=== PATIENT | male | born 1940 | race Caucasian/White ===

== ENCOUNTER 2020-05-27 07:31 | Inpatient (IN) ==
--- NOTE | 2020-05-27 08:01 | Emergency Department Note ---
History of Present Illness General Chief complaint: Abdominal Pain Stated complaint: STOMACH ACHE STARTED A 1AM - VOMITING AT 5AM Time Seen by Provider: 05/27/20 07:44 Source: patient and family (Spouse who is at the bedside) Mode of arrival: ambulatory Limitations: no limitations History of Present Illness Maximum Pain Intensity: 0 This patient comes in after having epigastric abdominal pain since around 3:00 in the morning. At present he says he is just hungry and minimizes symptoms. He tells me his bowels have been moving as normal he did have some mild nausea but no vomiting. No blood or melena in his stool. Denies chest pain or shortness of breath. He denies any fall or trauma. He said no headache or change in mental status. No dysuria or hematuria. He points to the epigastric area where he was hurting and says his abdomen is normally distended but may be slightly more. He is on Eliquis. They recently stopped his amiodarone as his thyroid function and kidney function were elevated according to his . He is a diabetic. Home Medications Home Medications Medication Instructions Recorded Confirmed Type folic acid 1 mg PO QAM 09/06/19 05/27/20 History glipizide 10 mg PO BIDM 09/06/19 05/27/20 History latanoprost [Xalatan] 1 drp OPL HS 09/06/19 05/27/20 History metformin [Glucophage] 1,000 mg PO BIDM 09/06/19 05/27/20 History metoprolol tartrate 25 mg PO Q12 09/06/19 05/27/20 History multivitamin 1 tab PO QAM 09/06/19 05/27/20 History timolol maleate [Timoptic] 1 drp OPL BID 09/06/19 05/27/20 History apixaban [Eliquis] 5 mg PO BID 10/04/19 05/27/20 History finasteride 5 mg PO QAM 10/04/19 05/27/20 History hydrochlorothiazide 12.5 mg PO MOWEFR@0800 05/27/20 05/27/20 History levothyroxine 75 mcg PO DAILY 05/27/20 05/27/20 History omeprazole 40 mg PO DAILY 05/27/20 05/27/20 History prednisone 20 mg PO .TAPER 05/27/20 05/27/20 History wheat dextrin [Benefiber Clear SF 1 packet PO QAM 05/27/20 05/27/20 History (dextrin)] Allergies Allergy/AdvReac Type Severity Reaction Status Date / Time amoxicillin Allergy Unknown hives Verified 05/27/20 08:41 cephalexin Allergy Unknown rash Verified 05/27/20 08:41 Sulfa (Sulfonamide Allergy Unknown hives Verified 05/27/20 08:41 Antibiotics) verapamil Allergy Unknown hives Verified 05/27/20 08:41 Past Med/Surg History Medical History (Updated 05/27/20 @ 10:21 by Selin Wyman PA-C) BPH (benign prostatic hyperplasia) CAD (coronary artery disease) CKD (chronic kidney disease), stage III Diabetes mellitus, type II GERD (gastroesophageal reflux disease) History of pulmonary embolism HTN (hypertension) Hypothyroidism PAF (paroxysmal atrial fibrillation) Pulmonary embolism Skull fracture Surgical History (Updated 05/27/20 @ 09:48 by Jake Bradley DO, FACS) History of partial surgical removal of colon Hx of cervical spine surgery Family History (Updated 05/27/20 @ 10:14 by Selin Wyman PA-C) Other Cancer Social History (Updated 05/27/20 @ 10:14 by Selin Wyman PA-C) Preferred Language: Kenyan Communication Ability: Effective Procurement Manager Required: No Beliefs That Will Affect Care: None marital status: Current Living Situation: Spouse current occupational status: retired Feels Safe at Home: Yes Smoking Status: Never smoker Hx Alcohol Use: No Hx Substance Use: No Immunizations: Additional past medical history: His tells me at the end of last year he suffered a fall and had a brain hemorrhage and cervical spine fracture. He has had no recent issues with either 1 of these and actually saw his neurologist on Thursday as he has had some chronic memory issues since the fall but nothing acute Review of Systems A total of 10 systems reviewed and were otherwise negative Physical Exam Vital Signs Vital Signs - 24 hr 05/27/20 07:37 05/27/20 08:08 05/27/20 09:00 Temperature 36.6 C Temperature Source Oral Pulse Rate 58 L Pulse Rate [Apical] 52 L Respiratory Rate 18 16 Respiratory Effort / Characteristics Non-Labored Respiratory Depth Normal Blood Pressure 180/88 H Blood Pressure [Left Arm] 173/89 H Blood Pressure Mean 118 Blood Pressure Mean [Left Arm] 117 Pulse Oximetry 95 Oxygen Delivery Method Room Air Room Air Sepsis Recent Fever Within 48 Hours No Sepsis New/Unexplained Change in Mental Status No Sepsis Action Taken by Nursing No Action Required General: Well developed well nourished older male who in no acute distress, breathing comfortably on room air. Normal speech HEENT: Normal cephalic atraumatic. Pupils are equal round and reactive to lig ht. Extraocular movements are intact. Oropharynx is pink with moist mucous membranes. No swelling of the mouth lips or tongue. Neck: Supple with a midline trachea. No meningeal signs or stiffness, no JVD or bruits. No Stridor. Chest: Clear to auscultation bilaterally. No wheezes or rhonchi. No increased work of breathing. Heart: Regular rate and rhythm without murmurs or gallops. Abdomen: Soft nontender. He does appear to be distended but says that similar to baseline. No rebound guarding or rigidity. Extremities: No cyanosis clubbing or edema. No calf tenderness or assymetry Spine/Back. Non tender to palpation. No CVA tenderness Skin: Good turgor without rashes. Neurologic exam: Cranial nerves two through 12 are intact. Motor and sensation are intact and symmetrical throughout. Course Administered Medications Discontinued Medications Sodium Chloride (Nss 1000ml) 500 mls @ 999 mls/hr IV .Q31M ONE Stop: 05/27/20 09:00 Last Infusion: 05/27/20 09:20 Dose: 0 mls/hr Documented by: [id number] Admin: 05/27/20 08:43 Dose: 999 mls/hr Documented by: [id number] Medical Decision Making Differential Diagnosis Includes but is not limited to: Bowel obstruction, constipation, pancreatitis, gallbladder disease, cardiac disease, infection, electrolyte or metabolic abnormalities Medical Records Attestation: I reviewed the patient's medical records. Home Medications Current Medication List: was personally reviewed by me Laboratory Data Attestation: I reviewed the patient's lab results. Result diagrams: 05/27/20 08:00 05/27/20 08:00 Lab Results 05/27/20 05/27/20 05/27/20 Range/Units 08:00 08:00 08:00 WBC 10.82 H (4.8-10.8) K/uL RBC 4.97 (4.7-6.1) M/uL Hgb 15.7 (14.0-18.0) g/dL Hct 44.8 (42-52) % MCV 90.1 (80-100) fL MCH 31.6 (25-34) pg MCHC 35.0 (32-36) g/dL RDW Std Deviation 43.4 (36.4-46.3) fL RDW Coeff of Janny 13.3 (11.5-14.5) % Plt Count 216 (130-400) K/uL MPV 9.8 (7.4-10.4) fL Immature Gran % (Auto) 0.3 % Neut % (Auto) 76.0 % Lymph % (Auto) 12.4 % [place] % (Auto) 11.2 % Eos % (Auto) 0.1 % Baso % (Auto) 0.0 % Neut # (Auto) 8.23 H (1.4-6.5) K/uL Lymph # (Auto) 1.34 (1.2-3.4) K/uL [place] # (Auto) 1.21 H (0.11-0.59) K/uL Eos # (Auto) 0.01 (0-0.5) K/uL Baso # (Auto) 0.00 (0-0.2) K/uL Immature Gran # (Auto) 0.03 H (0.00-0.02) K/uL PT 11.8 (9.0-12.0) Seconds INR 1.1 (0.9-1.1) APTT 26.5 (21.0-31.0) Seconds PTT Ratio 0.9 Sodium 130 L (136-145) mmol/L Potassium 4.3 (3.5-5.1) mmol/L Chloride 93 L (98-107) mmol/L Carbon Dioxide 30 (21-32) mmol/L Anion Gap 7.0 (3-11) BUN 29 H (7-18) mg/dl Creatinine 1.51 H (0.6-1.4) mg/dl Est Cr Clr Drug Dosing 42.4 ml/min Est GFR ( Amer) 49.8 Est GFR (Non-Af Amer) 43.0 BUN/Creatinine Ratio 19.3 (10-20) Glucose 244 H (70-99) mg/dl Calcium 10.3 H (8.5-10.1) mg/dl Total Bilirubin 1.1 H (0.2-1) mg/dl AST 10 L (15-37) U/L ALT 30 (12-78) U/L Alkaline Phosphatase 73 (45-117) U/L Troponin I < 0.015 (0-0.045) ng/ml Total Protein 7.7 (6.4-8.2) gm/dl Albumin 4.2 (3.4-5.0) gm/dl Globulin 3.5 (2.5-4.0) gm/dl Albumin/Globulin Ratio 1.2 (0.9-2) Lipase 57 L (73-393) U/L Procalcitonin (0-0.5) ng/ml 05/27/20 Range/Units 08:00 WBC (4.8-10.8) K/uL RBC (4.7-6.1) M/uL Hgb (14.0-18.0) g/dL Hct (42-52) % MCV (80-100) fL MCH (25-34) pg MCHC (32-36) g/dL RDW Std Deviation (36.4-46.3) fL RDW Coeff of Janny (11.5-14.5) % Plt Count (130-400) K/uL MPV (7.4-10.4) fL Immature Gran % (Auto) % Neut % (Auto) % Lymph % (Auto) % [place] % (Auto) % Eos % (Auto) % Baso % (Auto) % Neut # (Auto) (1.4-6.5) K/uL Lymph # (Auto) (1.2-3.4) K/uL [place] # (Auto) (0.11-0.59) K/uL Eos # (Auto) (0-0.5) K/uL Baso # (Auto) (0-0.2) K/uL Immature Gran # (Auto) (0.00-0.02) K/uL PT (9.0-12.0) Seconds INR (0.9-1.1) APTT (21.0-31.0) Seconds PTT Ratio Sodium (136-145) mmol/L Potassium (3.5-5.1) mmol/L Chloride (98-107) mmol/L Carbon Dioxide (21-32) mmol/L Anion Gap (3-11) BUN (7-18) mg/dl Creatinine (0.6-1.4) mg/dl Est Cr Clr Drug Dosing ml/min Est GFR ( Amer) Est GFR (Non-Af Amer) BUN/Creatinine Ratio (10-20) Glucose (70-99) mg/dl Calcium (8.5-10.1) mg/dl Total Bilirubin (0.2-1) mg/dl AST (15-37) U/L ALT (12-78) U/L Alkaline Phosphatase (45-117) U/L Troponin I (0-0.045) ng/ml Total Protein (6.4-8.2) gm/dl Albumin (3.4-5.0) gm/dl Globulin (2.5-4.0) gm/dl Albumin/Globulin Ratio (0.9-2) Lipase (73-393) U/L Procalcitonin < 0.05 (0-0.5) ng/ml Imaging Data Attestation: I personally reviewed and interpreted this imaging study as fo llows: My Impression: Chest x-ray: Cardiomegaly but no acute infiltrate, failure, pneumothorax seen Radiologist's Impression: XR chest 1V portable CLINICAL HISTORY: epigastric pain COMPARISON STUDY: 09/06/2019 FINDINGS: The heart is borderline enlarged. There is no failure. There is no focal pulmonary consolidation. There are no pleural effusions. Linear opacities at the left base are felt to be atelectatic. Postsurgical changes are present within the cervical spine.[ IMPRESSION: No active disease in the chest. CT SCAN OF THE ABDOMEN AND PELVIS WITHOUT CONTRAST CLINICAL HISTORY: epigastric abd pain, eval for obstruction COMPARISON STUDY: No previous studies for comparison. TECHNIQUE: CT scan of the abdomen and pelvis was performed from the lung bases to the proximal femurs. Images are reviewed in the axial, sagittal, and coronal planes. IV contrast was not administered for this examination. A dose lowering technique was utilized adhering to the principles of ALARA. CT DOSE: 475.29 mGy.cm FINDINGS: Lower chest: There are mild basilar atelectatic changes. The heart is enlarged. Liver: The unenhanced liver is normal in size, contour, and attenuation. There is no intrahepatic biliary ductal dilatation. Gallbladder: There is increased density of the gallbladder possibly representing sludge or milk of calcium. Spleen: Normal in size and attenuation. Pancreas: Unremarkable. Adrenal glands: Unremarkable. Kidneys: There are multiple large bilateral renal cysts. Cyst wall calc ifications are visualized in the left. The largest left renal cyst measures 8 cm. The largest right renal cyst measures 6 cm. There is a punctate upper pole right renal calculus. There are a few tiny cysts which exceed 1 attenuation and 1 nonspecific likely represent hyperdense cysts. Bowel: There are dilated fluid-filled small bowel loops with air-fluid levels. The distal small bowel is of normal caliber. The findings are indicative of a small bowel obstruction. There is no pneumatosis. There is no portal venous gas. There is minimal mesenteric edema. Peritoneum: There is trace free pelvic fluid. There is no free intraperitoneal air. There is a fat-containing umbilical hernia. Vasculature: The abdominal aorta is normal in course and caliber. Adenopathy: None. Pelvic viscera: The prostate is enlarged. Skeletal structures: There is L5 spondylolysis. There is a grade 1 spondylolisthesis of L5 and S1. There are multilevel degenerative changes within the cervical spine IMPRESSION: 1. Mid small bowel obstruction. No evidence of pneumatosis. No evidence of portal venous gas. ECG Data Attestation: I personally reviewed and interpreted this ECG as follows: Indication: + abdominal pain Rate (beats per minute): 53 Rhythm: + sinus bradycardia ECG Intervals/blocks: + Normal QRS, + Normal QT and + Normal NV ECG [place]: + Normal ECG ST segments: + Normal ST segments ECG Findings: + PVCs and + LVH Comparison ECG Date: from (09/06/2020-) Change: the following changes noted (normal sinus rhythm has now replaced A. fib) Blood Pressure Blood Pressure Findings: Elevated blood pressure Blood Pressure Disposition: elevated BP felt to be situational MDM Narrative This patient comes in as described above. He was having abdominal pain although at present really minimizes his symptoms and says he is just hungry. He does have very complex medical history and in light of this I did extensive work-up. His abdomen is not tender it does appear to be distended however he tells me t hat his baseline and may be just slightly increased. He has had no chest pain or shortness of breath. He said no recent illness or anything to suggest COVID peers had no exposure to COVID fever cough or flulike symptoms. IV access was established and he was placed on a snailer. EKG, chest x-ray, and multiple blood testing was obtained as well as urinalysis and culture. I also obtained a CAT scan of the abdomen and pelvis. He was reassessed frequently. EKG does not suggest acute coronary syndrome nor do his symptoms of troponin is also negative. Chest x-ray was clear and does not show congestive heart failure, pneumonia, or pneumothorax. He does have a mildly elevated white count but does not have a fever. He is not anemic. He does have some baseline renal insufficiency which is in the same range. His sodium is mildly low at 130 however last time it was 128 so that seems to be chronic as well. He has no evidence suggest pancreatitis or hepatitis or gallbladder disease either by labs or CAT scan. He was given IV normal saline bolus 500 [address]. CAT scan does show mild small bowel obstruction. He was reassessed. I do think he needs to be admitted for bowel rest and hydration. Dr Jensen is his primary doctor and I have consulted the [facility] to see him for these measures. I did talk to Dr. Rm and she requested that I talked with surgery as well I talked to Harpal Marte Continuous cardiac monitoring: An order was placed for continuous cardiac monitoring. The patient was noted to be in sinus bradycardia with a rate of 58. 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
[2020-05-27 08:13] LABS: Eosinophils # (auto) 0.01 K/uL (0-0.5); Eosinophils % (auto) 0.1 %; Hematocrit (blood only) 44.8 % (42-52); Hemoglobin 15.7 g/dL (14.0-18.0); Immature Granulocytes # (auto) 0.03 K/uL (0.00-0.02); Immature Granulocytes % (auto) 0.3 %; Lymphocytes # (auto) 1.34 K/uL (1.2-3.4); Lymphocytes % (auto) 12.4 %; Mean Corpuscular Hemoglobin 31.6 pg (25-34); Mean Corpuscular Volume 90.1 fL (80-100); Mean Platelet Volume 9.8 fL (7.4-10.4); Monocytes # (auto) 1.21 K/uL (0.11-0.59); Monocytes % (auto) 11.2 %; Neutrophils # (auto) 8.23 K/uL (1.4-6.5); Platelet Count 216 K/uL (130-400); RDW Coefficient of Variation 13.3 % (11.5-14.5); RDW Standard Deviation 43.4 fL (36.4-46.3); Red Blood Count 4.97 M/uL (4.7-6.1); White Blood Count 10.82 K/uL (4.8-10.8)
[2020-05-27 08:23] LABS: INR 1.1 (0.9-1.1); Partial Thromboplastin Ratio 0.9; Partial Thromboplastin Time 26.5 Seconds (21.0-31.0); Prothrombin Time 11.8 Seconds (9.0-12.0)
--- NOTE | 2020-05-27 08:28 | CT Scan Report ---
CT SCAN OF THE ABDOMEN AND PELVIS WITHOUT CONTRAST CLINICAL HISTORY: epigastric abd pain, eval for obstruction COMPARISON STUDY: No previous studies for comparison. TECHNIQUE: CT scan of the abdomen and pelvis was performed from the lung bases to the proximal femurs . Images are reviewed in the axial, sagittal, and coronal planes. IV contrast was not administered fo r this examination. A dose lowering technique was utilized adhering to the principles of ALARA. CT DOSE: 475.29 mGy.cm FINDINGS: Lower chest: There are mild basilar atelectatic changes. The heart is enlarged. Liver: The unenhanced liver is normal in size, contour, and attenuation. There is no intrahepatic odessa iary ductal dilatation. Gallbladder: There is increased density of the gallbladder possibly representing sludge or milk of ca lcium. Spleen: Normal in size and attenuation. Pancreas: Unremarkable. Adrenal glands: Unremarkable. Kidneys: There are multiple large bilateral renal cysts. Cyst wall calcifications are visualized in t he left. The largest left renal cyst measures 8 cm. The largest right renal cyst measures 6 cm. There is a punctate upper pole right renal calculus. There are a few tiny cysts which exceed 1 attenuation and 1 nonspecific likely represent hyperdense cysts. Bowel: There are dilated fluid-filled small bowel loops with air-fluid levels. The distal small bowel is of normal caliber. The findings are indicative of a small bowel obstruction. There is no pneumato sis. There is no portal venous gas. There is minimal mesenteric edema. Peritoneum: There is trace free pelvic fluid. There is no free intraperitoneal air. There is a fat-co ntaining umbilical hernia. Vasculature: The abdominal aorta is normal in course and caliber. Adenopathy: None. Pelvic viscera: The prostate is enlarged. Skeletal structures: There is L5 spondylolysis. There is a grade 1 spondylolisthesis of L5 and S1. Th ere are multilevel degenerative changes within the cervical spine IMPRESSION: 1. Mid small bowel obstruction. No evidence of pneumatosis. No evidence of portal venous gas. ACT 112: Negative or not required by law. Electronically signed by: Rudy Daniels M.D. 05/27/2020 8:27 AM
[2020-05-27] MEDS ORDERED: SODIUM CHLORIDE 0.9% 1000ML 500 ML IV ONE (08:30)
[2020-05-27 08:31] LABS: Alanine Aminotransferase 30 U/L (12-78); Albumin Level 4.2 gm/dl (3.4-5.0); Aspartate Aminotransferase 10 U/L (15-37); BUN Creatinine Ratio 19.3 (10-20); Blood Urea Nitrogen 29 mg/dl (7-18); Calcium 10.3 mg/dl (8.5-10.1); Carbon Dioxide 30 mmol/L (21-32); Chloride 93 mmol/L (98-107); Creatinine Clr Calc Pharmacy 42.4 ml/min; Est GFR (African American) 49.8; Glucose 244 mg/dl (70-99); Lipase 57 U/L (73-393); Potassium 4.3 mmol/L (3.5-5.1); Sodium 130 mmol/L (136-145)
[2020-05-27 08:36] LABS: Albumin Globulin Ratio 1.2 (0.9-2); Alkaline Phosphatase 73 U/L (45-117); Bilirubin,Total 1.1 mg/dl (0.2-1); Globulin 3.5 gm/dl (2.5-4.0); Total Protein 7.7 gm/dl (6.4-8.2); Troponin I < 0.015 ng/ml (0-0.045)
--- NOTE | 2020-05-27 08:42 | XRay Report ---
XR chest 1V portable CLINICAL HISTORY: epigastric pain COMPARISON STUDY: 09/06/2019 FINDINGS: The heart is borderline enlarged. There is no failure. There is no focal pulmonary consolid ation. There are no pleural effusions. Linear opacities at the left base are felt to be atelectatic. Postsurgical changes are present within the cervical spine.[ IMPRESSION: No active disease in the chest. ACT 112: Negative or not required by law. Electronically signed by: Rudy Daniels M.D. 05/27/2020 8:41 AM
--- NOTE | 2020-05-27 09:49 | Surgery Consultation ---
Date of Consultation May 27, 2020 Assessment & Plan (1) SBO (small bowel obstruction): 79-year-old male with CT findings of small bowel obstruction. 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 He already states that he feels hungry. 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 He felt like it was a stomachache and had some nausea with a small amount of emesis. He did have small loose bowel movements this morning and last night. His reports that he had a similar episode back in November but it was constipation. Patient has had what appears to be a low anterior resection for rectal tumor but did not require chemotherapy. This was performed by Dr. Amin around 1999. He now states that he is having no pain, and just feels very hungry. His states he is belching a lot. He is on Eliquis for history of PEs. Patient states he is on steroids for pruritus. Allergies Allergy/AdvReac Type Severity Reaction Status Date / Time amoxicillin Allergy Unknown hives Verified 05/27/20 08:41 cephalexin Allergy Unknown rash Verified 05/27/20 08:41 Sulfa (Sulfonamide Allergy Unknown hives Verified 05/27/20 08:41 Antibiotics) verapamil Allergy Unknown hives Verified 05/27/20 08:41 Home Medications Home Medications Medication Instructions Recorded Confirmed Type folic acid 1 mg PO QAM 09/06/19 05/27/20 History glipizide 10 mg PO BIDM 09/06/19 05/27/20 History latanoprost [Xalatan] 1 drp OPL HS 09/06/19 05/27/20 History metformin [Glucophage] 1,000 mg PO BIDM 09/06/19 05/27/20 History metoprolol tartrate 25 mg PO Q12 09/06/19 05/27/20 History multivitamin 1 tab PO QAM 09/06/19 05/27/20 History pantoprazole 40 mg PO DAILYBB 09/06/19 05/27/20 History timolol maleate [Timoptic] 1 drp OPL BID 09/06/19 05/27/20 History apixaban [Eliquis] 5 mg PO BID 10/04/19 05/27/20 History finasteride 5 mg PO QAM 10/04/19 05/27/20 History hydrochlorothiazide 12.5 mg PO MOWEFR@0800 05/27/20 05/27/20 History levothyroxine 25 mcg PO QAM 05/27/20 05/27/20 History prednisone 20 mg PO .TAPER 05/27/20 05/27/20 History wheat dextrin [Benefiber Clear SF 1 packet PO QAM 05/27/20 05/27/20 History (dextrin)] Patient History Medical History CAD (coronary artery disease) Diabetes No significant past medical history Pulmonary embolism Skull fracture Surgical History Hx of cervical spine surgery Family History Other Family history non-contributory Social History Preferred Language: Danish marital status: Current Living Situation: Spouse current occupational status: retired Feels Safe at Home: Yes Smoking Status: Former smoker Review of Systems Review of Systems: All systems reviewed & are unremarkable except as noted in HPI & below Physical Exam Constitutional: WD/WN, vitals as above + overweight Eyes: PERRL, conjunctivae normal, anicteric sclerae ENMT: external ear and nose normal, oropharynx normal Neck: trachea midline, no thyromegaly Respiratory: normal respiratory effort, lungs clear to auscultation Cardiovascular: RRR, no murmur, no edema Gastrointestinal (Abdomen): normal bowel sounds, soft, nontender, no hepatosplenomegaly Inspection/Auscultation: + abdomen distended (Moderate distention) and + abdominal surgical scar (Left lower abdominal paramedian incision well-healed.) Percussion/Palpation: + hernia (Small reducible umbilical hernia) Musculoskeletal: no cyanosis or clubbing, extremities motor strength 5/5 Skin: no rashes, warm and dry Neurologic: PERRL, EOMI, accommodation nl, no face palsy, no dysarthria Psychiatric: A+Ox3, euthymic affect Lymphatic: no cervical or axillary lymphadenopathy Results & Data Vital Signs (Past 12 Hours) Vital Signs Temp Pulse Pulse Resp BP BP Pulse Ox 05/27/20 09:00 52 L 16 173/89 H 05/27/20 07:37 36.6 C 58 L 18 180/88 H 95 Laboratory Results Laboratory Results - last 24 hr 05/27/20 05/27/20 05/27/20 08:00 08:00 08:00 WBC 10.82 H RBC 4.97 Hgb 15.7 Hct 44.8 MCV 90.1 MCH 31.6 MCHC 35.0 RDW Std Deviation 43.4 RDW Coeff of Janny 13.3 Plt Count 216 MPV 9.8 Immature Gran % (Auto) 0.3 Neut % (Auto) 76.0 Lymph % (Auto) 12.4 [place] % (Auto) 11.2 Eos % (Auto) 0.1 Baso % (Auto) 0.0 Neut # (Auto) 8.23 H Lymph # (Auto) 1.34 [place] # (Auto) 1.21 H Eos # (Auto) 0.01 Baso # (Auto) 0.00 Immature Gran # (Auto) 0.03 H PT 11.8 INR 1.1 APTT 26.5 PTT Ratio 0.9 Sodium 130 L Potassium 4.3 Chloride 93 L Carbon Dioxide 30 Anion Gap 7.0 BUN 29 H Creatinine 1.51 H Est Cr Clr Drug Dosing 42.4 Est GFR ( Amer) 49.8 Est GFR (Non-Af Amer) 43.0 BUN/Creatinine Ratio 19.3 Glucose 244 H Calcium 10.3 H Total Bilirubin 1.1 H AST 10 L ALT 30 Alkaline Phosphatase 73 Troponin I < 0.015 Total Protein 7.7 Albumin 4.2 Globulin 3.5 Albumin/Globulin Ratio 1.2 Lipase [address] SCAN OF THE ABDOMEN AND PELVIS WITHOUT CONTRAST CLINICAL HISTORY: epigastric abd pain, eval for obstruction COMPARISON STUDY: No previous studies for comparison. TECHNIQUE: CT scan of the abdomen and pelvis was performed from the lung bases to the proximal femurs. Images are reviewed in the axial, sagittal, and coronal planes. IV contrast was not administered for this examination. A dose lowering technique was utilized adhering to the principles of ALARA. CT DOSE: 475.29 mGy.cm FINDINGS: Lower chest: There are mild basilar atelectatic changes. The heart is enlarged. Liver: The unenhanced liver is normal in size, contour, and attenuation. There is no intrahepatic biliary ductal dilatation. Gallbladder: There is increased density of the gallbladder possibly representing sludge or milk of calcium. Spleen: Normal in size and attenuation. Pancreas: Unremarkable. Adrenal glands: Unremarkable. Kidneys: There are multiple large bilateral renal cysts. Cyst wall calcific ations are visualized in the left. The largest left renal cyst measures 8 cm. The largest right renal cyst measures 6 cm. There is a punctate upper pole right renal calculus. There are a few tiny cysts which exceed 1 attenuation and 1 nonspecific likely represent hyperdense cysts. Bowel: There are dilated fluid-filled small bowel loops with air-fluid levels. The distal small bowel is of normal caliber. The findings are indicative of a small bowel obstruction. There is no pneumatosis. There is no portal venous gas. There is minimal mesenteric edema. Peritoneum: There is trace free pelvic fluid. There is no free intraperitoneal air. There is a fat-containing umbilical hernia. Vasculature: The abdominal aorta is normal in course and caliber. Adenopathy: None. Pelvic viscera: The prostate is enlarged. Skeletal structures: There is L5 spondylolysis. There is a grade 1 spondylolisthesis of L5 and S1. There are multilevel degenerative changes within the cervical spine IMPRESSION: 1. Mid small bowel obstruction. No evidence of pneumatosis. No evidence of portal venous gas. PG Care Time/CCT Total # of Minutes Spent Total Time Spent with Patient: Total time spent is greater than 50% in coordination of care (as documented) at patient's floor/unit and/or counseling patient: Coding Level of Care Code 35578 Office/Outpt Visit, New Diagnoses SBO (small bowel obstruction) K56.609 History of partial surgical removal of colon Z90.49 jail (current) use of anticoagulants Z79.01 Pulmonary embolism I26.99 CAD (coronary artery disease) I25.10 Diabetes E11.9
--- NOTE | 2020-05-27 10:14 | History & Physical Report ---
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 Denies fever/chills, h/o SBO. In ER pt afebrile, BP: 180/88, R: 18, P: 52, 95% on RA. WBC: 10.8, Corrected sodium 132 for glucose of 244, BUN: 29, Cr: 1.5 CT ABD/PELVIS: Mid small bowel obstruction. No evidence of pneumatosis. No evidence of portal venous gas. -In ER given 500ml NSS bolus, Zofran -Currently pt reporting no abdominal pain and reports feels hungry -NPO -IVF -KUB in am -General surgery consult, Dr Bradley evaluated pt and no surgical intervention indicated at this time. recommended holding in case surgical intervention, rec ommends placing NG tube if would develop vomiting -CBC, BMP in AM (3) Diabetes mellitus, type II: A1c: 7.1 on 04/23/2020 -Hold metformin and glipizide -Novolog sliding scale per protocol (4) History of pulmonary embolism: 08/2019. On Eliquis -Hold Eliquis now in case of surgical procedure (5) PAF (paroxysmal atrial fibrillation): 08/2019. On Eliquis Amiodarone recently discontinued secondary to worsening renal function, thyroid function and rash -Continue metoprolol -Hold Eliquis currently (6) HTN (hypertension): -Hold HCTZ and monitor (7) CKD (chronic kidney disease), stage III: Cr: 1.5. Creatine over past several months 1.4 -Monitor renal functions -Avoid nephrotoxic agents when possible (8) Hypothyroidism: -Continue levothyroxine DVT Prophylaxis -SCDs Full Code as per discussion with pt and pt's , however reports if poor prognosis would not want on prolonged life support Follows with Dr Rodriges for routine care Pt was seen and care coordinated with Dr Rm. 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 History obtained from pt with help of pt's secondary to chronic cognitive impairment. Reports pain was to mid abdomen. Reports very small emesis this am around 5AM. No prior treatment. Reports had small loose BM last night and this morning. Denies h/o SBO. H/O rectal surgery. Since being in ER pt denies any current abdominal pain or nausea. He reports he feels hungry. Has chronic RLE edema, no worsening. Seen recently by dermatology for rash thought to be dermatitis vs drug reaction. Is currently on prednisone for pruritus. Pt was recently taken off amiodarone secondary to elevated renal functions, elevated TSH and rash. Denies fever/chills, diaphoresis, hematemesis, melena, hematochezia, [place], dizziness, syncope, vision changes, neck pain, CP, SOB, orthopnea, palpitations, cough, sore throat, choking, otalgia, rhinorrhea, abdominal pain, paresthesias, weakness, extremity weakness, urinary symptoms. Allergies Allergy/AdvReac Type Severity Reaction Status Date / Time amoxicillin Allergy Unknown hives Verified 05/27/20 08:41 cephalexin Allergy Unknown rash Verified 05/27/20 08:41 Sulfa (Sulfonamide Allergy Unknown hives Verified 05/27/20 08:41 Antibiotics) verapamil Allergy Unknown hives Verified 05/27/20 08:41 Home Medications Home Medications Medication Instructions Recorded Confirmed Type folic acid 1 mg PO QAM 09/06/19 05/27/20 History glipizide 10 mg PO BIDM 09/06/19 05/27/20 History latanoprost [Xalatan] 1 drp OPL HS 09/06/19 05/27/20 History metformin [Glucophage] 1,000 mg PO BIDM 09/06/19 05/27/20 History metoprolol tartrate 25 mg PO Q12 09/06/19 05/27/20 History multivitamin 1 tab PO QAM 09/06/19 05/27/20 History timolol maleate [Timoptic] 1 drp OPL BID 09/06/19 05/27/20 History apixaban [Eliquis] 5 mg PO BID 10/04/19 05/27/20 History finasteride 5 mg PO QAM 10/04/19 05/27/20 History hydrochlorothiazide 12.5 mg PO MOWEFR@0800 05/27/20 05/27/20 History levothyroxine 75 mcg PO DAILY 05/27/20 05/27/20 History omeprazole 40 mg PO DAILY 05/27/20 05/27/20 History prednisone 20 mg PO .TAPER 05/27/20 05/27/20 History wheat dextrin [Benefiber Clear SF 1 packet PO QAM 05/27/20 05/27/20 History (dextrin)] Past Med/Surg History Medical History (Updated 05/27/20 @ 10:21 by Selin Wyman PA-C) BPH (benign prostatic hyperplasia) CAD (coronary artery disease) CKD (chronic kidney disease), stage III Diabetes mellitus, type II GERD (gastroesophageal reflux disease) History of pulmonary embolism HTN (hypertension) Hypothyroidism PAF (paroxysmal atrial fibrillation) Pulmonary embolism Skull fracture Surgical History (Updated 05/27/20 @ 09:48 by Jake Bradley DO, FACS) History of partial surgical removal of colon Hx of cervical spine surgery Family History (Updated 05/27/20 @ 10:14 by Selin Wyman PA-C) Other Cancer Social History (Updated 05/27/20 @ 10:14 by Selin Wyman PA-C) Preferred Language: Faroese Communication Ability: Effective Onshore Diver Required: No Beliefs That Will Affect Care: None marital status: Current Living Situation: Spouse current occupational status: retired Feels Safe at Home: Yes Smoking Status: Never smoker Hx Alcohol Use: No Hx Substance Use: No Review of Systems Review of Systems: All systems reviewed & are unremarkable except as noted in HPI & below Physical Exam Physical Exam: General: no distress, overweight Head: normocephalic, atraumatic Eyes: PERRL, EOM's intact, conjunctiva non-injected, anicteric ENT: normal inspection external ears, nose, mucous membranes moist Neck: supple, trachea midline Lungs: clear, no respiratory distress, no wheezing/rhonchi/rales CV: RRR, no murmur, RLE with 1+ pretibial edema Abd: normal BS, distended/protuberant ( reports this is baseline), soft, non-tender Ext: no cyanosis, no calf tenderness Neuro: Alert, oriented to person and place, cooperative at this time, irritated that he can't eat, no focal deficits noted Skin: warm, dry, several erythematous patches to abdomen noted Results & Data Results & Data ([facility]) Vital Signs (Past 12 Hours) Vital Signs Temp Pulse Pulse Resp BP BP Pulse Ox 05/27/20 09:00 52 L 16 173/89 H 05/27/20 07:37 36.6 C 58 L 18 180/88 H 95 Laboratory Results Short CBC 05/27/20 Range/Units 08:00 WBC 10.82 H (4.8-10.8) K/uL Hgb 15.7 (14.0-18.0) g/dL Hct 44.8 (42-52) % Plt Count 216 (130-400) K/uL BMP 05/27/20 08:00 Sodium 130 L Potassium 4.3 Chloride 93 L Carbon Dioxide 30 BUN 29 H Creatinine 1.51 H Glucose 244 H Calcium 10.3 H Cardiac Enzymes 05/27/20 Range/Units 08:00 Troponin I < 0.015 (0-0.045) ng/ml Liver Function 05/27/20 Range/Units 08:00 Total Bilirubin 1.1 H (0.2-1) mg/dl AST 10 L (15-37) U/L ALT 30 (12-78) U/L Alkaline Phosphatase 73 (45-117) U/L Albumin 4.2 (3.4-5.0) gm/dl Diagnostic Findings CT ABD/PELVIS: IMPRESSION: 1. Mid small bowel obstruction. No evidence of pneumatosis. No evidence of portal venous gas. US GALLBLADDER: IMPRESSION: 1. Minimal gallbladder sludge. No shadowing calculi identified. 2. No ductal dilatation. The common bile duct measured 6 mm. 3. Trace ascites CXR: IMPRESSION: No active disease in the chest. Supervising Physician Co-Signing Physician Notes Attending note: 79-year-old male admitted with abdominal pain, CT abdomen pelvis shows small bowel obstruction Patient is not actively vomiting no nausea, NG tube was not inserted Keep n.p.o., IV fluids Surgery eval appreciated, recommends conservative management now, Repeat KUB in a.m. Please refer to further documentation by Deirdre Wyman PA-C for discussion of other chronic issue Elina Rm MD (1) Abdominal pain Abdominal location: epigastric Qualified Code(s): R10.13 - Epigastric pain
--- NOTE | 2020-05-27 10:25 | Ultrasound Report ---
US gallbladder CLINICAL HISTORY: gall bladder sludge COMPARISON STUDY: CT scan dated 05/27/2020 FINDINGS: The head and proximal body the pancreas appear normal. The distal body and tail were secure d by overlying bowel gas. No focal hepatic masses are visualized. There is no ductal dilatation. The common bile duct measured 6 mm. There is trace ascites. There are multiple right renal cysts. There is no right-sided hydronephrosis. Minimal sludge is visualized within the gallbladder. No shadowing calculi were delineated. IMPRESSION: 1. Minimal gallbladder sludge. No shadowing calculi identified. 2. No ductal dilatation. The common bile duct measured 6 mm. 3. Trace ascites ACT 112: Negative or not required by law. Electronically signed by: Rudy Daniels M.D. 05/27/2020 10:24 AM
[2020-05-27] MEDS ORDERED: GLUCOSE 10 TABS/TUBE PO PRN (12:03)
[2020-05-27] MEDS ORDERED: CARBOHYDRATES FOR HYPOGLYCEMIA PO PRN (12:03)
[2020-05-27] MEDS ORDERED: GLUCAGON FOR INJ 1 MG VIAL SQ PRN (12:03)
[2020-05-27] MEDS ORDERED: DEXTROSE 50% 50 ML SYRINGE IV PRN (12:03)
[2020-05-27] MEDS ORDERED: GLUCOSE 40% GEL 15 GM TUBE PO PRN (12:03)
[2020-05-27] MEDS ORDERED: HydrALAZINE HCL 20 MG/ML VIAL IV PRN (12:09)
[2020-05-27] MEDS ORDERED: INSULIN ASPART 100 UNITS/ML 3 ML PEN SC SCH (12:30)
[2020-05-27] MEDS: SODIUM CHLORIDE 0.9% 1000ML 1,000 ML IV SCH ×2 (12:50→20:41)
--- NOTE | 2020-05-27 13:08 | Electrocardiogram Report ---
Test Reason : Blood Pressure : / mmHG Vent. Rate : 053 BPM Atrial Rate : 053 BPM P-R Int : 204 ms QRS Dur : 078 ms QT Int : 464 ms P-R-T Axes : 040 -11 015 degrees QTc Int : 435 ms Poor data quality, interpretation may be adversely affected Sinus bradycardia with occasional Premature ventricular complexes Minimal voltage criteria for LVH, may be normal variant Borderline ECG When compared with ECG of 06-SEP-2019 15:38, Sinus rhythm has replaced Atrial fibrillation Vent. rate has decreased BY 58 BPM T wave inversion no longer evident in Anterior leads Confirmed by Neil Ramirez ([id number]) on 05/27/2020 1:08:22 PM Referred By: REFERRED SELF Confirmed By:Neil Ramirez
[2020-05-27] MEDS ORDERED: Nursing to Pharmacy Communication SCH (15:30)
[2020-05-27] MEDS: ONDANSETRON INJ 2 MG/ML 2 ML VIAL IV PRN ×2 (15:37→21:38)
[2020-05-27] MEDS: INSULIN ASPART 100 UNITS/ML 3 ML PEN SC SCH (18:21)
[2020-05-27] MEDS: METOPROLOL TARTRATE 25 MG TAB PO SCH (21:00)
[2020-05-27] MEDS ORDERED: ONDANSETRON INJ 2 MG/ML 2 ML VIAL IV PRN (21:02)
[2020-05-27] MEDS: LATANOPROST 0.005% OP SOLN 2.5 ML BTL OPL SCH (21:46)
[2020-05-27] MEDS: TIMOLOL MALEATE 0.25% OP SOLN 5 ML BTL OPL SCH (21:47)
[2020-05-27] MEDS ORDERED: PROMETHAZINE HCL 12.5 MG in SODIUM CHLORIDE 0.9% 50 ML IV ONE (23:30)
[2020-05-28] MEDS: INSULIN ASPART 100 UNITS/ML 3 ML PEN SC SCH ×4 (00:29→18:10)
[2020-05-28] MEDS: ONDANSETRON INJ 2 MG/ML 2 ML VIAL IV PRN (05:18)
[2020-05-28] MEDS: LEVOTHYROXINE SODIUM 75 MCG TABLET PO SCH (05:28)
[2020-05-28 06:07] LABS: Hematocrit (blood only) 45.3 % (42-52); Hemoglobin 16.1 g/dL (14.0-18.0); Mean Corpuscular Hgb Conc 35.5 g/dL (32-36); Mean Corpuscular Volume 87.3 fL (80-100); Mean Platelet Volume 10.2 fL (7.4-10.4); Platelet Count 202 K/uL (130-400); RDW Coefficient of Variation 13.1 % (11.5-14.5); RDW Standard Deviation 41.7 fL (36.4-46.3); Red Blood Count 5.19 M/uL (4.7-6.1); White Blood Count 11.32 K/uL (4.8-10.8)
[2020-05-28] MEDS: SODIUM CHLORIDE 0.9% 1000ML 1,000 ML IV SCH ×3 (06:32→20:15)
[2020-05-28 06:41] LABS: Calcium 9.2 mg/dl (8.5-10.1); Creatinine Clr Calc Pharmacy 52.6 ml/min; Est GFR (African American) 71.5; Est GFR (Non-African American) 61.7; Potassium 3.9 mmol/L (3.5-5.1)
[2020-05-28] MEDS: METOPROLOL TARTRATE 25 MG TAB PO SCH ×2 (09:00→20:26)
[2020-05-28] MEDS: FINASTERIDE 5 MG TAB PO SCH (09:01)
[2020-05-28] MEDS: LEVOTHYROXINE SODIUM 37.5 MCG in SYRINGE 0 ML IV SCH (09:06)
--- NOTE | 2020-05-28 09:35 | XRay Report ---
XR KUB/Abdomen 1 view CLINICAL HISTORY: SBO COMPARISON STUDY: CT scan dated 05/27/2020 FINDINGS: There is a nasogastric tube with its tip projected over the gastric cardia. There are dilat ed left mid abdominal small bowel loops consistent with the patient's previously reported small bowel obstruction. Small bowel loops measure up to 52 mm in diameter. There is stool present within nondil ated colon. IMPRESSION: Dilated left mid abdominal small bowel loops consistent with a small bowel obstruction. ACT 112: Negative or not required by law. Electronically signed by: Rudy Daniels M.D. 05/28/2020 9:33 AM
[2020-05-28] MEDS: TIMOLOL MALEATE 0.25% OP SOLN 5 ML BTL OPL SCH ×2 (09:46→20:26)
--- NOTE | 2020-05-28 11:27 | Surgery Progress Note ---
Date of Service May 28, 2020 Assessment & Plan (1) SBO (small bowel obstruction): continue NG today will continue to follow (2) History of partial surgical removal of colon: (3) group home (current) use of anticoagulants: (4) Pulmonary embolism: (5) CAD (coronary artery disease): (6) Diabetes: Supervising Physician Co-Signing Physician Notes Patient seen and examined, agree with above. Admitted yesterday with small bowel obstruction secondary to adhesions, NG tube placed overnight due to vomiting. No abdominal pain, abdomen mildly distended but soft and non-tender. Continue nonoperative management for now, possible contrast study if he does not open up. Subjective NG placed last night, scant flatus, no abd pain Physical Exam Gastrointestinal (Abdomen): Inspection/Auscultation: + abdomen distended (slightly) Percussion/Palpation: abdomen soft; abdomen nontender NG 700 cc Results & Data Vital Signs (Past 12 Hours) Vital Signs Temp Pulse Resp BP Pulse Ox 05/28/20 08:59 77 119/60 92 05/28/20 08:07 36.8 C 68 16 123/74 93 05/28/20 02:40 94 05/27/20 23:36 36.8 C 62 18 149/78 H 93 PG Care Time/CCT Total # of Minutes Spent Total Time Spent with Patient: Total time spent is greater than 50% in coordination of care (as documented) at patient's floor/unit and/or counseling patient: Coding Level of Care Code 88978 Inpt Consult Level 1 Diagnoses SBO (small bowel obstruction) K56.609 History of partial surgical removal of colon Z90.49 technician automatic (current) use of anticoagulants Z79.01 Pulmonary embolism I26.99 CAD (coronary artery disease) I25.10 Diabetes E11.9
[2020-05-28] MEDS ORDERED: SODIUM CHLORIDE 0.9% 1000ML 250 ML IV ONE (15:25)
--- NOTE | 2020-05-28 15:39 | Hospitalist Progress Note ---
Date of Service May 28, 2020 Assessment & Plan (1) SBO (small bowel obstruction): Patient presents with abdominal pain, CT abdomen pelvis shows CT ABD/PELVIS: Mid small bowel obstruction. No evidence of pneumatosis. No evidence of portal venous gas. -NG tube inserted last night for nausea vomiting Almost 800 cc of gastric fluid drained, X-ray of KUB shows persistent dilated small bowel -General surgery consult, Appreciate input, recommends continue NG suction bowel rest, IV fluids (2) Abdominal pain: Due to above No abdominal pain or tenderness right now, no nausea vomiting, unable to pass any gas Hyponatremia: Due to dehydration, small bowel obstruction Continue IV fluids with normal saline Hold HCTZ low urine output: Due to dehydration, small bowel obstruction, ongoing NG suction Bladder scan shows minimal residual urine Continue IV fluids with normal saline, given normal saline bolus Ordered for Bautista catheter to assess accurate input and output Monitor renal function with daily BMP (3) Diabetes mellitus, type II: A1c: 7.1 on 04/23/2020 -Hold metformin and glipizide-N.p.o./small bowel obstruction -Novolog sliding scale per protocol (4) History of pulmonary embolism: Diagnosed on08/2019. Eliquis on hold, for small bowel obstruction (5) PAF (paroxysmal atrial fibrillation): Amiodarone recently discontinued secondary to worsening renal function, thyroid function and rash - metoprolol On hold secondary to n.p.o. status NG suction -Hold Eliquis currently (6) HTN (hypertension): -Hold HCTZ And [id number] bowel obstruction/n.p.o. (7) CKD (chronic kidney disease), stage III: Cr: 1.5. Creatine over past several months 1.4 -Monitor renal functions -Avoid nephrotoxic agents when possible (8) Hypothyroidism: - levothyroxine-on hold DVT Prophylaxis -SCDs Full Code Follows with Dr Rodriges for routine care Admission and Anticipated Discharge Date Admission Date: May 27, 2020 Subjective Patient developed nausea/vomiting last night, NG tube was inserted With slow intermittent suction Seen at bedside, series he feels better, abdominal pain has improved, not able to pass any gas Urine output noted to be low, ordered for IV fluid bolus Continue IV fluids X-ray of KUB shows persistent small bowel obstruction No fever or chills, no cough or shortness of breath Review of Systems Review of Systems: All systems reviewed & are unremarkable except as noted in HPI & below Gastrointestinal: no abdominal pain, no nausea and no vomiting Physical Exam Constitutional: WD/WN, vitals as above + ill appearing; no acute distress Eyes: PERRL, conjunctivae normal, anicteric sclerae ENMT: Dry oral mucosa Respiratory: normal respiratory effort, lungs clear to auscultation Cardiovascular: RRR, no murmur, no edema Gastrointestinal (Abdomen): Percussion/Palpation: abdomen soft; abdomen nontender Bowel sounds diminished Skin: no rashes, warm and dry Neurologic: PERRL, EOMI, accommodation nl, no face palsy, no dysarthria Psychiatric: A+Ox3, euthymic affect Results & Data Results & Data ([facility]) Vital Signs (Past 12 Hours) Vital Signs Temp Pulse Resp BP Pulse Ox 05/28/20 08:59 77 119/60 92 05/28/20 08:07 36.8 C 68 16 123/[address] ABD/PELVIS: IMPRESSION: 1. Mid small bowel obstruction. No evidence of pneumatosis. No evidence of portal venous gas. US GALLBLADDER: IMPRESSION: 1. Minimal gallbladder sludge. No shadowing calculi identified. 2. No ductal dilatation. The common bile duct measured 6 mm. 3. Trace ascites CXR: IMPRESSION: No active disease in the chest. (1) Abdominal pain Abdominal location: epigastric Qualified Code(s): R10.13 - Epigastric pain
[2020-05-28] MEDS: LATANOPROST 0.005% OP SOLN 2.5 ML BTL OPL SCH (20:26)
[2020-05-29] MEDS: INSULIN ASPART 100 UNITS/ML 3 ML PEN SC SCH ×5 (00:31→21:21)
[2020-05-29] MEDS: SODIUM CHLORIDE 0.9% 1000ML 1,000 ML IV SCH ×2 (04:24→12:40)
[2020-05-29 07:46] LABS: Hematocrit (blood only) 41.3 % (42-52); Mean Corpuscular Hemoglobin 30.2 pg (25-34); Mean Corpuscular Hgb Conc 33.9 g/dL (32-36); Mean Corpuscular Volume 89.2 fL (80-100); Mean Platelet Volume 9.8 fL (7.4-10.4); Platelet Count 160 K/uL (130-400); RDW Coefficient of Variation 13.4 % (11.5-14.5); RDW Standard Deviation 43.4 fL (36.4-46.3); Red Blood Count 4.63 M/uL (4.7-6.1); White Blood Count 5.64 K/uL (4.8-10.8)
[2020-05-29 08:13] LABS: BUN Creatinine Ratio 21.7 (10-20); Calcium 8.3 mg/dl (8.5-10.1); Creatinine Clr Calc Pharmacy 46.8 ml/min; Est GFR (Non-African American) 53.5; Potassium 3.6 mmol/L (3.5-5.1)
[2020-05-29] MEDS: METOPROLOL TARTRATE 25 MG TAB PO SCH ×2 (08:51→21:15)
[2020-05-29] MEDS: FINASTERIDE 5 MG TAB PO SCH (08:52)
[2020-05-29] MEDS: TIMOLOL MALEATE 0.25% OP SOLN 5 ML BTL OPL SCH ×2 (08:52→21:18)
[2020-05-29] MEDS: LEVOTHYROXINE SODIUM 37.5 MCG in SYRINGE 0 ML IV SCH (08:54)
--- NOTE | 2020-05-29 10:54 | Surgery Progress Note ---
Date of Service May 29, 2020 Assessment & Plan (1) SBO (small bowel obstruction): some improvement NG output still 400 per shift with ice, will try clamping Supervising Physician Co-Signing Physician Notes Patient seen and examined, agree with above. 79-year-old male admitted with possible small bowel obstruction. He had 2 bowel movements and is passing flatus. NG tube output is decreased. On exam he is less distended and nontender. We will clamp his NG tube with possible removal today versus tomorrow. Surgery will follow. Subjective BM x 2, some flatus, no pain Physical Exam Gastrointestinal (Abdomen): Inspection/Auscultation: abdomen not distended Percussion/Palpation: abdomen soft; abdomen nontender Results & Data Vital Signs (Past 12 Hours) Vital Signs Temp Pulse Resp BP Pulse Ox 05/29/20 08:49 58 L 115/70 93 05/29/20 07:22 36.4 C L 65 16 117/73 90 PG Care Time/CCT Total # of Minutes Spent Total Time Spent with Patient: Total time spent is greater than 50% in coordination of care (as documented) at patient's floor/unit and/or counseling patient: Coding Level of Care Code 90710 Inpt Consult Level 1 Diagnoses SBO (small bowel obstruction) K56.609
[2020-05-29] MEDS ORDERED: Nursing to Pharmacy Communication SCH (16:45)
--- NOTE | 2020-05-29 18:31 | Hospitalist Progress Note ---
Date of Service May 29, 2020 Assessment & Plan (1) SBO (small bowel obstruction): Patient presents with abdominal pain, CT abdomen pelvis shows CT ABD/PELVIS: Mid small bowel obstruction. No evidence of pneumatosis. No evidence of portal venous gas. -NG tube was inserted for nausea vomiting had minimum drainage today able to pass gas , had small BM NG tube removed started on clears by Surgery tolerating well (2) Abdominal pain: Due to above No abdominal pain or tenderness right now, no nausea vomiting, able to pass gas/had bowel movement Hyponatremia: corrected Due to dehydration, small bowel obstruction Continue IV fluids with normal saline Hold HCTZ (3) Diabetes mellitus, type II: A1c: 7.1 on 04/23/2020 -Hold metformin and glipizide-N.p.o./small bowel obstruction -Novolog sliding scale per protocol (4) History of pulmonary embolism: Diagnosed on08/2019. Eliquis on hold, for small bowel obstruction (5) PAF (paroxysmal atrial fibrillation): Amiodarone recently discontinued secondary to worsening renal function, thyroid function and rash - cont metoprolol -Hold Eliquis currently will be resumed on discharge (6) HTN (hypertension): -Hold HCTZ resumed betablocker (7) CKD (chronic kidney disease), stage III: Cr: 1.5. Creatinine over past several months 1.4 -Monitor renal functions -Avoid nephrotoxic agents when possible (8) Hypothyroidism: - levothyroxine- DVT Prophylaxis -SCDs Full Code Expeced to be dischargerd home in next 1-2 days if remains medically stable Follows with Dr Rodriges for routine care Admission and Anticipated Discharge Date Admission Date: May 27, 2020 Subjective nG tube removed on clears tolerating well had small bowel movement today no complain of addominal pain , no nausea or vomiting Physical Exam 2 Constitutional: WD/WN, vitals as above + ill appearing; no acute distress Eyes: PERRL, conjunctivae normal, anicteric sclerae Respiratory: normal respiratory effort, lungs clear to auscultation Cardiovascular: RRR, no murmur, no edema Gastrointestinal (Abdomen): Percussion/Palpation: abdomen soft; abdomen nontender Skin: no rashes, warm and dry Neurologic: PERRL, EOMI, accommodation nl, no face palsy, no dysarthria Psychiatric: A+Ox3, euthymic affect Results & Data Results & Data ([facility]) Vital Signs (Past 12 Hours) Vital Signs Temp Pulse Resp BP Pulse Ox 05/29/20 15:48 36.6 C 68 18 176/74 H 91 05/29/20 08:49 58 L 115/70 93 05/29/20 07:22 36.4 C L 65 16 117/73 90 (1) Abdominal pain Abdominal location: epigastric Qualified Code(s): R10.13 - Epigastric pain
[2020-05-29] MEDS ORDERED: ACETAMINOPHEN 325 MG TAB PO PRN (19:46)
[2020-05-29] MEDS ORDERED: LACTATED RINGER'S 1,000 ML IV SCH (20:00)
[2020-05-29] MEDS: LATANOPROST 0.005% OP SOLN 2.5 ML BTL OPL SCH (21:16)
[2020-05-30] MEDS: LEVOTHYROXINE SODIUM 75 MCG TABLET PO SCH (06:15)
[2020-05-30] MEDS: METOPROLOL TARTRATE 25 MG TAB PO SCH ×2 (08:20→20:13)
[2020-05-30] MEDS: TIMOLOL MALEATE 0.25% OP SOLN 5 ML BTL OPL SCH ×2 (08:20→20:19)
[2020-05-30] MEDS: FINASTERIDE 5 MG TAB PO SCH (08:21)
[2020-05-30] MEDS: INSULIN ASPART 100 UNITS/ML 3 ML PEN SC SCH ×4 (08:35→20:49)
--- NOTE | 2020-05-30 08:37 | Surgery Progress Note ---
Date of Service May 30, 2020 Assessment & Plan (1) SBO (small bowel obstruction): Patient here with SBO Tolerated NGT clamping and removal yesterday Denies abdominal pain Continues to pass flatus Will advance to full liquids this AM, if does okay may continue to advance diet as tolerates If patient continues to progress well may consider discharge later today vs tomorrow Supervising Physician Co-Signing Physician Notes Patient seen and examined, agree with above. Admitted with partial SBO, appears to be resolving. Continues to pass gas and have bowel movements. Tolerated clear liquids, no abdominal pain. Abdomen is soft, nontender, nondistended. We will advance diet as tolerated, may discharge this afternoon or tomorrow from surgery perspective. Subjective Patient seen resting in bed. Denies any abdominal pain. Tolerated clears yesterday. Continues to pass some flatus. No BM since yest. Physical Exam Physical Exam: awake Gastrointestinal (Abdomen): Percussion/Palpation: abdomen soft; abdomen nontender Results & Data Vital Signs (Past 12 Hours) Vital Signs Temp Pulse Pulse Resp BP BP Pulse Ox 05/30/20 07:30 36.6 C 54 L 16 125/68 94 05/30/20 00:22 36.5 C 53 L 16 150/72 H 96 05/29/20 21:11 64 145/77 H PG Care Time/CCT Total # of Minutes Spent Total Time Spent with Patient: Total time spent is greater than 50% in coordination of care (as documented) at patient's floor/unit and/or counseling patient: Coding Level of Care Code 82272 Subseq Hosp Care Lvl 1 Diagnoses SBO (small bowel obstruction) K56.609
--- NOTE | 2020-05-30 12:51 | Hospitalist Progress Note ---
Date of Service May 30, 2020 Assessment & Plan (1) SBO (small bowel obstruction): (2) Abdominal pain: Present on admission with abdominal pain CT/pelvis showed mid small bowel obstruction. No evidence of pneumatosis. No evidence of portal venous gas. Received IVF Surgery on board and recommended conservative management NGT was discontinued Diet adbvanced to full liquid diet Had a small BM today Clinically improved significantly (3) Diabetes mellitus, type II: A1c: 7.1 on 04/23/2020 Continue to holld metformin and glipizide ON Novolog sliding scale per protocol (4) History of pulmonary embolism: Diagnosed on08/2019. Will resume Eliquis on hold (5) PAF (paroxysmal atrial fibrillation): Amiodarone recently discontinued secondary to worsening renal function, thyroid function and rash Rate control with metoprolol Resume Eliquis (6) HTN (hypertension): BP stable Continue to hold HCTZ Continue Beta mirza Continue Monitor BP (7) CKD (chronic kidney disease), stage III: Cr: 1.5. Creatinine over past several months 1.4 Monitor renal functions Avoid nephrotoxic agents when possible (8) Hypothyroidism: Continue levothyroxine Systolic CHF Last echo on 11/03 showed EF 35-40 % No sign of fluid overload Will resume HCTZ Continue metoprolol Monitor closely for fluid overload stable Hyponatremia Possible related to poor intake and HCTZ HCTZ on hold Na 130 on admission Na 137 stable DVT Prophylaxis SCDs Will resume Eliquis Full Code Disposition Plan to discharge home tomorrow Admission and Anticipated Discharge Date Admission Date: May 27, 2020 Subjective Pt was seen and examined Lying in bed with no distress Pt said that he feels ok he said that he is very hungry and would like something to eat He said that he had a small bowel movement today and passing gas Denies any chest pain, palpitation, dizziness and SOB Physical Exam Physical Exam: General- No acute distress Head- atraumatic Eyes- PERRL, EOMI, ENT- oropharynx clear Neck- supple, no JVD Lungs- clear to auscultation Heart- regular rhythm; no murmur Abdomen- normal bowel sounds, soft, nontender Extremities- no calf tenderness Neuro- alert, oriented x 3; PERRL, EOMI; no facial palsy; no dysarthria Skin- warm & dry Results & Data Results & Data ([facility]) Vital Signs (Past 12 Hours) Vital Signs Temp Pulse Resp BP Pulse Ox 05/30/20 07:30 36.6 C 54 L 16 125/68 94 (1) Abdominal pain Abdominal location: epigastric Qualified Code(s): R10.13 - Epigastric pain
[2020-05-30] MEDS: APIXABAN 5 MG TABLET PO SCH (20:13)
[2020-05-30] MEDS: LATANOPROST 0.005% OP SOLN 2.5 ML BTL OPL SCH (20:14)
[2020-05-31] MEDS: LEVOTHYROXINE SODIUM 75 MCG TABLET PO SCH (05:31)
--- NOTE | 2020-05-31 07:45 | Surgery Progress Note ---
Date of Service May 31, 2020 Assessment & Plan (1) SBO (small bowel obstruction): resolving low fiber diet d/c if tolerating diet Supervising Physician Co-Signing Physician Notes Patient seen and examined, agree with above. 79-year-old male with history of LAR, admitted with resolving small bowel obstruction. Patient continues to tolerate a diet, passing flatus and having bowel movements. Abdomen soft, nondistended, nontender. Okay to discharge to home, return precautions given. Subjective some flatus, bowels moving, tolerating diet Physical Exam Gastrointestinal (Abdomen): Inspection/Auscultation: abdomen not distended Percussion/Palpation: abdomen soft; abdomen nontender Results & Data Vital Signs (Past 12 Hours) Vital Signs Temp Pulse Resp BP Pulse Ox 05/31/20 07:29 37.3 C 65 16 150/78 H 90 05/30/20 23:02 37.4 C 71 24 156/77 H 91 05/30/20 20:11 36.7 C 71 16 152/65 H 94 PG Care Time/CCT Total # of Minutes Spent Total Time Spent with Patient: Total time spent is greater than 50% in coordination of care (as documented) at patient's floor/unit and/or counseling patient: Coding Level of Care Code 83959 Subseq Hosp Care Lvl 1 Diagnoses SBO (small bowel obstruction) K56.609
[2020-05-31] MEDS: APIXABAN 5 MG TABLET PO SCH (07:46)
[2020-05-31] MEDS: METOPROLOL TARTRATE 25 MG TAB PO SCH (07:46)
[2020-05-31] MEDS: TIMOLOL MALEATE 0.25% OP SOLN 5 ML BTL OPL SCH (07:47)
[2020-05-31] MEDS: FINASTERIDE 5 MG TAB PO SCH (07:48)
[2020-05-31] MEDS ORDERED: FOLIC ACID 1 MG TAB PO SCH (09:00)
[2020-05-31] MEDS ORDERED: INSULIN GLARGINE SOLOSTAR 100 UNITS/ML 3 ML PEN SC SCH (09:00)
[2020-05-31] MEDS: INSULIN ASPART 100 UNITS/ML 3 ML PEN SC SCH ×3 (09:48→13:00)
--- NOTE | 2020-05-31 17:09 | Hospitalist Progress Note ---
Date of Service May 31, 2020 Assessment & Plan (1) SBO (small bowel obstruction): (2) Abdominal pain: Present on admission with abdominal pain CT/pelvis showed mid small bowel obstruction. No evidence of pneumatosis. No evidence of portal venous gas. Received IVF Surgery on board and recommended conservative management NGT was discontinued Diet advanced to low fiber and tolerated well Had a small BM today Clinically improved significantly (3) Diabetes mellitus, type II: A1c: 7.1 on 04/23/2020 Will resume metformin and glipizide on discharge BS elevated lantus 5 units IV given today Pt said that his BS much better at home because he is very active at home ON Novolog sliding scale per protocol he is very anxious to go home today Not a candidate for insulin since recent Hba1c 7.1 Continue monitor BS (4) History of pulmonary embolism: Diagnosed on08/2019. Resumed Eliquis (5) PAF (paroxysmal atrial fibrillation): Amiodarone recently discontinued secondary to worsening renal function, thyroid function and rash Rate control with metoprolol Resumed Eliquis (6) HTN (hypertension): BP stable Will resume HCTZ on discharge Continue Beta mirza Continue Monitor BP (7) CKD (chronic kidney disease), stage III: Cr: 1.5. Creatinine over past several months 1.4 Monitor renal functions Avoid nephrotoxic agents when possible (8) Hypothyroidism: Continue levothyroxine Systolic CHF Last echo on 11/03 showed EF 35-40 % No sign of fluid overload Will resume HCTZ Continue metoprolol Monitor closely for fluid overload stable Hyponatremia Possible related to poor intake and HCTZ HCTZ on hold Na 130 on admission Na 137 stable DVT Prophylaxis SCDs On Eliquis Full Code Disposition Plan to discharge home today Admission and Anticipated Discharge Date Admission Date: May 27, 2020 Subjective Pt was seen and examined Sitting at the edge of the bed with no distress eating lunch Pt said that he feels fine He said that he had a small BM today He tolerated his diet He is very anxious to go home Denies any chest pain, palpitation, dizziness and SOB Physical Exam Physical Exam: General- No acute distress Head- atraumatic Eyes- PERRL, EOMI, ENT- oropharynx clear Neck- supple, no JVD Lungs- clear to auscultation Heart- regular rhythm; no murmur Abdomen- normal bowel sounds, soft, nontender Extremities- no calf tenderness Neuro- alert, oriented x 3; PERRL, EOMI; no facial palsy; no dysarthria Skin- warm & dry Results & Data Results & Data ([facility]) Vital Signs (Past 12 Hours) Vital Signs Temp Pulse Resp BP Pulse Ox 05/31/20 15:05 62 16 120/70 94 05/31/20 07:29 37.3 C 65 16 150/78 H 90 (1) Abdominal pain Abdominal location: epigastric Qualified Code(s): R10.13 - Epigastric pain
--- NOTE | 2020-06-01 08:19 | Discharge Summary ---
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 History obtained from pt with help of pt's secondary to chronic cognitive impairment. Reports pain was to mid abdomen. Reports very small emesis this am around 5AM. No prior treatment. Reports had small loose BM last night and this morning. Denies h/o SBO. H/O rectal surgery. Since being in ER pt denies any current abdominal pain or nausea. He reports he feels hungry. Has chronic RLE edema, no worsening. Seen recently by dermatology for rash thought to be dermatitis vs drug reaction. Is currently on prednisone for pruritus. Pt was recently taken off amiodarone secondary to elevated renal functions, elevated TSH and rash. Denies fever/chills, diaphoresis, hematemesis, melena, hematochezia, [place], dizziness, syncope, vision changes, neck pain, CP, SOB, orthopnea, palpitations, cough, sore throat, choking, otalgia, rhinorrhea, abdominal pain, paresthesias, weakness, extremity weakness, urinary symptoms. Admission Exam Per Admitting Provider General: no distress, overweight Head: normocephalic, atraumatic Eyes: PERRL, EOM's intact, conjunctiva non-injected, anicteric ENT: normal inspection external ears, nose, mucous membranes moist Neck: supple, trachea midline Lungs: clear, no respiratory distress, no wheezing/rhonchi/rales CV: RRR, no murmur, RLE with 1+ pretibial edema Abd: normal BS, distended/protuberant ( reports this is baseline), soft, non-tender Ext: no cyanosis, no calf tenderness Neuro: Alert, oriented to person and place, cooperative at this time, irritated that he can't eat, no focal deficits noted Skin: warm, dry, several erythematous patches to abdomen noted Principal Diagnosis (1) SBO (small bowel obstruction): (2) Abdominal pain: (3) Diabetes mellitus, type II: (4) History of pulmonary embolism: (5) PAF (paroxysmal atrial fibrillation): (6) HTN (hypertension): (7) CKD (chronic kidney disease), stage III: (8) Hypothyroidism: (9) Systolic CHF (10)Hyponatremia Discharge Exam General- No acute distress Head- atraumatic Eyes- PERRL, EOMI, ENT- oropharynx clear Neck- supple, no JVD Lungs- clear to auscultation Heart- regular rhythm; no murmur Abdomen- normal bowel sounds, soft, nontender Extremities- no calf tenderness Neuro- alert, oriented x 3; PERRL, EOMI; no facial palsy; no dysarthria Skin- warm & dry Discharge Data Allergies Allergy/AdvReac Type Severity Reaction Status Date / Time amoxicillin Allergy Unknown hives Verified 05/27/20 08:41 cephalexin Allergy Unknown rash Verified 05/27/20 08:41 Sulfa (Sulfonamide Allergy Unknown hives Verified 05/27/20 08:41 Antibiotics) verapamil Allergy Unknown hives Verified 05/27/20 08:41 Consultations 05/27/20 09:17 ED Decision to Admit Stat 05/27/20 09:20 Consult General Surgery Routine 05/27/20 09:22 Consult Case Management - Discharge Planning Routine Ordered Studies 05/27/20 07:52 CT abd pelvis wo con Stat 05/27/20 09:[address] SCAN OF THE ABDOMEN AND PELVIS WITHOUT CONTRAST CLINICAL HISTORY: epigastric abd pain, eval for obstruction COMPARISON STUDY: No previous studies for comparison. TECHNIQUE: CT scan of the abdomen and pelvis was performed from the lung bases to the proximal femurs. Images are reviewed in the axial, sagittal, and coronal planes. IV contrast was not administered for this examination. A dose lowering technique was utilized adhering to the principles of ALARA. CT DOSE: 475.29 mGy.cm FINDINGS: Lower chest: There are mild basilar atelectatic changes. The heart is enlarged. Liver: The unenhanced liver is normal in size, contour, and attenuation. There is no intrahepatic biliary ductal dilatation. Gallbladder: There is increased density of the gallbladder possibly representing sludge or milk of calcium. Spleen: Normal in size and attenuation. Pancreas: Unremarkable. Adrenal glands: Unremarkable. Kidneys: There are multiple large bilateral renal cysts. Cyst wall calcifications are visualized in the left. The largest left renal cyst measures 8 cm. The largest right renal cyst measures 6 cm. There is a punctate upper pole right renal calculus. There are a few tiny cysts which exceed 1 attenuation and 1 nonspecific likely represent hyperdense cysts. Bowel: There are dilated fluid-filled small bowel loops with air-fluid levels. The distal small bowel is of normal caliber. The findings are indicative of a small bowel obstruction. There is no pneumatosis. There is no portal venous gas. There is minimal mesenteric edema. Peritoneum: There is trace free pelvic fluid. There is no free intraperitoneal air. There is a fat-containing umbilical hernia. Vasculature: The abdominal aorta is normal in course and caliber. Adenopathy: None. Pelvic viscera: The prostate is enlarged. Skeletal structures: There is L5 spondylolysis. There is a grade 1 spondylolisthesis of L5 and S1. There are multilevel degenerative changes within the cervical spine IMPRESSION: 1. Mid small bowel obstruction. No evidence of pneumatosis. No evidence of portal venous gas. ACT 112: Negative or not required by law. Electronically signed by: Rudy Daniels M.D. 05/27/2020 8:27 AM Dictated: 05/27/20 08 Transcribed: 05/27/20 08 XR chest 1V portable CLINICAL HISTORY: epigastric pain COMPARISON STUDY: 09/06/2019 FINDINGS: The heart is borderline enlarged. There is no failure. There is no focal pulmonary consolidation. There are no pleural effusions. Linear opacities at the left base are felt to be atelectatic. Postsurgical changes are present within the cervical spine.[ IMPRESSION: No active disease in the chest. ACT 112: Negative or not required by law. Electronically signed by: Rudy Daniels M.D. 05/27/2020 8:41 AM Dictated: 05/27/20 0840 Transcribed: 05/27/20 0840 US gallbladder CLINICAL HISTORY: gall bladder sludge COMPARISON STUDY: CT scan dated 05/27/2020 FINDINGS: The head and proximal body the pancreas appear normal. The distal body and tail were secured by overlying bowel gas. No focal hepatic masses are visualized. There is no ductal dilatation. The common bile duct measured 6 mm. There is trace ascites. There are multiple right renal cysts. There is no right-sided hydronephrosis. Minimal sludge is visualized within the gallbladder. No shadowing calculi were delineated. IMPRESSION: 1. Minimal gallbladder sludge. No shadowing calculi identified. 2. No ductal dilatation. The common bile duct measured 6 mm. 3. Trace ascites ACT 112: Negative or not required by law. Electronically signed by: Rudy Daniels M.D. 05/27/2020 10:24 AM Dictated: 05/27/20 1022 Transcribed: 05/27/20 1022 XR KUB/Abdomen 1 view CLINICAL HISTORY: SBO COMPARISON STUDY: CT scan dated 05/27/2020 FINDINGS: There is a nasogastric tube with its tip projected over the gastric cardia. There are dilated left mid abdominal small bowel loops consistent with the patient's previously reported small bowel obstruction. Small bowel loops measure up to 52 mm in diameter. There is stool present within nondilated colon. IMPRESSION: Dilated left mid abdominal small bowel loops consistent with a small bowel obstruction. ACT 112: Negative or not required by law. Electronically signed by: Rudy Daniels M.D. 05/28/2020 9:33 AM Dictated: 05/28/2032 Transcribed: 05/28/20931 Hospital Course (1) SBO (small bowel obstruction): (2) Abdominal pain: Present on admission with abdominal pain CT/pelvis showed mid small bowel obstruction. No evidence of pneumatosis. No evidence of portal venous gas. Gallbladder u/s showed minimal gallbladder sludge. No shadowing calculi identified. KUB on 05/28 showed Dilated left mid abdominal small bowel loops consistent with a small bowel obstruction. Received IVF Surgery on board and recommended conservative management NGT was discontinued Diet advanced to low fiber and tolerated well Had a small BM today Clinically improved significantly (3) Diabetes mellitus, type II: A1c: 7.1 on 04/23/2020 Will resume metformin and glipizide on discharge BS elevated lantus 5 units IV given today Pt said that his BS much better at home because he is very active at home ON Novolog sliding scale per protocol he is very anxious to go home today Not a candidate for insulin since recent Hba1c 7.1 Continue monitor BS (4) History of pulmonary embolism: Diagnosed on08/2019. Resumed Eliquis (5) PAF (paroxysmal atrial fibrillation): Amiodarone recently discontinued secondary to worsening renal function, thyroid function and rash Rate control with metoprolol Resumed Eliquis (6) HTN (hypertension): BP stable Will resume HCTZ on discharge Continue Beta mirza Continue Monitor BP (7) CKD (chronic kidney disease), stage III: Cr: 1.5. Creatinine over past several months 1.4 Monitor renal functions Avoid nephrotoxic agents when possible (8) Hypothyroidism: Continue levothyroxine Systolic CHF Last echo on 11/03 showed EF 35-40 % No sign of fluid overload Will resume HCTZ Continue metoprolol Monitor closely for fluid overload stable Hyponatremia Possible related to poor intake and HCTZ HCTZ on hold Na 130 on admission Na 137 stable DVT Prophylaxis SCDs On Eliquis Full Code Disposition Plan to discharge home today Total Time Total Time Spent Total Time Spent (In Minutes): 35 minutes Total Time Includes: Examination of the Patient, Discharge Planning, Medication Reconciliation, Communication With Other Providers and Other Discharge Plan Discharge Items Patient Disposition: Home - Self-Care Reason For Visit: SMALL BOWEL OBSTRUCTION Discharge Diagnosis: (1) SBO (small bowel obstruction): (2) Abdominal pain: (3) Diabetes mellitus, type II (4) Hyponatremia (low Sodium) Activity: Resume your previous activity Non-emergency contact: Primary Care Provider and Campus Recruiter Call non-emergency contact if: you have any medication questions Follow-up/Referrals: Sudhir Hoyos [Physician Instrumentation And Control Technician] - 06/04/20 3:00 pm (06/04/2020 3:00 PM Provider Sudhir Hoyos PA-C Department Cardiology, [facility] ) Damian Rodriges DO [Primary Care Provider] - 06/04/20 3:40 pm (06/04/2020 3:40 PM Provider Damian Rodriges DO Department Family Practice [facility] ) Diet: Low Fiber Addtl Attending Provider Instructions: Follow up with your primary care provider Dr. Rodriges on 06/04 @ 3:40 PM Follow up with cardiology Romain KASPER on 06/04 @ 3PM Continue monitor your blood sugar and bring your blood sugar log at your next appointment with your provider Check BMP in 1 week to monitor electrolytes and kidney function (your physician will order it) Fall precaution Pending Studies at Discharge: No Stand-Alone Forms: My [facility] Leondra music Medications and DC Order Prescriptions: Continued multivitamin Tablet 1 tab PO QAM RF: 0 latanoprost [Xalatan] 0.005 % drops 1 drp OPL HS RF: 0 glipizide 10 mg Tablet Extended Release 24hr 10 mg PO BIDM RF: 0 metformin [Glucophage] 1,000 mg tablet 1,000 mg PO BIDM RF: 0 folic acid 1 mg Tablet 1 mg PO QAM RF: 0 timolol maleate [Timoptic] 0.5 % drops 1 drp OPL BID RF: 0 metoprolol tartrate 25 mg tablet 25 mg PO Q12 RF: 0 finasteride 5 mg tablet 5 mg PO QAM RF: 0 Eliquis 5 mg tablet 5 mg PO BID RF: 0 hydrochlorothiazide 12.5 mg Tablet 12.5 mg PO MOWEFR@0800 RF: 0 Benefiber Clear SF (dextrin) 3 gram/3.5 gram Powder In Packet 1 packet PO QAM RF: 0 omeprazole 40 mg Capsule,Delayed Release(Dr/Ec) 40 mg PO DAILY RF: 0 levothyroxine 75 mcg Tablet 75 mcg PO DAILY RF: 0 Discontinued prednisone 20 mg Tablet 20 mg PO .TAPER RF: 0 Discharge Orders: Discharge Order (Routine); Ordered 05/31/20 Ordered By: Armin Rodarte/Other Patient Handouts: Low-Fiber Diet Admission Data Admit Date/Time: 05/27/20 09:20 Attending Provider: Armin Morrell Admit Provider: Elina Rm Primary Care Provider: Damian Rodriges Other Providers: Elina Rm ; Jake Bradley Other Interventions: Discharge Summary Assessment (RN) Last Done: 05/31/20 18:02 DC Date/Time DO NOT enter until pt leaves facility: 05/31/20 18:29
== END 2020-05-31 18:29 | disposition home or self-care (01) | DRG 389 ==
LOC: ED 07:31 → 3N 09:20 → SUATTDRO 09:20 → 3N 10:49

== ENCOUNTER 2020-12-19 06:55 | Inpatient (IN) ==
--- NOTE | 2020-12-19 07:09 | Emergency Department Note ---
Impression & Plan Acute exacerbation of congestive heart failure, Atrial fibrillation, Acute dyspnea ED Provider Note NAME: BALDEMAR DAVIS AGE: 80 SEX: M : 1940 ARRIVES VIA: Walk-In INFORMANT: [Patient][, ] ED PROVIDER(S): [Roque Villegas MD] Chief Complaint: HPI: Patient does present with concern for shortness of breath. This is been ongoing for about 2 to 3 days. The did try to present yesterday with a got stuck in the snow and upon getting out of the snow the patient was asymptomatic. Patient has had dry nonproductive cough. The patient has had some mild orthopnea and exertional dyspnea. The patient has been out in the cold shoveling snow and reportedly had chest pain but denies chest pain currently. The patient has had some worsening lower extremity swelling. Typically always greater in the right lower extremity compared to left. No fevers or chills. Patient has had a good appetite drinking fluids. Patient does have a history of A. fib PE and has been compliant with his rate control medication Eliquis and medications in general per the family member. ROS: See HPI for pertinent positives and negatives. A total of 10 systems were reviewed and otherwise negative. Past medical history: See below Surgical history: See below Social history: See below Physical Exam: GENERAL: Wearing a mask. NAD, non-toxic. EYE EXAM: Normal conjunctiva. PERRL, no anisocoria and EOM's grossly intact w/o pain. NECK: Supple, no nuchal rigidity, no adenopathy, non-tender. No signs of meningismus. LUNGS: Crackles bilateral bases. Normal chest wall mechanics. HEART: Irregularly irregular, no MRG. ABDOMEN: Abdomen soft, non-tender, normo-active bowel sounds, no masses, no rebound or guarding. BACK: No CVA TTP. SKIN: No rashes and no bruising. UPPER EXTREMITIES: Upper extremities are grossly normal. LOWER EXTREMITIES: Grossly normal, 1-2+ bilateral lower extremity edema greater on the right compared to left. No erythema, negative Homans' sign. NEURO EXAM: A&O x3, cranial nerves II-XII grossly intact, normal speech, moves all 4 extremities on command w/o issue. Differential diagnoses: Reactive airway disease, pneumonia, pneumothorax, COPD, CHF, infections, cardiac ischemia, pulmonary embolism, musculoskeletal, gastrointestinal, as well as other pathologies. Course: Patient was seen and evaluated the bedside. Full history physical exam was performed. EKG: Indication: Shortness of breath A. fib, rate of 97, normal QRS duration, normal axis. This is an acute change from prior EKG completed May 27, 2020 where the patient was in sinus bradycardia and the patient is now in A. fib. Imaging Studies: Radiology results as stated below per my review in the radiologist's interpretation: XR chest 1V portable HISTORY: Atypical Chest Pain COMPARISON: Chest 05/27/2020. FINDINGS: No pneumothorax. The heart remains mildly enlarged. Patchy bilateral airspace opacities within the right midlung zone and lung bases. There is a small right pleural effusion. Cervical spinal fusion hardware is noted. No pneumothorax. Right posterior fourth through eighth rib fractures. These are new from the prior study and could represent an acute to subacute fractures. IMPRESSION: 1. Acute to subacute right posterior fourth through eighth rib fractures. No pneumothorax. 2. Small right pleural effusion. 3. Patchy airspace opacities within the right midlung zone and lung bases. This could represent a viral pneumonia. ACT 112: Negative or not required by law. Electronically signed by: Denny Morrow M.D. 12/19/2020 7:36 AM Dictated: 12/19/20732 Transcribed: 12/19/20732 Cardiac monitoring: An order was placed for continuous cardiac monitoring. The monitor shows a rate of 98 with irregularly irregular rhythm. MDM: Patient was seen due to concern for shortness of breath. Blood work was obtained. The patient was ordered IV Lopressor the patient does take her morning beta-mirza. He has had orthopnea and worsening lower extremity edema. Lopressor held as the patient's rate was in the 80s. Of note the patient does have acute to subacute posterior rib fractures. No pneumothorax. Small right pleural effusion. Patient has a normal white count with virtually normal hemoglobin and normal platelet count. BNP elevated, troponin undetectable. In the setting of the increasing shortness of breath dyspnea orthopnea lower extremity swelling believe this is more demand ischemia from heart failure. Patient's most recent echocardiogram was completed in August which showed a normal EF at that time. The patient had been taken off of amiodarone at that time due to concern for skin photosensitivity. Unable to view the formal report of the echo that was completed in December 2019 but showed EF low normal 52%. Report from cardiology note shows summary per Dr. Ferrer of normal LV chamber size with moderate concentric LVH. LV ejection fraction of 52%. Grade 1 diastolic dysfunction mild mitral regurgitation PA systolic pressure 35 mmHg. Patient does have reported history aortic root and ascending aortic dilatation. Patient did have a Zio monitor completed in December 2019 which did not show any evidence of recurrence of atrial fibrillation. Given the patient does have A. fib believe this is the most likely etiology of his CHF. Patient is currently anticoagulated. Past Med/Surg History Medical History BPH (benign prostatic hyperplasia) CAD (coronary artery disease) CKD (chronic kidney disease), stage III Diabetes mellitus, type II GERD (gastroesophageal reflux disease) History of pulmonary embolism HTN (hypertension) Hypothyroidism PAF (paroxysmal atrial fibrillation) Pulmonary embolism SBO (small bowel obstruction) Skull fracture Surgical History History of knee replacement Right History of partial surgical removal of colon removal of rectum 2/2 to large polyp adenoca History of rotator cuff surgery right Hx of cervical spine surgery Family History Mother Cancer Thyroid Father Hydrocephalus Social History Smoking Status: Former smoker Tobacco Type: Cigarettes and Smokeless Tobacco (Dip or Chew) Cigarettes Per Day: 10; Smoking End Date: 1979; Hx Alcohol Use: Yes (quit 1997) Hx Substance Use: No Preferred Language: Moroccan Communication Ability: Effective Pmo Business Analyst Required: No Beliefs That Will Affect Care: None marital status: Current Living Situation: Spouse current occupational status: retired Feels Safe at Home: Yes Assistive Devices: Glasses Allergies Allergies Allergy/AdvReac Type Severity Reaction Status Date / Time amoxicillin Allergy Unknown hives Verified 12/19/20 08:18 cephalexin Allergy Unknown rash Verified 12/19/20 08:18 Sulfa (Sulfonamide Allergy Unknown hives Verified 12/19/20 08:18 Antibiotics) verapamil Allergy Unknown hives Verified 12/19/20 08:18 Home Meds Home Medications Medication Instructions Recorded Confirmed folic acid 1 mg PO QAM 09/06/19 12/19/20 glipizide 10 mg PO BIDM 10/22/19 02/03/21 latanoprost [Xalatan] 1 drp OPL HS 09/06/19 12/19/20 metformin [Glucophage] 1,000 mg PO BIDM 09/06/19 12/19/20 multivitamin 1 tab PO QAM 09/06/19 12/19/20 timolol maleate [Timoptic] 1 drp OPL BID 09/06/19 12/19/20 Eliquis 5 mg PO Q12H 10/04/19 12/19/20 finasteride 5 mg PO QAM 10/04/19 12/19/20 Benefiber Clear SF (dextrin) 1 packet PO QAM 05/27/20 12/19/20 levothyroxine 75 mcg PO DAILY 05/27/20 12/19/20 metoprolol tartrate 50 mg PO Q12H 12/19/20 12/19/20 pantoprazole 40 mg PO DAILY 12/19/20 12/19/20 Results & Data (ED) Vital Signs Vital Signs - 24 hr 12/19/20 06:57 12/19/20 07:15 12/19/20 07:33 Temperature 36.5 C Temperature Source Oral Pulse Rate 130 H Pulse Rate [Apical] 110 H Respiratory Rate 18 18 Respiratory Effort / Characteristics Short of Breath Respiratory Pattern Regular Blood Pressure 167/101 H Blood Pressure [Left Arm] 118/90 Blood Pressure Mean 123 Blood Pressure Mean [Left Arm] 99 Blood Pressure Position Sitting Pulse Oximetry 95 94 93 Oxygen Delivery Method Room Air Room Air Room Air Oxygen Flow Rate Sepsis Recent Fever Within 48 Hours No Sepsis New/Unexplained Change in Mental Status N/A Sepsis Action Taken by Nursing No Action Required Oxygen Flow Rate - Titration Pulse Oximetry Post Tiitration 12/19/20 07:39 12/19/20 08:18 12/19/20 09:09 Temperature Temperature Source Pulse Rate Pulse Rate [Apical] 83 88 Respiratory Rate 18 18 Respiratory Effort / Characteristics Respiratory Pattern Blood Pressure Blood Pressure [Left Arm] 148/78 H 137/89 Blood Pressure Mean Blood Pressure Mean [Left Arm] 101 105 Blood Pressure Position Pulse Oximetry 89 L 96 94 Oxygen Delivery Method Room Air Nasal Cannula Nasal Cannula Nasal Cannula Oxygen Flow Rate 0 2 2 Sepsis Recent Fever Within 48 Hours Sepsis New/Unexplained Change in Mental Status Sepsis Action Taken by Nursing Oxygen Flow Rate - Titration 2 Pulse Oximetry Post Tiitration 95 Home Medications Current Medication List: was personally reviewed by me Laboratory Data Attestation: I reviewed the patient's lab results. Result diagrams: 12/19/20 07:15 12/19/20 07:15 Lab Results 12/19/20 12/19/20 12/19/20 Range/Units 07:15 07:15 08:00 WBC 6.05 (4.8-10.8) K/uL RBC 4.63 L (4.7-6.1) M/uL Hgb 13.7 L (14.0-18.0) g/dL Hct 40.5 L (42-52) % MCV 87.5 (80-100) fL MCH 29.6 (25-34) pg MCHC 33.8 (32-36) g/dL RDW Std Deviation 44.4 (36.4-46.3) fL RDW Coeff of Janny 13.9 (11.5-14.5) % Plt Count 178 (130-400) K/uL MPV 11.1 H (7.4-10.4) fL Immature Gran % (Auto) 0.2 % Neut % (Auto) 66.0 % Lymph % (Auto) 23.0 % Warren % (Auto) 8.8 % Eos % (Auto) 1.5 % Baso % (Auto) 0.5 % Neut # (Auto) 4.00 (1.4-6.5) K/uL Lymph # (Auto) 1.39 (1.2-3.4) K/uL Warren # (Auto) 0.53 (0.11-0.59) K/uL Eos # (Auto) 0.09 (0-0.5) K/uL Baso # (Auto) 0.03 (0-0.2) K/uL Immature Gran # (Auto) 0.01 (0.00-0.02) K/uL Sodium 141 (136-145) mmol/L Potassium 3.7 (3.5-5.1) mmol/L Chloride 107 (98-107) mmol/L Carbon Dioxide 25 (21-32) mmol/L Anion Gap 9.0 (3-11) BUN 26 H (7-18) mg/dl Creatinine 1.29 (0.6-1.4) mg/dl Est Cr Clr Drug Dosing 44.9 ml/min Est GFR ( Amer) 59.9 Est GFR (Non-Af Amer) 51.7 BUN/Creatinine Ratio 20.4 H (10-20) Glucose 194 H (70-99) mg/dl Calcium 9.3 (8.5-10.1) mg/dl Phosphorus 3.1 (2.5-4.9) mg/dl Magnesium 1.4 L (1.8-2.4) mg/dl Total Bilirubin 1.2 H (0.2-1) mg/dl AST 14 L (15-37) U/L ALT 33 (12-78) U/L Alkaline Phosphatase 85 (45-117) U/L Troponin I 0.059 H* (0-0.045) ng/ml NT-Pro-B Natriuret Pep 61969 H (0-1800) pg/ml Total Protein 6.8 (6.4-8.2) gm/dl Albumin 3.8 (3.4-5.0) gm/dl Globulin 3.0 (2.5-4.0) gm/dl Albumin/Globulin Ratio 1.3 (0.9-2) Lipase 90 (73-393) U/L COVID-19 Eval Order CovFluRsv at [facility] [place] SARS-CoV-2 (PCR) (Negative) Influenza Type A (PCR) (Neg) Influenza Type B (PCR) (Neg) RSV (RT-PCR) (Neg) 12/19/20 Range/Units 08:00 WBC (4.8-10.8) K/uL RBC (4.7-6.1) M/uL Hgb (14.0-18.0) g/dL Hct (42-52) % MCV (80-100) fL MCH (25-34) pg MCHC (32-36) g/dL RDW Std Deviation (36.4-46.3) fL RDW Coeff of Janny (11.5-14.5) % Plt Count (130-400) K/uL MPV (7.4-10.4) fL Immature Gran % (Auto) % Neut % (Auto) % Lymph % (Auto) % Warren % (Auto) % Eos % (Auto) % Baso % (Auto) % Neut # (Auto) (1.4-6.5) K/uL Lymph # (Auto) (1.2-3.4) K/uL Warren # (Auto) (0.11-0.59) K/uL Eos # (Auto) (0-0.5) K/uL Baso # (Auto) (0-0.2) K/uL Immature Gran # (Auto) (0.00-0.02) K/uL Sodium (136-145) mmol/L Potassium (3.5-5.1) mmol/L Chloride (98-107) mmol/L Carbon Dioxide (21-32) mmol/L Anion Gap (3-11) BUN (7-18) mg/dl Creatinine (0.6-1.4) mg/dl Est Cr Clr Drug Dosing ml/min Est GFR ( Amer) Est GFR (Non-Af Amer) BUN/Creatinine Ratio (10-20) Glucose (70-99) mg/dl Calcium (8.5-10.1) mg/dl Phosphorus (2.5-4.9) mg/dl Magnesium (1.8-2.4) mg/dl Total Bilirubin (0.2-1) mg/dl AST (15-37) U/L ALT (12-78) U/L Alkaline Phosphatase (45-117) U/L Troponin I (0-0.045) ng/ml NT-Pro-B Natriuret Pep (0-1800) pg/ml Total Protein (6.4-8.2) gm/dl Albumin (3.4-5.0) gm/dl Globulin (2.5-4.0) gm/dl Albumin/Globulin Ratio (0.9-2) Lipase (73-393) U/L COVID-19 Eval Order SARS-CoV-2 (PCR) NEGATIVE (Negative) Influenza Type A (PCR) Negative (Neg) Influenza Type B (PCR) Negative (Neg) RSV (RT-PCR) Negative (Neg) Administered Medications Magnesium Sulfate/Dextrose (Magnesium Sulfate / D5w) 1 gm in 100 mls @ 100 mls/hr IV Q1H PB Stop: 12/19/20 10:36 Last Admin: 12/19/20 09:18 Dose: 100 mls/hr Documented by: [id number] Discontinued Medications Furosemide (Furosemide 40 Mg/4 Ml Vial) 20 mg IV NOW STA Stop: 12/19/20 08:12 Last Admin: 12/19/20 08:21 Dose: 20 mg Documented by: [id number] Metoprolol Tartrate (Metoprolol Tartrate 1 Mg/Ml Vial) 5 mg IV NOW STA Stop: 12/19/20 07:16 Last Admin: 12/19/20 08:25 Dose: Not Given Documented by: [id number] Potassium Chloride (Potassium Chloride Crtab 20 Meq Tabcr) 40 meq PO NOW STA Stop: 12/19/20 08:38 Last Admin: 12/19/20 09:06 Dose: 40 meq Documented by: [id number] Discharge Plan Visit Data Chief Complaint: Chest Pain Stated Complaint: CHEST PAIN,SHORT OF BREATH ED Provider: Roque Villegas Discharge Problem: Acute exacerbation of congestive heart failure, Atrial fibrillation, Acute dyspnea Forms Stand Alone Forms: [facility] [place] [employer] Prescriptions Prescriptions: No Action multivitamin Tablet 1 tab PO QAM RF: 0 latanoprost [Xalatan] 0.005 % drops 1 drp OPL HS RF: 0 glipizide 10 mg Tablet Extended Release 24hr 10 mg PO BIDM RF: 0 metformin [Glucophage] 1,000 mg tablet 1,000 mg PO BIDM RF: 0 folic acid 1 mg Tablet 1 mg PO QAM RF: 0 timolol maleate [Timoptic] 0.5 % drops 1 drp OPL BID RF: 0 finasteride 5 mg tablet 5 mg PO QAM RF: 0 Eliquis 5 mg tablet 5 mg PO Q12H RF: 0 Benefiber Clear SF (dextrin) 3 gram/3.5 gram Powder In Packet 1 packet PO QAM RF: 0 levothyroxine 75 mcg Tablet 75 mcg PO DAILY RF: 0 pantoprazole 40 mg Tablet,Delayed Release (Dr/Ec) 40 mg PO DAILY RF: 0 metoprolol tartrate 50 mg Tablet 50 mg PO Q12H RF: 0 Discharge Problem: Acute exacerbation of congestive heart failure Qualifiers: Heart failure type: unspecified Qualified Code(s): I50.9 - Heart failure, unspecified Atrial fibrillation Qualifiers: Atrial fibrillation type: unspecified Qualified Code(s): I48.91 - Unspecified atrial fibrillation
[2020-12-19] MEDS ORDERED: METOPROLOL TARTRATE 1 MG/ML VIAL IV STA (07:15)
[2020-12-19 07:36] LABS: Basophils # (auto) 0.03 K/uL (0-0.2); Basophils % (auto) 0.5 %; Eosinophils # (auto) 0.09 K/uL (0-0.5); Eosinophils % (auto) 1.5 %; Hematocrit (blood only) 40.5 % (42-52); Hemoglobin 13.7 g/dL (14.0-18.0); Immature Granulocytes # (auto) 0.01 K/uL (0.00-0.02); Immature Granulocytes % (auto) 0.2 %; Lymphocytes # (auto) 1.39 K/uL (1.2-3.4); Mean Corpuscular Hemoglobin 29.6 pg (25-34); Mean Corpuscular Hgb Conc 33.8 g/dL (32-36); Mean Corpuscular Volume 87.5 fL (80-100); Mean Platelet Volume 11.1 fL (7.4-10.4); Monocytes # (auto) 0.53 K/uL (0.11-0.59); Monocytes % (auto) 8.8 %; Platelet Count 178 K/uL (130-400); RDW Coefficient of Variation 13.9 % (11.5-14.5); RDW Standard Deviation 44.4 fL (36.4-46.3); Red Blood Count 4.63 M/uL (4.7-6.1); White Blood Count 6.05 K/uL (4.8-10.8)
--- NOTE | 2020-12-19 07:37 | XRay Report ---
XR chest 1V portable HISTORY: Atypical Chest Pain COMPARISON: Chest 05/27/2020. FINDINGS: No pneumothorax. The heart remains mildly enlarged. Patchy bilateral airspace opacities wit hin the right midlung zone and lung bases. There is a small right pleural effusion. Cervical spinal f usion hardware is noted. No pneumothorax. Right posterior fourth through eighth rib fractures. These are new from the prior study and could represent an acute to subacute fractures. IMPRESSION: 1. Acute to subacute right posterior fourth through eighth rib fractures. No pneumothorax. 2. Small right pleural effusion. 3. Patchy airspace opacities within the right midlung zone and lung bases. This could represent a vir al pneumonia. ACT 112: Negative or not required by law. Electronically signed by: Denny Morrow M.D. 12/19/2020 7:36 AM
[2020-12-19 07:56] LABS: Est GFR (African American) 59.9; Potassium 3.7 mmol/L (3.5-5.1)
[2020-12-19 07:57] LABS: Albumin Level 3.8 gm/dl (3.4-5.0); BUN Creatinine Ratio 20.4 (10-20); Calcium 9.3 mg/dl (8.5-10.1); Creatinine Clr Calc Pharmacy 44.9 ml/min; Est GFR (Non-African American) 51.7; Magnesium 1.4 mg/dl (1.8-2.4)
[2020-12-19 08:05] LABS: Albumin Globulin Ratio 1.3 (0.9-2); Bilirubin,Total 1.2 mg/dl (0.2-1); Phosphorus 3.1 mg/dl (2.5-4.9); Total Protein 6.8 gm/dl (6.4-8.2); Troponin I 0.059 ng/ml (0-0.045)
[2020-12-19] MEDS ORDERED: FUROSEMIDE 40 MG/4 ML VIAL IV STA (08:11)
[2020-12-19] MEDS ORDERED: GLUCOSE 40% GEL 15 GM TUBE PO PRN (08:37)
[2020-12-19] MEDS ORDERED: CARBOHYDRATES FOR HYPOGLYCEMIA PO PRN (08:37)
[2020-12-19] MEDS ORDERED: DEXTROSE 50% 50 ML SYRINGE IV PRN (08:37)
[2020-12-19] MEDS ORDERED: GLUCAGON FOR INJ 1 MG VIAL SQ PRN (08:37)
[2020-12-19] MEDS ORDERED: GLUCOSE 10 TABS/TUBE PO PRN (08:37)
[2020-12-19] MEDS ORDERED: POTASSIUM CHLORIDE CRTAB 20 MEQ TABCR PO STA (08:37)
--- NOTE | 2020-12-19 08:44 | History & Physical Report ---
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 Patient with history of PAF, anticoagulant on Eliquis. He has been compliant with Eliquis, but missed 2 doses in the past month, last being 2 weeks ago. Symptoms likely as result of atrial fibrillation with RVR and now resultant volume overload/CHF. He denies chest pain, elevated troponin likely in setting of demand ischemia. He received 5 mg IV Lopressor in ED as well as home dose 50 mg metoprolol tartrate. Admit to PCU Consult cardiology Obtain echocardiogram -last 12/2019 revealed EF 52%, diastolic dysfunction Lasix IV 20 mg twice daily -received 20 mg IV Lasix in ED with 580 mL urine output Strict I's and O's, daily weights Heart healthy, low-sodium diet Obtain TSH Cycle troponin Replete electrolyte, keep mag greater than 2, K greater than 4.0 At rest heart rates controlled in 80s, will continue metoprolol tartrate 50 mg twice daily for now (4) Hypomagnesemia: Mag 1.4, 1 g mag sulfate x2 ordered in ED Mag oxide 400 mg twice daily ordered Repeat mag at 1230 (5) HTN (hypertension): Blood pressure 137/89 Continue lisinopril & metoprolol (6) History of pulmonary embolism: Continue Eliquis (7) CKD (chronic kidney disease), stage III: Baseline creatinine 1.1-1.2 BUN/creatinine 26 and 1.29 Monitor renal function given diuresis (8) Diabetes mellitus, type II: Last A1c 7.1 04/2020 Obtain A1c in a.m. Hold Metformin and glipizide Lantus/NovoLog per protocol FULL CODE DVT ppx: Juliannaquis, SCD/TEDS DISPO: admit to PCU PCP: Zahira Patient was seen and examined in collaboration with Dr. Carbajal, please see addendum History of Present Illness Chief Complaint: CP and CHRISTY x 2-3 days. 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 is at bedside and provides most of history. Patient does have underlying vascular dementia in setting of post traumatic encephalopathy. For the past 2 to 3 days patient has been complaining of shortness of breath and CHRISTY. states he has been very active and shoveling snow. "He is very bull headed and does not think he is old so he will do as he pleases." He denies experiencing chest pain with exertion and when shoveling. He did exhibit shortness of breath and also complains of orthopnea. states the past 2 nights when he would lay down he would wake up feeling short of breath and would have to go to the recliner. He also has been experiencing increased lower extremity swelling. This morning when he woke up he felt short of breath and felt his heart racing. He also complained of chest tightness and brought patient to ED. He denies any recent illness, fever, chills, sweats, lightheadedness, dizziness, syncope, current chest pain, shortness breath at rest, hemoptysis, nausea, vomiting, abdominal pain, diarrhea, melena, hematochezia, dysuria, and hematuria. He does complain of a dry cough for the past 2 to 3 days. He has no known Covid exposures and denies loss of taste or smell. His appetite has otherwise been well. states he has lost 10 pounds in the past few months. Also of significance he had a fall on ice approximately 1 month ago and had chest pain for 2 to 3 days. He was evaluated by EMS at that time but did not opt to seek ED evaluation. In ED patient was found to be in atrial fibrillation with RVR, initially heart rates in the 130s. He was hemodynamically stable. Chest x-ray concerning for patchy airspace opacities in the right midlung zone and lung bases, small right pleural effusion and acute to subacute right posterior 4th-8th rib fractures. Initially his oxygen saturations were 89% and he required 2 L of O2. This was since removed and he was saturating on room air normally. Lab work notable for elevated proBNP 14,144, elevated troponin 0.059, low magnesium 1.4, glucose 194, CBC generally unremarkable, influenza and Covid testing negative. He received 20 mg IV Lasix in ED with approximately 500ml urine output. Allergies Allergy/AdvReac Type Severity Reaction Status Date / Time amoxicillin Allergy Unknown hives Verified 12/19/20 08:18 cephalexin Allergy Unknown rash Verified 12/19/20 08:18 Sulfa (Sulfonamide Allergy Unknown hives Verified 12/19/20 08:18 Antibiotics) verapamil Allergy Unknown hives Verified 12/19/20 08:18 Home Medications Medication Instructions Recorded Confirmed Type folic acid 1 mg PO QAM 09/06/19 12/19/20 History glipizide 10 mg PO BIDM 09/06/19 12/19/20 History latanoprost [Xalatan] 1 drp OPL HS 09/06/19 12/19/20 History metformin [Glucophage] 1,000 mg PO BIDM 09/06/19 12/19/20 History multivitamin 1 tab PO QAM 09/06/19 12/19/20 History timolol maleate [Timoptic] 1 drp OPL BID 09/06/19 12/19/20 History Eliquis 5 mg PO Q12H 10/04/19 12/19/20 History finasteride 5 mg PO QAM 10/04/19 12/19/20 History Benefiber Clear SF (dextrin) 1 packet PO QAM 05/27/20 12/19/20 History levothyroxine 75 mcg PO DAILY 05/27/20 12/19/20 History lisinopril 5 mg PO DAILY 12/19/20 12/19/20 History metoprolol tartrate 50 mg PO Q12H 12/19/20 12/19/20 History pantoprazole 40 mg PO DAILY 12/19/20 12/19/20 History Past Med/Surg History Medical History BPH (benign prostatic hyperplasia) CAD (coronary artery disease) CKD (chronic kidney disease), stage III Diabetes mellitus, type II GERD (gastroesophageal reflux disease) History of pulmonary embolism HTN (hypertension) Hypothyroidism PAF (paroxysmal atrial fibrillation) Pulmonary embolism SBO (small bowel obstruction) Skull fracture Surgical History History of knee replacement Right History of partial surgical removal of colon removal of rectum 2/2 to large polyp adenoca History of rotator cuff surgery right Hx of cervical spine surgery Family History Mother Cancer Thyroid Father Hydrocephalus Social History Smoking Status: Former smoker Tobacco Type: Cigarettes and Smokeless Tobacco (Dip or Chew) Cigarettes Per Day: 10; Smoking End Date: 1979; Second Hand Exposure: No; Do You Dip or Chew Tobacco: No; Tobacco Cessation Education Requested by Patient: No Hx Alcohol Use: No Hx Substance Use: No Preferred Language: Croatian Communication Ability: Effective Completions Engineer Required: No Beliefs That Will Affect Care: None marital status: Current Living Situation: Spouse current occupational status: retired Other Information That Helps Us Care for You: No Feels Safe at Home: Yes Safety Concerns: Feels Safe At This Time Assistive Devices: Glasses, Hearing Aid - Bilateral and Hearing Aid - Left Review of Systems Review of Systems: All systems reviewed & are unremarkable except as noted in HPI & below Physical Exam Physical Exam: Constitutional: WD/WN, male, vitals as above, NAD, sitting up in bed, pleasant, conversing easily Head: Normocephalic, Atraumatic Eyes: PERRL, conjunctivae normal, anicteric sclerae ENMT: external ear and nose normal, oropharynx normal Neck: trachea midline, no thyromegaly normal visual inspection Respiratory: normal respiratory effort, lungs clear to auscultation, no wheeze, rales, rhonchi. Normal insp/exp effort, no accessory muscle use Cardiovascular: Irregular rate, irregular rhythm, no murmur, trace to +1 pretibial edema Vessels: no JVD or carotid bruit Chest: normal inspection of chest Abdomen: normal bowel sounds, soft, nontender, no hepatosplenomegaly Musculoskeletal: no cyanosis or clubbing, extremities motor strength 5/5, bilateral knee replacement scars Skin: no rashes, warm and dry normal turgor Neurologic: PERRL, EOMI, accommodation nl, no face palsy, no dysarthria CN's II-XI intact bilaterally and moves all extremities Psychiatric: A+Ox3 basics only, euthymic affect : Normal Results & Data Results & Data ([facility]) Vital Signs (Past 12 Hours) Vital Signs Temp Pulse Pulse Resp BP BP Pulse Ox 12/19/20 08:18 83 18 148/78 H 96 12/19/20 07:39 89 L 12/19/20 07:33 110 H 18 118/90 93 12/19/20 07:15 94 12/19/20 06:57 36.5 C 130 H 18 167/101 H 95 Diagnostic Findings CXR: IMPRESSION: 1. Acute to subacute right posterior fourth through eighth rib fractures. No pneumothorax. 2. Small right pleural effusion. 3. Patchy airspace opacities within the right midlung zone and lung bases. This could represent a viral pneumonia. Medications Administered Discontinued Medications Furosemide (Furosemide 40 Mg/4 Ml Vial) 20 mg IV NOW STA Stop: 12/19/20 08:12 Last Admin: 12/19/20 08:21 Dose: 20 mg Documented by: [id number] Metoprolol Tartrate (Metoprolol Tartrate 1 Mg/Ml Vial) 5 mg IV NOW STA Stop: 12/19/20 07:16 Last Admin: 12/19/20 08:25 Dose: Not Given Documented by: [id number] ECG Rate (beats per minute): 97 Rhythm: atrial fibrillation COVID-19 Results Results COVID-19 Adm Lab Results: RBC 4.63 M/uL (4.7-6.1) L 12/19/20 WBC 6.05 K/uL (4.8-10.8) 12/19/20 Hgb 13.7 g/dL (14.0-18.0) L 12/19/20 Hct 40.5 % (42-52) L 12/19/20 Plt Count 178 K/uL (130-400) 12/19/20 Neutrophils (%) (Auto) 66.0 % 12/19/20 Lymphocytes (%) (Auto) 23.0 % 12/19/20 Monocytes # (Auto) 0.53 K/uL (0.11-0.59) 12/19/20 Eosinophils # (Auto) 0.09 K/uL (0-0.5) 12/19/20 Immature Granulocyte % (Auto) 0.2 % 12/19/20 Neutrophils # (Auto) 4.00 K/uL (1.4-6.5) 12/19/20 Lymphocytes # (Auto) 1.39 K/uL (1.2-3.4) 12/19/20 Monocytes # (Auto) 0.53 K/uL (0.11-0.59) 12/19/20 Eosinophils # (Auto) 0.09 K/uL (0-0.5) 12/19/20 Basophils # (Auto) 0.03 K/uL (0-0.2) 12/19/20 Immature Granulocyte # (Auto) 0.01 K/uL (0.00-0.02) 12/19/20 Na 141 mmol/L (136-145) 12/19/20 K 3.7 mmol/L (3.5-5.1) 12/19/20 Cl 107 mmol/L (98-107) 12/19/20 CO2 25 mmol/L (21-32) 12/19/20 Anion Gap 9.0 (3-11) 12/19/20 BUN 26 mg/dl (7-18) H 12/19/20 Creatinine 1.29 mg/dl (0.6-1.4) 12/19/20 BUN/Creatinine Ratio 20.4 (10-20) H 12/19/20 Glucose Level 194 mg/dl (70-99) H 12/19/20 Ca 9.3 mg/dl (8.5-10.1) 12/19/20 Phosphorus Level 3.1 mg/dl (2.5-4.9) 12/19/20 Total Bilirubin 1.2 mg/dl (0.2-1) H 12/19/20 AST/SGOT 14 U/L (15-37) L 12/19/20 ALT/SGPT 33 U/L (12-78) 12/19/20 Alkaline Phosphatase 85 U/L (45-117) 12/19/20 Total Protein 6.8 gm/dl (6.4-8.2) 12/19/20 Albumin 3.8 gm/dl (3.4-5.0) 12/19/20 Globulin 3.0 gm/dl (2.5-4.0) 12/19/20 Albumin/Globulin Ratio 1.3 (0.9-2) 12/19/20 Troponin I 0.053 ng/ml (0-0.045) H* 12/19/20 UN-Zki-I-Type Natriuretic Pep 76805 pg/ml (0-1800) H 12/19/20 COVID-19 PCR NEGATIVE (Negative) 12/19/20 Influenza Virus Type A (PCR) Negative (Neg) 12/19/20 Influenza Virus Type B (PCR) Negative (Neg) 12/19/20 Chest X-Ray 12/19/20 Code Status & VTE Plan Code Status Full Code VTE Prophylaxis Plan VTE Prophylaxis will be ordered: Yes Reason for no VTE drug order: Treatment not indicated Supervising Physician Co-Signing Physician Notes Attending addendum: The patient was seen and examined in telemetry unit He has history of PAF on Eliquis and was admitted with chest tightness and exertional shortness of breath for the last 2 to 3 days Noted to have CHF on chest x-ray and he has been feeling better with diuretics Denies any symptoms during my examination in the telemetry unit On examination Lying in bed comfortably and saturating more than 95% on room air Chest-decreased breath sounds at the bases with occasional crackles Heart-S1-S2, regular Abdomen-benign Extremities-trace edema bilaterally more on the left than the right 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
[2020-12-19 09:03] LABS: Influenza A virus by PCR Negative (Neg); Influenza B virus by PCR Negative (Neg); RSV by PCR Negative (Neg); SARS CoV2 RNA(COVID-19) InHosp NEGATIVE (Negative)
[2020-12-19] MEDS ORDERED: APIXABAN 5 MG TABLET PO STA (09:16)
[2020-12-19] MEDS ORDERED: METOPROLOL TARTRATE 50 MG TAB PO STA (09:16)
[2020-12-19] MEDS: MAGNESIUM SULFATE / D5W 1 GM/100 ML BAG IV SCH ×2 (09:18→10:26)
[2020-12-19] MEDS: INSULIN GLARGINE SOLOSTAR 100 UNITS/ML 3 ML PEN SC SCH ×2 (10:44→20:46)
[2020-12-19] MEDS: MAGNESIUM OXIDE 400 MG TAB PO SCH ×2 (10:53→19:57)
[2020-12-19] MEDS ORDERED: ONDANSETRON INJ 2 MG/ML 2 ML VIAL IV PRN (11:06)
[2020-12-19] MEDS ORDERED: MAGNESIUM HYDROXIDE SUSP 30 ML UDC PO PRN (11:06)
[2020-12-19] MEDS ORDERED: ALUMINUM/MAGNESIUM SUSP 30 ML UDC PO PRN (11:06)
[2020-12-19] MEDS ORDERED: NITROGLYCERIN SL 0.4 MG/TAB TAB SL PRN (11:06)
[2020-12-19] MEDS ORDERED: POLYETHYLENE (MIRALAX) 17 GM PACK PO PRN (11:06)
[2020-12-19] MEDS ORDERED: ACETAMINOPHEN 325 MG TAB PO PRN (11:06)
[2020-12-19] MEDS ORDERED: APIXABAN 5 MG TABLET PO SCH ×2 (11:30→20:00)
[2020-12-19] MEDS: LEVOTHYROXINE SODIUM 75 MCG TABLET PO SCH (12:31)
[2020-12-19] MEDS: FINASTERIDE 5 MG TAB PO SCH (12:31)
[2020-12-19] MEDS: PANTOprazole 40 MG TAB PO SCH (12:31)
[2020-12-19] MEDS: lisinopril 5 MG TAB PO SCH (12:31)
[2020-12-19] MEDS: FOLIC ACID 1 MG TAB PO SCH (12:31)
[2020-12-19] MEDS: MULTIVITAMIN TAB PO SCH (12:31)
[2020-12-19] MEDS: PSYLLIUM 58.6% POWDER PACKET PO SCH (12:32)
[2020-12-19] MEDS: INSULIN ASPART 100 UNITS/ML 3 ML PEN SC SCH ×3 (13:22→20:42)
[2020-12-19 13:34] LABS: Magnesium 2.1 mg/dl (1.8-2.4); Troponin I 0.053 ng/ml (0-0.045)
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
--- NOTE | 2020-12-19 16:08 | Electrocardiogram Report ---
Test Reason : Blood Pressure : / mmHG Vent. Rate : 097 BPM Atrial Rate : 087 BPM P-R Int : 000 ms QRS Dur : 084 ms QT Int : 340 ms P-R-T Axes : 000 011 081 degrees QTc Int : 431 ms Normal sinus rhythm with frequent Premature atrial complexes Nonspecific ST and T wave abnormality Abnormal ECG When compared with ECG of 27-MAY-2020 07:59, Vent. rate has increased BY 44 BPM T wave inversion now evident in Lateral leads Confirmed by Frantz Reagan ([id number]) on 12/19/2020 4:08:36 PM Referred By: REFERRED SELF Confirmed By:Frantz Reagan
[2020-12-19] MEDS ORDERED: FUROSEMIDE 40 MG/4 ML VIAL IV SCH (17:00)
[2020-12-19] MEDS: FUROSEMIDE 20 MG in SYRINGE 0 ML IV SCH (17:01)
[2020-12-19] MEDS: APIXABAN 5 MG TABLET PO SCH (19:56)
[2020-12-19] MEDS: METOPROLOL TARTRATE 25 MG TAB PO SCH (19:56)
[2020-12-19] MEDS: LATANOPROST 0.005% OP SOLN 2.5 ML BTL OPL SCH (19:57)
[2020-12-19] MEDS ORDERED: METOPROLOL TARTRATE 50 MG TAB PO SCH (21:00)
[2020-12-19] MEDS ORDERED: ZOLPIDEM TARTRATE 5 MG TAB PO STA (22:19)
[2020-12-20] MEDS: LEVOTHYROXINE SODIUM 75 MCG TABLET PO SCH (06:22)
[2020-12-20 06:58] LABS: Hematocrit (blood only) 41.2 % (42-52); Hemoglobin 13.8 g/dL (14.0-18.0); Mean Corpuscular Hemoglobin 29.5 pg (25-34); Mean Corpuscular Hgb Conc 33.5 g/dL (32-36); Mean Platelet Volume 10.8 fL (7.4-10.4); Platelet Count 144 K/uL (130-400); RDW Coefficient of Variation 13.8 % (11.5-14.5); RDW Standard Deviation 44.3 fL (36.4-46.3); Red Blood Count 4.68 M/uL (4.7-6.1); White Blood Count 5.65 K/uL (4.8-10.8)
--- NOTE | 2020-12-20 07:26 | Electrocardiogram Report ---
Test Reason : Blood Pressure : / mmHG Vent. Rate : 080 BPM Atrial Rate : 080 BPM P-R Int : 242 ms QRS Dur : 088 ms QT Int : 426 ms P-R-T Axes : 028 021 125 degrees QTc Int : 491 ms Sinus rhythm with 1st degree A-V block with Premature atrial complexes Left ventricular hypertrophy with repolarization abnormality Prolonged QT Abnormal ECG When compared with ECG of 19-DEC-2020 07:09, (unconfirmed) Sinus rhythm has replaced Atrial fibrillation T wave inversion more evident in Lateral leads Confirmed by Frantz Reagan ([id number]) on 12/19/2020 4:20:24 PM Also confirmed by Frantz Reagan ([id number]), editor at large Luis Armando Escobar ([id number]) on 12/20/2020 7:26:08 AM Referred By: REFERRED SELF Confirmed By:Frantz Reagan
[2020-12-20 07:37] LABS: BUN Creatinine Ratio 18.8 (10-20); Calcium 8.7 mg/dl (8.5-10.1); Creatinine Clr Calc Pharmacy 43.2 ml/min; Est GFR (African American) 57.2; Est GFR (Non-African American) 49.3; Magnesium 1.9 mg/dl (1.8-2.4); Potassium 3.6 mmol/L (3.5-5.1)
[2020-12-20] MEDS: FUROSEMIDE 20 MG in SYRINGE 0 ML IV SCH ×2 (08:01→17:02)
[2020-12-20] MEDS: FINASTERIDE 5 MG TAB PO SCH (08:02)
[2020-12-20] MEDS: MULTIVITAMIN TAB PO SCH (08:02)
[2020-12-20] MEDS: PANTOprazole 40 MG TAB PO SCH (08:02)
[2020-12-20] MEDS: FOLIC ACID 1 MG TAB PO SCH (08:02)
[2020-12-20] MEDS: METOPROLOL TARTRATE 25 MG TAB PO SCH ×2 (08:02→20:43)
[2020-12-20] MEDS: lisinopril 5 MG TAB PO SCH (08:02)
[2020-12-20] MEDS: MAGNESIUM OXIDE 400 MG TAB PO SCH ×2 (08:03→20:44)
[2020-12-20] MEDS: APIXABAN 5 MG TABLET PO SCH ×2 (08:03→20:43)
[2020-12-20] MEDS: INSULIN ASPART 100 UNITS/ML 3 ML PEN SC SCH ×4 (08:03→20:48)
[2020-12-20] MEDS: PSYLLIUM 58.6% POWDER PACKET PO SCH (08:03)
[2020-12-20] MEDS: INSULIN GLARGINE SOLOSTAR 100 UNITS/ML 3 ML PEN SC SCH ×2 (08:04→20:49)
[2020-12-20 08:14] LABS: Estimated Average Glucose 163 mg/dl; Hemoglobin A1C 7.3 % (4.5-5.6)
[2020-12-20] MEDS ORDERED: SODIUM CHLORIDE 0.65% NA SOLN 45 ML (OCEAN) ONE (11:11)
--- NOTE | 2020-12-20 11:39 | Cardiology Progress Note ---
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 Patient rhythm improved with periods of atrial fibrillation and sinus rhythm. Tolerating metoprolol 75 mg twice daily. Currently prescribed short acting formulation for ease of titration. Ultimately, patient will be transition to succinate (long- acting) formulation. Recommend addition of low-dose Aldactone, 12.5 mg daily. Follow daily weight, fluid balance, electrolytes, and GFR. Continue conservative medical management recommended at this time. Clinical status and recommendations discussed with patient's via telephone. Consideration for outpatient Lexiscan nuclear stress testing for ischemic evaluation post discharge. Remote history of relatively normal coronary angiography per review of medical records. I do long discussion with the patient regarding activity restrictions. Strongly advised to avoid further strenuous activity including snow shoveling. He voiced understanding and agreement. Admission and Anticipated Discharge Date Admission Date: December 19, 2020 Subjective Patient seen and examined the bedside. He is a poor historian due to underlying dementia. Limited insight into current medical issues. Denies chest pain or shortness of breath currently. Unable to recall episode of shortness of breath precipitating hospitalization. Denies orthopnea, or PND. Lower extremity edema improving with diuretic therapy. Fluid balance -855 cc overnight. Tolerating intravenous diuretic therapy. Telemetry demonstrates periods of atrial fibrillation, sinus rhythm, requent premature atrial complexes, occasional wandering atrial pacemaker and rare blocked premature supraventricular complexes. Review of Systems Review of Systems: All systems reviewed & are unremarkable except as noted in Subjective Poor historian due to underlying dementia. Physical Exam Constitutional: well developed and well nourished; no acute distress Eyes: PERRL, conjunctivae normal, anicteric sclerae Respiratory: no respiratory distress and no labored breathing Auscultation: + diminished lung sounds (Bases bilateral); no crackles, no rales, no rhonchi and no wheezes Cardiovascular: Rate/Rhythm: + abnormal rhythm (Irregular rhythm.) Heart Sounds: normal S1 and normal S2; no murmur Vessels: + JVD; no carotid bruit Extremities: + edema (Trace to mild bilateral pretibial edema, right greater than left.) Gastrointestinal (Abdomen): Inspection/Auscultation: normal bowel sounds Percussion/Palpation: abdomen soft; abdomen nontender, no guarding and abdomen not rigid Skin: no rashes, warm and dry Neurologic: CN's II-XI intact bilaterally and moves all extremities Motor/Sensory: no tremor Psychiatric: Insight: + poor insight Results & Data ([facility]) Vital Signs (Past 12 Hours) Vital Signs Temp Pulse Pulse Resp BP Pulse Ox 12/20/20 07:37 36.6 C 72 19 135/92 92 12/20/20 07:00 57 L 12/20/20 03:28 36.8 C 94 H 19 122/75 91 12/20/20 00:01 36.7 C 73 21 119/77 94
[2020-12-20] MEDS: SPIRONOLACTONE 12.5 MG TAB PO SCH (13:17)
--- NOTE | 2020-12-20 14:43 | Hospitalist Progress Note ---
Date of Service December 20, 2020 Assessment & Plan (1) Acute on chronic heart failure with preserved ejection fraction (HFpEF): Acute on chronic heart failure with reduced EF and diastolic dysfunction Complicated by paroxysmal atrial fibrillation with RVR Has been improving with intravenous diuretic therapy Appreciate cardiology input and recommendation Echo of the heart showed-LV systolic function is severely reduced with EF of 25 to 30%, severe global hypokinesis of the left ventricle, there is moderate concentric LV hypertrophy, LV is mildly dilated, left atrium is moderately dilated, aortic valve sclerosis mild without significant stenosis, mild MR and mild TR, estimated systolic pulmonary pressure is 37 mmHg.\. Aortic root is moderately large at 4.5 cm and trivial loculated posterior pericardial effusion. Compared with prior study the LV EF has decreased. Aldactone 12.5 mg will be added We will get PT and OT evaluation before discharge (2) Atrial fibrillation: History of paroxysmal atrial fibrillation Has been going in and out of fibrillation Rate is controlled Beta-mirza dose has been increased to 75 mg twice daily We will monitor in the telemetry unit (3) Elevated troponin: Elevated troponin is due to ventricular strain Serial troponins did not show any ACS Echo of the heart as mentioned above (4) Hypomagnesemia: Mag 1.4, 1 g mag sulfate x2 ordered in ED Mag oxide 400 mg twice daily ordered Repeat mag at 1230-Normalized (5) HTN (hypertension): Blood pressure 137/89 Continue lisinopril & metoprolol (6) History of pulmonary embolism: Continue Eliquis (7) CKD (chronic kidney disease), stage III: Baseline creatinine 1.1-1.2 BUN/creatinine 26 and 1.29 Monitor renal function given diuresis Creatinine remains normal (8) Diabetes mellitus, type II: Last A1c 7.1 04/2020 Obtain A1c in a.m. Hold Metformin and glipizide Lantus/NovoLog per protocol FULL CODE DVT ppx: Marlon, SCD/TEDS DISPO: admit to PCU PCP: Zahira Admission and Anticipated Discharge Date Admission Date: December 19, 2020 Subjective 12/20/2020 The patient was seen and examined in telemetry unit He was noted to be drowsy this morning and received 5 mg of zolpidem last night He denies any symptoms today Review of Systems Review of Systems: All systems reviewed and are unremarkable except as noted below Respiratory: + dyspnea (Minimal dyspnea at rest) Physical Exam Constitutional: well developed and well nourished; not ill appearing Eyes: PERRL, conjunctivae normal, anicteric sclerae ENMT: external ear and nose normal, oropharynx normal Neck: trachea midline, no thyromegaly Respiratory: + respiratory distress (Minimal distress at rest) Auscultation: + diminished lung sounds and + crackles (Occasional crackles at the bases) Cardiovascular: Rate/Rhythm: regular rate and regular rhythm Heart Sounds: no murmur Extremities: + edema (Trace edema bilaterally) Gastrointestinal (Abdomen): Inspection/Auscultation: normal bowel sounds; abdomen not distended Percussion/Palpation: abdomen soft; abdomen nontender Musculoskeletal: No acute arthritis in any joint Neurologic: Alert, awake and oriented x3. No focal sensory and motor deficit appreciated Psychiatric: A+Ox3, euthymic affect Lymphatic: no cervical or axillary lymphadenopathy Results & Data Results & Data ([facility]) Vital Signs (Past 12 Hours) Vital Signs Temp Pulse Pulse Resp BP Pulse Ox 12/20/20 11:45 36.7 C 65 20 108/69 98 12/20/20 07:37 36.6 C 72 19 135/92 92 12/20/20 07:00 57 L 12/20/20 03:28 36.8 C 94 H 19 122/75 91 Laboratory Results Short CBC 12/20/20 Range/Units 06:33 WBC 5.65 (4.8-10.8) K/uL Hgb 13.8 L (14.0-18.0) g/dL Hct 41.2 L (42-52) % Plt Count 144 (130-400) K/uL BMP 12/20/20 06:33 Sodium 141 Potassium 3.6 Chloride 106 Carbon Dioxide 30 BUN 25 H Creatinine 1.34 Glucose 135 H Calcium 8.7 Cardiac Enzymes 12/19/20 Range/Units 18:43 Troponin I 0.070 H* (0-0.045) ng/ml Medications Administered Current Inpatient Medications Acetaminophen (Acetaminophen 325 Mg Tab) 650 mg PO Q4H PRN PRN Reason: Pain or Fever Stop: 01/18/21 11:05 Al Hydrox/Mg Hydrox/Simethicone (Aluminum/Magnesium Susp 30 Ml Udc) 15 ml PO Q4H PRN PRN Reason: Dyspepsia Stop: 01/18/21 11:05 Apixaban (Apixaban 5 Mg Tablet) 5 mg PO Q12H [facility] Stop: 01/18/21 19:59 Last Admin: 12/20/20 08:03 Dose: 5 mg Documented by: Dextrose (Dextrose 50% 50 Ml Syringe) 25 - 50 ml IV UD PRN; Protocol PRN Reason: Hypoglycemia Protocol Stop: 01/18/21 08:36 Finasteride (Finasteride 5 Mg Tab) 5 mg PO QAM [facility] Stop: 01/18/21 11:29 Last Admin: 12/20/20 08:02 Dose: 5 mg Documented by: Folic Acid (Folic Acid 1 Mg Tab) 1 mg PO QAM [facility] Stop: 01/18/21 11:59 Last Admin: 12/20/20 08:02 Dose: 1 mg Documented by: Glucagon (Glucagon For Inj 1 Mg Vial) 1 mg SQ UD PRN; Protocol PRN Reason: Hypoglycemia Protocol Stop: 01/18/21 08:36 Glucose (Glucose 10 Tabs/Tube) 4 - 8 tabs PO UD PRN; Protocol PRN Reason: Hypoglycemia Protocol Stop: 01/18/21 08:36 Glucose (Glucose 40% Gel 15 Gm Tube) 15 - 30 gm PO UD PRN; Protocol PRN Reason: Hypoglycemia Protocol Stop: 01/18/21 08:36 Furosemide 20 mg/ Syringe 2 mls @ 4 mls/min IV [id number] PB Stop: 01/18/21 16:59 Last Admin: 12/20/20 08:01 Dose: 4 mls/min Documented by: Insulin Aspart (Insulin Aspart 100 Units/Ml 3 Ml Pen) 0 units SC ACHS [facility] Stop: 01/18/21 11:29 Last Admin: 12/20/20 12:26 Dose: 5 units Documented by: Insulin Glargine (Insulin Glargine Solostar 100 Units/Ml 3 Ml Pen) 0 - 10 units SC BID [facility] Stop: 01/18/21 08:59 Last Admin: 12/20/20 08:04 Dose: 5 units Documented by: Latanoprost (Latanoprost 0.005% Op Soln 2.5 Ml Btl) 1 drops OPL HS [facility] Stop: 01/18/21 20:59 Last Admin: 12/19/20 19:57 Dose: 1 drops Documented by: Levothyroxine Sodium (Levothyroxine Sodium 75 Mcg Tablet) 75 mcg PO DAILYBB [facility] Stop: 01/18/21 11:29 Last Admin: 12/20/20 06:22 Dose: 75 mcg Documented by: Lisinopril (Lisinopril 5 Mg Tab) 5 mg PO DAILY [facility] Stop: 01/18/21 11:59 Last Admin: 12/20/20 08:02 Dose: 5 mg Documented by: Magnesium Hydroxide (Magnesium Hydroxide Susp 30 Ml Udc) 30 ml PO Q12H PRN PRN Reason: Constipation Stop: 01/18/21 11:05 Magnesium Oxide (Magnesium Oxide 400 Mg Tab) 400 mg PO BID [facility] Stop: 01/18/21 08:59 Last Admin: 12/20/20 08:03 Dose: 400 mg Documented by: Metoprolol Tartrate (Metoprolol Tartrate 25 Mg Tab) 75 mg PO Q12H [facility] Stop: 01/18/21 20:59 Last Admin: 12/20/20 08:02 Dose: 75 mg Documented by: Miscellaneous (Carbohydrates For Hypoglycemia ) 15 - 30 gm PO UD PRN PRN Reason: Hypoglycemia Protocol Stop: 01/18/21 08:36 Multivitamins (Multivitamin Tab) 1 tab PO [facility] Stop: 01/18/21 11:59 Last Admin: 12/20/20 08:02 Dose: 1 tab Documented by: Nitroglycerin (Nitroglycerin Sl 0.4 Mg/Tab Tab) 0.4 mg SL UD PRN PRN Reason: Chest Pain Stop: 01/18/21 11:05 Ondansetron HCl (Ondansetron Inj 2 Mg/Ml 2 Ml Vial) 4 mg IV Q6H PRN PRN Reason: Nausea Stop: 01/18/21 11:05 Pantoprazole Sodium (Pantoprazole 40 Mg Tab) 40 mg PO DAILY [facility] Stop: 01/18/21 11:59 Last Admin: 12/20/20 08:02 Dose: 40 mg Documented by: Polyethylene Glycol (Polyethylene (Miralax) 17 Gm Pack) 17 gm PO DAILY PRN PRN Reason: Constipation Stop: 01/18/21 11:05 Psyllium Hydrophilic Mucilloid (Psyllium 58.6% Powder Packet) 1 pkt PO QAM [facility] Stop: 01/18/21 11:59 Last Admin: 12/20/20 08:03 Dose: 1 pkt Documented by: Spironolactone (Spironolactone 12.5 Mg Tab) 12.5 mg PO DAILY [facility] Stop: 01/19/21 11:59 Last Admin: 12/20/20 13:17 Dose: 12.5 mg Documented by: Timolol Maleate (Timolol Maleate 0.5% Op Soln 5 Ml Btl) 1 drops OPL BID [facility] Stop: 01/19/21 20:59 (1) Atrial fibrillation Atrial fibrillation type: unspecified Qualified Code(s): I48.91 - Unspecified atrial fibrillation
[2020-12-20] MEDS: TIMOLOL MALEATE 0.5% OP SOLN 5 ML BTL OPL SCH (20:48)
[2020-12-20] MEDS: LATANOPROST 0.005% OP SOLN 2.5 ML BTL OPL SCH (20:50)
[2020-12-21] MEDS: LEVOTHYROXINE SODIUM 75 MCG TABLET PO SCH (05:12)
--- NOTE | 2020-12-21 05:49 | Electrocardiogram Report ---
Test Reason : Blood Pressure : / mmHG Vent. Rate : 089 BPM Atrial Rate : 089 BPM P-R Int : 192 ms QRS Dur : 086 ms QT Int : 382 ms P-R-T Axes : 074 042 160 degrees QTc Int : 464 ms Sinus rhythm with frequent , and consecutive Premature atrial complexes Minimal voltage criteria for LVH, may be normal variant Abnormal ECG When compared with ECG of 19-DEC-2020 14:35, Atrial run is now present Confirmed by Abner Joseph ([id number]) on 12/21/2020 5:49:06 AM Referred By: REFERRED SELF Confirmed By:Abner Joseph
--- NOTE | 2020-12-21 05:59 | Electrocardiogram Report ---
Test Reason : Blood Pressure : / mmHG Vent. Rate : 072 BPM Atrial Rate : 078 BPM P-R Int : 214 ms QRS Dur : 086 ms QT Int : 446 ms P-R-T Axes : 055 043 222 degrees QTc Int : 488 ms Sinus rhythm with 1st degree A-V block with occasional Premature ventricular complexes Premature atrial complexes and blocked PACs Moderate voltage criteria for LVH, may be normal variant Prolonged QT Abnormal ECG When compared with ECG of 20-DEC-2020 01:37, Premature ventricular complexes are now Present Blocked Premature atrial complexes are now Present Confirmed by Abner Joseph ([id number]) on 12/21/2020 5:59:16 AM Referred By: REFERRED SELF Confirmed By:Abner Joseph
[2020-12-21] MEDS: APIXABAN 5 MG TABLET PO SCH ×2 (08:13→20:30)
[2020-12-21] MEDS: lisinopril 5 MG TAB PO SCH (08:14)
[2020-12-21] MEDS: FOLIC ACID 1 MG TAB PO SCH (08:14)
[2020-12-21] MEDS: SPIRONOLACTONE 12.5 MG TAB PO SCH (08:14)
[2020-12-21] MEDS: PANTOprazole 40 MG TAB PO SCH (08:14)
[2020-12-21] MEDS: TIMOLOL MALEATE 0.5% OP SOLN 5 ML BTL OPL SCH ×2 (08:14→20:30)
[2020-12-21] MEDS: FINASTERIDE 5 MG TAB PO SCH (08:14)
[2020-12-21] MEDS: MAGNESIUM OXIDE 400 MG TAB PO SCH ×2 (08:14→20:30)
[2020-12-21] MEDS: MULTIVITAMIN TAB PO SCH (08:14)
[2020-12-21] MEDS: INSULIN ASPART 100 UNITS/ML 3 ML PEN SC SCH ×4 (08:15→20:31)
[2020-12-21] MEDS: INSULIN GLARGINE SOLOSTAR 100 UNITS/ML 3 ML PEN SC SCH ×2 (08:15→20:31)
[2020-12-21] MEDS: FUROSEMIDE 20 MG in SYRINGE 0 ML IV SCH (08:16)
[2020-12-21] MEDS: METOPROLOL TARTRATE 25 MG TAB PO SCH ×2 (08:16→20:30)
[2020-12-21] MEDS: PSYLLIUM 58.6% POWDER PACKET PO SCH (08:54)
[2020-12-21 10:47] LABS: BUN Creatinine Ratio 17.7 (10-20); Calcium 9.1 mg/dl (8.5-10.1); Est GFR (African American) 45.8; Est GFR (Non-African American) 39.5; Magnesium 1.9 mg/dl (1.8-2.4); Potassium 3.9 mmol/L (3.5-5.1)
--- NOTE | 2020-12-21 11:16 | Hospitalist Progress Note ---
Date of Service December 21, 2020 Assessment & Plan (1) Acute on chronic heart failure with preserved ejection fraction (HFpEF): Acute on chronic heart failure with reduced EF and diastolic dysfunction Complicated by paroxysmal atrial fibrillation with RVR Has been improving with intravenous diuretic therapy Appreciate cardiology input and recommendation Echo of the heart showed-LV systolic function is severely reduced with EF of 25 to 30%, severe global hypokinesis of the left ventricle, there is moderate concentric LV hypertrophy, LV is mildly dilated, left atrium is moderately dilated, aortic valve sclerosis mild without significant stenosis, mild MR and mild TR, estimated systolic pulmonary pressure is 37 mmHg.\. Aortic root is moderately large at 4.5 cm and trivial loculated posterior pericardial effusion. Compared with prior study the LV EF has decreased. Aldactone 12.5 mg will be added We will get PT and OT evaluation before discharge We will decrease the dose of Lasix as creatinine is going up-he was not on any diuretics at home Await recommendation from insect control aide about furosemide dose to continue at discharge (2) Atrial fibrillation: History of paroxysmal atrial fibrillation Has been going in and out of fibrillation Rate is controlled Beta-mirza dose has been increased to 75 mg twice daily We will monitor in the telemetry unit (3) Elevated troponin: Elevated troponin is due to ventricular strain Serial troponins did not show any ACS Echo of the heart as mentioned above (4) Hypomagnesemia: Mag 1.4, 1 g mag sulfate x2 ordered in ED Mag oxide 400 mg twice daily ordered Repeat mag at 1230-Normalized (5) HTN (hypertension): Blood pressure 137/89 Continue lisinopril & metoprolol (6) History of pulmonary embolism: Continue Eliquis (7) CKD (chronic kidney disease), stage III: Baseline creatinine 1.1-1.2 BUN/creatinine 26 and 1.29 Monitor renal function given diuresis Creatinine went up to 1.6 as of 12/21/2020 We will decrease furosemide and monitor PRP (8) Diabetes mellitus, type II: Last A1c 7.1 04/2020 Obtain A1c in a.m. Hold Metformin and glipizide Lantus/NovoLog per protocol FULL CODE DVT ppx: Marlon SCD/TEDS DISPO: admit to PCU PCP: Zahira Admission and Anticipated Discharge Date Admission Date: December 19, 2020 Subjective 12/20/2020 The patient was seen and examined in telemetry unit He was noted to be drowsy this morning and received 5 mg of zolpidem last night He denies any symptoms today 12/21/2020 The patient was seen and examined in telemetry unit He has been feeling a lot better but remains generally weak and lethargic He has been desaturating with ambulation He will have a 2 steps O2 saturation before discharge Review of Systems Review of Systems: All systems reviewed and are unremarkable except as noted below Respiratory: + dyspnea (Minimal dyspnea at rest) Physical Exam Physical Exam: Sitting on a chair without any acute distress Constitutional: well developed and well nourished; not ill appearing Eyes: PERRL, conjunctivae normal, anicteric sclerae ENMT: external ear and nose normal, oropharynx normal Neck: trachea midline, no thyromegaly Respiratory: + respiratory distress (Minimal distress at rest) Auscultation: + diminished lung sounds and + crackles (Occasional crackles at the bases) Cardiovascular: Rate/Rhythm: regular rate and regular rhythm Heart Sounds: no murmur Extremities: + edema (Trace edema bilaterally) Gastrointestinal (Abdomen): Inspection/Auscultation: normal bowel sounds; abdomen not distended Percussion/Palpation: abdomen soft; abdomen nontender Musculoskeletal: No acute arthritis in any joint Neurologic: Alert, awake and oriented x3. Generally weak but no focal sensory or motor deficit appreciated Psychiatric: A+Ox3, euthymic affect Lymphatic: no cervical or axillary lymphadenopathy Results & Data Results & Data ([facility]) Vital Signs (Past 12 Hours) Vital Signs Temp Pulse Pulse Resp BP Pulse Ox 12/21/20 08:00 80 12/21/20 07:11 36.6 C 64 20 112/71 94 12/21/20 03:22 36.8 C 72 18 129/76 92 12/21/20 01:03 64 12/21/20 00:20 36.7 C 64 19 117/73 94 Laboratory Results BMP 12/21/20 10:14 Sodium 136 Potassium 3.9 Chloride 99 Carbon Dioxide 31 BUN 29 H Creatinine 1.61 H Glucose 246 H Calcium 9.1 Medications Administered Current Inpatient Medications Acetaminophen (Acetaminophen 325 Mg Tab) 650 mg PO Q4H PRN PRN Reason: Pain or Fever Stop: 01/18/21 11:05 Al Hydrox/Mg Hydrox/Simethicone (Aluminum/Magnesium Susp 30 Ml Udc) 15 ml PO Q4H PRN PRN Reason: Dyspepsia Stop: 01/18/21 11:05 Apixaban (Apixaban 5 Mg Tablet) 5 mg PO Q12H [facility] Stop: 01/18/21 19:59 Last Admin: 12/21/20 08:13 Dose: 5 mg Documented by: Dextrose (Dextrose 50% 50 Ml Syringe) 25 - 50 ml IV UD PRN; Protocol PRN Reason: Hypoglycemia Protocol Stop: 01/18/21 08:36 Finasteride (Finasteride 5 Mg Tab) 5 mg PO QAM [facility] Stop: 01/18/21 11:29 Last Admin: 12/21/20 08:14 Dose: 5 mg Documented by: Folic Acid (Folic Acid 1 Mg Tab) 1 mg PO QAM [facility] Stop: 01/18/21 11:59 Last Admin: 12/21/20 08:14 Dose: 1 mg Documented by: Glucagon (Glucagon For Inj 1 Mg Vial) 1 mg SQ UD PRN; Protocol PRN Reason: Hypoglycemia Protocol Stop: 01/18/21 08:36 Glucose (Glucose 10 Tabs/Tube) 4 - 8 tabs PO UD PRN; Protocol PRN Reason: Hypoglycemia Protocol Stop: 01/18/21 08:36 Glucose (Glucose 40% Gel 15 Gm Tube) 15 - 30 gm PO UD PRN; Protocol PRN Reason: Hypoglycemia Protocol Stop: 01/18/21 08:36 Furosemide 20 mg/ Syringe 2 mls @ 4 mls/min IV [id number] [facility] Stop: 01/18/21 16:59 Last Admin: 12/21/20 08:16 Dose: 4 mls/min Documented by: Insulin Aspart (Insulin Aspart 100 Units/Ml 3 Ml Pen) 0 units SC ACHS [facility] Stop: 01/18/21 11:29 Last Admin: 12/21/20 08:15 Dose: 6 units Documented by: Insulin Glargine (Insulin Glargine Solostar 100 Units/Ml 3 Ml Pen) 0 - 10 units SC BID [facility] Stop: 01/18/21 08:59 Last Admin: 12/21/20 08:15 Dose: 5 units Documented by: Latanoprost (Latanoprost 0.005% Op Soln 2.5 Ml Btl) 1 drops OPL HS [facility] Stop: 01/18/21 20:59 Last Admin: 12/20/20 20:50 Dose: 1 drops Documented by: Levothyroxine Sodium (Levothyroxine Sodium 75 Mcg Tablet) 75 mcg PO DAILYBB [facility] Stop: 01/18/21 11:29 Last Admin: 12/21/20 05:12 Dose: 75 mcg Documented by: Lisinopril (Lisinopril 5 Mg Tab) 5 mg PO DAILY [facility] Stop: 01/18/21 11:59 Last Admin: 12/21/20 08:14 Dose: 5 mg Documented by: Magnesium Hydroxide (Magnesium Hydroxide Susp 30 Ml Udc) 30 ml PO Q12H PRN PRN Reason: Constipation Stop: 01/18/21 11:05 Magnesium Oxide (Magnesium Oxide 400 Mg Tab) 400 mg PO BID [facility] Stop: 01/18/21 08:59 Last Admin: 12/21/20 08:14 Dose: 400 mg Documented by: Metoprolol Tartrate (Metoprolol Tartrate 25 Mg Tab) 75 mg PO Q12H [facility] Stop: 01/18/21 20:59 Last Admin: 12/21/20 08:16 Dose: 75 mg Documented by: Miscellaneous (Carbohydrates For Hypoglycemia ) 15 - 30 gm PO UD PRN PRN Reason: Hypoglycemia Protocol Stop: 01/18/21 08:36 Multivitamins (Multivitamin Tab) [address] [facility] Stop: 01/18/21 11:59 Last Admin: 12/21/20 08:14 Dose: 1 tab Documented by: Nitroglycerin (Nitroglycerin Sl 0.4 Mg/Tab Tab) 0.4 mg SL UD PRN PRN Reason: Chest Pain Stop: 01/18/21 11:05 Ondansetron HCl (Ondansetron Inj 2 Mg/Ml 2 Ml Vial) 4 mg IV Q6H PRN PRN Reason: Nausea Stop: 01/18/21 11:05 Pantoprazole Sodium (Pantoprazole 40 Mg Tab) 40 mg PO DAILY [facility] Stop: 01/18/21 11:59 Last Admin: 12/21/20 08:14 Dose: 40 mg Documented by: Polyethylene Glycol (Polyethylene (Miralax) 17 Gm Pack) 17 gm PO DAILY PRN PRN Reason: Constipation Stop: 01/18/21 11:05 Psyllium Hydrophilic Mucilloid (Psyllium 58.6% Powder Packet) [facility] [place]: 01/18/21 11:59 Last Admin: 12/21/20 08:54 Dose: 1 pkt Documented by: Spironolactone (Spironolactone 12.5 Mg Tab) 12.5 mg PO DAILY [facility] Stop: 01/19/21 11:59 Last Admin: 12/21/20 08:14 Dose: 12.5 mg Documented by: Timolol Maleate (Timolol Maleate 0.5% Op Soln 5 Ml Btl) 1 drops OPL BID PB Stop: 01/19/21 20:59 Last Admin: 12/21/20 08:14 Dose: 1 drops Documented by: (1) Atrial fibrillation Atrial fibrillation type: unspecified Qualified Code(s): I48.91 - Unspecified atrial fibrillation
--- NOTE | 2020-12-21 13:05 | Cardiology Progress Note ---
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 Weight is down nearly 10 pounds since admission. Creatinine trending upward with borderline hypotension suggesting intravascular volume depletion. Recommend withholding diuretic therapy today. Repeat basic metabolic panel in a.m. In regard to his paroxysmal atrial fibrillation, previous amiodarone intolerance documented. Continue metoprolol tartrate 25 mg twice daily (titrated from 50 mg twice daily during hospitalization) Continue low-dose Aldactone 12.5 mg daily. Follow daily weight, fluid balance, electrolytes, and GFR. Consideration ischemic evaluation with outpatient Lexiscan nuclear stress testing. Remote history of relatively normal coronary angiography per review of medical records. Again, activity restrictions discussed with patient. Strongly advised to avoid further strenuous activity including snow shoveling. He voiced understanding and agreement. Patient's clinical status and plan of care discussed with his , Ella, via telephone. All questions answered to her satisfaction. Admission and Anticipated Discharge Date Admission Date: December 19, 2020 Subjective Patient seen and examined at the bedside. Poor historian due to underlying dementia. Fluid balance essentially even over the past 24 hours. Tolerating diet and medications. Serum creatinine trending upward. He did receive a.m. dose of IV Lasix today. Borderline hypotensive this morning. Denies lightheadedness, dizziness, or palpitations. Telemetry demonstrates primarily sinus rhythm with premature atrial complexes, and blocked premature atrial complexes. Occasional episodes of atrial fibrillation noted. Review of Systems Review of Systems: All systems reviewed & are unremarkable except as noted in Subjective Physical Exam Constitutional: well developed and well nourished; no acute distress Eyes: PERRL, conjunctivae normal, anicteric sclerae Respiratory: no respiratory distress and no labored breathing Auscultation: + diminished lung sounds (Bases bilateral); no crackles, no rales, no rhonchi and no wheezes Cardiovascular: Rate/Rhythm: + abnormal rhythm (Irregular rhythm.) Heart Sounds: normal S1 and normal S2; no murmur Vessels: + JVD; no carotid bruit Extremities: no edema Gastrointestinal (Abdomen): Inspection/Auscultation: normal bowel sounds Percussion/Palpation: abdomen soft; abdomen nontender, no guarding and abdomen not rigid Skin: no rashes, warm and dry Neurologic: CN's II-XI intact bilaterally and moves all extremities Motor/Sensory: no tremor Psychiatric: Insight: + poor insight Results & Data ([facility]) Vital Signs (Past 12 Hours) Vital Signs Temp Pulse Pulse Pulse Pulse Pulse Resp 12/21/20 11:32 36.6 C 62 20 12/21/20 11:09 80 86 63 12/21/20 08:00 80 12/21/20 07:11 36.6 C 64 20 12/21/20 03:22 36.8 C 72 18 12/21/20 01:03 64 Resp Resp Resp BP Pulse Ox Pulse Ox Pulse Ox 12/21/20 11:32 97/62 L 90 12/21/20 11:09 20 16 16 94 95 12/21/20 08:00 12/21/20 07:11 112/71 94 12/21/20 03:22 129/76 92 12/21/20 01:03 Pulse Ox 12/21/20 11:32 12/21/20 11:09 95 12/21/20 08:00 12/21/20 07:11 12/21/20 03:22 12/21/20 01:03
--- NOTE | 2020-12-21 13:45 | Electrocardiogram Report ---
Test Reason : Blood Pressure : / mmHG Vent. Rate : 058 BPM Atrial Rate : 058 BPM P-R Int : 160 ms QRS Dur : 086 ms QT Int : 484 ms P-R-T Axes : 040 009 186 degrees QTc Int : 475 ms Sinus bradycardia with Premature atrial complexes Left ventricular hypertrophy with repolarization abnormality Abnormal ECG When compared with ECG of 20-DEC-2020 06:36, Premature ventricular complexes are no longer Present SC interval has decreased ST no longer elevated in Anterior leads Confirmed by Frantz Reagan ([id number]) on 12/21/2020 1:44:49 PM Referred By: REFERRED SELF Confirmed By:Frantz Reagan
[2020-12-21] MEDS: LATANOPROST 0.005% OP SOLN 2.5 ML BTL OPL SCH (20:30)
[2020-12-22 07:37] LABS: Calcium 9.4 mg/dl (8.5-10.1); Creatinine Clr Calc Pharmacy 42.9 ml/min; Est GFR (African American) 56.7; Est GFR (Non-African American) 48.9; Magnesium 2.1 mg/dl (1.8-2.4); Potassium 4.1 mmol/L (3.5-5.1)
[2020-12-22] MEDS: LEVOTHYROXINE SODIUM 75 MCG TABLET PO SCH (08:00)
[2020-12-22] MEDS: INSULIN ASPART 100 UNITS/ML 3 ML PEN SC SCH ×2 (08:17→12:09)
[2020-12-22] MEDS: INSULIN GLARGINE SOLOSTAR 100 UNITS/ML 3 ML PEN SC SCH (08:17)
[2020-12-22] MEDS: MULTIVITAMIN TAB PO SCH (08:19)
[2020-12-22] MEDS: FOLIC ACID 1 MG TAB PO SCH (08:19)
[2020-12-22] MEDS: lisinopril 5 MG TAB PO SCH (08:19)
[2020-12-22] MEDS: TIMOLOL MALEATE 0.5% OP SOLN 5 ML BTL OPL SCH (08:19)
[2020-12-22] MEDS: SPIRONOLACTONE 12.5 MG TAB PO SCH (08:19)
[2020-12-22] MEDS: FINASTERIDE 5 MG TAB PO SCH (08:19)
[2020-12-22] MEDS: APIXABAN 5 MG TABLET PO SCH (08:20)
[2020-12-22] MEDS: PANTOprazole 40 MG TAB PO SCH (08:20)
[2020-12-22] MEDS: PSYLLIUM 58.6% POWDER PACKET PO SCH (08:20)
[2020-12-22] MEDS: METOPROLOL TARTRATE 25 MG TAB PO SCH (08:20)
[2020-12-22] MEDS: MAGNESIUM OXIDE 400 MG TAB PO SCH (08:20)
[2020-12-22] MEDS ORDERED: FUROSEMIDE 20 MG in SYRINGE 0 ML IV SCH (09:00)
--- NOTE | 2020-12-22 12:08 | Hospitalist Progress Note ---
Date of Service December 22, 2020 Assessment & Plan (1) Acute on chronic heart failure with preserved ejection fraction (HFpEF): Acute on chronic heart failure with reduced EF and diastolic dysfunction Complicated by paroxysmal atrial fibrillation with RVR Has been improving with intravenous diuretic therapy Appreciate cardiology input and recommendation Echo of the heart showed-LV systolic function is severely reduced with EF of 25 to 30%, severe global hypokinesis of the left ventricle, there is moderate concentric LV hypertrophy, LV is mildly dilated, left atrium is moderately dilated, aortic valve sclerosis mild without significant stenosis, mild MR and mild TR, estimated systolic pulmonary pressure is 37 mmHg.\. Aortic root is moderately large at 4.5 cm and trivial loculated posterior pericardial effusion. Compared with prior study the LV EF has decreased. Aldactone 12.5 mg will be added We will get PT and OT evaluation before discharge We will decrease the dose of Lasix as creatinine is going up-he was not on any diuretics at home The Lasix was on hold since yesterday and creatinine has improved to normal range He did not qualify for any oxygen with ambulation He wants to go home today and will be discharged this afternoon (2) Atrial fibrillation: History of paroxysmal atrial fibrillation Has been going in and out of fibrillation Rate is controlled Beta-mirza dose has been increased to 75 mg twice daily We will monitor in the telemetry unit Heart rate is controlled (3) Elevated troponin: Elevated troponin is due to ventricular strain Serial troponins did not show any ACS Echo of the heart as mentioned above (4) Hypomagnesemia: Mag 1.4, 1 g mag sulfate x2 ordered in ED Mag oxide 400 mg twice daily ordered Repeat mag at 1230-Normalized (5) HTN (hypertension): Blood pressure 137/89 Continue lisinopril & metoprolol (6) History of pulmonary embolism: Continue Eliquis (7) CKD (chronic kidney disease), stage III: Baseline creatinine 1.1-1.2 BUN/creatinine 26 and 1.29 Monitor renal function given diuresis Creatinine went up to 1.6 as of 12/21/2020 Creatinine level has been normalized (8) Diabetes mellitus, type II: Last A1c 7.1 04/2020 Obtain A1c in a.m. Hold Metformin and glipizide Lantus/NovoLog per protocol FULL CODE DVT ppx: Marlon SCD/TEDS DISPO: admit to PCU PCP: Zahira Discharge this afternoon Admission and Anticipated Discharge Date Admission Date: December 19, 2020 Subjective 12/20/2020 The patient was seen and examined in telemetry unit He was noted to be drowsy this morning and received 5 mg of zolpidem last night He denies any symptoms today 12/21/2020 The patient was seen and examined in telemetry unit He has been feeling a lot better but remains generally weak and lethargic He has been desaturating with ambulation He will have a 2 steps O2 saturation before discharge 12/22/2020 The patient was seen and examined in telemetry unit He has been doing much better and denies any significant symptoms He did not qualify for any oxygen He wants to go home today Review of Systems Review of Systems: All systems reviewed and are unremarkable except as noted below Respiratory: + dyspnea on exertion; no dyspnea (Minimal dyspnea at rest) Cardiovascular: no chest pain and no palpitations Physical Exam Physical Exam: Lying in bed without any acute distress Constitutional: well developed and well nourished; not ill appearing Eyes: PERRL, conjunctivae normal, anicteric sclerae ENMT: external ear and nose normal, oropharynx normal Neck: trachea midline, no thyromegaly Respiratory: + respiratory distress (Minimal distress at rest) Auscultation: + diminished lung sounds and + crackles (Occasional crackles at the bases) Cardiovascular: Rate/Rhythm: regular rate and regular rhythm Heart Sounds: no murmur Extremities: no edema (Trace edema bilaterally) Gastrointestinal (Abdomen): Inspection/Auscultation: normal bowel sounds; abdomen not distended Percussion/Palpation: abdomen soft; abdomen nontender Musculoskeletal: No acute arthritis involving any joint Psychiatric: A+Ox3, euthymic affect Lymphatic: no cervical or axillary lymphadenopathy Results & Data Results & Data ([facility]) Vital Signs (Past 12 Hours) Vital Signs Temp Pulse Pulse Resp BP Pulse Ox 12/22/20 11:11 36.5 C 62 20 108/69 96 12/22/20 08:00 66 12/22/20 07:40 36.5 C 71 19 128/65 93 12/22/20 05:12 36.6 C 63 18 127/74 96 12/22/20 00:24 36.6 C 68 18 106/57 L 94 Laboratory Results [facility] 12/22/20 06:42 Sodium 136 Potassium 4.1 Chloride 100 Carbon Dioxide 31 BUN 31 H Creatinine 1.35 Glucose 156 H Calcium 9.4 Medications Administered Current Inpatient Medications Acetaminophen (Acetaminophen 325 Mg Tab) 650 mg PO Q4H PRN PRN Reason: Pain or Fever Stop: 01/18/21 11:05 Al Hydrox/Mg Hydrox/Simethicone (Aluminum/Magnesium Susp 30 Ml Udc) 15 ml PO Q4H PRN PRN Reason: Dyspepsia Stop: 01/18/21 11:05 Apixaban (Apixaban 5 Mg Tablet) 5 mg PO Q12H [facility] Stop: 01/18/21 19:59 Last Admin: 12/22/20 08:20 Dose: 5 mg Documented by: Dextrose (Dextrose 50% 50 Ml Syringe) 25 - 50 ml IV UD PRN; Protocol PRN Reason: Hypoglycemia Protocol Stop: 01/18/21 08:36 Finasteride (Finasteride 5 Mg Tab) 5 mg PO QAM [facility] Stop: 01/18/21 11:29 Last Admin: 12/22/20 08:19 Dose: 5 mg Documented by: Folic Acid (Folic Acid 1 Mg Tab) 1 mg PO QAM [facility] Stop: 01/18/21 11:59 Last Admin: 12/22/20 08:19 Dose: 1 mg Documented by: Glucagon (Glucagon For Inj 1 Mg Vial) 1 mg SQ UD PRN; Protocol PRN Reason: Hypoglycemia Protocol Stop: 01/18/21 08:36 Glucose (Glucose 10 Tabs/Tube) 4 - 8 tabs PO UD PRN; Protocol PRN Reason: Hypoglycemia Protocol Stop: 01/18/21 08:36 Glucose (Glucose 40% Gel 15 Gm Tube) 15 - 30 gm PO UD PRN; Protocol PRN Reason: Hypoglycemia Protocol Stop: 01/18/21 08:36 Insulin Aspart (Insulin Aspart 100 Units/Ml 3 Ml Pen) 0 units SC ACHS [facility] Stop: 01/18/21 11:29 Last Admin: 12/22/20 08:17 Dose: 5 units Documented by: Insulin Glargine (Insulin Glargine Solostar 100 Units/Ml 3 Ml Pen) 0 - 10 units SC BID [facility] Stop: 01/18/21 08:59 Last Admin: 12/22/20 08:17 Dose: 5 units Documented by: Latanoprost (Latanoprost 0.005% Op Soln 2.5 Ml Btl) 1 drops OPL HS [facility] Stop: 01/18/21 20:59 Last Admin: 12/21/20 20:30 Dose: 1 drops Documented by: Levothyroxine Sodium (Levothyroxine Sodium 75 Mcg Tablet) 75 mcg PO DAILYBB [facility] Stop: 01/18/21 11:29 Last Admin: 12/22/20 08:00 Dose: Not Given Documented by: Lisinopril (Lisinopril 5 Mg Tab) 5 mg PO DAILY [facility] Stop: 01/18/21 11:59 Last Admin: 12/22/20 08:19 Dose: 5 mg Documented by: Magnesium Hydroxide (Magnesium Hydroxide Susp 30 Ml Udc) 30 ml PO Q12H PRN PRN Reason: Constipation Stop: 01/18/21 11:05 Magnesium Oxide (Magnesium Oxide 400 Mg Tab) 400 mg PO BID [facility] Stop: 01/18/21 08:59 Last Admin: 12/22/20 08:20 Dose: 400 mg Documented by: Metoprolol Tartrate (Metoprolol Tartrate 25 Mg Tab) 75 mg PO Q12H [facility] Stop: 01/18/21 20:59 Last Admin: 12/22/20 08:20 Dose: 75 mg Documented by: Miscellaneous (Carbohydrates For Hypoglycemia ) 15 - 30 gm PO UD PRN PRN Reason: Hypoglycemia Protocol Stop: 01/18/21 08:36 Multivitamins (Multivitamin Tab) 1 tab PO QAM [facility] Stop: 01/18/21 11:59 Last Admin: 12/22/20 08:19 Dose: 1 tab Documented by: Nitroglycerin (Nitroglycerin Sl 0.4 Mg/Tab Tab) 0.4 mg SL UD PRN PRN Reason: Chest Pain Stop: 01/18/21 11:05 Ondansetron HCl (Ondansetron Inj 2 Mg/Ml 2 Ml Vial) 4 mg IV Q6H PRN PRN Reason: Nausea Stop: 01/18/21 11:05 Pantoprazole Sodium (Pantoprazole 40 Mg Tab) 40 mg PO DAILY [facility] Stop: 01/18/21 11:59 Last Admin: 12/22/20 08:20 Dose: 40 mg Documented by: Polyethylene Glycol (Polyethylene (Miralax) 17 Gm Pack) 17 gm PO DAILY PRN PRN Reason: Constipation Stop: 01/18/21 11:05 Psyllium Hydrophilic Mucilloid (Psyllium 58.6% Powder Packet) 1 pkt PO QAM [facility] Stop: 01/18/21 11:59 Last Admin: 12/22/20 08:20 Dose: Not Given Documented by: Spironolactone (Spironolactone 12.5 Mg Tab) 12.5 mg PO DAILY [facility] Stop: 01/19/21 11:59 Last Admin: 12/22/20 08:19 Dose: 12.5 mg Documented by: Timolol Maleate (Timolol Maleate 0.5% Op Soln 5 Ml Btl) 1 drops OPL BID [facility] Stop: 01/19/21 20:59 Last Admin: 12/22/20 08:19 Dose: 1 drops Documented by: (1) Atrial fibrillation Atrial fibrillation type: unspecified Qualified Code(s): I48.91 - Unspecified atrial fibrillation
--- NOTE | 2020-12-22 12:23 | Cardiology Progress Note ---
Date of Service December 22, 2020 Assessment & Plan (1) Acute on chronic heart failure with reduced ejection fraction and diastolic dysfunction: Patient clinically improved with signs and symptoms of congestive heart failure resolved. Overall feels well Diffuse cardiomyopathy as noted found on echocardiography Patient maintaining sinus rhythm currently Patient on currently appropriate medical therapies Plan: Patient to be discharged with close clinical follow-up. No strenuous activity on discharge. Metoprolol tartrate increased on admission and would continue with possible change to metoprolol succinate post hospital discharge. Patient appropriately anticoagulated Would continue spironolactone, furosemide 20 mg 3 days/week with strict CHF instructions daily weights Patient has scheduled appointment with cardiology on 01/16/2021. Will consider possible ischemic evaluation pending next visit (2) Paroxysmal atrial fibrillation: (3) Elevated troponin: (4) Blocked premature atrial contraction: (5) CKD (chronic kidney disease), stage III: (6) Ribs, multiple fractures: Admission and Anticipated Discharge Date Admission Date: December 19, 2020 Subjective Patient seen and examined, chart, medications, telemetry reviewed. Overall feels improved this morning. No longer dyspneic. No chest pains or discomfort. Remains in sinus rhythm overnight and this morning. Ambulatory in room without difficulties. No dizziness or lightheadedness. No bleeding difficulties. Physical Exam Constitutional: WD/WN, vitals as above Eyes: PERRL, conjunctivae normal, anicteric sclerae ENMT: external ear and nose normal, oropharynx normal Neck: trachea midline, no thyromegaly Respiratory: normal respiratory effort, lungs clear to auscultation Cardiovascular: Rate/Rhythm: regular rate and regular rhythm Heart Sounds: normal S1 and normal S2; no gallop and no murmur Palpation: normal PMI Vessels: normal carotid upstroke and radial pulses present; no JVD and no carotid bruit Extremities: no edema Gastrointestinal (Abdomen): normal bowel sounds, soft, nontender, no hepatosplenomegaly Musculoskeletal: no cyanosis or clubbing, extremities motor strength 5/5 Skin: no rashes, warm and dry Neurologic: PERRL, EOMI, accommodation nl, no face palsy, no dysarthria Psychiatric: A+Ox3, euthymic affect Results & Data ([facility]) Vital Signs (Past 12 Hours) Vital Signs Temp Pulse Pulse Resp BP Pulse Ox 12/22/20 11:11 36.5 C 62 20 108/69 96 12/22/20 08:00 66 12/22/20 07:40 36.5 C 71 19 128/65 93 12/22/20 05:12 36.6 C 63 18 127/74 96 12/22/20 00:24 36.6 C 68 18 106/57 L 94 Laboratory Results Laboratory Results - last 24 hr 12/21/20 12/21/20 12/22/20 16:21 20:09 06:42 Sodium 136 Potassium 4.1 Chloride 100 Carbon Dioxide 31 Anion Gap 6.0 BUN 31 H Creatinine 1.35 Est Cr Clr Drug Dosing 42.9 Est GFR ( Amer) 56.7 Est GFR (Non-Af Amer) 48.9 BUN/Creatinine Ratio 23.0 H Glucose 156 H POC Glucose 78 158 H Calcium 9.4 Magnesium 2.1 12/22/20 12/22/20 07:38 11:37 Sodium Potassium Chloride Carbon Dioxide Anion Gap BUN Creatinine Est Cr Clr Drug Dosing Est GFR ( Amer) Est GFR (Non-Af Amer) BUN/Creatinine Ratio Glucose POC Glucose 141 H 204 H Calcium Magnesium
--- NOTE | 2020-12-23 07:40 | Discharge Summary ---
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 is at bedside and provides most of history. Patient does have underlying vascular dementia in setting of post traumatic encephalopathy. For the past 2 to 3 days patient has been complaining of shortness of breath and CHRISTY. states he has been very active and shoveling snow. "He is very bull headed and does not think he is old so he will do as he pleases." He denies experiencing chest pain with exertion and when shoveling. He did exhibit shortness of breath and also complains of orthopnea. states the past 2 nights when he would lay down he would wake up feeling short of breath and would have to go to the recliner. He also has been experiencing increased lower extremity swelling. This morning when he woke up he felt short of breath and felt his heart racing. He also complained of chest tightness and brought patient to ED. He denies any recent illness, fever, chills, sweats, lightheadedness, dizziness, syncope, current chest pain, shortness breath at rest, hemoptysis, nausea, vomiting, abdominal pain, diarrhea, melena, hematochezia, dysuria, and hematuria. He does complain of a dry cough for the past 2 to 3 days. He has no known Covid exposures and denies loss of taste or smell. His appetite has otherwise been well. states he has lost 10 pounds in the past few months. Also of significance he had a fall on ice approximately 1 month ago and had chest pain for 2 to 3 days. He was evaluated by EMS at that time but did not opt to seek ED evaluation. In ED patient was found to be in atrial fibrillation with RVR, initially heart rates in the 130s. He was hemodynamically stable. Chest x-ray concerning for patchy airspace opacities in the right midlung zone and lung bases, small right pleural effusion and acute to subacute right posterior 4th-8th rib fractures. Initially his oxygen saturations were 89% and he required 2 L of O2. This was since removed and he was saturating on room air normally. Lab work notable for elevated proBNP 14,144, elevated troponin 0.059, low magnesium 1.4, glucose 194, CBC generally unremarkable, influenza and Covid testing negative. He received 20 mg IV Lasix in ED with approximately 500ml urine output. Admission Exam Per Admitting Provider Physical Exam: Constitutional: WD/WN, male, vitals as above, NAD, sitting up in bed, pleasant, conversing easily Head: Normocephalic, Atraumatic Eyes: PERRL, conjunctivae normal, anicteric sclerae ENMT: external ear and nose normal, oropharynx normal Neck: trachea midline, no thyromegaly normal visual inspection Respiratory: normal respiratory effort, lungs clear to auscultation, no wheeze, rales, rhonchi. Normal insp/exp effort, no accessory muscle use Cardiovascular: Irregular rate, irregular rhythm, no murmur, trace to +1 pretibial edema Vessels: no JVD or carotid bruit Chest: normal inspection of chest Abdomen: normal bowel sounds, soft, nontender, no hepatosplenomegaly Musculoskeletal: no cyanosis or clubbing, extremities motor strength 5/5, bilateral knee replacement scars Skin: no rashes, warm and dry normal turgor Neurologic: PERRL, EOMI, accommodation nl, no face palsy, no dysarthria CN's II-XI intact bilaterally and moves all extremities Psychiatric: A+Ox3 basics only, euthymic affect : Normal Principal Diagnosis Acute on chronic heart failure with reduced ejection fraction and diastolic dysfunction, paroxysmal atrial fibrillation, CKD stage III, multiple rib fractures from fall. Discharge Exam Constitutional well developed and well nourished; not ill appearing Eyes PERRL, conjunctivae normal, anicteric sclerae ENMT external ear and nose normal, oropharynx normal Neck trachea midline, no thyromegaly Respiratory + respiratory distress (Minimal distress at rest) Auscultation: + diminished lung sounds and + crackles (Occasional crackles at the bases) Cardiovascular Rate/Rhythm: regular rate and regular rhythm Heart Sounds: no murmur Extremities: no edema (Trace edema bilaterally) Gastrointestinal (Abdomen) Inspection/Auscultation: normal bowel sounds; abdomen not distended Percussion/Palpation: abdomen soft; abdomen nontender Psychiatric A+Ox3, euthymic affect Lymphatic no cervical or axillary lymphadenopathy Discharge Data Allergies Allergy/AdvReac Type Severity Reaction Status Date / Time amoxicillin Allergy Unknown hives Verified 12/19/20 08:18 cephalexin Allergy Unknown rash Verified 12/19/20 08:18 Sulfa (Sulfonamide Allergy Unknown hives Verified 12/19/20 08:18 Antibiotics) verapamil Allergy Unknown hives Verified 12/19/20 08:18 Consultations 12/19/20 08:37 ED Decision to Admit Stat 12/19/20 08:37 Consult Cardiology Routine 12/19/20 11:06 Consult Case Management - Discharge Planning Routine Consult Health Information Management Routine Hospital Course (1) Acute on chronic heart failure with preserved ejection fraction (HFpEF): Acute on chronic heart failure with reduced EF and diastolic dysfunction Complicated by paroxysmal atrial fibrillation with RVR Has been improving with intravenous diuretic therapy Appreciate cardiology input and recommendation Echo of the heart showed-LV systolic function is severely reduced with EF of 25 to 30%, severe global hypokinesis of the left ventricle, there is moderate concentric LV hypertrophy, LV is mildly dilated, left atrium is moderately dilated, aortic valve sclerosis mild without significant stenosis, mild MR and mild TR, estimated systolic pulmonary pressure is 37 mmHg.\\. Aortic root is moderately large at 4.5 cm and trivial loculated posterior pericardial effusion. Compared with prior study the LV EF has decreased. Aldactone 12.5 mg will be added We will get PT and OT evaluation before discharge We will decrease the dose of Lasix as creatinine is going up-he was not on any diuretics at home The Lasix was on hold since yesterday and creatinine has improved to normal range He did not qualify for any oxygen with ambulation He wants to go home today and will be discharged this afternoon (2) Atrial fibrillation: History of paroxysmal atrial fibrillation Has been going in and out of fibrillation Rate is controlled Beta-mirza dose has been increased to 75 mg twice daily We will monitor in the telemetry unit Heart rate is controlled (3) Elevated troponin: Elevated troponin is due to ventricular strain Serial troponins did not show any ACS Echo of the heart as mentioned above (4) Hypomagnesemia: Mag 1.4, 1 g mag sulfate x2 ordered in ED Mag oxide 400 mg twice daily ordered Repeat mag at 1230-Normalized (5) HTN (hypertension): Blood pressure 137/89 Continue lisinopril & metoprolol (6) History of pulmonary embolism: Continue Eliquis (7) CKD (chronic kidney disease), stage III: Baseline creatinine 1.1-1.2 BUN/creatinine 26 and 1.29 Monitor renal function given diuresis Creatinine went up to 1.6 as of 12/21/2020 Creatinine level has been normalized (8) Diabetes mellitus, type II: Last A1c 7.1 04/2020 Obtain A1c in a.m. Hold Metformin and glipizide Lantus/NovoLog per protocol FULL CODE DVT ppx: Marlon, SCD/TEDS DISPO: admit to PCU PCP: Zahira Discharge this afternoon Total Time Total Time Spent Total Time Spent (In Minutes): 35 mniutes Total Time Includes: Examination of the Patient, Discharge Planning, Medication Reconciliation and Communication With Other Providers Discharge Plan Discharge Items Patient Disposition: Home - Self-Care Reason For Visit: ACUTE ON CHRONIC CHF Discharge Diagnosis: Acute on chronic heart failure with reduced ejection fraction and diastolic dysfunction, paroxysmal atrial fibrillation, CKD stage III, multiple rib fractures from fall. Condition on Discharge: Fair Activity: As commented below Activity Comment: Strongly advised to avoid strenuous activity including snow shoveling. Non-emergency contact: Primary Care Provider Call non-emergency contact if: you have any medication questions Follow-up/Referrals: Damian Rodriges DO [Primary Care Provider] - (Date & Time 12/25/2020 12:00 PM Provider Damian Rodriges DO Department [facility] ) Diet: Heart Healthy and Low Sodium (2gm) Fluids: 1500ml (6 cups) Addtl Attending Provider Instructions: Please take precaution to avoid falls Take your medications as advised Avoid any strenuous activity Please keep your appointment with your picture hanger. Call 911 and go to the Emergency Room if: * You have tightness or pain in your chest that does not go away with rest or Nitroglycerin * You are very short of breath even with rest Call your doctor if any of the following symptoms or problems start or get worse: * Shortness of breath or difficulty breathing * Wake up at night short of breath * Chest pain * Cough * Swelling of your hands, fee, or legs * More fatigued or tired with your normal activity * Palpitations - sudden fast heart beats WEIGHT * Weigh yourself every morning after using the bathroom. * Use the same scale. * Wear the same amount of clothing. * Write your weight down on your chart. * Call your doctor if you gain more than 2-3 pounds in 1-2 days. MEDICATIONS * Use this discharge instruction sheet for instructions. * Take your medications at the time your doctor ordered. * Do not skip a dose of your medicines. * If you miss a dose of medicine, take as soon as possible, but DO NOT DOUBLE A DOSE. * Read your medicine information when you get home. * Know all of the side effects of your medicine. * Call your doctor's office if you have any side effects. * Be sure all of your doctors know what medicine and herbs you take (including cold, flu, and herbal medicine). * Pain Medicine: If you do not get relief from your pain, please call your doctor for help. Take the following with you to your follow-up doctor appointments: * Weight Chart * Medication List * List of questions Do not drink excessive alcohol, beer or wine. Pending Studies at Discharge: No Stand-Alone Forms: [facility] [employer], Smoking Cessation Medications and DC Order Prescriptions: New spironolactone 25 mg Tablet 12.5 mg PO DAILY 30 Days Qty: 15 RF: 0 magnesium oxide 400 mg (241.3 mg magnesium) Tablet 400 mg PO BID 30 Days Qty: 60 RF: 0 furosemide [Lasix] 20 mg tablet 20 mg PO UD Qty: 30 RF: 0 Continued multivitamin Tablet 1 tab PO QAM RF: 0 latanoprost [Xalatan] 0.005 % drops 1 drp OPL HS RF: 0 glipizide 10 mg Tablet Extended Release 24hr 10 mg PO BIDM RF: 0 metformin [Glucophage] 1,000 mg tablet 1,000 mg PO BIDM RF: 0 folic acid 1 mg Tablet 1 mg PO QAM RF: 0 timolol maleate [Timoptic] 0.5 % drops 1 drp OPL BID RF: 0 finasteride 5 mg tablet 5 mg PO QAM RF: 0 Eliquis 5 mg tablet 5 mg PO Q12H RF: 0 Benefiber Clear SF (dextrin) 3 gram/3.5 gram Powder In Packet 1 packet PO QAM RF: 0 levothyroxine 75 mcg Tablet 75 mcg PO DAILY RF: 0 pantoprazole 40 mg Tablet,Delayed Release (Dr/Ec) 40 mg PO DAILY RF: 0 lisinopril 5 mg tablet 5 mg PO DAILY RF: 0 Changed metoprolol tartrate 50 mg Tablet 75 mg PO Q12H 30 Days Qty: 90 RF: 0 Discharge Orders: Discharge Order (Routine); Ordered 12/22/20 Ordered By: August Rodarte/Other Patient Handouts: High Blood Sugar (Hyperglycemia), Hypoglycemia (Low Blood Sugar), Managing Type 2 Diabetes Admission Data Admit Date/Time: 12/19/20 09:06 Attending Provider: August Carbajal Admit Provider: August Carbajal Primary Care Provider: Damian Rodriges Other Providers: Tima Henry Manabendra Other Interventions: Discharge Summary Assessment (RN) Last Done: 12/22/20 13:14
== END 2020-12-22 15:15 | disposition home or self-care (01) | DRG 291 ==
LOC: ED 06:55 → 2S 09:06

== ENCOUNTER 2023-11-01 16:54 | Inpatient (IN) ==
[2023-11-01] MEDS ORDERED: MoRPHine SULFATE 2 MG/ML CARP IV STA (17:09)
[2023-11-01] MEDS ORDERED: ONDANSETRON INJ 2 MG/ML 2 ML VIAL IV STA (17:09)
[2023-11-01] MEDS ORDERED: SODIUM CHLORIDE 0.9% 500 ML IV SCH (17:15)
--- NOTE | 2023-11-01 17:18 | Emergency Department Note ---
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 skeletal structures are osteopenic. A T7 spinous process fracture is new from previous. This is best seen on sagittal image #56. A left pedicular fracture of T7 is also likely new from previous. This is best seen on axial image #188. 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 This has not appreciably changed from the 10/21/2023 PET examination. There is a pathologic compression fracture of T7 with moderate to severe loss of height. Fragments are retropulsed at this level by up to 5 mm. There is abnormal soft tissue anterior to the vertebral body. There is epidural extension of tumor seen at this level. Abnormal this effaces the right anterior aspect of the thecal sac with at least moderate central canal stenosis and effacement of the spinal cord at this level. This is best seen on image #191. This is likely similar to the 12th 623 PET examination. This lesion also erodes the anterior aspect of both of the T6 and T8 vertebral bodies, with extension into the right neural foramen at T6-T7. This likely impinges on the exiting right T6 nerve root. There is erosive change within the right posterior sixth and seventh ribs. The right pedicle of T7 is eroded. There is no evidence of epidural spread of tumor at the remaining thoracic spinal levels. Vertebral body height is otherwise maintained throughout the thoracic spine. There is a mild chronic superior endplate compression deformity of L1. Fusion hardware is partially visualized in the lower cervical spine. There is hyperkyphosis of the thoracic spine. There is mild multilevel degenerative disc space narrowing. There is fatty atrophy of the paraspinous musculature. Chronic/healed right- sided rib fractures are noted. Scarring/atelectasis is noted at both lung bases. There is a trace right pleural effusion. The heart is enlarged. Bilateral renal cysts are partially visualized and measure up to 7.4 cm. IMPRESSION: 1. 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 2. Again seen is a pathologic fracture of T7 with moderate to severe loss of height, retropulsed fragments, and epidural extension of tumor. This causes at least moderate central canal stenosis and effaces the right aspect of the spinal cord. There is also invasion of the right T6-T7 neural foramen at this level with erosion of the right posterior 6th and 7th ribs. Follow up with radiation oncology is recommended. 3. There is a left pedicular fracture at T7, as well as a spinous process fracture of T7. These are new from previous. The right pedicle of T7 is eroded, and these fractures may be unstable. 4. No additional foci of epidural extension of tumor seen throughout the remainder of the thoracic spine. 5. Cardiomegaly and trace or pleural effusion. 6. Additional findings as above. ACT 112: Negative or not required by law. Electronically signed by: Jose C Dixon M.D. 11/01/2023 8:01 PM Discharge Plan Visit Data Chief Complaint: Back Injury/Pain ED Provider: Jose C Jules Discharge Problem: Fracture of thoracic spine, Prostate cancer metastatic to bone, Acute thoracic back pain, Acute dehydration, Failure of outpatient treatment, Hypomagnesemia Patient Disposition: Admitted As Inpatient Condition: Serious Forms Stand Alone Forms: My [facility] Prescriptions Prescriptions: No Action atorvastatin 10 mg tablet 10 mg PO DAILY furosemide [Lasix] 20 mg tablet 20 mg PO 3XWK Rx Instructions: 3 times per week. Mon, wed, fri Lupron Depot (3 month) 22.5 mg syringe kit 22.5 mg IM .Q3 months Rx Instructions: Due 11/06/2023 metoprolol succinate 25 mg tablet extended release 24 hr 12.5 mg PO DAILY urea 20 % cream 1 applic topical TID PRN (Reason: ..) Drew Advanced AREDS2 250-137.5-12.5 mg capsule 1 tab PO DAILY Rx Instructions: administer with AM and PM meals Tobradex ST 0.3-0.05 % drops,suspension 1 drp ophthalmic (eye) .as directed Rx Instructions: says this is an ointment polyethylene glycol 3350 [Miralax] 17 gram/dose powder 17 g PO DAILY calcium carbonate-vitamin D3 [Calcium with Vitamin D] 600 mg-10 mcg (400 unit) tablet 1 tab PO BID insulin glargine [Lantus Solostar U-100 Insulin] 100 unit/mL (3 mL) insulin pen 26 unit subcut QAM oxycodone 5 mg tablet 5 mg PO Q6H PRN (Reason: Pain) ondansetron HCl 8 mg tablet 8 mg PO Q8H PRN (Reason: Nausea) prochlorperazine maleate [Compazine] 10 mg tablet 10 mg PO Q6H PRN (Reason: Nausea) sucralfate [Carafate] 100 mg/mL suspension 10 ml PO QID latanoprost [Xalatan] 0.005 % drops 1 drp OPL HS glipizide 10 mg Tablet Extended Release 24hr 10 mg PO BIDM folic acid 1 mg Tablet 1 mg PO QAM Eliquis 5 mg tablet 5 mg PO .HOLD Rx Instructions: From 10/27/2023, hold for 7 days. levothyroxine 75 mcg Tablet 75 mcg PO DAILY lisinopril 5 mg tablet 2.5 mg PO DAILY pantoprazole 40 mg tablet,delayed release (DR/EC) 40 mg PO DAILY Rx Instructions: before breakfast Referrals Referrals: Roque Rodriguez MD [Primary Care Provider] - Discharge Problem: Fracture of thoracic spine Qualifiers: Encounter type: subsequent encounter Thoracic vertebra fracture level: T7 F racture type: closed Fracture morphology: unspecified fracture morphology F racture healing: with delayed healing Qualified Code(s): S22.069G - Unspecified fracture of T7-T8 vertebra, subsequent encounter for fracture with delayed healing Acute thoracic back pain Qualifiers: Back pain laterality: midline Qualified Code(s): M54.6 - Pain in thoracic spine
[2023-11-01] MEDS ORDERED: ACETAMINOPHEN 1,000 MG/100 ML VIAL IV STA (17:23)
[2023-11-01] MEDS ORDERED: KETOROLAC TROMETHAMINE 15 MG/ML VIAL IV ONE (17:29)
--- NOTE | 2023-11-01 17:44 | XRay Report ---
SINGLE VIEW CHEST CLINICAL HISTORY: Generalized weakness. FINDINGS: An AP, portable, upright chest radiograph is compared to study dated 12/19/2020 and correlate d with chest CT dated 09/06/2019. Correlation is made with PET/CT dated 10/21/2023. The heart is enlar ged noting atherosclerotic calcification of the thoracic aorta. The pulmonary vasculature is nonconge sted. Chronic interstitial thickening is similar to previous. There is left basilar consolidation and a small left pleural effusion. Atelectasis is noted at the right lung base. No pneumothorax is seen. The skeletal structures are osteopenic. There are chronic/healed right-sided rib fractures. Fusion h ardware is noted in the lower cervical spine IMPRESSION: 1. Cardiomegaly without radiographic evidence of congestive failure. 2. There is left basilar consolidation and a small left pleural effusion. Correlate clinically for ev idence of pneumonia/aspiration pneumonitis. Radiographic follow-up to resolution is recommended ACT 112: Negative or not required by law. Electronically signed by: Jose C Dixon M.D. 11/01/2023 5:43 PM
[2023-11-01 18:02] LABS: Troponin I High Sensitivity 10.4 pg/ml (0-20)
[2023-11-01 18:10] LABS: Thyroid Stimulating Hormone 2.552 uIu/ml (0.300-4.500)
[2023-11-01 18:15] LABS: INR 1.2 (0.9-1.1); Partial Thromboplastin Ratio 1.1; Partial Thromboplastin Time 31 Seconds (21-31)
[2023-11-01 18:31] LABS: Albumin Level 4.5 gm/dl (3.4-5.0); Bilirubin,Total 0.9 mg/dl (0.2-1.0); Calcium 10.3 mg/dl (8.6-10.3); Magnesium 1.5 mg/dl (1.7-2.4); Potassium 4.5 mmol/L (3.5-5.1)
[2023-11-01 18:37] LABS: Albumin Globulin Ratio 1.6 (0.9-2); BUN Creatinine Ratio 18.3 (10-20); Creatinine Clr Calc Pharmacy 50.7 ml/min; Est GFR (African American) 67.4 ml/min; Est GFR (Non-African American) 58.1 ml/min; Globulin 2.9 gm/dl (2.5-4.0); Total Protein 7.4 gm/dl (6.0-8.3)
[2023-11-01] MEDS ORDERED: MAGNESIUM SULFATE / D5W 1 GM/100 ML BAG IV STA (18:37)
[2023-11-01] MEDS ORDERED: MoRPHine SULFATE 4 MG/ML 1 ML CARP\\VIAL IV STA (19:01)
[2023-11-01 19:04] LABS: Basophils # (auto) 0.04 K/uL (0.00-0.20); Basophils % (auto) 0.7 %; Eosinophils # (auto) 0.09 K/uL (0.00-0.50); Eosinophils % (auto) 1.5 %; Hematocrit (blood only) 39.7 % (42.0-52.0); Hemoglobin 13.3 g/dl (14.0-18.0); Immature Granulocytes # (auto) 0.01 K/uL (0.01-0.20); Immature Granulocytes % (auto) 0.2 %; Lymphocytes # (auto) 1.43 K/uL (1.20-3.40); Lymphocytes % (auto) 23.4 %; Mean Corpuscular Hemoglobin 28.9 pg (25.0-34.0); Mean Corpuscular Hgb Conc 33.5 g/dL (32.0-36.0); Mean Corpuscular Volume 86.3 fL (80.0-100.0); Mean Platelet Volume 10.2 fL (9.4-12.4); Monocytes # (auto) 0.61 K/uL (0.11-0.59); Neutrophils # (auto) 3.92 K/uL (1.40-6.50); Neutrophils % (auto) 64.2 %; Platelet Count 220 K/uL (130-400); RDW Coefficient of Variation 13.7 % (11.5-14.5); RDW Standard Deviation 42.9 fL (36.4-46.3)
[2023-11-01] MEDS ORDERED: OPTIRAY 320 500ml IV ONE (19:17)
--- NOTE | 2023-11-01 19:45 | CT Scan Report ---
CT SCAN OF THE ABDOMEN AND PELVIS WITH IV CONTRAST; CT SCAN OF THE LUMBAR SPINE WITH IV CONTRAST CLINICAL HISTORY: Generalized abdominal pain. Back pain. Metastatic cancer. COMPARISON STUDY: Abdominal CT dated 09/22/2023. PET/CT dated 10/21/2023. TECHNIQUE: Following the IV administration of 90 cc of Optiray 320, CT scan of the abdomen and pelvi s is performed from the lung bases to the proximal femora. Additionally, CT scan of the lumbar spine is performed from the lower thoracic spine to the sacrum. Images for both examinations are reviewed i n the axial, sagittal, and coronal planes. IV contrast was administered without complication. A dose lowering technique was utilized adhering to the principles of ALARA. FINDINGS: Lung bases: The heart is enlarged and without pericardial effusion. The coronary arteries are densely calcified. There is a small hiatal hernia. There is bibasilar scarring/atelectasis. No airspace cons olidation is seen typical for pneumonia. Trace pleural effusions is seen on the right. Liver: The contrast-enhanced liver is normal in size, contour, and attenuation. There is no intrahepa tic biliary ductal dilatation. The hepatic veins and portal veins are patent. Gallbladder: There are small calcified gallstones without CT evidence of acute cholecystitis. Spleen: Normal in size and attenuation. Pancreas: Unremarkable. Adrenal glands: Unremarkable. Kidneys: The contrast enhanced kidneys are atrophic and without hydronephrosis. The kidneys enhance s ymmetrically. A retrocardiac left renal vein is incidentally noted. There are numerous bilateral crow l cysts which measure up to 7.4 cm. A punctate nonobstructing calculus is noted on the right. Abdominal vasculature: There is moderate to advanced atherosclerotic calcification and mild ectasia o f the abdominal aorta. Bowel: There is postsurgical change from rectal resection/anastomosis. No bowel obstruction is seen. There is moderate colonic diverticulosis without CT evidence of acute diverticulitis. A metallic fore ign body versus surgical clips are seen in the left colon on image #144. A duodenal diverticulum is i ncidentally noted. The appendix is well-visualized and normal. Peritoneum: There is no intraperitoneal free air or abdominal ascites. There is a fat-containing umbi lical hernia. Lymphadenopathy: None. Pelvic viscera: The prostate gland is mildly enlarged and heterogeneous noticing median lobe hypertro phy. The bladder is distended, and the wall is thickened/trabeculated indicating chronic outlet obstr uction. There are small bilateral fat-containing inguinal hernias. Skeletal structures: The skeletal structures are osteopenic. See below for dedicated discussion of th e lumbar spine. The bony pelvis and proximal femora appear intact. Again seen is evidence of multifoc al osteoblastic metastatic disease. This is similar to the 10/21/2023 PET examination. Lesions are see n throughout the lumbar spine, the sacrum, and in the bony pelvis. There is a chronic right lateral e ighth rib fracture. Sclerotic changes noted in the sacroiliac joints. LUMBAR SPINE: A minimal superior endplate compression deformity of L1 is unchanged. Vertebral body he ight is otherwise maintained throughout the lumbar spine. There is no evidence of acute fracture or m alalignment. There are bilateral pars defects at L5 with minimal anterolisthesis at L5-S1. Alignment is otherwise preserved. The transverse and spinous processes are intact. There is severe disc space n arrowing at L5-S1 with associated sclerosis. Moderate disc space narrowing is seen at the remaining l umbar levels. Posterior disc osteophyte complexes are noted at all lumbar levels. There is no CT evid ence of high-grade central canal stenosis. There is fatty atrophy of the paraspinous musculature. IMPRESSION: 1. No acute infectious or inflammatory findings are identified in the abdomen or pelvis. 2. Cardiomegaly. 3. Cholelithiasis. 4. Colonic diverticulosis without CT evidence of acute diverticulitis. 5. Multifocal osteoblastic metastatic disease has not appreciably changed with 10/21/2023 PET examinat ion. Correlate with the patient's oncological history. 6. No acute bony abnormality is seen involving the lumbar spine. 7. A minimal superior end plate compression deformity of L1 is unchanged. 8. Additional findings as above. ACT 112: Negative or not required by law. Electronically signed by: Jose C Dixon M.D. 11/01/2023 7:45 PM
--- NOTE | 2023-11-01 20:04 | CT Scan Report ---
CT SCAN OF THE THORACIC SPINE WITH IV CONTRAST CLINICAL HISTORY: Back pain. Metastatic cancer. COMPARISON STUDY: Chest CT date 10/12/2023. PET CT dated 10/21/2023. TECHNIQUE: CT scan of the thoracic spine is performed from the lower cervical spine to the upper lumb ar spine following the IV administration of 90 cc of Optiray 320. Images are reviewed in the axial, s agittal, and coronal planes. IV contrast was administered without competition. A dose lowering techni que was utilized adhering to the principles of ALARA. CT DOSE: 1983.15 mGy.cm FINDINGS: The skeletal structures are osteopenic. A T7 spinous process fracture is new from previous. This is best seen on sagittal image #56. A left pedicular fracture of T7 is also likely new from pre vious. This is best seen on axial image #188. Again seen is multifocal osteoblastic metastatic diseas e throughout the thoracic spine. This has not appreciably changed from the 10/21/2023 PET examination. There is a pathologic compression fracture of T7 with moderate to severe loss of height. Fragments a re retropulsed at this level by up to 5 mm. There is abnormal soft tissue anterior to the vertebral b boris. There is epidural extension of tumor seen at this level. Abnormal this effaces the right anterio r aspect of the thecal sac with at least moderate central canal stenosis and effacement of the spinal cord at this level. This is best seen on image #191. This is likely similar to the PET exam ination. This lesion also erodes the anterior aspect of both of the T6 and T8 vertebral bodies, with extension into the right neural foramen at T6-T7. This likely impinges on the exiting right T6 nerve root. There is erosive change within the right posterior sixth and seventh ribs. The right pedicle of T7 is eroded. There is no evidence of epidural spread of tumor at the remaining thoracic spinal leve ls. Vertebral body height is otherwise maintained throughout the thoracic spine. There is a mild equity director nishi superior endplate compression deformity of L1. Fusion hardware is partially visualized in the low er cervical spine. There is hyperkyphosis of the thoracic spine. There is mild multilevel degenerativ e disc space narrowing. There is fatty atrophy of the paraspinous musculature. Chronic/healed right-s ided rib fractures are noted. Scarring/atelectasis is noted at both lung bases. There is a trace righ t pleural effusion. The heart is enlarged. Bilateral renal cysts are partially visualized and measure up to 7.4 cm. IMPRESSION: 1. 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 2. Again seen is a pathologic fracture of T7 with moderate to severe loss of height, retropulsed frag ments, and epidural extension of tumor. This causes at least moderate central canal stenosis and effa malvin the right aspect of the spinal cord. There is also invasion of the right T6-T7 neural foramen at this level with erosion of the right posterior 6th and 7th ribs. Follow up with radiation oncology is recommended. 3. There is a left pedicular fracture at T7, as well as a spinous process fracture of T7. These are n ew from previous. The right pedicle of T7 is eroded, and these fractures may be unstable. 4. No additional foci of epidural extension of tumor seen throughout the remainder of the thoracic sp ine. 5. Cardiomegaly and trace or pleural effusion. 6. Additional findings as above. ACT 112: Negative or not required by law. Electronically signed by: Jose C Dixon M.D. 11/01/2023 8:01 PM
[2023-11-01] MEDS ORDERED: SODIUM CHLORIDE 0.9% 500 ML IV ONE (20:11)
[2023-11-01] MEDS ORDERED: KETOROLAC TROMETHAMINE 15 MG/ML VIAL IV PRN (20:19)
[2023-11-01] MEDS ORDERED: PROMETHAZINE HCL 6.25 MG in SODIUM CHLORIDE 0.9% 50 ML IV PRN (20:19)
[2023-11-01] MEDS ORDERED: MAGNESIUM SULFATE / D5W 1 GM/100 ML BAG IV ONE (20:30)
[2023-11-01] MEDS ORDERED: LIDOCAINE 5% 1 PATCH TD ONE (21:00)
[2023-11-01 21:09] LABS: Appearance Urine Clear (Clear); Bilirubin Urine Negative (Negative); Blood Urine Negative (Negative); Color Urine Yellow; Glucose Urine UA Negative (Negative); Ketones Urine Negative (Negative); Leukocyte Esterase Urine Negative (Negative); Nitrite Urine Negative (Negative); Protein Urine Negative (Negative); Specific Gravity Urine 1.014 (1.000-1.030); Urobilinogen Urine Negative (Negative); pH Urine 5.5 (4.5-7.5)
[2023-11-01] MEDS ORDERED: LACTULOSE SYRUP 30 GM/45 ML UDP PO STA (22:02)
[2023-11-01] MEDS ORDERED: METHYLNALTREXONE BROMIDE 12 MG/0.6 ML VIAL SQ STA (22:02)
--- NOTE | 2023-11-01 22:04 | History & Physical Report ---
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 seen on sagittal image #56. A left pedicular fracture of T7 is also likely new from previous. This is best seen on axial image #188. 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 This has not appreciably changed from the 10/21/2023 PET examination. There is a pathologic compression fracture of T7 with moderate to severe loss of height. Fragments are retropulsed at this level by up to 5 mm. There is abnormal soft tissue anterior to the vertebral body. There is epidural extension of tumor seen at this level. Abnormal this effaces the right anterior aspect of the thecal sac with at least moderate central canal stenosis and effacement of the spinal cord at this level. This is best seen on image #191. This is likely similar to the PET examination. This lesion also erodes the anterior aspect of both of the T6 and T8 vertebral bodies, with extension into the right neural foramen at T6-T7. This likely impinges on the exiting right T6 nerve root. There is erosive change within the right posterior sixth and seventh ribs. The right pedicle of T7 is eroded. There is no evidence of epidural spread of tumor at the remaining thoracic spinal levels. Vertebral body height is otherwise maintained throughout the thoracic spine. There is a mild chronic superior endplate compression deformity of L1. Fusion hardware is partially visualized in the lower cervical spine. There is hyperkyphosis of the thoracic spine. There is mild multilevel degenerative disc space narrowing. There is fatty atrophy of the paraspinous musculature. Chronic/healed right- sided rib fractures are noted. Scarring/atelectasis is noted at both lung bases. There is a trace right pleural effusion. The heart is enlarged. Bilateral renal cysts are partially visualized and measure up to 7.4 cm. IMPRESSION: 1. 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 2. Again seen is a pathologic fracture of T7 with moderate to severe loss of height, retropulsed fragments, and epidural extension of tumor. This causes at least moderate central canal stenosis and effaces the right aspect of the spinal cord. There is also invasion of the right T6-T7 neural foramen at this level with erosion of the right posterior 6th and 7th ribs. Follow up with radiation oncology is recommended. 3. There is a left pedicular fracture at T7, as well as a spinous process fracture of T7. These are new from previous. The right pedicle of T7 is eroded, and these fractures may be unstable. 4. No additional foci of epidural extension of tumor seen throughout the remainder of the thoracic spine. 5. Cardiomegaly and trace or pleural effusion. 6. Additional findings as above. ACT 112: Negative or not required by law. Electronically signed by: Jose C Dixon M.D. 11/01/2023 8:01 PM Diagnostic Findings EKG as per my interpretation :Rate 85, A-fib, normal axis, T wave abnormalities lateral leads (1) Fracture of thoracic spine Encounter type: subsequent encounter Fracture healing: with delayed healing Fracture morphology: unspecified fracture morphology Fracture type: closed Thoracic vertebra fracture level: T7 Qualified Code(s): S22.069G - Unspecified fracture of T7-T8 vertebra, subsequent encounter for fracture with delayed healing
[2023-11-01] MEDS ORDERED: DOCUSATE SODIUM/SENNA 50/8.6MG TAB PO STA (22:07)
[2023-11-01] MEDS ORDERED: DEXTROSE 50% 50 ML SYRINGE IV PRN (22:56)
[2023-11-01] MEDS ORDERED: GLUCAGON FOR INJ 1 MG VIAL SQ PRN (22:56)
[2023-11-01] MEDS ORDERED: GLUCOSE 10 TAB/TUBE PO PRN (22:56)
[2023-11-01] MEDS ORDERED: GLUCOSE 40% GEL 15 GM TUBE PO PRN (22:56)
[2023-11-01] MEDS ORDERED: CARBOHYDRATES FOR HYPOGLYCEMIA PO PRN (22:56)
[2023-11-02] MEDS: INSULIN ASPART PER UNIT CHARGE SC SCH ×5 (00:04→21:41)
[2023-11-02] MEDS: oxyCODONE HCL IR 5 MG TAB (IMMEDIATE RELEASE) PO PRN ×3 (03:59→19:45)
[2023-11-02] MEDS ORDERED: LACTULOSE SYRUP 30 GM/45 ML UDP PO STA (04:29)
[2023-11-02 04:49] LABS: Basophils # (auto) 0.02 K/uL (0.00-0.20); Basophils % (auto) 0.4 %; Eosinophils # (auto) 0.16 K/uL (0.00-0.50); Eosinophils % (auto) 3.4 %; Hemoglobin 11.9 g/dl (14.0-18.0); Immature Granulocytes # (auto) 0.01 K/uL (0.01-0.20); Immature Granulocytes % (auto) 0.2 %; Lymphocytes # (auto) 1.28 K/uL (1.20-3.40); Lymphocytes % (auto) 27.3 %; Mean Corpuscular Hemoglobin 28.2 pg (25.0-34.0); Mean Corpuscular Hgb Conc 32.2 g/dL (32.0-36.0); Mean Corpuscular Volume 87.7 fL (80.0-100.0); Mean Platelet Volume 9.5 fL (9.4-12.4); Monocytes # (auto) 0.57 K/uL (0.11-0.59); Monocytes % (auto) 12.2 %; Neutrophils # (auto) 2.65 K/uL (1.40-6.50); Neutrophils % (auto) 56.5 %; Platelet Count 174 K/uL (130-400); RDW Coefficient of Variation 13.6 % (11.5-14.5); RDW Standard Deviation 43.8 fL (36.4-46.3); Red Blood Count 4.22 M/uL (4.70-6.10); White Blood Count 4.69 K/ul (4.8-10.8)
[2023-11-02 05:00] LABS: Calcium 9.5 mg/dl (8.6-10.3); Creatinine Clr Calc Pharmacy 50.2 ml/min; Est GFR (African American) 66.7 ml/min; Est GFR (Non-African American) 57.5 ml/min
[2023-11-02] MEDS: LEVOTHYROXINE SODIUM 75 MCG TABLET PO SCH (06:23)
[2023-11-02 07:45] LABS: Estimated Average Glucose 177 mg/dl; Hemoglobin A1C 7.8 % (4.5-5.6)
[2023-11-02] MEDS: DOCUSATE SODIUM/SENNA 50/8.6MG TAB PO SCH ×2 (08:39→21:45)
[2023-11-02] MEDS: PANTOprazole 40 MG TAB PO SCH (08:40)
[2023-11-02] MEDS: SUCRALFATE 1 GM/10 ML UDC PO SCH ×4 (08:40→21:45)
[2023-11-02] MEDS: ATORVASTATIN 10 MG TAB PO SCH (08:41)
[2023-11-02] MEDS: CALCIUM 600MG + VIT D 400 IU TAB PO SCH ×2 (08:41→21:45)
[2023-11-02] MEDS: FOLIC ACID 1 MG TAB PO SCH (08:41)
[2023-11-02] MEDS: POLYETHYLENE (MIRALAX) 17 GM PACK PO SCH (08:41)
[2023-11-02] MEDS: CEROVITE ADV FORMULA TAB PO SCH (08:41)
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
[2023-11-02] MEDS: METOPROLOL SUCC 25MG EXT REL TAB PO SCH (08:49)
[2023-11-02] MEDS: LANTUS PER UNIT CHARGE SQ SCH (08:55)
--- NOTE | 2023-11-02 13:51 | Hospitalist Progress Note ---
Date of Service November 02, 2023 Assessment & Plan (1) Fracture of thoracic spine: Plan: 83-year-old gentleman with PMH of chronic systolic heart failure [EF 25 to 30%, 2020 TTE], CAD, 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 Julian Marshall], GERD, T2DM, hypothyroidism, chronic hyponatremia, chronic anemia [baseline hemoglobin around 13], dementia, traumatic subdural hematoma, past tobacco abuse presented to the hospital 11/01 with complaint of worsening mid back pain that has been ongoing since last month without radicular signs of symptoms/fever/chills/weakness/bowel or bladder incontinence. [facility] oncology started patient on oxycodone and reported patient to [facility] radiation therapy. CT simulation for treatment planning was contemplated. 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 EGD showed Raygoza's esophagus/incomplete resection done/esophageal biopsy yielded tumor cells -primary favored as per report. Colonoscopy showed moderate sigmoid and descending colon diverticulosis/internal hemorrhoids/splenic flexure polyp resected -pathology pending. Patient instructed to avoid NSAIDs and hold Eliquis for 1 week after procedure. He is being managed for the following: Pathologic fracture x thoracic spine Metastatic disease from prostate cancer Opioid-induced constipation Patient coming in with worsening midthoracic pain for about a month, worse lately. Recently started on opiates as an outpatient for pain management, patient with no bowel movements for several days prior to arrival. Admitting CTAP with no acute findings in abdomen and pelvis. Admitting lumbar spine CT with multifocal osteoblastic metastatic disease. Superior endplate compression deformity of L1, unchanged. Admitting thoracic spine CT with pathologic fracture of T7. Invasion of the right T6-T7 neuroforamen with erosion of the right posterior sixth and seventh ribs. Left-pedicular fracture at T7 and spinous fracture of T7. Right pedicle of T7 is eroded. Increase pain medications, as needed oxycodone and as needed morphine. Lidocaine patch. Scheduled percocet. As needed Ativan for anxiety. Pain management consult. Radiation oncology evaluating, appreciate recommendation [facility] consult for abnormal T-spine CT, await recommendation. Scheduled bowel regimen, sennakot, MiraLAX, lactulose. Continue Relistor as appropriate. Complete bedrest, PT/OT. Patient to follow-up with his oncology upon discharge. Transient hypotension: Noted in ED likely secondary to narcotic pain meds use. Blood pressure medications on hold, gradually resume them. Other chronic medical conditions: Continue with/resume home meds as and when able. chronic systolic heart failure (EF 25 to 30%, TTE 2020), patient on the dry side valvular heart disease (mild AR/MR/TR) CAD as per records A-fib/PE DVT, Eliquis on hold for 1 week following recent endoscopic procedure. Patient to resume Rx on 11/04/23 if without bleeding concerns as per . colon cancer status post surgery, new colonic mass noted on imaging, recent post colonic biopsy currently pending Possible new esophageal cancer on recent EGD, history GERD/Raygoza's e sophagus. Pt to f/u w/ his oncology on DC. DM 2 insulin requiring, suboptimal control as of recent hemoglobin A1c of 7.22 May 2023 hypothyroidism, euthyroid as of this admission's TSH chronic hyponatremia likely secondary to malignancy chronic anemia, hemoglobin at baseline dementia, mentation at baseline as per history traumatic subdural hematoma past tobacco abuse DVT prophylaxis. SCDs Re: Recent endoscopic procedure. Resume Eliquis 11/04 if without contraindication. DNR Patient Ms.Dottie Chavez, contact #[phone]. Text document was generated using [employer] voice recognition software. It may contain grammatical or spelling errors. Kindly contact undersigned for clarification of any documentation item in question. Admission and Anticipated Discharge Date Admission Date: November 01, 2023 Subjective Patient was seen and examined at bedside. Patient was lying semiupright in bed, on 2 L oxygen via nasal cannula, reports being in pain, appears in mild distress. Patient reports not being able to lie down flat due to pain, and hence he could not undergo CT scan today for radiation oncology. Patient also reports not moving his bowel in a while, patient received a dose of Relistor last evening around 10:30 PM. Will continue extensive bowel regimen and Relistor. Will DC Relistor once having bowel movement. Patient reports appetite okay. Patient will need extensive pain management, pain management consulted. Physical Exam Physical Exam: GENERAL: Alert and oriented x3. Lethargic, on 2 L oxygen via nasal cannula, appears to be in pain from metastatic disease. HEENT: No pallor, no icterus. Pupils equal, round and reactive to light. Oral mucosa moist. NECK: No JVD, no neck masses. HEART: S1 and S2 heard. irregular rate and rhythm. + murmur, no gallop. RESPIRATORY SYSTEM: Normal AP diameter. No accessory muscle use. No wheezing, no crackles. Diminished breath sounds bilateral. ABDOMEN: Soft, bowel sounds present, nontender, no distention. CENTRAL NERVOUS SYSTEM: No facial droop. Speech is clear. Obeys simple commands. Moves extremities. EXTREMITIES: 1+ BLE edema, no erythema seen. Results & Data Results & Data Vital Signs (Past 12 Hours) Vital Signs Pulse Pulse Resp BP BP Pulse Ox Pulse Ox 11/02/23 12:00 57 L 18 117/78 98 11/02/23 11:30 61 15 101/55 L 99 11/02/23 11:00 132/78 11/02/23 11:00 61 16 98 11/02/23 10:30 105/68 11/02/23 10:30 61 17 98 11/02/23 10:00 64 17 98 11/02/23 10:00 111/68 11/02/23 09:45 61 13 95 11/02/23 08:30 58 L 18 92 11/02/23 08:30 120/89 11/02/23 08:30 53 L 18 120/89 97 11/02/23 08:00 125/89 11/02/23 08:00 54 L 13 96 11/02/23 07:30 62 17 96 11/02/23 07:30 119/66 11/02/23 07:09 53 L 11/02/23 07:00 56 L 19 95 11/02/23 07:00 117/83 11/02/23 05:04 136/76 97 11/02/23 05:04 94 11/02/23 03:01 56 L 17 136/80 97 11/02/23 02:00 59 L 17 106/67 92 O2 Del Method O2 Del Method O2 Flow Rate O2 Flow Rate 11/02/23 12:00 11/02/23 11:30 11/02/23 11:00 11/02/23 11:00 11/02/23 10:30 11/02/23 10:30 11/02/23 10:00 11/02/23 10:00 11/02/23 09:45 11/02/23 08:30 11/02/23 08:30 11/02/23 08:30 Nasal Cannula 2 11/02/23 08:00 11/02/23 08:00 11/02/23 07:30 11/02/23 07:30 11/02/23 07:09 11/02/23 07:00 11/02/23 07:00 11/02/23 05:04 Nasal Cannula 2 11/02/23 05:04 Nasal Cannula 2 11/02/23 03:01 Room Air 11/02/23 02:00 Room Air (1) Fracture of thoracic spine Encounter type: subsequent encounter Fracture healing: with delayed healing Fracture morphology: unspecified fracture morphology Fracture type: closed Thoracic vertebra fracture level: T7 Qualified Code(s): S22.069G - Unspecified fracture of T7-T8 vertebra, subsequent encounter for fracture with delayed healing
[2023-11-02] MEDS: oxyCODONE/ACETAMINOPHEN 5mg/325mg TAB PO SCH ×2 (14:54→22:59)
[2023-11-02] MEDS: LIDOCAINE 5% 1 PATCH TD SCH (21:45)
[2023-11-02] MEDS: LATANOPROST 0.005% OP SOLN 2.5 ML BTL OPL SCH (21:45)
[2023-11-03] MEDS: MoRPHine SULFATE 2 MG/ML CARP IV PRN ×2 (01:22→08:26)
[2023-11-03] MEDS: LEVOTHYROXINE SODIUM 75 MCG TABLET PO SCH (05:37)
[2023-11-03] MEDS: oxyCODONE/ACETAMINOPHEN 5mg/325mg TAB PO SCH ×3 (05:37→22:02)
--- NOTE | 2023-11-03 06:03 | Electrocardiogram Report ---
Test Reason : Blood Pressure : / mmHG Vent. Rate : 083 BPM Atrial Rate : 000 BPM P-R Int : 000 ms QRS Dur : 090 ms QT Int : 392 ms P-R-T Axes : 000 011 111 degrees QTc Int : 460 ms Atrial fibrillation Nonspecific T wave abnormality Abnormal ECG When compared with ECG of 21-DEC-2020 09:37, Atrial fibrillation has replaced Sinus rhythm Non-specific change in ST segment in Anterior leads T wave inversion no longer evident in Lateral leads T wave inversion no longer evident in Anterior leads Confirmed by Abner Joseph ([id number]) on 11/03/2023 6:03:03 AM Referred By: REFERRED SELF Confirmed By:Abner Joseph
[2023-11-03 06:22] LABS: Hematocrit (blood only) 36.7 % (42.0-52.0); Hemoglobin 11.9 g/dl (14.0-18.0); Mean Corpuscular Hemoglobin 28.5 pg (25.0-34.0); Mean Corpuscular Hgb Conc 32.4 g/dL (32.0-36.0); Mean Corpuscular Volume 87.8 fL (80.0-100.0); Mean Platelet Volume 9.8 fL (9.4-12.4); Platelet Count 182 K/uL (130-400); RDW Coefficient of Variation 13.8 % (11.5-14.5); RDW Standard Deviation 44.4 fL (36.4-46.3); Red Blood Count 4.18 M/uL (4.70-6.10); White Blood Count 5.63 K/ul (4.8-10.8)
[2023-11-03 06:46] LABS: BUN Creatinine Ratio 18.6 (10-20); Calcium 9.5 mg/dl (8.6-10.3); Creatinine Clr Calc Pharmacy 57.4 ml/min; Est GFR (African American) 77.9 ml/min; Est GFR (Non-African American) 67.2 ml/min; Magnesium 1.8 mg/dl (1.7-2.4); Phosphorus 3.3 mg/dl (2.5-4.9); Potassium 4.3 mmol/L (3.5-5.1)
[2023-11-03] MEDS: LORazepam 0.5 MG TAB PO PRN (08:01)
[2023-11-03] MEDS: SUCRALFATE 1 GM/10 ML UDC PO SCH ×4 (08:32→21:46)
[2023-11-03] MEDS: FOLIC ACID 1 MG TAB PO SCH (08:33)
[2023-11-03] MEDS: CALCIUM 600MG + VIT D 400 IU TAB PO SCH ×2 (08:33→21:47)
[2023-11-03] MEDS: PANTOprazole 40 MG TAB PO SCH (08:33)
[2023-11-03] MEDS: DOCUSATE SODIUM/SENNA 50/8.6MG TAB PO SCH ×2 (08:33→21:46)
[2023-11-03] MEDS: CEROVITE ADV FORMULA TAB PO SCH (08:33)
[2023-11-03] MEDS: ATORVASTATIN 10 MG TAB PO SCH (08:33)
[2023-11-03] MEDS: METOPROLOL SUCC 25MG EXT REL TAB PO SCH (08:34)
[2023-11-03] MEDS: INSULIN ASPART PER UNIT CHARGE SC SCH ×4 (09:04→21:47)
[2023-11-03] MEDS: LANTUS PER UNIT CHARGE SQ SCH (09:05)
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
[2023-11-03] MEDS: LACTULOSE SYRUP 30 GM/45 ML UDP PO SCH (10:03)
[2023-11-03] MEDS: POLYETHYLENE (MIRALAX) 17 GM PACK PO SCH (10:03)
--- NOTE | 2023-11-03 11:13 | Hospitalist Progress Note ---
Date of Service November 03, 2023 Assessment & Plan (1) Fracture of thoracic spine: Plan: 83-year-old gentleman with PMH of chronic systolic heart failure [EF 25 to 30%, 2020 TTE], CAD, 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 Julian Marshall], GERD, T2DM, hypothyroidism, chronic hyponatremia, chronic anemia [baseline hemoglobin around 13], dementia, traumatic subdural hematoma, past tobacco abuse presented to the hospital 11/01 with complaint of worsening mid back pain that has been ongoing since last month without radicular signs of symptoms/fever/chills/weakness/bowel or bladder incontinence. [facility] oncology started patient on oxycodone and reported patient to [facility] radiation therapy. CT simulation for treatment planning was contemplated. 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 EGD showed Raygoza's esophagus/incomplete resection done/esophageal biopsy yielded tumor cells -primary favored as per report. Colonoscopy showed moderate sigmoid and descending colon diverticulosis/internal hemorrhoids/splenic flexure polyp resected -pathology pending. Patient instructed to avoid NSAIDs and hold Eliquis for 1 week after procedure. He is being managed for the following: Pathologic fracture x thoracic spine Metastatic disease from prostate cancer Opioid-induced constipation Patient coming in with worsening midthoracic pain for about a month, worse lately. Recently started on opiates as an outpatient for pain management, patient with no bowel movements for several days prior to arrival. Admitting CTAP with no acute findings in abdomen and pelvis. Admitting lumbar spine CT with multifocal osteoblastic metastatic disease. Superior endplate compression deformity of L1, unchanged. Admitting thoracic spine CT with pathologic fracture of T7. Invasion of the right T6-T7 neuroforamen with erosion of the right posterior sixth and seventh ribs. Left-pedicular fracture at T7 and spinous fracture of T7. Right pedicle of T7 is eroded. c/w pain medications, as needed oxycodone and as needed morphine. Lidocaine patch. Scheduled percocet. As needed Ativan for anxiety. Pain management consult. Await recommendation. Radiation oncology evaluating, appreciate recommendation Orthospine consult for abnormal T-spine CT, await recommendation. Scheduled bowel regimen, Gilson wigginsaLAX, lactulose. will give additional dose of Relistor tonight if no BM by the day. Complete bedrest, PT/OT. Patient to follow-up with his oncology upon discharge. Transient hypotension: Noted in ED likely secondary to narcotic pain meds use. Blood pressure medications on hold, gradually resume them. Other chronic medical conditions: Continue with/resume home meds as and when able. chronic systolic heart failure (EF 25 to 30%, TTE 2020), patient on the dry side valvular heart disease (mild AR/MR/TR) CAD as per records A-fib/PE DVT, Eliquis on hold for 1 week following recent endoscopic procedure. Patient to resume Rx on 11/04/23 if without bleeding concerns as per . colon cancer status post surgery, new colonic mass noted on imaging, recent post colonic biopsy currently pending Possible new esophageal cancer on recent EGD, history GERD/Raygoza's esophagus. Pt to f/u w/ his oncology on DC. DM 2 insulin requiring, suboptimal control as of recent hemoglobin A1c of 7.22 May 2023 hypothyroidism, euthyroid as of this admission's TSH chronic hyponatremia likely secondary to malignancy chronic anemia, hemoglobin at baseline dementia, mentation at baseline as per history traumatic subdural hematoma past tobacco abuse DVT prophylaxis. SCDs Re: Recent endoscopic procedure. Resume Eliquis 11/04 if without contraindication. DNR PT/OT, CM to assist w/ DC plan. Patient Ms.Dottie Chavez, contact #[phone]. Text document was generated using [employer] voice recognition software. It may contain grammatical or spelling errors. Kindly contact undersigned for clarification of any documentation item in question. Admission and Anticipated Discharge Date Admission Date: November 01, 2023 Subjective Patient was seen and examined at bedside. Patient was lying semiupright in bed, on 2 L oxygen via nasal cannula, reports pain getting better, does not appear to be in distress. Patient has not moved bowels in 5 to 6 days, is moving gas, appetite at his baseline, no abdominal pain. Will give additional dose of Relistor today. Continue extensive bowel regimen. Physical Exam Physical Exam: GENERAL: Alert and oriented x3. Lethargic, on 2 L oxygen via nasal cannula, NAD. HEENT: No pallor, no icterus. Pupils equal, round and reactive to light. Oral mucosa moist. NECK: No JVD, no neck masses. HEART: S1 and S2 heard. irregular rate and rhythm. + murmur, no gallop. RESPIRATORY SYSTEM: Normal AP diameter. No accessory muscle use. No wheezing, no crackles. Diminished breath sounds bilateral. ABDOMEN: Soft, bowel sounds present, nontender, no distention. CENTRAL NERVOUS SYSTEM: No facial droop. Speech is clear. Obeys simple commands. Moves extremities. EXTREMITIES: 1+ BLE edema, no erythema seen. Results & Data Results & Data Vital Signs (Past 12 Hours) Vital Signs Temp Pulse Pulse Resp BP BP Pulse Ox 11/03/23 10:38 11/03/23 07:49 36.6 C 77 16 145/94 H 91 11/03/23 07:11 78 11/03/23 03:32 37.1 C 93 H 18 132/66 93 11/03/23 02:20 71 16 O2 Del Method O2 Flow Rate 11/03/23 10:38 Nasal Cannula 2 11/03/23 07:49 Nasal Cannula 2 11/03/23 07:11 11/03/23 03:32 Nasal Cannula 2 11/03/23 02:20 (1) Fracture of thoracic spine Encounter type: subsequent encounter Fracture healing: with delayed healing Fracture morphology: unspecified fracture morphology Fracture type: closed Thoracic vertebra fracture level: T7 Qualified Code(s): S22.069G - Unspecified fracture of T7-T8 vertebra, subsequent encounter for fracture with delayed healing
[2023-11-03] MEDS: GABAPENTIN 300 MG CAP PO SCH ×2 (15:08→21:46)
[2023-11-03] MEDS: LIDOCAINE 5% 1 PATCH TD SCH (21:47)
[2023-11-03] MEDS: LATANOPROST 0.005% OP SOLN 2.5 ML BTL OPL SCH (21:47)
[2023-11-03] MEDS ORDERED: METHYLNALTREXONE BROMIDE 12 MG/0.6 ML VIAL SQ ONE (22:00)
[2023-11-04 04:58] LABS: Hematocrit (blood only) 35.2 % (42.0-52.0); Hemoglobin 11.4 g/dl (14.0-18.0); Mean Corpuscular Hemoglobin 28.5 pg (25.0-34.0); Mean Corpuscular Hgb Conc 32.4 g/dL (32.0-36.0); Mean Platelet Volume 9.8 fL (9.4-12.4); Platelet Count 172 K/uL (130-400); RDW Coefficient of Variation 13.6 % (11.5-14.5); RDW Standard Deviation 44.1 fL (36.4-46.3); White Blood Count 5.28 K/ul (4.8-10.8)
[2023-11-04 05:14] LABS: BUN Creatinine Ratio 18.1 (10-20); Calcium 9.2 mg/dl (8.6-10.3); Creatinine Clr Calc Pharmacy 55.7 ml/min; Est GFR (African American) 75.2 ml/min; Est GFR (Non-African American) 64.9 ml/min; Potassium 4.8 mmol/L (3.5-5.1)
[2023-11-04] MEDS: LEVOTHYROXINE SODIUM 75 MCG TABLET PO SCH (05:35)
[2023-11-04] MEDS: ACETAMINOPHEN 325 MG TAB PO PRN (05:35)
[2023-11-04] MEDS: oxyCODONE/ACETAMINOPHEN 5mg/325mg TAB PO SCH ×3 (05:35→22:13)
[2023-11-04] MEDS: SUCRALFATE 1 GM/10 ML UDC PO SCH ×4 (08:39→20:06)
[2023-11-04] MEDS: FUROSEMIDE 20 MG TAB PO SCH (08:39)
[2023-11-04] MEDS: METOPROLOL SUCC 25MG EXT REL TAB PO SCH (08:40)
[2023-11-04] MEDS: FOLIC ACID 1 MG TAB PO SCH (08:40)
[2023-11-04] MEDS: GABAPENTIN 300 MG CAP PO SCH ×3 (08:40→20:05)
[2023-11-04] MEDS: CALCIUM 600MG + VIT D 400 IU TAB PO SCH ×2 (08:40→20:05)
[2023-11-04] MEDS: CEROVITE ADV FORMULA TAB PO SCH (08:40)
[2023-11-04] MEDS: ATORVASTATIN 10 MG TAB PO SCH (08:40)
[2023-11-04] MEDS: lisinopril 2.5 MG TAB PO SCH (08:40)
[2023-11-04] MEDS: PANTOprazole 40 MG TAB PO SCH (08:40)
[2023-11-04] MEDS: LACTULOSE SYRUP 30 GM/45 ML UDP PO SCH (08:48)
--- NOTE | 2023-11-04 08:49 | Hospitalist Progress Note ---
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 Julian Marshall], GERD, T2DM, hypothyroidism, chronic hyponatremia, chronic anemia [baseline hemoglobin around 13], dementia, traumatic subdural hematoma, past tobacco abuse presented to the hospital 11/01 with complaint of worsening mid back pain that has been ongoing since last month without radicular signs of symptoms/fever/chills/weakness/bowel or bladder incontinence. [facility] oncology started patient on oxycodone and reported patient to [facility] radiation therapy. CT simulation for treatment planning was contemplated. Also patient underwent outpatient EGD for Raygoza's esophagus and colonoscopy for possible colonic mass on outpatient PET/CT at [facility] 5 days ago [facility]. EGD showed Raygoza's esophagus/incomplete resection done/esophageal biopsy yielded tumor cells -primary favored as per report. Colonoscopy showed moderate sigmoid and descending colon diverticulosis/internal hemorrhoids/splenic flexure polyp resected -pathology pending. Patient instructed to avoid NSAIDs and hold Eliquis for 1 week after procedure. He is being managed for the following: Pathologic fracture x thoracic spine Metastatic disease from prostate cancer Opioid-induced constipation Patient coming in with worsening midthoracic pain for about a month, worse lately. Recently started on opiates as an outpatient for pain management, patient with no bowel movements for several days prior to arrival. Admitting CTAP with no acute findings in abdomen and pelvis. Admitting lumbar spine CT with multifocal osteoblastic metastatic disease. Superior endplate compression deformity of L1, unchanged. Admitting thoracic spine CT with pathologic fracture of T7. Invasion of the right T6-T7 neuroforamen with erosion of the right posterior sixth and seventh ribs. Left-pedicular fracture at T7 and spinous fracture of T7. Right pedicle of T7 is eroded. c/w pain medications, as needed oxycodone and as needed morphine. Lidocaine patch. Scheduled percocet. As needed Ativan for anxiety. Pain management consulted - adding gabapentin 300 mg TID to address neuropathic pain component. Radiation oncology evaluating, appreciate recommendation [facility] consult for abnormal T-spine CT, await recommendation. Scheduled bowel regimen, sennakot, MiraLAX, lactulose. gave additional dose of Relistor last night (11/03). Ordered suppository. Increased miralax frequency. Complete bedrest, PT/OT. 11/04 Feeling better today. at time of exam pt without any significant pain. Patient to follow-up with his oncology upon discharge. Transient hypotension: Noted in ED likely secondary to narcotic pain meds use. Blood pressure medications on hold, gradually resume them. Other chronic medical conditions: Continue with/resume home meds as and when able. chronic systolic heart failure (EF 25 to 30%, TTE 2020), patient on the dry side valvular heart disease (mild AR/MR/TR) CAD as per records A-fib/PE DVT, Eliquis on hold for 1 week following recent endoscopic procedure. Patient to resume Rx on 11/04/23 if without bleeding concerns as per . Eliquis resumed. colon cancer status post surgery, new colonic mass noted on imaging, recent post colonic biopsy currently pending Possible new esophageal cancer on recent EGD, history GERD/Raygoza's esophagus. Pt to f/u w/ his oncology on DC. DM 2 insulin requiring, suboptimal control as of recent hemoglobin A1c of 7.22 May 2023 hypothyroidism, euthyroid as of this admission's TSH chronic hyponatremia likely secondary to malignancy chronic anemia, hemoglobin at baseline dementia, mentation at baseline as per history traumatic subdural hematoma past tobacco abuse DVT prophylaxis. SCDs Re: Recent endoscopic procedure. Resume Eliquis 11/04 if without contraindication. DNR PT/OT, CM to assist w/ DC plan. Patient Ms.Dottie Chavez, contact #[phone]. Admission and Anticipated Discharge Date Admission Date: November 01, 2023 Subjective Patient was seen and examined at bedside. Patient lying semiupright in bed, on 2 L oxygen via nasal cannula, reports pain getting better, does not appear to be in distress. says right now he feels ok. Patient has not moved bowels in several days, is moving gas, appetite at his baseline, no abdominal pain. Received additional dose of Relistor yesterday. Will increase miralax frequency, will order suppository - discused w/ RN. Continue extensive bowel regimen. Review of Systems Review of Systems: All systems reviewed & are unremarkable except as noted in Subjective Physical Exam Physical Exam: GENERAL: WD/WN M in NAD on 2 L oxygen via nasal cannula HEENT: NC/AT. Oral mucosa moist. NECK: No JVD, no neck masses. HEART: S1 and S2 heard. irregular rate and rhythm. + murmur, no gallop. RESPIRATORY: Normal AP diameter. No accessory muscle use. No wheezing, no crackles. Diminished breath sounds bilateral. ABDOMEN: Soft, bowel sounds present, nontender, no distention. NEURO: Alert and oriented x3. No facial droop. Speech is clear. Obeys simple commands. Moves extremities. EXTREMITIES: 1+ BLE edema, no erythema seen. SKIN : warm, dry Results & Data Results & Data Vital Signs (Past 12 Hours) Vital Signs Temp Pulse Pulse Resp BP Pulse Ox O2 Del Method 11/04/23 07:55 36.6 C 84 16 131/74 97 Nasal Cannula 11/04/23 07:30 59 L 11/04/23 04:00 36.3 C L 54 L 18 117/75 97 Nasal Cannula 11/03/23 23:06 36.7 C 52 L 16 132/82 98 Nasal Cannula 11/03/23 21:59 65 11/03/23 21:30 Nasal Cannula O2 Flow Rate 11/04/23 07:55 2 11/04/23 07:30 11/04/23 04:00 2 11/03/23 23:06 2 11/03/23 21:59 11/03/23 21:30 2 Laboratory Results 11/04/23 11/04/23 11/03/23 Range/Units 08:23 04:26 20:27 WBC 5.28 (4.8-10.8) K/ul RBC 4.00 L (4.70-6.10) M/uL Hgb 11.4 L (14.0-18.0) g/dl Hct 35.2 L (42.0-52.0) % MCV 88.0 (80.0-100.0) fL MCH 28.5 (25.0-34.0) pg MCHC 32.4 (32.0-36.0) g/dL RDW Std Deviation 44.1 (36.4-46.3) fL RDW Coeff of Janny 13.6 (11.5-14.5) % Plt Count 172 (130-400) K/uL MPV 9.8 (9.4-12.4) fL Sodium 131 L (136-145) mmol/L Potassium 4.8 (3.5-5.1) mmol/L Chloride 97 L (98-107) mmol/L Carbon Dioxide 30 (21-32) mmol/L Anion Gap 4 (3-11) BUN 19 (6-23) mg/dl Creatinine 1.05 (0.6-1.4) mg/dl Est Cr Clr Drug Dosing 55.7 ml/min Est GFR ( Amer) 75.2 ml/min Est GFR (Non-Af Amer) 64.9 ml/min BUN/Creatinine Ratio 18.1 (10-20) Glucose 140 H (70-99(Fasting)) mg/dl POC Glucose 110 H 134 H (70-99) mg/dl Calcium 9.2 (8.6-10.3) mg/dl 11/03/23 11/03/23 11/03/23 Range/Units 16:58 11:57 08:55 WBC (4.8-10.8) K/ul RBC (4.70-6.10) M/uL Hgb (14.0-18.0) g/dl Hct (42.0-52.0) % MCV (80.0-100.0) fL MCH (25.0-34.0) pg MCHC (32.0-36.0) g/dL RDW Std Deviation (36.4-46.3) fL RDW Coeff of Janny (11.5-14.5) % Plt Count (130-400) K/uL MPV (9.4-12.4) fL Sodium (136-145) mmol/L Potassium (3.5-5.1) mmol/L Chloride (98-107) mmol/L Carbon Dioxide (21-32) mmol/L Anion Gap (3-11) BUN (6-23) mg/dl Creatinine (0.6-1.4) mg/dl Est Cr Clr Drug Dosing ml/min Est GFR ( Amer) ml/min Est GFR (Non-Af Amer) ml/min BUN/Creatinine Ratio (10-20) Glucose (70-99(Fasting)) mg/dl POC Glucose 134 H 134 H 79 (70-99) mg/dl Calcium (8.6-10.3) mg/dl Medications Administered Current Inpatient Medications Acetaminophen (Acetaminophen 325 Mg Tab) 650 mg PO QID PRN PRN Reason: pain/fever Stop: 12/01/23 20:18 Last Admin: 11/04/23 05:35 Dose: 650 mg Atorvastatin Calcium (Atorvastatin 10 Mg Tab) 10 mg PO DAILY PB Stop: 12/02/23 08:59 Last Admin: 11/04/23 08:40 Dose: 10 mg Calcium/Vitamin D (Calcium 600mg + Vit D 400 Iu Tab) 1 tab PO BID [facility] Stop: 12/02/23 08:59 Last Admin: 11/04/23 08:40 Dose: 1 tab Dextrose (Dextrose 50% 50 Ml Syringe) 25 - 50 ml IV UD PRN; Protocol PRN Reason: Hypoglycemia Protocol Stop: 12/01/23 22:55 Folic Acid (Folic Acid 1 Mg Tab) 1 mg PO QAM [facility] Stop: 12/02/23 08:59 Last Admin: 11/04/23 08:40 Dose: 1 mg Furosemide (Furosemide 20 Mg Tab) 20 mg PO [id number] [facility] Stop: 12/04/23 08:59 Last Admin: 11/04/23 08:39 Dose: 20 mg Gabapentin (Gabapentin 300 Mg Cap) 300 mg PO TID [facility] Stop: 12/03/23 13:59 Last Admin: 11/04/23 08:40 Dose: 300 mg Glucagon (Glucagon For Inj 1 Mg Vial) 1 mg SQ UD PRN; Protocol PRN Reason: Hypoglycemia Protocol Stop: 12/01/23 22:55 Glucose (Glucose 10 Tab/Tube) 4 - 8 tab PO UD PRN; Protocol PRN Reason: Hypoglycemia Treatment Stop: 12/01/23 22:55 Glucose (Glucose 40% Gel 15 Gm Tube) 15 - 30 gm PO UD PRN; Protocol PRN Reason: Hypoglycemia Protocol Stop: 12/01/23 22:55 Last Admin: 11/02/23 17:24 Dose: 15 gm Promethazine HCl 6.25 mg/ (Sodium Chloride) 50.25 mls @ 201 mls/hr IV Q6H PRN PRN Reason: Nausea And Vomiting Stop: 12/01/23 20:18 Insulin Aspart (Insulin Aspart Per Unit Charge) 0 units SC ACHS [facility] Stop: 12/01/23 22:55 Last Admin: 11/03/23 21:47 Dose: Not Given Insulin Glargine (Lantus Per Unit Charge) 5 units SQ DAILY PB Stop: 12/02/23 08:59 Last Admin: 11/03/23 09:05 Dose: Not Given Lactulose (Lactulose Syrup 30 Gm/45 Ml Udp) 30 gm PO DAILY PB Stop: 12/03/23 08:59 Last Admin: 11/04/23 08:48 Dose: Not Given Latanoprost (Latanoprost 0.005% Op Soln 2.5 Ml Btl) 1 drops OPL HS PB Stop: 12/02/23 20:59 Last Admin: 11/03/23 21:47 Dose: 1 drops Levothyroxine Sodium (Levothyroxine Sodium 75 Mcg Tablet) 75 mcg PO DAILYBB PB Stop: 12/02/23 06:29 Last Admin: 11/04/23 05:35 Dose: 75 mcg Lidocaine (Lidocaine 5% 1 Patch) 1 patch TD HS PB Stop: 12/02/23 20:59 Last Admin: 11/03/23 21:47 Dose: 1 patch Lisinopril (Lisinopril 2.5 Mg Tab) 2.5 mg PO DAILY PB Stop: 12/04/23 08:59 Last Admin: 11/04/23 08:40 Dose: 2.5 mg Lorazepam (Lorazepam 0.5 Mg Tab) 0.5 mg PO Q12H PRN PRN Reason: Anxiety Stop: 12/02/23 14:10 Last Admin: 11/03/23 08:01 Dose: 0.5 mg Metoprolol Succinate (Metoprolol Succ 25mg Ext Rel Tab) 12.5 mg PO DAILY PB Stop: 12/02/23 08:59 Last Admin: 11/04/23 08:40 Dose: 12.5 mg Miscellaneous (Remove Lidoderm Patch) 1 each N/A QAM PB Stop: 12/02/23 08:59 Last Admin: 11/03/23 08:34 Dose: 1 each Miscellaneous (Carbohydrates For Hypoglycemia ) 15 - 30 gm PO UD PRN PRN Reason: Hypoglycemia Protocol Stop: 12/01/23 22:55 Last Admin: 11/02/23 17:02 Dose: 15 gm Morphine Sulfate (Morphine Sulfate 2 Mg/Ml Carp) 2 mg IV Q3H PRN PRN Reason: Pain Stop: 11/15/23 22:11 Last Admin: 11/03/23 08:26 Dose: 2 mg Multivitamins/Minerals (Cerovite Adv Formula Tab) 1 tab PO DAILY PB Stop: 12/02/23 08:59 Last Admin: 11/04/23 08:40 Dose: 1 tab Oxycodone HCl (Oxycodone Hcl Ir 5 Mg Tab (Immediate Release)) 5 - 10 mg PO QID PRN PRN Reason: Pain Stop: 11/15/23 20:18 Last Admin: 11/02/23 19:45 Dose: 10 mg Oxycodone/Acetaminophen (Oxycodone/Acetaminophen 5mg/325mg Tab) 1 tab PO Q8H PB Stop: 11/16/23 14:14 Last Admin: 11/04/23 05:35 Dose: Not Given Pantoprazole Sodium (Pantoprazole 40 Mg Tab) 40 mg PO DAILY PB Stop: 12/02/23 08:59 Last Admin: 11/04/23 08:40 Dose: 40 mg Polyethylene Glycol (Polyethylene (Miralax) 17 Gm Pack) 17 gm PO DAILY PB Stop: 12/02/23 08:59 Last Admin: 11/03/23 10:03 Dose: 17 gm Senna/Docusate Sodium (Docusate Sodium/Senna 50/8.6mg Tab) 1 tab PO BID PB Stop: 12/02/23 08:59 Last Admin: 11/03/23 21:46 Dose: 1 tab Sucralfate (Sucralfate 1 Gm/10 Ml Udc) 1 gm PO ACHS PB Stop: 12/02/23 07:29 Last Admin: 11/04/23 08:39 Dose: 1 gm (1) Fracture of thoracic spine Encounter type: subsequent encounter Fracture healing: with delayed healing Fracture morphology: unspecified fracture morphology Fracture type: closed Thoracic vertebra fracture level: T7 Qualified Code(s): S22.069G - Unspecified fracture of T7-T8 vertebra, subsequent encounter for fracture with delayed healing
[2023-11-04] MEDS: POLYETHYLENE (MIRALAX) 17 GM PACK PO SCH ×3 (08:51→20:06)
[2023-11-04] MEDS: DOCUSATE SODIUM/SENNA 50/8.6MG TAB PO SCH ×2 (08:51→20:05)
[2023-11-04] MEDS: LANTUS PER UNIT CHARGE SQ SCH (08:51)
[2023-11-04] MEDS: INSULIN ASPART PER UNIT CHARGE SC SCH ×4 (09:40→20:39)
[2023-11-04] MEDS: oxyCODONE HCL IR 5 MG TAB (IMMEDIATE RELEASE) PO PRN (16:19)
[2023-11-04] MEDS ORDERED: bisacodyL 10 MG SUPP PR STA (17:02)
[2023-11-04] MEDS: LIDOCAINE 5% 1 PATCH TD SCH (20:06)
[2023-11-04] MEDS: LATANOPROST 0.005% OP SOLN 2.5 ML BTL OPL SCH (20:06)
[2023-11-05] MEDS: LEVOTHYROXINE SODIUM 75 MCG TABLET PO SCH (06:10)
[2023-11-05] MEDS: oxyCODONE/ACETAMINOPHEN 5mg/325mg TAB PO SCH ×3 (06:10→22:01)
[2023-11-05 07:33] LABS: Hematocrit (blood only) 37.6 % (42.0-52.0); Hemoglobin 12.5 g/dl (14.0-18.0); Mean Corpuscular Hemoglobin 28.5 pg (25.0-34.0); Mean Corpuscular Hgb Conc 33.2 g/dL (32.0-36.0); Mean Corpuscular Volume 85.8 fL (80.0-100.0); Mean Platelet Volume 9.7 fL (9.4-12.4); Platelet Count 158 K/uL (130-400); RDW Coefficient of Variation 13.6 % (11.5-14.5); RDW Standard Deviation 42.8 fL (36.4-46.3); Red Blood Count 4.38 M/uL (4.70-6.10)
[2023-11-05 08:05] LABS: Magnesium 1.7 mg/dl (1.7-2.4); Potassium 4.5 mmol/L (3.5-5.1)
[2023-11-05 08:11] LABS: BUN Creatinine Ratio 21.6 (10-20); Creatinine Clr Calc Pharmacy 57.7 ml/min; Est GFR (African American) 77.9 ml/min; Est GFR (Non-African American) 67.2 ml/min; Phosphorus 2.7 mg/dl (2.5-4.9)
[2023-11-05] MEDS: CEROVITE ADV FORMULA TAB PO SCH (08:11)
[2023-11-05] MEDS: APIXABAN 5 MG TABLET PO SCH ×2 (08:11→20:50)
[2023-11-05] MEDS: CALCIUM 600MG + VIT D 400 IU TAB PO SCH ×2 (08:11→20:50)
[2023-11-05] MEDS: METOPROLOL SUCC 25MG EXT REL TAB PO SCH (08:12)
[2023-11-05] MEDS: PANTOprazole 40 MG TAB PO SCH (08:13)
[2023-11-05] MEDS: lisinopril 2.5 MG TAB PO SCH (08:13)
[2023-11-05] MEDS: ATORVASTATIN 10 MG TAB PO SCH (08:13)
[2023-11-05] MEDS: FOLIC ACID 1 MG TAB PO SCH (08:13)
[2023-11-05] MEDS: DOCUSATE SODIUM/SENNA 50/8.6MG TAB PO SCH ×2 (08:15→20:50)
[2023-11-05] MEDS: GABAPENTIN 300 MG CAP PO SCH ×3 (08:15→20:50)
[2023-11-05] MEDS: LACTULOSE SYRUP 30 GM/45 ML UDP PO SCH (08:16)
[2023-11-05] MEDS: SUCRALFATE 1 GM/10 ML UDC PO SCH ×4 (08:16→20:50)
[2023-11-05] MEDS: POLYETHYLENE (MIRALAX) 17 GM PACK PO SCH ×2 (08:16→08:50)
[2023-11-05] MEDS: INSULIN ASPART PER UNIT CHARGE SC SCH ×4 (08:48→20:51)
[2023-11-05] MEDS: LANTUS PER UNIT CHARGE SQ SCH (08:50)
--- NOTE | 2023-11-05 10:37 | Hospitalist Progress Note ---
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 Julian Marshall], GERD, T2DM, hypothyroidism, chronic hyponatremia, chronic anemia [baseline hemoglobin around 13], dementia, traumatic subdural hematoma, past tobacco abuse presented to the hospital 11/01 with complaint of worsening mid back pain that has been ongoing since last month without radicular signs of symptoms/fever/chills/weakness/bowel or bladder incontinence. [facility] oncology started patient on oxycodone and reported patient to [facility] radiation therapy. CT simulation for treatment planning was contemplated. Also patient underwent outpatient EGD for Raygoza's esophagus and colonoscopy for possible colonic mass on outpatient PET/CT at [facility] 5 days ago [employer]. EGD showed Raygoza's esophagus/incomplete resection done/esophageal biopsy yielded tumor cells -primary favored as per report. Colonoscopy showed moderate sigmoid and descending colon diverticulosis/internal hemorrhoids/splenic flexure polyp resected -pathology pending. Patient instructed to avoid NSAIDs and hold Eliquis for 1 week after procedure. He is being managed for the following: Pathologic fracture x thoracic spine Metastatic disease from prostate cancer Opioid-induced constipation Patient coming in with worsening midthoracic pain for about a month, worse lately. Recently started on opiates as an outpatient for pain management, patient with no bowel movements for several days prior to arrival. Admitting CTAP with no acute findings in abdomen and pelvis. Admitting lumbar spine CT with multifocal osteoblastic metastatic disease. Superior endplate compression deformity of L1, unchanged. Admitting thoracic spine CT with pathologic fracture of T7. Invasion of the right T6-T7 neuroforamen with erosion of the right posterior sixth and seventh ribs. Left-pedicular fracture at T7 and spinous fracture of T7. Right pedicle of T7 is eroded. c/w pain medications, as needed oxycodone and as needed morphine. Lidocaine patch. Scheduled percocet. As needed Ativan for anxiety. Pain management consulted - adding gabapentin 300 mg TID to address neuropathic pain component. Radiation oncology evaluating, appreciate recommendation [facility] consult for abnormal T-spine CT, await recommendation. Scheduled bowel regimen, sennakot, MiraLAX, lactulose. gave additional dose of Relistor on (11/03). Ordered suppository (11/04). Increased miralax frequency. - Pt had a BM overnight. Cont. bowel regimen and monitor. PT/OT. 11/04 Feeling better today. at time of exam pt without any significant pain. 11/05 Pain seems better controlled. Plan for radiation therapy today. Worked w/ PT, is wearing brace. Patient to follow-up with his oncologist upon discharge. Transient hypotension: Noted in ED likely secondary to narcotic pain meds use. Blood pressure medications on hold, gradually resume them. Other chronic medical conditions: Continue with/resume home meds as and when able. chronic systolic heart failure (EF 25 to 30%, TTE 2020), patient on the dry side valvular heart disease (mild AR/MR/TR) CAD as per records A-fib/PE DVT, Eliquis on hold for 1 week following recent endoscopic procedure. Patient to resume Rx on 11/04/23 if without bleeding concerns as per . Eliquis resumed. colon cancer status post surgery, new colonic mass noted on imaging, recent post colonic biopsy currently pending Possible new esophageal cancer on recent EGD, history GERD/Rayogza's esophagus. Pt to f/u w/ his oncology on DC. DM 2 insulin requiring, suboptimal control as of recent hemoglobin A1c of 7.22 May 2023 hypothyroidism, euthyroid as of this admission's TSH chronic hyponatremia likely secondary to malignancy chronic anemia, hemoglobin at baseline dementia, mentation at baseline as per history traumatic subdural hematoma past tobacco abuse DVT prophylaxis. SCDs Re: Recent endoscopic procedure. Resumed Eliquis DNR PT/OT, CM to assist w/ DC plan. Patient Ms.Dottie Chavez, contact #[phone]. Admission and Anticipated Discharge Date Admission Date: November 01, 2023 Subjective Patient seen in follow up of back pain/ metast. prostate ca Patient is currently sitting up in chair, has brace on, just worked with PT. He is somewhat drowsy/ confused. Found several pills laying in his bed - notified RN. Pt reports pain is better controlled. No chest pain or shortness of breath. no abd pain. Had BM overnight. Plan for radiation therapy later today. Review of Systems Review of Systems: All systems reviewed & are unremarkable except as noted in Subjective Physical Exam Physical Exam: GENERAL: WD/WN M in NAD on 2 L oxygen via nasal cannula HEENT: NC/AT. Oral mucosa moist. NECK: No JVD, no neck masses. HEART: S1 and S2 heard. irregular rate and rhythm. + murmur, no gallop. RESPIRATORY: Normal AP diameter. No accessory muscle use. No wheezing, no crackles. Diminished breath sounds bilateral. ABDOMEN: Soft, bowel sounds present, nontender, no distention. NEURO: Awake but appears drowsy and somewhat confused. No facial droop. Speech is clear. Obeys simple commands. Moves extremities. EXTREMITIES: 1+ BLE edema, no erythema seen. SKIN : warm, dry Results & Data Results & Data Vital Signs (Past 12 Hours) Vital Signs Temp Pulse Pulse Resp BP Pulse Ox O2 Del Method 11/05/23 07:41 37.0 C 81 18 121/73 97 Nasal Cannula 11/05/23 07:27 72 11/05/23 06:54 Room Air 11/05/23 05:00 11/05/23 03:00 37.5 C 67 20 125/72 93 Nasal Cannula 11/05/23 00:07 76 O2 Del Method O2 Flow Rate 11/05/23 07:41 3 11/05/23 07:27 11/05/23 06:54 3 11/05/23 05:00 Nasal Cannula 11/05/23 03:00 2 11/05/23 00:07 Laboratory Results 11/05/23 11/05/23 11/04/23 Range/Units 08:35 06:52 20:17 WBC 3.60 L (4.8-10.8) K/ul RBC 4.38 L (4.70-6.10) M/uL Hgb 12.5 L (14.0-18.0) g/dl Hct 37.6 L (42.0-52.0) % MCV 85.8 (80.0-100.0) fL MCH 28.5 (25.0-34.0) pg MCHC 33.2 (32.0-36.0) g/dL RDW Std Deviation 42.8 (36.4-46.3) fL RDW Coeff of Janny 13.6 (11.5-14.5) % Plt Count 158 (130-400) K/uL MPV 9.7 (9.4-12.4) fL Sodium 130 L (136-145) mmol/L Potassium 4.5 (3.5-5.1) mmol/L Chloride 96 L (98-107) mmol/L Carbon Dioxide 25 (21-32) mmol/L Anion Gap 9 (3-11) BUN 22 (6-23) mg/dl Creatinine 1.02 (0.6-1.4) mg/dl Est Cr Clr Drug Dosing 57.7 ml/min Est GFR ( Amer) 77.9 ml/min Est GFR (Non-Af Amer) 67.2 ml/min BUN/Creatinine Ratio 21.6 H (10-20) Glucose 146 H (70-99(Fasting)) mg/dl POC Glucose 166 H 114 H (70-99) mg/dl Calcium 9.0 (8.6-10.3) mg/dl Phosphorus 2.7 (2.5-4.9) mg/dl Magnesium 1.7 (1.7-2.4) mg/dl 11/04/23 11/04/23 Range/Units 17:22 12:03 WBC (4.8-10.8) K/ul RBC (4.70-6.10) M/uL Hgb (14.0-18.0) g/dl Hct (42.0-52.0) % MCV (80.0-100.0) fL MCH (25.0-34.0) pg MCHC (32.0-36.0) g/dL RDW Std Deviation (36.4-46.3) fL RDW Coeff of Janny (11.5-14.5) % Plt Count (130-400) K/uL MPV (9.4-12.4) fL Sodium (136-145) mmol/L Potassium (3.5-5.1) mmol/L Chloride (98-107) mmol/L Carbon Dioxide (21-32) mmol/L Anion Gap (3-11) BUN (6-23) mg/dl Creatinine (0.6-1.4) mg/dl Est Cr Clr Drug Dosing ml/min Est GFR ( Amer) ml/min Est GFR (Non-Af Amer) ml/min BUN/Creatinine Ratio (10-20) Glucose (70-99(Fasting)) mg/dl POC Glucose 164 H 143 H (70-99) mg/dl Calcium (8.6-10.3) mg/dl Phosphorus (2.5-4.9) mg/dl Magnesium (1.7-2.4) mg/dl Medications Administered Current Inpatient Medications Acetaminophen (Acetaminophen 325 Mg Tab) 650 mg PO QID PRN PRN Reason: pain/fever Stop: 12/01/23 20:18 Last Admin: 11/04/23 05:35 Dose: 650 mg Apixaban (Apixaban 5 Mg Tablet) 5 mg PO BID [facility] Stop: 12/05/23 08:59 Last Admin: 11/05/23 08:11 Dose: 5 mg Atorvastatin Calcium (Atorvastatin 10 Mg Tab) 10 mg PO DAILY [facility] Stop: 12/02/23 08:59 Last Admin: 11/05/23 08:13 Dose: 10 mg Calcium/Vitamin D (Calcium 600mg + Vit D 400 Iu Tab) 1 tab PO BID [facility] Stop: 12/02/23 08:59 Last Admin: 11/05/23 08:11 Dose: 1 tab Dextrose (Dextrose 50% 50 Ml Syringe) 25 - 50 ml IV UD PRN; Protocol PRN Reason: Hypoglycemia Protocol Stop: 12/01/23 22:55 Folic Acid (Folic Acid 1 Mg Tab) 1 mg PO QAM [facility] Stop: 12/02/23 08:59 Last Admin: 11/05/23 08:13 Dose: 1 mg Furosemide (Furosemide 20 Mg Tab) 20 mg PO MoWeFr@[id number] [facility] Stop: 12/04/23 08:59 Last Admin: 11/04/23 08:39 Dose: 20 mg Gabapentin (Gabapentin 300 Mg Cap) 300 mg PO TID [facility] Stop: 12/03/23 13:59 Last Admin: 11/05/23 08:15 Dose: 300 mg Glucagon (Glucagon For Inj 1 Mg Vial) 1 mg SQ UD PRN; Protocol PRN Reason: Hypoglycemia Protocol Stop: 12/01/23 22:55 Glucose (Glucose 10 Tab/Tube) 4 - 8 tab PO UD PRN; Protocol PRN Reason: Hypoglycemia Treatment Stop: 12/01/23 22:55 Glucose (Glucose 40% Gel 15 Gm Tube) 15 - 30 gm PO UD PRN; Protocol PRN Reason: Hypoglycemia Protocol Stop: 12/01/23 22:55 Last Admin: 11/02/23 17:24 Dose: 15 gm Promethazine HCl 6.25 mg/ (Sodium Chloride) 50.25 mls @ 201 mls/hr IV Q6H PRN PRN Reason: Nausea And Vomiting Stop: 12/01/23 20:18 Insulin Aspart (Insulin Aspart Per Unit Charge) 0 units SC ACHS [facility] Stop: 12/01/23 22:55 Last Admin: 11/05/23 08:48 Dose: 5 units Insulin Glargine (Lantus Per Unit Charge) 5 units SQ DAILY [facility] Stop: 12/02/23 08:59 Last Admin: 11/05/23 08:50 Dose: 5 units Lactulose (Lactulose Syrup 30 Gm/45 Ml Udp) 30 gm PO DAILY [facility] Stop: 12/03/23 08:59 Last Admin: 11/05/23 08:16 Dose: 30 gm Latanoprost (Latanoprost 0.005% Op Soln 2.5 Ml Btl) 1 drops OPL HS [facility] Stop: 12/02/23 20:59 Last Admin: 11/04/23 20:06 Dose: 1 drops Levothyroxine Sodium (Levothyroxine Sodium 75 Mcg Tablet) 75 mcg PO DAILYBB [facility] Stop: 12/02/23 06:29 Last Admin: 11/05/23 06:10 Dose: 75 mcg Lidocaine (Lidocaine 5% 1 Patch) 1 patch TD HS [facility] Stop: 12/02/23 20:59 Last Admin: 11/04/23 20:06 Dose: 1 patch Lisinopril (Lisinopril 2.5 Mg Tab) 2.5 mg PO DAILY [facility] Stop: 12/04/23 08:59 Last Admin: 11/05/23 08:13 Dose: 2.5 mg Lorazepam (Lorazepam 0.5 Mg Tab) 0.5 mg PO Q12H PRN PRN Reason: Anxiety Stop: 12/02/23 14:10 Last Admin: 11/03/23 08:01 Dose: 0.5 mg Magnesium Oxide (Magnesium Oxide 400 Mg Tab) 400 mg PO QAM [facility] Stop: 12/05/23 10:44 Metoprolol Succinate (Metoprolol Succ 25mg Ext Rel Tab) 12.5 mg PO DAILY [facility] Stop: 12/02/23 08:59 Last Admin: 11/05/23 08:12 Dose: 12.5 mg Miscellaneous (Remove Lidoderm Patch) 1 each N/A QAM [facility] Stop: 12/02/23 08:59 Last Admin: 11/05/23 08:16 Dose: 1 each Miscellaneous (Carbohydrates For Hypoglycemia ) 15 - 30 gm PO UD PRN PRN Reason: Hypoglycemia Protocol Stop: 12/01/23 22:55 Last Admin: 11/02/23 17:02 Dose: 15 gm Morphine Sulfate (Morphine Sulfate 2 Mg/Ml Carp) 2 mg IV Q3H PRN PRN Reason: Pain Stop: 11/15/23 22:11 Last Admin: 11/03/23 08:26 Dose: 2 mg Multivitamins/Minerals (Cerovite Adv Formula Tab) 1 tab PO DAILY [facility] Stop: 12/02/23 08:59 Last Admin: 11/05/23 08:11 Dose: 1 tab Oxycodone HCl (Oxycodone Hcl Ir 5 Mg Tab (Immediate Release)) 5 - 10 mg PO QID PRN PRN Reason: Pain Stop: 11/15/23 20:18 Last Admin: 11/04/23 16:19 Dose: 10 mg Oxycodone/Acetaminophen (Oxycodone/Acetaminophen 5mg/325mg Tab) 1 tab PO Q8H SC H Stop: 11/16/23 14:14 Last Admin: 11/05/23 06:10 Dose: 1 tab Pantoprazole Sodium (Pantoprazole 40 Mg Tab) 40 mg PO DAILY [facility] Stop: 12/02/23 08:59 Last Admin: 11/05/23 08:13 Dose: 40 mg Polyethylene Glycol (Polyethylene (Miralax) 17 Gm Pack) 17 gm PO QAM PB Stop: 12/05/23 08:59 Last Admin: 11/05/23 08:50 Dose: 17 gm Senna/Docusate Sodium (Docusate Sodium/Senna 50/8.6mg Tab) 1 tab PO BID [facility] Stop: 12/02/23 08:59 Last Admin: 11/05/23 08:15 Dose: 1 tab Sucralfate (Sucralfate 1 Gm/10 Ml Udc) 1 gm PO ACHS [facility] Stop: 12/02/23 07:29 Last Admin: 11/05/23 08:16 Dose: 1 gm (1) Fracture of thoracic spine Encounter type: subsequent encounter Fracture healing: with delayed healing Fracture morphology: unspecified fracture morphology Fracture type: closed Thoracic vertebra fracture level: T7 Qualified Code(s): S22.069G - Unspecified fracture of T7-T8 vertebra, subsequent encounter for fracture with delayed healing
[2023-11-05] MEDS: MAGNESIUM OXIDE 400 MG TAB PO SCH (12:04)
[2023-11-05] MEDS: LORazepam 0.5 MG TAB PO PRN (12:12)
[2023-11-05] MEDS: MoRPHine SULFATE 2 MG/ML CARP IV PRN ×3 (12:59→21:30)
[2023-11-05] MEDS: LATANOPROST 0.005% OP SOLN 2.5 ML BTL OPL SCH (21:06)
[2023-11-05] MEDS: LIDOCAINE 5% 1 PATCH TD SCH (21:16)
[2023-11-05 22:56] LABS: Base Excess ABG 5.6 mEq/L (-9-1.8); HCO3 ABG 29 mmol/L (19-24); PCO2 ABG 36 mmHg (35-46); PO2 ABG 88 mmHg (80-95)
[2023-11-05 22:57] LABS: Allen Test Pos (Pos)
[2023-11-05] MEDS ORDERED: ACETAMINOPHEN 1,000 MG/100 ML VIAL IV STA (23:00)
[2023-11-05 23:06] LABS: pH ABG 7.51 (7.35-7.45)
[2023-11-05] MEDS ORDERED: SODIUM CHLORIDE 0.9% 1,000 ML IV SCH (23:15)
[2023-11-06 00:49] LABS: Appearance Urine Clear (Clear); Bacteria Urine Automated Negative (Negative); Bilirubin Urine Negative (Negative); Blood Urine 2+ (Negative); Color Urine Yellow; Epithelial Cell Urine Auto 0-5 /lpf (0-5); Glucose Urine UA Negative (Negative); Ketones Urine 2+ (Negative); Leukocyte Esterase Urine Trace (Negative); Nitrite Urine Negative (Negative); Protein Urine 1+ (Negative); Specific Gravity Urine 1.019 (1.000-1.030); Urobilinogen Urine Negative (Negative); pH Urine 5.5 (4.5-7.5)
[2023-11-06] MEDS: oxyCODONE/ACETAMINOPHEN 5mg/325mg TAB PO SCH ×3 (05:46→22:46)
[2023-11-06] MEDS: LEVOTHYROXINE SODIUM 75 MCG TABLET PO SCH (05:46)
[2023-11-06 07:23] LABS: Calcium 9.1 mg/dl (8.6-10.3); Creatinine Clr Calc Pharmacy 58.7 ml/min; Est GFR (African American) 79.7 ml/min; Est GFR (Non-African American) 68.8 ml/min; Magnesium 1.8 mg/dl (1.7-2.4); Phosphorus 3.1 mg/dl (2.5-4.9); Potassium 4.1 mmol/L (3.5-5.1)
[2023-11-06] MEDS ORDERED: VANCOMYCIN HCL 1,000 MG in SODIUM CHLORIDE 0.9% 250 ML IV STA (08:14)
[2023-11-06] MEDS ORDERED: VANCOMYCIN CONSULT ACTIVE PRN (08:14)
--- NOTE | 2023-11-06 08:19 | Hospitalist Progress Note ---
Date of Service November 06, 2023 Assessment & Plan (1) Fracture of thoracic spine: Plan: 83-year-old gentleman with PMH of chronic systolic heart failure [EF 25 to 30%, 2020 TTE], CAD, 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 Julian Marshall], GERD, T2DM, hypothyroidism, chronic hyponatremia, chronic anemia [baseline hemoglobin around 13], dementia, traumatic subdural hematoma, past tobacco abuse presented to the hospital 11/01 with complaint of worsening mid back pain that has been ongoing since last month without radicular signs of symptoms/fever/chills/weakness/bowel or bladder incontinence. [facility] oncology started patient on oxycodone and reported patient to [facility] radiation therapy. CT simulation for treatment planning was contemplated. Also patient underwent outpatient EGD for Raygoza's esophagus and colonoscopy for possible colonic mass on outpatient PET/CT at [facility] 5 days ago [employer]. EGD showed Raygoza's esophagus/incomplete resection done/esophageal biopsy yielded tumor cells -primary favored as per report. Colonoscopy showed moderate sigmoid and descending colon diverticulosis/internal hemorrhoids/splenic flexure polyp resected -pathology pending. Patient instructed to avoid NSAIDs and hold Eliquis for 1 week after procedure. He is being managed for the following: Pathologic fracture x thoracic spine Metastatic disease from prostate cancer Opioid-induced constipation Patient coming in with worsening midthoracic pain for about a month, worse lately. Recently started on opiates as an outpatient for pain management, patient with no bowel movements for several days prior to arrival. Admitting CTAP with no acute findings in abdomen and pelvis. Admitting lumbar spine CT with multifocal osteoblastic metastatic disease. Superior endplate compression deformity of L1, unchanged. Admitting thoracic spine CT with pathologic fracture of T7. Invasion of the right T6-T7 neuroforamen with erosion of the right posterior sixth and seventh ribs. Left-pedicular fracture at T7 and spinous fracture of T7. Right pedicle of T7 is eroded. c/w pain medications, as needed oxycodone and as needed morphine. Lidocaine patch. Scheduled percocet. As needed Ativan for anxiety. Pain management consulted - adding gabapentin 300 mg TID to address neuropathic pain component. Radiation oncology evaluating, appreciate recommendation [facility] consulted for abnormal T-spine CT - per Dr. Sarah - Assessment T7 pathologic compression fracture. Explained the patient that he has a significant fracture in the thoracic spine that could result in neurologic compromise if it were to progress. Pt emphasized that he does not want to consider any surgical intervention. He knows this despite impending neurologic issues. If he were to pursue surgery however he would be a candidate for tertiary care center. Scheduled bowel regimen, sennakot, MiraLAX, lactulose. gave additional dose of Relistor on (11/03). Ordered suppository (11/04). Increased miralax frequency. - Pt had a BM overnight. Cont. bowel regimen and monitor. PT/OT. 11/04 Feeling better today. at time of exam pt without any significant pain. 11/05 Pain seems better controlled. Plan for radiation therapy today. Worked w/ PT, is wearing brace. 11/06 Unfortunately today pt is more painful, uncomfortable Patient to follow-up with his oncologist upon discharge. Fever Spiked fever overnight blood cultx and UA obtained by financial aid counselor UA - negative will obtain CXR, chest CT Will start empiric abx (pt has allergy listed to pcn, will start cefepime and vanco) Transient hypotension: Noted in ED likely secondary to narcotic pain meds use. Blood pressure medications on hold, gradually resume them. Other chronic medical conditions: Continue with/resume home meds as and when able. chronic systolic heart failure (EF 25 to 30%, TTE 2020), patient on the dry side valvular heart disease (mild AR/MR/TR) CAD as per records A-fib/PE DVT, Eliquis on hold for 1 week following recent endoscopic pr ocedure. Patient to resume Rx on 11/04/23 if without bleeding concerns as per . Eliquis resumed. colon cancer status post surgery, new colonic mass noted on imaging, recent post colonic biopsy - negative for dysplasia or malignancy - pt's updated by Dr. Rodriguez and me Possible new esophageal cancer on recent EGD, history GERD/Raygoza's esophagus. Pt to f/u w/ his oncology on DC. Biopsy esophagus - invasive adenocarcinoma - pt's updated by Dr. Rodriguez and me DM 2 insulin requiring, suboptimal control as of recent hemoglobin A1c of 7.22 May 2023 hypothyroidism, euthyroid as of this admission's TSH chronic hyponatremia likely secondary to malignancy chronic anemia, hemoglobin at baseline dementia, mentation at baseline as per however with pain meds on and off confused history traumatic subdural hematoma past tobacco abuse DVT prophylaxis. SCDs Re: Recent endoscopic procedure. Resumed Marlon DNR PT/OT, CM to assist w/ DC plan. Patient Ms.Dottie Chavez, contact #[phone]. Admission and Anticipated Discharge Date Admission Date: November 01, 2023 Subjective Patient seen in follow up of back pain/ metast. prostate ca Patient is currently laying in bed in NAD, however more painful. No chest pain or shortness of breath. had BM Overnight pt spiked fever 38.2C, blood cultx obtained overnight, UA also obtained Pt's updated. Review of Systems Review of Systems: All systems reviewed & are unremarkable except as noted in Subjective Physical Exam Physical Exam: GENERAL: WD/WN M in NAD on 2 L oxygen via nasal cannula HEENT: NC/AT. Oral mucosa moist. NECK: No JVD, no neck masses. HEART: S1 and S2 heard. irregular rate and rhythm. + murmur, no gallop. RESPIRATORY: Normal AP diameter. No accessory muscle use. No wheezing, no crackles. Diminished breath sounds bilateral. ABDOMEN: Soft, bowel sounds present, nontender, no distention. NEURO: Awake , on and off tends to get confused. No facial droop. Speech is clear. Obeys simple commands. Moves extremities. EXTREMITIES: 1+ BLE edema, no erythema seen. SKIN : warm, dry Results & Data Results & Data Vital Signs (Past 12 Hours) Vital Signs Temp Pulse Pulse Resp BP Pulse Ox O2 Del Method 11/06/23 07:03 72 11/06/23 05:00 11/06/23 03:00 36.6 C 78 20 116/79 94 Nasal Cannula 11/05/23 23:45 90 11/05/23 22:00 38.2 C H 89 20 146/83 H 94 Nasal Cannula O2 Del Method O2 Flow Rate O2 Flow Rate 11/06/23 07:03 11/06/23 05:00 Room Air 2 11/06/23 03:00 2 11/05/23 23:45 11/05/23 22:00 2 Laboratory Results 11/06/23 11/06/23 11/06/23 Range/Units 08:13 06:35 00:27 ABG pH (7.35-7.45) ABG pCO2 (35-46) mmHg ABG pO2 (80-95) mmHg ABG HCO3 (19-24) mmol/L ABG O2 Saturation (90-95) % ABG Base Excess (-9-1.8) mEq/L Will Test (Pos) Oxygen Given Sodium 130 L (136-145) mmol/L Potassium 4.1 (3.5-5.1) mmol/L Chloride 95 L (98-107) mmol/L Carbon Dioxide 27 (21-32) mmol/L Anion Gap 8 (3-11) BUN 22 (6-23) mg/dl Creatinine 1.00 (0.6-1.4) mg/dl Est Cr Clr Drug Dosing 58.7 ml/min Est GFR ( Amer) 79.7 ml/min Est GFR (Non-Af Amer) 68.8 ml/min BUN/Creatinine Ratio 22.0 H (10-20) Glucose 161 H (70-99(Fasting)) mg/dl POC Glucose 143 H (70-99) mg/dl Calcium 9.1 (8.6-10.3) mg/dl Phosphorus 3.1 (2.5-4.9) mg/dl Magnesium 1.8 (1.7-2.4) mg/dl Urine Color Yellow Urine Appearance Clear (Clear) Urine pH 5.5 (4.5-7.5) Ur Specific [place] 1.019 (1.000-1.030) Urine Protein 1+ H (Negative) Urine Glucose (UA) Negative (Negative) Urine Ketones 2+ H (Negative) Urine Blood 2+ H (Negative) Urine Nitrite Negative (Negative) Urine Bilirubin Negative (Negative) Urine Urobilinogen Negative (Negative) Ur Leukocyte Esterase Trace H (Negative) Urine WBC (Auto) 5-10 H (0-5) /hpf Urine RBC (Auto) 10-30 H (0-4) /hpf U Hyaline Cast (Auto) 1-5 (0-5) /lpf U Epithel Cells (Auto) 0-5 (0-5) /lpf Urine Bacteria (Auto) Negative (Negative) 11/05/23 11/05/23 11/05/23 Range/Units 22:44 20:25 17:16 ABG pH 7.51 H* (7.35-7.45) ABG pCO2 36 (35-46) mmHg ABG pO2 88 (80-95) mmHg ABG HCO3 29 H (19-24) mmol/L ABG O2 Saturation 98.0 H (90-95) % ABG Base Excess 5.6 H (-9-1.8) mEq/L Will Test Pos (Pos) Oxygen Given 2L Sodium (136-145) mmol/L Potassium (3.5-5.1) mmol/L Chloride (98-107) mmol/L Carbon Dioxide (21-32) mmol/L Anion Gap (3-11) BUN (6-23) mg/dl Creatinine (0.6-1.4) mg/dl Est Cr Clr Drug Dosing ml/min Est GFR ( Amer) ml/min Est GFR (Non-Af Amer) ml/min BUN/Creatinine Ratio (10-20) Glucose (70-99(Fasting)) mg/dl POC Glucose 125 H 158 H (70-99) mg/dl Calcium (8.6-10.3) mg/dl Phosphorus (2.5-4.9) mg/dl Magnesium (1.7-2.4) mg/dl Urine Color Urine Appearance (Clear) Urine pH (4.5-7.5) Ur Specific [place] (1.000-1.030) Urine Protein (Negative) Urine Glucose (UA) (Negative) Urine Ketones (Negative) Urine Blood (Negative) Urine Nitrite (Negative) Urine Bilirubin (Negative) Urine Urobilinogen (Negative) Ur Leukocyte Esterase (Negative) Urine WBC (Auto) (0-5) /hpf Urine RBC (Auto) (0-4) /hpf U Hyaline Cast (Auto) (0-5) /lpf U Epithel Cells (Auto) (0-5) /lpf Urine Bacteria (Auto) (Negative) 11/05/23 11/05/23 Range/Units 12:18 08:35 ABG pH (7.35-7.45) ABG pCO2 (35-46) mmHg ABG pO2 (80-95) mmHg ABG HCO3 (19-24) mmol/L ABG O2 Saturation (90-95) % ABG Base Excess (-9-1.8) mEq/L Will Test (Pos) Oxygen Given Sodium (136-145) mmol/L Potassium (3.5-5.1) mmol/L Chloride (98-107) mmol/L Carbon Dioxide (21-32) mmol/L Anion Gap (3-11) BUN (6-23) mg/dl Creatinine (0.6-1.4) mg/dl Est Cr Clr Drug Dosing ml/min Est GFR ( Amer) ml/min Est GFR (Non-Af Amer) ml/min BUN/Creatinine Ratio (10-20) Glucose (70-99(Fasting)) mg/dl POC Glucose 132 H 166 H (70-99) mg/dl Calcium (8.6-10.3) mg/dl Phosphorus (2.5-4.9) mg/dl Magnesium (1.7-2.4) mg/dl Urine Color Urine Appearance (Clear) Urine pH (4.5-7.5) Ur Specific [place] (1.000-1.030) Urine Protein (Negative) Urine Glucose (UA) (Negative) Urine Ketones (Negative) Urine Blood (Negative) Urine Nitrite (Negative) Urine Bilirubin (Negative) Urine Urobilinogen (Negative) Ur Leukocyte Esterase (Negative) Urine WBC (Auto) (0-5) /hpf Urine RBC (Auto) (0-4) /hpf U Hyaline Cast (Auto) (0-5) /lpf U Epithel Cells (Auto) (0-5) /lpf Urine Bacteria (Auto) (Negative) Medications Administered Current Inpatient Medications Acetaminophen (Acetaminophen 325 Mg Tab) 650 mg PO QID PRN PRN Reason: pain/fever Stop: 12/01/23 20:18 Last Admin: 11/04/23 05:35 Dose: 650 mg Apixaban (Apixaban 5 Mg Tablet) 5 mg PO BID PB Stop: 12/05/23 08:59 Last Admin: 11/05/23 20:50 Dose: Not Given Atorvastatin Calcium (Atorvastatin 10 Mg Tab) 10 mg PO DAILY PB Stop: 12/02/23 08:59 Last Admin: 11/05/23 08:13 Dose: 10 mg Calcium/Vitamin D (Calcium 600mg + Vit D 400 Iu Tab) 1 tab PO BID PB Stop: 12/02/23 08:59 Last Admin: 11/05/23 20:50 Dose: Not Given Dextrose (Dextrose 50% 50 Ml Syringe) 25 - 50 ml IV UD PRN; Protocol PRN Reason: Hypoglycemia Protocol Stop: 12/01/23 22:55 Folic Acid (Folic Acid 1 Mg Tab) 1 mg PO QAM [facility] Stop: 12/02/23 08:59 Last Admin: 11/05/23 08:13 Dose: 1 mg Furosemide (Furosemide 20 Mg Tab) 20 mg PO [id number] [facility] Stop: 12/04/23 08:59 Last Admin: 11/04/23 08:39 Dose: 20 mg Gabapentin (Gabapentin 300 Mg Cap) 300 mg PO TID [facility] Stop: 12/03/23 13:59 Last Admin: 11/05/23 20:50 Dose: Not Given Glucagon (Glucagon For Inj 1 Mg Vial) 1 mg SQ UD PRN; Protocol PRN Reason: Hypoglycemia Protocol Stop: 12/01/23 22:55 Glucose (Glucose 10 Tab/Tube) 4 - 8 tab PO UD PRN; Protocol PRN Reason: Hypoglycemia Treatment Stop: 12/01/23 22:55 Glucose (Glucose 40% Gel 15 Gm Tube) 15 - 30 gm PO UD PRN; Protocol PRN Reason: Hypoglycemia Protocol Stop: 12/01/23 22:55 Last Admin: 11/02/23 17:24 Dose: 15 gm Guaifenesin (Guaifenesin 600 Mg Tabcr) 600 mg PO Q12 [facility] Stop: 12/06/23 08:59 Promethazine HCl 6.25 mg/ (Sodium Chloride) 50.25 mls @ 201 mls/hr IV Q6H PRN PRN Reason: Nausea And Vomiting Stop: 12/01/23 20:18 Sodium Chloride (Nss) 1,000 mls @ 50 mls/hr IV .Q20H [facility] Stop: 11/06/23 09:14 Last Admin: 11/05/23 23:11 Dose: 50 mls/hr Cefepime HCl 2,000 mg/ Syringe 20 mls @ 5 mls/min IV Q8H PB; Protocol Stop: 11/08/23 08:14 Vancomycin HCl 1,000 mg/ (Sodium Chloride) 270 mls @ 200 mls/hr IV NOW STA; Protocol Stop: 11/06/23 09:34 Insulin Aspart (Insulin Aspart Per Unit Charge) 0 units SC ACHS [facility] Stop: 12/01/23 22:55 Last Admin: 11/05/23 20:51 Dose: Not Given Insulin Glargine (Lantus Per Unit Charge) 5 units SQ DAILY [facility] Stop: 12/02/23 08:59 Last Admin: 11/05/23 08:50 Dose: 5 units Lactulose (Lactulose Syrup 30 Gm/45 Ml Udp) 30 gm PO DAILY PB Stop: 12/03/23 08:59 Last Admin: 11/05/23 08:16 Dose: 30 gm Latanoprost (Latanoprost 0.005% Op Soln 2.5 Ml Btl) 1 drops OPL HS [facility] Stop: 12/02/23 20:59 Last Admin: 11/05/23 21:06 Dose: 1 drops Levothyroxine Sodium (Levothyroxine Sodium 75 Mcg Tablet) 75 mcg PO DAILYBB [facility] Stop: 12/02/23 06:29 Last Admin: 11/06/23 05:46 Dose: 75 mcg Lidocaine (Lidocaine 5% 1 Patch) 1 patch TD HS [facility] Stop: 12/02/23 20:59 Last Admin: 11/05/23 21:16 Dose: 1 patch Lisinopril (Lisinopril 2.5 Mg Tab) 2.5 mg PO DAILY [facility] Stop: 12/04/23 08:59 Last Admin: 11/05/23 08:13 Dose: 2.5 mg Lorazepam (Lorazepam 0.5 Mg Tab) 0.5 mg PO Q12H PRN PRN Reason: Anxiety Stop: 12/02/23 14:10 Last Admin: 11/05/23 12:12 Dose: 0.5 mg Magnesium Oxide (Magnesium Oxide 400 Mg Tab) 400 mg PO QAM [facility] Stop: 12/05/23 10:59 Last Admin: 11/05/23 12:04 Dose: 400 mg Metoprolol Succinate (Metoprolol Succ 25mg Ext Rel Tab) 12.5 mg PO DAILY PB Stop: 12/02/23 08:59 Last Admin: 11/05/23 08:12 Dose: 12.5 mg Miscellaneous (Remove Lidoderm Patch) 1 each N/A QAM [facility] Stop: 12/02/23 08:59 Last Admin: 11/05/23 08:16 Dose: 1 each Miscellaneous (Carbohydrates For Hypoglycemia ) 15 - 30 gm PO UD PRN PRN Reason: Hypoglycemia Protocol Stop: 12/01/23 22:55 Last Admin: 11/02/23 17:02 Dose: 15 gm Miscellaneous Information (Vancomycin Consult Active) 1 each N/A UD PRN PRN Reason: Consult Stop: 12/06/23 08:13 Morphine Sulfate (Morphine Sulfate 2 Mg/Ml Carp) 2 mg IV Q3H PRN PRN Reason: Pain Stop: 11/15/23 22:11 Last Admin: 11/05/23 21:30 Dose: 2 mg Multivitamins/Minerals (Cerovite Adv Formula Tab) 1 tab PO DAILY PB Stop: 12/02/23 08:59 Last Admin: 11/05/23 08:11 Dose: 1 tab Oxycodone HCl (Oxycodone Hcl Ir 5 Mg Tab (Immediate Release)) 5 - 10 mg PO QID PRN PRN Reason: Pain Stop: 11/15/23 20:18 Last Admin: 11/04/23 16:19 Dose: 10 mg Oxycodone/Acetaminophen (Oxycodone/Acetaminophen 5mg/325mg Tab) 1 tab PO Q8H PB Stop: 11/16/23 14:14 Last Admin: 11/06/23 05:46 Dose: 1 tab Pantoprazole Sodium (Pantoprazole 40 Mg Tab) 40 mg PO DAILY PB Stop: 12/02/23 08:59 Last Admin: 11/05/23 08:13 Dose: 40 mg Polyethylene Glycol (Polyethylene (Miralax) 17 Gm Pack) 17 gm PO QAM PB Stop: 12/05/23 08:59 Last Admin: 11/05/23 08:50 Dose: 17 gm Senna/Docusate Sodium (Docusate Sodium/Senna 50/8.6mg Tab) 1 tab PO BID PB Stop: 12/02/23 08:59 Last Admin: 11/05/23 20:50 Dose: Not Given Sucralfate (Sucralfate 1 Gm/10 Ml Udc) 1 gm PO ACHS PB Stop: 12/02/23 07:29 Last Admin: 11/05/23 20:50 Dose: Not Given (1) Fracture of thoracic spine Encounter type: subsequent encounter Fracture healing: with delayed healing Fracture morphology: unspecified fracture morphology Fracture type: closed Thoracic vertebra fracture level: T7 Qualified Code(s): S22.069G - Unspecified fracture of T7-T8 vertebra, subsequent encounter for fracture with delayed healing
--- NOTE | 2023-11-06 08:28 | XRay Report ---
XR chest 1V portable HISTORY: fever, hypoxia COMPARISON: Chest 11/01/2023. FINDINGS: No pneumothorax. The heart remains enlarged. Small bilateral pleural effusions are noted. T here is progressive interstitial/vascular thickening and patchy bibasilar densities. This suggests pu lmonary edema. Old, healed right-sided rib fractures. Curvilinear lucency at the aortic knob is likel y due to summation artifact. This will be better assessed on the same day chest CT. There is widening of the superior mediastinum again noted. Spinal fusion hardware is noted. IMPRESSION: 1. Interval development of the mild pulmonary edema, small bilateral pleural effusions, and bibasilar densities. 2. Curvilinear lucency at the aortic knob and superior mediastinal widening will be better appreciate d on the same day chest CT. ACT 112: Negative or not required by law. Electronically signed by: Denny Morrow M.D. 11/06/2023 8:26 AM
[2023-11-06] MEDS ORDERED: VANCOMYCIN HCL 2,000 MG in SODIUM CHLORIDE 0.9% 500 ML IV ONE (08:45)
[2023-11-06 09:08] LABS: Hematocrit (blood only) 36.9 % (42.0-52.0); Hemoglobin 12.2 g/dl (14.0-18.0); Mean Corpuscular Hemoglobin 28.5 pg (25.0-34.0); Mean Corpuscular Hgb Conc 33.1 g/dL (32.0-36.0); Mean Corpuscular Volume 86.2 fL (80.0-100.0); Mean Platelet Volume 10.7 fL (9.4-12.4); Platelet Count 162 K/uL (130-400); RDW Coefficient of Variation 13.9 % (11.5-14.5); RDW Standard Deviation 43.4 fL (36.4-46.3); Red Blood Count 4.28 M/uL (4.70-6.10)
--- NOTE | 2023-11-06 09:20 | Pharmacy Report ---
Pharmacy PK ABX Note - Date of Service November 06, 2023 - Assessment and Plan Assessment 83 year old M started on vancomycin/cefepime empirically. Patient with fevers overnight. PMHx significant for colon cancer s/p surgery, prostate cancer with bone mets, currently on lupron, T2dm, chronic anemia, dementia. Presenting to hospital with worsening mid back pain. No leukocytosis noted, repeat blood cultures pending, procalcitonin pending. CXR with small bilateral pleural effusi on. Plan Vancomycin * Loading dose: 2000 mg iv x 1 (~22 mg/kg) * Plan to start vancomycin 1500 mg iv q 24 hours - this dosing is estimated to achieve a goal AUC/FRANCOIS 400-600, trough level ~12 mcg/ml and may be associated with 8% risk of nephrotoxicity * ABx ordered only x 48 hours - plan to collect random level for vancomycin if plan is to continued >48 hours Pharmacy will continue to follow and will adjust dose/frequency as necessary. Thank you. Pharmacy has transitioned to AUC monitoring for vancomycin. AUC/FRANCOIS is the preferred PK/PD target and is associated with decreased risk of nephrotoxicity compared to traditional trough targets.
[2023-11-06] MEDS: LANTUS PER UNIT CHARGE SQ SCH (09:38)
[2023-11-06] MEDS: INSULIN ASPART PER UNIT CHARGE SC SCH ×4 (09:39→20:46)
--- NOTE | 2023-11-06 09:47 | CT Scan Report ---
CT chest diagnostic wo con CT DOSE: 703.05 mGy.cm HISTORY: fever, r/o pna TECHNIQUE: Multiaxial CT images of the chest were performed without contrast. A dose lowering techni que was utilized adhering to the principles of ALARA. COMPARISON: Thoracic spine CT 11/01/2023. Outside hospital chest CT 10/12/2023. FINDINGS: Multifocal osseous metastatic disease is again noted. This is most pronounced within the th oracic spine. There is again noted a large soft tissue mass centered at the T7 vertebral body resulti ng in near complete destruction of the T7 vertebral body and a severe pathologic compression fracture at T7. This demonstrates paravertebral/epidural extension and measures approximately 6.0 x 5.6 x 5.1 cm. This also results in partial destruction of the anterior T6 vertebral body. There is 7 mm of ret ropulsion of the posterior cortex of the T7 vertebral body. In conjunction with the epidural extensio n of tumor this results in moderate to severe central canal narrowing at this level. This is similar to the prior thoracic spine CT. There is a mildly displaced pathologic fracture within the left T7 pe dicle. Destruction/fracture the right T7 pedicle again noted. Therefore, this is consistent with an u nstable T7 pathologic fracture. Destruction with a possible pathologic fracture within the right post erior seventh rib. There is a fracture within the T7 spinous process, unchanged. No new fractures anastacio ntified within the thoracic spine. There are old, healed right-sided rib fractures. Cervical spinal f usion hardware is again noted. Limited views of the upper abdomen demonstrate a normal liver, spleen, and adrenal glands. Bilateral renal cysts are partially visualized. There are small bilateral pleura l effusions. Mild calcified plaque within the thoracic aorta. 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 Normal esophagus. The heart remains enlarged. N o pericardial effusion. Calcified bilateral hilar lymph nodes. No mediastinal or hilar lymphadenopath y. Severe coronary artery calcifications. No pneumothorax. Trace mucoid material within the trachea. There is a calcified granuloma within the right upper lobe. There is a 3 mm nodule within the right u pper lobe on image 105. There is a 5 mm nodule within the right upper lobe abutting the minor fissure on image 126. There is a 4 mm subpleural nodule within the right lower lobe on image 116. Patchy and linear densities within the lung bases most pronounced on the right. No evidence for pulmonary edema . IMPRESSION: 1. Patchy and linear bibasilar densities most pronounced on the right. This may represent subsegmenta l atelectasis or a pneumonia. 2. Small bilateral pleural effusions. 3. A few subcentimeter nodules within the right lung measuring up to 5 mm. Follow-up recommended to e nsure stability. 4. Stable cardiomegaly. 5. Redemonstration of the destructive mass centered at the T7 vertebral body with associated patholog ic fractures of T7 as described above. This demonstrates epidural extension with moderate to severe c entral canal narrowing at this level. This is similar to the prior thoracic spine CT. 6. Osseous metastatic disease again noted. ACT 112: Negative or not required by law. Electronically signed by: Denny Morrow M.D. 11/06/2023 9:45 AM
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
[2023-11-06] MEDS: MAGNESIUM OXIDE 400 MG TAB PO SCH (10:21)
[2023-11-06] MEDS: PANTOprazole 40 MG TAB PO SCH (10:21)
[2023-11-06] MEDS: guaiFENesin 600 MG TABCR PO SCH ×2 (10:21→20:43)
[2023-11-06] MEDS: ATORVASTATIN 10 MG TAB PO SCH (10:21)
[2023-11-06] MEDS: lisinopril 2.5 MG TAB PO SCH (10:21)
[2023-11-06] MEDS: CEROVITE ADV FORMULA TAB PO SCH (10:23)
[2023-11-06] MEDS: GABAPENTIN 300 MG CAP PO SCH ×3 (10:23→20:42)
[2023-11-06] MEDS: METOPROLOL SUCC 25MG EXT REL TAB PO SCH (10:23)
[2023-11-06] MEDS: POLYETHYLENE (MIRALAX) 17 GM PACK PO SCH (10:24)
[2023-11-06] MEDS: CALCIUM 600MG + VIT D 400 IU TAB PO SCH ×2 (10:25→20:43)
[2023-11-06] MEDS: APIXABAN 5 MG TABLET PO SCH ×2 (10:25→20:42)
[2023-11-06] MEDS: FUROSEMIDE 20 MG TAB PO SCH (10:25)
[2023-11-06] MEDS: FOLIC ACID 1 MG TAB PO SCH (10:26)
[2023-11-06] MEDS: SUCRALFATE 1 GM/10 ML UDC PO SCH ×4 (10:26→20:42)
[2023-11-06] MEDS: CEFEPIME 2,000 MG in SYRINGE 0 ML IV SCH ×2 (10:26→20:42)
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
[2023-11-06] MEDS: DOCUSATE SODIUM/SENNA 50/8.6MG TAB PO SCH ×2 (11:00→22:44)
[2023-11-06] MEDS: MoRPHine SULFATE 2 MG/ML CARP IV PRN ×2 (13:43→18:41)
[2023-11-06] MEDS: LORazepam 0.5 MG TAB PO PRN (13:43)
[2023-11-06 18:54] LABS: A calco-baum cmplx NotReported Not Detected (NotDetected); Bact fragilis Not Reported Not Detected (NotDetected); Blood Culture Id Panel See PCR Comment (NotDetected); C auris Not Reported Not Detected (NotDetected); Calbicans Not Reported Not Detected (NotDetected); Candida glabrata Not Reported Not Detected (NotDetected); Candida krusei Not Reported Not Detected (NotDetected); Cneoformans/gatti Not Reported Not Detected (NotDetected); Cparapsilosis Not Reported Not Detected (NotDetected); E cloacae compx Not Reported Not Detected (NotDetected); Efaecalis Not Reported Not Detected (NotDetected); Efaecium Not Reported Not Detected (NotDetected); Enterobacterales Not Reported Not Detected (NotDetected); Escherichia coli Not Reported Not Detected (NotDetected); H influenzae Not Reported Not Detected (NotDetected); K aerogenes Not Reported Not Detected (NotDetected); Koxytoca Not Reported Not Detected (NotDetected); Kpneumoniae grp Not Reported Not Detected (NotDetected); Lmonocyt Not Reported Not Detected (NotDetected); N meningitidis Not Reported Not Detected (NotDetected); P aeruginosa Not Reported Not Detected (NotDetected); Proteus spp Not Reported Not Detected (NotDetected); Salmonella spp Not Reported Not Detected (NotDetected); Smarcescens Not Reported Not Detected (NotDetected); Staph lugdunensis Not Reported Not Detected (NotDetected); Staph spp. Not Reported DETECTED (NotDetected); Staphaureus Not Reported Not Detected (NotDetected); Staphylococcus epidermidis DETECTED (NotDetected); Staphylococcus spp. DETECTED (NotDetected); Stenmaltophilia Not Reported Not Detected (NotDetected); Strep agal(GrpB) Not Reported Not Detected (NotDetected); Strep pneum Not Reported Not Detected (NotDetected); Strep pyog (GrpA) Not Reported Not Detected (NotDetected); Strep spp Not Reported Not Detected (NotDetected); mecAC Resistant Gene Not Detected (NotDetected)
[2023-11-06 18:59] LABS: Staphepi Not Reported DETECTED (NotDetected)
[2023-11-06] MEDS: LATANOPROST 0.005% OP SOLN 2.5 ML BTL OPL SCH (20:43)
[2023-11-06] MEDS: LIDOCAINE 5% 1 PATCH TD SCH (20:44)
[2023-11-06] MEDS: ACETAMINOPHEN 325 MG TAB PO PRN (22:46)
[2023-11-07] MEDS: MoRPHine SULFATE 2 MG/ML CARP IV PRN ×3 (03:25→20:50)
[2023-11-07] MEDS: oxyCODONE/ACETAMINOPHEN 5mg/325mg TAB PO SCH ×3 (05:48→21:15)
[2023-11-07] MEDS: VANCOMYCIN HCL 1,500 MG in SODIUM CHLORIDE 0.9% 500 ML IV SCH (05:49)
[2023-11-07] MEDS: LEVOTHYROXINE SODIUM 75 MCG TABLET PO SCH (05:54)
[2023-11-07 06:38] LABS: Hematocrit (blood only) 40.7 % (42.0-52.0); Mean Corpuscular Hemoglobin 28.8 pg (25.0-34.0); Mean Corpuscular Hgb Conc 34.4 g/dL (32.0-36.0); Mean Corpuscular Volume 83.7 fL (80.0-100.0); Platelet Count 165 K/uL (130-400); RDW Coefficient of Variation 13.8 % (11.5-14.5); RDW Standard Deviation 42.6 fL (36.4-46.3); Red Blood Count 4.86 M/uL (4.70-6.10); White Blood Count 7.34 K/ul (4.8-10.8)
[2023-11-07 07:03] LABS: BUN Creatinine Ratio 22.7 (10-20); Calcium 9.6 mg/dl (8.6-10.3); Creatinine Clr Calc Pharmacy 60.6 ml/min; Est GFR (African American) 82.7 ml/min; Est GFR (Non-African American) 71.4 ml/min; Potassium 4.4 mmol/L (3.5-5.1)
[2023-11-07] MEDS: METOPROLOL SUCC 25MG EXT REL TAB PO SCH (09:19)
[2023-11-07] MEDS: GABAPENTIN 300 MG CAP PO SCH ×3 (09:19→20:46)
[2023-11-07] MEDS: MAGNESIUM OXIDE 400 MG TAB PO SCH (09:19)
[2023-11-07] MEDS: FOLIC ACID 1 MG TAB PO SCH (09:19)
[2023-11-07] MEDS: lisinopril 2.5 MG TAB PO SCH (09:19)
[2023-11-07] MEDS: CEROVITE ADV FORMULA TAB PO SCH (09:19)
[2023-11-07] MEDS: ATORVASTATIN 10 MG TAB PO SCH (09:19)
[2023-11-07] MEDS: PANTOprazole 40 MG TAB PO SCH (09:19)
[2023-11-07] MEDS: CALCIUM 600MG + VIT D 400 IU TAB PO SCH ×2 (09:20→20:45)
[2023-11-07] MEDS: SUCRALFATE 1 GM/10 ML UDC PO SCH ×4 (09:20→20:47)
[2023-11-07] MEDS: guaiFENesin 600 MG TABCR PO SCH ×2 (09:20→20:45)
[2023-11-07] MEDS: APIXABAN 5 MG TABLET PO SCH ×2 (09:20→20:46)
[2023-11-07] MEDS: CEFEPIME 2,000 MG in SYRINGE 0 ML IV SCH ×2 (09:25→17:38)
[2023-11-07] MEDS: POLYETHYLENE (MIRALAX) 17 GM PACK PO SCH (09:25)
[2023-11-07] MEDS: INSULIN ASPART PER UNIT CHARGE SC SCH ×4 (09:25→21:14)
[2023-11-07] MEDS: LANTUS PER UNIT CHARGE SQ SCH (09:25)
[2023-11-07] MEDS: DOCUSATE SODIUM/SENNA 50/8.6MG TAB PO SCH ×2 (09:25→20:48)
[2023-11-07] MEDS ORDERED: bisacodyL 10 MG SUPP PR STA (10:48)
--- NOTE | 2023-11-07 12:45 | XRay Report ---
[facility] CLINICAL HISTORY: Abdominal pain and distention. COMPARISON STUDY: KUB May 28, 2020. CT of the abdomen and pelvis November 01, 2023. FINDINGS: The bowel gas pattern is normal. Prominent gas-filled loop within the right mid abdomen lik alyssa reflects gas within the distal stomach. Endoscopic clips project over the right lower quadrant. A mount of stool is within normal limits. Extensive vascular calcification is incidentally noted IMPRESSION: No evidence for a bowel obstruction. ACT 112: Negative or not required by law. Electronically signed by: Dwayne Levine M.D. 11/07/2023 12:43 PM
[2023-11-07] MEDS ORDERED: ACETAMINOPHEN 1,000 MG/100 ML VIAL IV STA (14:29)
[2023-11-07] MEDS: LATANOPROST 0.005% OP SOLN 2.5 ML BTL OPL SCH (20:47)
[2023-11-07] MEDS: LIDOCAINE 5% 1 PATCH TD SCH (20:49)
[2023-11-07] MEDS: oxyCODONE HCL IR 5 MG TAB (IMMEDIATE RELEASE) PO PRN (23:22)
[2023-11-07] MEDS: LORazepam 0.5 MG TAB PO PRN (23:22)
--- NOTE | 2023-11-08 00:01 | Hospitalist Progress Note ---
Date of Service November 08, 2023 Assessment & Plan (1) Fracture of thoracic spine: Plan: 83-year-old gentleman with PMH of chronic systolic heart failure [EF 25 to 30%, 2020 TTE], CAD, 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 Julian Marshall], GERD, T2DM, hypothyroidism, chronic hyponatremia, chronic anemia [baseline hemoglobin around 13], dementia, traumatic subdural hematoma, past tobacco abuse presented to the hospital 11/01 with complaint of worsening mid back pain that has been ongoing since last month without radicular signs of symptoms/fever/chills/weakness/bowel or bladder incontinence. [facility] oncology started patient on oxycodone and reported patient to [facility] radiation therapy. CT simulation for treatment planning was contemplated. Also patient underwent outpatient EGD for Raygoza's esophagus and colonoscopy for possible colonic mass on outpatient PET/CT at [facility] 5 days ago [employer]. EGD showed Raygoza's esophagus/incomplete resection done/esophageal biopsy yielded tumor cells - invasive adenocarcinoma. Colonoscopy showed moderate sigmoid and descending colon diverticulosis/internal hemorrhoids/splenic flexure polyp resected -negat. for malignancy He is being managed for the following: Pathologic fracture x thoracic spine Metastatic disease from prostate cancer Opioid-induced constipation Patient coming in with worsening midthoracic pain for about a month, worse lately. Recently started on opiates as an outpatient for pain management, patient with no bowel movements for several days prior to arrival. Admitting CTAP with no acute findings in abdomen and pelvis. Admitting lumbar spine CT with multifocal osteoblastic metastatic disease. Superior endplate compression deformity of L1, unchanged. Admitting thoracic spine CT with pathologic fracture of T7. Invasion of the right T6-T7 neuroforamen with erosion of the right posterior sixth and seventh ribs. Left-pedicular fracture at T7 and spinous fracture of T7. Right pedicle of T7 is eroded. c/w pain medications, as needed oxycodone and as needed morphine. Lidocaine patch. Scheduled percocet. As needed Ativan for anxiety. Pain management consulted - adding gabapentin 300 mg TID to address neuropathic pain component. Radiation oncology consulted - and pt started radiation treatment Ortho-spine surgery consulted for abnormal T-spine CT - per Dr. Smith - Assessment T7 pathologic compression fracture. Explained the patient that he has a significant fracture in the thoracic spine that could result in neurologic compromise if it were to progress. Pt emphasized that he does not want to consider any surgical intervention. He knows this despite impending neurologic issues. If he were to pursue surgery however he would be a candidate for tertiary care center. Scheduled bowel regimen, sennakot, MiraLAX, lactulose. gave additional dose of Relistor on (11/03). Ordered suppository (11/04). Increased miralax frequency. - Pt had a BM overnight. Cont. bowel regimen and monitor. PT/OT. 11/04 Feeling better today. at time of exam pt without any significant pain. 11/05 Pain seems better controlled. Plan for radiation therapy today. Worked w/ PT, is wearing brace. 11/06 Unfortunately today pt is more painful, uncomfortable 11/07 Pt uncomfortable, abd. pain - per gets on and off, abdomen is distended - will obtain KUB Patient to follow-up with his oncologist upon discharge. Fever, poss. pna Spiked fever overnight 11/05 blood cultx and UA obtained by radiotelegrapher UA - negative blood cultx - posy. for staph - not clear if contaminant or not - cont. empiric abx treatment obtained CXR, and chest CT to further eval poss. infection CXR 1. Interval development of the mild pulmonary edema, small bilateral pleural effusions, and bibasilar densities. 2. Curvilinear lucency at the aortic knob and superior mediastinal widening will be better appreciated on the same day chest CT. Chest CT 1. Patchy and linear bibasilar densities most pronounced on the right. This may represent subsegmental atelectasis or a pneumonia. 2. Small bilateral pleural effusions. 3. A few subcentimeter nodules within the right lung measuring up to 5 mm. Follow-up recommended to ensure stability. 4. Stable cardiomegaly. 5. Redemonstration of the destructive mass centered at the T7 vertebral body with associated pathologic fractures of T7 as described above. This demonstrates epidural extension with moderate to severe central canal narrowing at this level. This is similar to the prior thoracic spine CT. 6. Osseous metastatic disease again noted. Started empiric abx (pt has allergy listed to pcn, started cefepime and vanco), cont. for now and await cultx Transient hypotension: Noted in ED likely secondary to narcotic pain meds use. Blood pressure medications on hold, gradually resume them. Other chronic medical conditions: Continue with/resume home meds as and when able. chronic systolic heart failure (EF 25 to 30%, TTE 2020), patient on the dry side valvular heart disease (mild AR/MR/TR) CAD as per records A-fib/PE DVT, Eliquis on hold for 1 week following recent endoscopic procedure. Patient to resume Rx on 11/04/23 if without bleeding concerns as per . Eliquis resumed. colon cancer status post surgery, new colonic mass noted on imaging, recent post colonic biopsy - negative for dysplasia or malignancy - pt's updated by Dr. Rodriguez and me Possible new esophageal cancer on recent EGD, history GERD/Raygoza's esophagus. Pt to f/u w/ his oncology on DC. Biopsy esophagus - invasive adenocarcinoma - pt's updated by Dr. Rodriguez and me DM 2 insulin requiring, suboptimal control as of recent hemoglobin A1c of 7.22 May 2023 hypothyroidism, euthyroid as of this admission's TSH chronic hyponatremia likely secondary to malignancy chronic anemia, hemoglobin at baseline dementia, mentation at baseline as per however with pain meds on and off confused history traumatic subdural hematoma past tobacco abuse DVT prophylaxis. SCDs Re: Recent endoscopic procedure. Resumed Eliquis DNR PT/OT, CM to assist w/ DC plan. Patient Ms.Dottie Chavez, contact #[phone]. Admission and Anticipated Discharge Date Admission Date: November 01, 2023 Subjective Patient seen in follow up of back pain/ metast. prostate ca Patient is currently laying in bed, more painful. Reports abd. pain - per at the bedside this seems to be on and off also at home. His abdomen is distended and will obtain KUB. No chest pain or shortness of breath. had BM Had another fever spike at night Review of Systems Review of Systems: All systems reviewed & are unremarkable except as noted in Subjective Physical Exam Physical Exam: GENERAL: WD/WN M in NAD on 2 L oxygen via nasal cannula HEENT: NC/AT. Oral mucosa moist. NECK: No JVD, no neck masses. HEART: S1 and S2 heard. irregular rate and rhythm. + murmur, no gallop. RESPIRATORY: Normal AP diameter. No accessory muscle use. No wheezing, no crackles. Diminished breath sounds bilateral. ABDOMEN: Soft, bowel sounds present, nontender, no distention. NEURO: Awake , currently able to answer simple questions appropriately,on and off tends to get confused ([place]sea. after getting pain meds). No facial droop. Speech is clear. Obeys simple commands. Moves extremities. EXTREMITIES: 1+ BLE edema, no erythema seen. SKIN : warm, dry Results & Data Results & Data Vital Signs (Past 12 Hours) Vital Signs Temp Pulse Pulse Resp BP Pulse Ox O2 Del Method 11/07/23 23:13 37.7 C H 86 18 156/90 H 98 Nasal Cannula 11/07/23 19:46 36.9 C 90 18 131/79 95 Room Air 11/07/23 15:54 37.5 C 97 H 17 101/68 90 Nasal Cannula 11/07/23 14:24 103 H O2 Flow Rate 11/07/23 23:13 2 11/07/23 19:46 11/07/23 15:54 2 11/07/23 14:24 Laboratory Results 11/07/23 11/07/23 11/07/23 Range/Units 21:09 17:04 12:37 WBC (4.8-10.8) K/ul RBC (4.70-6.10) M/uL Hgb (14.0-18.0) g/dl Hct (42.0-52.0) % MCV (80.0-100.0) fL MCH (25.0-34.0) pg MCHC (32.0-36.0) g/dL RDW Std Deviation (36.4-46.3) fL RDW Coeff of Janny (11.5-14.5) % Plt Count (130-400) K/uL MPV (9.4-12.4) fL Sodium (136-145) mmol/L Potassium (3.5-5.1) mmol/L Chloride (98-107) mmol/L Carbon Dioxide (21-32) mmol/L Anion Gap (3-11) BUN (6-23) mg/dl Creatinine (0.6-1.4) mg/dl Est Cr Clr Drug Dosing ml/min Est GFR ( Amer) ml/min Est GFR (Non-Af Amer) ml/min BUN/Creatinine Ratio (10-20) Glucose (70-99(Fasting)) mg/dl POC Glucose 169 H 169 H 170 H (70-99) mg/dl Calcium (8.6-10.3) mg/dl Phosphorus (2.5-4.9) mg/dl Magnesium (1.7-2.4) mg/dl 11/07/23 11/07/23 Range/Units 08:21 05:58 WBC 7.34 (4.8-10.8) K/ul RBC 4.86 (4.70-6.10) M/uL Hgb 14.0 (14.0-18.0) g/dl Hct 40.7 L (42.0-52.0) % MCV 83.7 (80.0-100.0) fL MCH 28.8 (25.0-34.0) pg MCHC 34.4 (32.0-36.0) g/dL RDW Std Deviation 42.6 (36.4-46.3) fL RDW Coeff of Janny 13.8 (11.5-14.5) % Plt Count 165 (130-400) K/uL MPV 10.0 (9.4-12.4) fL Sodium 130 L (136-145) mmol/L Potassium 4.4 (3.5-5.1) mmol/L Chloride 95 L (98-107) mmol/L Carbon Dioxide 26 (21-32) mmol/L Anion Gap 9 (3-11) BUN 22 (6-23) mg/dl Creatinine 0.97 (0.6-1.4) mg/dl Est Cr Clr Drug Dosing 60.6 ml/min Est GFR ( Amer) 82.7 ml/min Est GFR (Non-Af Amer) 71.4 ml/min BUN/Creatinine Ratio 22.7 H (10-20) Glucose 174 H (70-99(Fasting)) mg/dl POC Glucose 163 H (70-99) mg/dl Calcium 9.6 (8.6-10.3) mg/dl Phosphorus 3.0 (2.5-4.9) mg/dl Magnesium 2.0 (1.7-2.4) mg/dl Medications Administered Current Inpatient Medications Acetaminophen (Acetaminophen 325 Mg Tab) 650 mg PO QID PRN PRN Reason: pain/fever Stop: 12/01/23 20:18 Last Admin: 11/06/23 22:46 Dose: 650 mg Apixaban (Apixaban 5 Mg Tablet) 5 mg PO BID [facility] Stop: 12/05/23 08:59 Last Admin: 11/07/23 20:46 Dose: 5 mg Atorvastatin Calcium (Atorvastatin 10 Mg Tab) 10 mg PO DAILY [facility] Stop: 12/02/23 08:59 Last Admin: 11/07/23 09:19 Dose: 10 mg Calcium/Vitamin D (Calcium 600mg + Vit D 400 Iu Tab) 1 tab PO BID [facility] Stop: 12/02/23 08:59 Last Admin: 11/07/23 20:45 Dose: 1 tab Dextrose (Dextrose 50% 50 Ml Syringe) 25 - 50 ml IV UD PRN; Protocol PRN Reason: Hypoglycemia Protocol Stop: 12/01/23 22:55 Folic Acid (Folic Acid 1 Mg Tab) 1 mg PO QAM [facility] Stop: 12/02/23 08:59 Last Admin: 11/07/23 09:19 Dose: 1 mg Furosemide (Furosemide 20 Mg Tab) 20 mg PO MoWeFr@0900 [facility] Stop: 12/04/23 08:59 Last Admin: 11/06/23 10:25 Dose: 20 mg Gabapentin (Gabapentin 300 Mg Cap) 300 mg PO TID [facility] Stop: 12/03/23 13:59 Last Admin: 11/07/23 20:46 Dose: 300 mg Glucagon (Glucagon For Inj 1 Mg Vial) 1 mg SQ UD PRN; Protocol PRN Reason: Hypoglycemia Protocol Stop: 12/01/23 22:55 Glucose (Glucose 10 Tab/Tube) 4 - 8 tab PO UD PRN; Protocol PRN Reason: Hypoglycemia Treatment Stop: 12/01/23 22:55 Glucose (Glucose 40% Gel 15 Gm Tube) 15 - 30 gm PO UD PRN; Protocol PRN Reason: Hypoglycemia Protocol Stop: 12/01/23 22:55 Last Admin: 11/02/23 17:24 Dose: 15 gm Guaifenesin (Guaifenesin 600 Mg Tabcr) 600 mg PO Q12 [facility] Stop: 12/06/23 08:59 Last Admin: 11/07/23 20:45 Dose: 600 mg Promethazine HCl 6.25 mg/ (Sodium Chloride) 50.25 mls @ 201 mls/hr IV Q6H PRN PRN Reason: Nausea And Vomiting Stop: 12/01/23 20:18 Vancomycin HCl 1,500 mg/ (Sodium Chloride) 530 mls @ 200 mls/hr IV Q24H [facility] Stop: 11/10/23 05:59 Last Infusion: 11/07/23 12:20 Dose: Infused Cefepime HCl 2,000 mg/ Syringe 20 mls @ 5 mls/min IV Q8H [facility]; Protocol Stop: 11/10/23 16:59 Last Admin: 11/07/23 17:38 Dose: 5 mls/min Insulin Aspart (Insulin Aspart Per Unit Charge) 0 units SC ACHS [facility] Stop: 12/01/23 22:55 Last Admin: 11/07/23 21:14 Dose: 2 units Insulin Glargine (Lantus Per Unit Charge) 5 units SQ DAILY [facility] Stop: 12/02/23 08:59 Last Admin: 11/07/23 09:25 Dose: 5 units Lactulose (Lactulose Syrup 30 Gm/45 Ml Udp) 30 gm PO DAILY [facility] Stop: 12/03/23 08:59 Last Admin: 11/05/23 08:16 Dose: 30 gm Latanoprost (Latanoprost 0.005% Op Soln 2.5 Ml Btl) 1 drops OPL HS [facility] Stop: 12/02/23 20:59 Last Admin: 11/07/23 20:47 Dose: 1 drops Levothyroxine Sodium (Levothyroxine Sodium 75 Mcg Tablet) 75 mcg PO DAILYBB [facility] Stop: 12/02/23 06:29 Last Admin: 11/07/23 05:54 Dose: 75 mcg Lidocaine (Lidocaine 5% 1 Patch) 1 patch TD HS [facility] Stop: 12/02/23 20:59 Last Admin: 11/07/23 20:49 Dose: 1 patch Lisinopril (Lisinopril 2.5 Mg Tab) 2.5 mg PO DAILY [facility] Stop: 12/04/23 08:59 Last Admin: 11/07/23 09:19 Dose: 2.5 mg Lorazepam (Lorazepam 0.5 Mg Tab) 0.5 mg PO Q12H PRN PRN Reason: Anxiety Stop: 12/02/23 14:10 Last Admin: 11/07/23 23:22 Dose: 0.5 mg Magnesium Oxide (Magnesium Oxide 400 Mg Tab) 400 mg PO QAM [facility] Stop: 12/05/23 10:59 Last Admin: 11/07/23 09:19 Dose: 400 mg Metoprolol Succinate (Metoprolol Succ 25mg Ext Rel Tab) 12.5 mg PO DAILY PB Stop: 12/02/23 08:59 Last Admin: 11/07/23 09:19 Dose: 12.5 mg Miscellaneous (Remove Lidoderm Patch) 1 each N/A QAM PB Stop: 12/02/23 08:59 Last Admin: 11/07/23 09:26 Dose: 1 each Miscellaneous (Carbohydrates For Hypoglycemia ) 15 - 30 gm PO UD PRN PRN Reason: Hypoglycemia Protocol Stop: 12/01/23 22:55 Last Admin: 11/02/23 17:02 Dose: 15 gm Miscellaneous Information (Vancomycin Consult Active) 1 each N/A UD PRN PRN Reason: Consult Stop: 12/06/23 08:13 Morphine Sulfate (Morphine Sulfate 2 Mg/Ml Carp) 2 mg IV Q3H PRN PRN Reason: Pain Stop: 11/15/23 22:11 Last Admin: 11/07/23 20:50 Dose: 2 mg Multivitamins/Minerals (Cerovite Adv Formula Tab) 1 tab PO DAILY PB Stop: 12/02/23 08:59 Last Admin: 11/07/23 09:19 Dose: 1 tab Oxycodone HCl (Oxycodone Hcl Ir 5 Mg Tab (Immediate Release)) 5 - 10 mg PO QID PRN PRN Reason: Pain Stop: 11/15/23 20:18 Last Admin: 11/07/23 23:22 Dose: 10 mg Oxycodone/Acetaminophen (Oxycodone/Acetaminophen 5mg/325mg Tab) 1 tab PO Q8H PB Stop: 11/16/23 14:14 Last Admin: 11/07/23 21:15 Dose: 1 tab Pantoprazole Sodium (Pantoprazole 40 Mg Tab) 40 mg PO DAILY [facility] Stop: 12/02/23 08:59 Last Admin: 11/07/23 09:19 Dose: 40 mg Polyethylene Glycol (Polyethylene (Miralax) 17 Gm Pack) 17 gm PO QAM PB Stop: 12/05/23 08:59 Last Admin: 11/07/23 09:25 Dose: 17 gm Senna/Docusate Sodium (Docusate Sodium/Senna 50/8.6mg Tab) 1 tab PO BID PB Stop: 12/02/23 08:59 Last Admin: 11/07/23 20:48 Dose: 1 tab Sucralfate (Sucralfate 1 Gm/10 Ml Udc) 1 gm PO ACHS PB Stop: 12/02/23 07:29 Last Admin: 11/07/23 20:47 Dose: 1 gm (1) Fracture of thoracic spine Encounter type: subsequent encounter Fracture healing: with delayed healing Fracture morphology: unspecified fracture morphology Fracture type: closed Thoracic vertebra fracture level: T7 Qualified Code(s): S22.069G - Unspecified fracture of T7-T8 vertebra, subsequent encounter for fracture with delayed healing
[2023-11-08] MEDS: MoRPHine SULFATE 2 MG/ML CARP IV PRN ×2 (00:23→18:15)
[2023-11-08] MEDS: CEFEPIME 2,000 MG in SYRINGE 0 ML IV SCH ×4 (00:48→23:25)
[2023-11-08] MEDS: VANCOMYCIN HCL 1,500 MG in SODIUM CHLORIDE 0.9% 500 ML IV SCH ×2 (05:18→23:25)
[2023-11-08] MEDS: oxyCODONE/ACETAMINOPHEN 5mg/325mg TAB PO SCH ×3 (05:33→21:46)
[2023-11-08] MEDS: LEVOTHYROXINE SODIUM 75 MCG TABLET PO SCH (05:33)
[2023-11-08] MEDS: METOPROLOL SUCC 25MG EXT REL TAB PO SCH (07:42)
[2023-11-08] MEDS: CEROVITE ADV FORMULA TAB PO SCH (07:43)
[2023-11-08] MEDS: MAGNESIUM OXIDE 400 MG TAB PO SCH (07:43)
[2023-11-08] MEDS: ATORVASTATIN 10 MG TAB PO SCH (07:44)
[2023-11-08] MEDS: PANTOprazole 40 MG TAB PO SCH (07:44)
[2023-11-08] MEDS: GABAPENTIN 300 MG CAP PO SCH ×3 (07:44→21:45)
[2023-11-08] MEDS: CALCIUM 600MG + VIT D 400 IU TAB PO SCH ×2 (07:45→21:44)
[2023-11-08] MEDS: lisinopril 2.5 MG TAB PO SCH (07:45)
[2023-11-08] MEDS: FOLIC ACID 1 MG TAB PO SCH (07:45)
[2023-11-08] MEDS: guaiFENesin 600 MG TABCR PO SCH ×2 (07:45→21:44)
[2023-11-08] MEDS: APIXABAN 5 MG TABLET PO SCH ×2 (07:46→21:44)
[2023-11-08] MEDS: POLYETHYLENE (MIRALAX) 17 GM PACK PO SCH (07:46)
[2023-11-08] MEDS: SUCRALFATE 1 GM/10 ML UDC PO SCH ×4 (07:46→21:45)
[2023-11-08] MEDS: DOCUSATE SODIUM/SENNA 50/8.6MG TAB PO SCH ×2 (07:48→22:02)
[2023-11-08] MEDS: ACETAMINOPHEN 325 MG TAB PO PRN (07:49)
[2023-11-08 08:49] LABS: BUN Creatinine Ratio 29.1 (10-20); Calcium 8.9 mg/dl (8.6-10.3); Creatinine Clr Calc Pharmacy 73.5 ml/min; Est GFR (African American) 95.6 ml/min; Est GFR (Non-African American) 82.5 ml/min; Phosphorus 2.6 mg/dl (2.5-4.9); Potassium 4.2 mmol/L (3.5-5.1)
[2023-11-08 08:50] LABS: Hematocrit (blood only) 33.9 % (42.0-52.0); Hemoglobin 11.4 g/dl (14.0-18.0); Mean Corpuscular Hemoglobin 28.4 pg (25.0-34.0); Mean Corpuscular Hgb Conc 33.6 g/dL (32.0-36.0); Mean Corpuscular Volume 84.3 fL (80.0-100.0); Mean Platelet Volume 10.1 fL (9.4-12.4); Platelet Count 148 K/uL (130-400); RDW Coefficient of Variation 13.8 % (11.5-14.5); RDW Standard Deviation 42.8 fL (36.4-46.3); Red Blood Count 4.02 M/uL (4.70-6.10); White Blood Count 9.05 K/ul (4.8-10.8)
[2023-11-08] MEDS: LANTUS PER UNIT CHARGE SQ SCH (08:51)
[2023-11-08] MEDS: INSULIN ASPART PER UNIT CHARGE SC SCH ×4 (08:51→21:40)
--- NOTE | 2023-11-08 11:10 | Pharmacy Report ---
Pharmacy PK ABX Note - Date of Service November 08, 2023 - Assessment and Plan Assessment 11/08: Cultures now reporting staph species + staph species #2 in one set, staph species in anaerobic bottle of second set. Methicillin sensitive Staph epi on biofire. Vancomycin extended through 11/10 05, and cefepime 11/10 1659- will need re-evaluated for de-escalation/continuation. 11/06 83 year old M started on vancomycin/cefepime empirically. Patient with fevers overnight. PMHx significant for colon cancer s/p surgery, prostate cancer with bone mets, currently on lupron, T2dm, chronic anemia, dementia. Presenting to hospital with worsening mid back pain. No leukocytosis noted, repeat blood cultures pending, procalcitonin pending. CXR with small bilateral pleural effusion. Plan Vancomycin * Adjust maintenance dose to 1500 mg q18H * this dosing is estimated to achieve a goal AUC/FRANCOIS 400-600 * Random level with AM lab 11/09 Pharmacy will continue to follow and will adjust dose/frequency as necessary. Thank you. Pharmacy has transitioned to AUC monitoring for vancomycin. AUC/FRANCOIS is the preferred PK/PD target and is associated with decreased risk of nephrotoxicity compared to traditional trough targets.
[2023-11-08] MEDS: SODIUM CHLORIDE 0.9% 1,000 ML IV SCH (14:16)
--- NOTE | 2023-11-08 14:27 | Hospitalist Progress Note ---
Date of Service November 08, 2023 Assessment & Plan (1) Fracture of thoracic spine: Plan: 83-year-old gentleman with PMH of chronic systolic heart failure [EF 25 to 30%, 2020 TTE], CAD, 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 Julian Marshall], GERD, T2DM, hypothyroidism, chronic hyponatremia, chronic anemia [baseline hemoglobin around 13], dementia, traumatic subdural hematoma, past tobacco abuse presented to the hospital 11/01 with complaint of worsening mid back pain that has been ongoing since last month without radicular signs of symptoms/fever/chills/weakness/bowel or bladder incontinence. [facility] oncology started patient on oxycodone and reported patient to [facility] radiation therapy. CT simulation for treatment planning was contemplated. Also patient underwent outpatient EGD for Raygoza's esophagus and colonoscopy for possible colonic mass on outpatient PET/CT at [facility] 5 days ago [employer]. EGD showed Raygoza's esophagus/incomplete resection done/esophageal biopsy yielded tumor cells - invasive adenocarcinoma. Colonoscopy showed moderate sigmoid and descending colon diverticulosis/internal hemorrhoids/splenic flexure polyp resected -negat. for malignancy He is being managed for the following: Pathologic fracture x thoracic spine Metastatic disease from prostate cancer Opioid-induced constipation Patient coming in with worsening midthoracic pain for about a month, worse lately. Recently started on opiates as an outpatient for pain management, patient with no bowel movements for several days prior to arrival. Admitting CTAP with no acute findings in abdomen and pelvis. Admitting lumbar spine CT with multifocal osteoblastic metastatic disease. Superior endplate compression deformity of L1, unchanged. Admitting thoracic spine CT with pathologic fracture of T7. Invasion of the right T6-T7 neuroforamen with erosion of the right posterior sixth and seventh ribs. Left-pedicular fracture at T7 and spinous fracture of T7. Right pedicle of T7 is eroded. c/w pain medications, as needed oxycodone and as needed morphine. Lidocaine patch. Scheduled percocet. As needed Ativan for anxiety. Pain management consulted - adding gabapentin 300 mg TID to address neuropathic pain component. Radiation oncology consulted - and pt started radiation treatment Ortho-spine surgery consulted for abnormal T-spine CT - per Dr. Smith - Assessment T7 pathologic compression fracture. Explained the patient that he has a significant fracture in the thoracic spine that could result in neurologic compromise if it were to progress. Pt emphasized that he does not want to consider any surgical intervention. He knows this despite impending neurologic issues. If he were to pursue surgery however he would be a candidate for tertiary care center. Scheduled bowel regimen, sennakot, MiraLAX, lactulose. gave additional dose of Relistor on (11/03). Ordered suppository (11/04). Increased miralax frequency. - Pt had a BM overnight. Cont. bowel regimen and monitor. PT/OT. 11/04 Feeling better today. at time of exam pt without any significant pain. 11/05 Pain seems better controlled. Plan for radiation therapy today. Worked w/ PT, is wearing brace. 11/06 Unfortunately today pt is more painful, uncomfortable 11/07 Pt uncomfortable, abd. pain - per gets on and off, abdomen is distended - obtained KUB - No evidence for a bowel obstruction. 11/08 Pt more comfortable, pain controlled. However had a chocking episode - will place npo, and speech eval. start gentle IVF Patient to follow-up with his oncologist upon discharge. Fever, poss. pna Spiked fever overnight 11/05 blood cultx and UA obtained by supervisor smoke control UA - negative blood cultx - posit. for staph - not clear if contaminant or not - cont. empiric abx treatment obtained CXR, and chest CT to further eval poss. infection CXR 1. Interval development of the mild pulmonary edema, small bilateral pleural effusions, and bibasilar densities. 2. Curvilinear lucency at the aortic knob and superior mediastinal widening will be better appreciated on the same day chest CT. Chest CT 1. Patchy and linear bibasilar densities most pronounced on the right. This may represent subsegmental atelectasis or a pneumonia. 2. Small bilateral pleural effusions. 3. A few subcentimeter nodules within the right lung measuring up to 5 mm. Follow-up recommended to ensure stability. 4. Stable cardiomegaly. 5. Redemonstration of the destructive mass centered at the T7 vertebral body with associated pathologic fractures of T7 as described above. This demonstrates epidural extension with moderate to severe central canal narrowing at this level. This is similar to the prior thoracic spine CT. 6. Osseous metastatic disease again noted. Started empiric abx (pt has allergy listed to pcn, started cefepime and vanco), cont. for now and await cultx. Pt had a chocking episode on 11/08 - likely aspirating. Add flagyl. Transient hypotension: Noted in ED likely secondary to narcotic pain meds use. Blood pressure medications on hold, gradually resume them. Other chronic medical conditions: Continue with/resume home meds as and when able. chronic systolic heart failure (EF 25 to 30%, TTE 2020), patient on the dry side valvular heart disease (mild AR/MR/TR) CAD as per records A-fib/PE DVT, Eliquis on hold for 1 week following recent endoscopic procedure. Patient to resume Rx on 11/04/23 if without bleeding concerns as per . Eliquis resumed. colon cancer status post surgery, new colonic mass noted on imaging, recent post colonic biopsy - negative for dysplasia or malignancy - pt's updated by Dr. Rodriguez and me Possible new esophageal cancer on recent EGD, history GERD/Raygoza's esophagus. Pt to f/u w/ his oncology on DC. Biopsy esophagus - invasive adenocarcinoma - pt's updated by Dr. Rodriguez and me DM 2 insulin requiring, suboptimal control as of recent hemoglobin A1c of 7.22 May 2023 hypothyroidism, euthyroid as of this admission's TSH chronic hyponatremia likely secondary to malignancy chronic anemia, hemoglobin at baseline dementia, mentation at baseline as per however with pain meds on and off confused history traumatic subdural hematoma past tobacco abuse DVT prophylaxis. SCDs Re: Recent endoscopic procedure. Resumed Eliquis DNR PT/OT, CM to assist w/ DC plan. Patient Ms.Dottie Chavez, contact #[phone]. Admission and Anticipated Discharge Date Admission Date: November 01, 2023 Subjective Patient seen in follow up of back pain/ metast. prostate ca Patient is currently laying in bed, appears comfortable, pain is better controlled. Pt's is present at the bedside. Denies abd. pain today. No chest pain or shortness of breath. had BM per RN After I saw the pt I was informed that pt had a chocking episode when drinking water, was suctioned. Will make pt NPO, will place speech eval. Review of Systems Review of Systems: All systems reviewed & are unremarkable except as noted in Subjective Physical Exam Physical Exam: GENERAL: WD/WN M in NAD on 2 L oxygen via nasal cannula HEENT: NC/AT. Oral mucosa moist. NECK: No JVD, no neck masses. HEART: S1 and S2 heard. irregular rate and rhythm. + murmur, no gallop. RESPIRATORY: Normal AP diameter. No accessory muscle use. No wheezing, no crackles. Diminished breath sounds bilateral. ABDOMEN: Soft, bowel sounds present, nontender, no distention. NEURO: Awake , currently able to answer simple questions appropriately,on and off tends to get confused ([place]. after getting pain meds). No facial droop. Speech is clear. Obeys simple commands. Moves extremities. EXTREMITIES: 1+ BLE edema, no erythema seen. SKIN : warm, dry Results & Data Results & Data Vital Signs (Past 12 Hours) Vital Signs Temp Pulse Pulse Resp BP Pulse Ox O2 Del Method 11/08/23 11:39 35.9 C L 82 16 132/81 95 Nasal Cannula 11/08/23 08:00 Nasal Cannula 11/08/23 07:47 36.0 C L 81 17 120/74 95 Nasal Cannula 11/08/23 07:00 70 11/08/23 04:04 36.8 C 80 20 100/65 98 Nasal Cannula O2 Flow Rate 11/08/23 11:39 2 11/08/23 08:00 2 11/08/23 07:47 2 11/08/23 07:00 11/08/23 04:04 2 Laboratory Results 11/08/23 11/08/23 11/08/23 Range/Units 12:04 08:04 07:45 WBC 9.05 (4.8-10.8) K/ul RBC 4.02 L (4.70-6.10) M/uL Hgb 11.4 L (14.0-18.0) g/dl Hct 33.9 L (42.0-52.0) % MCV 84.3 (80.0-100.0) fL MCH 28.4 (25.0-34.0) pg MCHC 33.6 (32.0-36.0) g/dL RDW Std Deviation 42.8 (36.4-46.3) fL RDW Coeff of Janny 13.8 (11.5-14.5) % Plt Count 148 (130-400) K/uL MPV 10.1 (9.4-12.4) fL Sodium 131 L (136-145) mmol/L Potassium 4.2 (3.5-5.1) mmol/L Chloride 98 (98-107) mmol/L Carbon Dioxide 25 (21-32) mmol/L Anion Gap 8 (3-11) BUN 23 (6-23) mg/dl Creatinine 0.79 (0.6-1.4) mg/dl Est Cr Clr Drug Dosing 73.5 ml/min Est GFR ( Amer) 95.6 ml/min Est GFR (Non-Af Amer) 82.5 ml/min BUN/Creatinine Ratio 29.1 H (10-20) Glucose 168 H (70-99(Fasting)) mg/dl POC Glucose 167 H 152 H (70-99) mg/dl Calcium 8.9 (8.6-10.3) mg/dl Phosphorus 2.6 (2.5-4.9) mg/dl Magnesium 2.0 (1.7-2.4) mg/dl 11/07/23 11/07/23 Range/Units 21:09 17:04 WBC (4.8-10.8) K/ul RBC (4.70-6.10) M/uL Hgb (14.0-18.0) g/dl Hct (42.0-52.0) % MCV (80.0-100.0) fL MCH (25.0-34.0) pg MCHC (32.0-36.0) g/dL RDW Std Deviation (36.4-46.3) fL RDW Coeff of Janny (11.5-14.5) % Plt Count (130-400) K/uL MPV (9.4-12.4) fL Sodium (136-145) mmol/L Potassium (3.5-5.1) mmol/L Chloride (98-107) mmol/L Carbon Dioxide (21-32) mmol/L Anion Gap (3-11) BUN (6-23) mg/dl Creatinine (0.6-1.4) mg/dl Est Cr Clr Drug Dosing ml/min Est GFR ( Amer) ml/min Est GFR (Non-Af Amer) ml/min BUN/Creatinine Ratio (10-20) Glucose (70-99(Fasting)) mg/dl POC Glucose 169 H 169 H (70-99) mg/dl Calcium (8.6-10.3) mg/dl Phosphorus (2.5-4.9) mg/dl Magnesium (1.7-2.4) mg/dl Medications Administered Current Inpatient Medications Acetaminophen (Acetaminophen 325 Mg Tab) 650 mg PO QID PRN PRN Reason: pain/fever Stop: 12/01/23 20:18 Last Admin: 11/08/23 07:49 Dose: 650 mg Apixaban (Apixaban 5 Mg Tablet) 5 mg PO BID [facility] Stop: 12/05/23 08:59 Last Admin: 11/08/23 07:46 Dose: 5 mg Atorvastatin Calcium (Atorvastatin 10 Mg Tab) 10 mg PO DAILY [facility] Stop: 12/02/23 08:59 Last Admin: 11/08/23 07:44 Dose: 10 mg Calcium/Vitamin D (Calcium 600mg + Vit D 400 Iu Tab) 1 tab PO BID PB Stop: 12/02/23 08:59 Last Admin: 11/08/23 07:45 Dose: 1 tab Dextrose (Dextrose 50% 50 Ml Syringe) 25 - 50 ml IV UD PRN; Protocol PRN Reason: Hypoglycemia Protocol Stop: 12/01/23 22:55 Folic Acid (Folic Acid 1 Mg Tab) 1 mg PO QAM [facility] Stop: 12/02/23 08:59 Last Admin: 11/08/23 07:45 Dose: 1 mg Furosemide (Furosemide 20 Mg Tab) 20 mg PO MoWeFr@0900 PB Stop: 12/04/23 08:59 Last Admin: 11/06/23 10:25 Dose: 20 mg Gabapentin (Gabapentin 300 Mg Cap) 300 mg PO TID [facility] Stop: 12/03/23 13:59 Last Admin: 11/08/23 14:21 Dose: 300 mg Glucagon (Glucagon For Inj 1 Mg Vial) 1 mg SQ UD PRN; Protocol PRN Reason: Hypoglycemia Protocol Stop: 12/01/23 22:55 Glucose (Glucose 10 Tab/Tube) 4 - 8 tab PO UD PRN; Protocol PRN Reason: Hypoglycemia Treatment Stop: 12/01/23 22:55 Glucose (Glucose 40% Gel 15 Gm Tube) 15 - 30 gm PO UD PRN; Protocol PRN Reason: Hypoglycemia Protocol Stop: 12/01/23 22:55 Last Admin: 11/02/23 17:24 Dose: 15 gm Guaifenesin (Guaifenesin 600 Mg Tabcr) 600 mg PO Q12 [facility] Stop: 12/06/23 08:59 Last Admin: 11/08/23 07:45 Dose: 600 mg Promethazine HCl 6.25 mg/ (Sodium Chloride) 50.25 mls @ 201 mls/hr IV Q6H PRN PRN Reason: Nausea And Vomiting Stop: 12/01/23 20:18 Cefepime HCl 2,000 mg/ Syringe 20 mls @ 5 mls/min IV Q8H [facility]; Protocol Stop: 11/10/23 16:59 Last Admin: 11/08/23 07:49 Dose: 5 mls/min Vancomycin HCl 1,500 mg/ (Sodium Chloride) 530 mls @ 200 mls/hr IV Q18H [facility] Stop: 11/10/23 05:59 Sodium Chloride (Nss) 1,000 mls @ 80 mls/hr IV .[id number] [facility] Stop: 12/08/23 13:59 Last Admin: 11/08/23 14:16 Dose: 80 mls/hr Metronidazole (Flagyl) 500 mg in 100 mls @ 100 mls/hr IV Q8H [facility]; Protocol Stop: 11/15/23 14:29 Insulin Aspart (Insulin Aspart Per Unit Charge) 0 units SC ACHS [facility] Stop: 12/01/23 22:55 Last Admin: 11/08/23 12:37 Dose: 3 units Insulin Glargine (Lantus Per Unit Charge) 5 units SQ DAILY [facility] Stop: 12/02/23 08:59 Last Admin: 11/08/23 08:51 Dose: 5 units Lactulose (Lactulose Syrup 30 Gm/45 Ml Udp) 30 gm PO DAILY [facility] Stop: 12/03/23 08:59 Last Admin: 11/05/23 08:16 Dose: 30 gm Latanoprost (Latanoprost 0.005% Op Soln 2.5 Ml Btl) 1 drops OPL HS [facility] Stop: 12/02/23 20:59 Last Admin: 11/07/23 20:47 Dose: 1 drops Levothyroxine Sodium (Levothyroxine Sodium 75 Mcg Tablet) [facility] Stop: 12/02/23 06:29 Last Admin: 11/08/23 05:33 Dose: 75 mcg Lidocaine (Lidocaine 5% 1 Patch) 1 patch TD HS PB Stop: 12/02/23 20:59 Last Admin: 11/07/23 20:49 Dose: 1 patch Lisinopril (Lisinopril 2.5 Mg Tab) 2.5 mg PO DAILY PB Stop: 12/04/23 08:59 Last Admin: 11/08/23 07:45 Dose: 2.5 mg Lorazepam (Lorazepam 0.5 Mg Tab) 0.5 mg PO Q12H PRN PRN Reason: Anxiety Stop: 12/02/23 14:10 Last Admin: 11/07/23 23:22 Dose: 0.5 mg Magnesium Oxide (Magnesium Oxide 400 Mg Tab) 400 mg PO QAM [facility] Stop: 12/05/23 10:59 Last Admin: 11/08/23 07:43 Dose: 400 mg Metoprolol Succinate (Metoprolol Succ 25mg Ext Rel Tab) 12.5 mg PO DAILY PB Stop: 12/02/23 08:59 Last Admin: 11/08/23 07:42 Dose: 12.5 mg Miscellaneous (Remove Lidoderm Patch) 1 each N/A QAM PB Stop: 12/02/23 08:59 Last Admin: 11/08/23 07:47 Dose: 1 each Miscellaneous (Carbohydrates For Hypoglycemia ) 15 - 30 gm PO UD PRN PRN Reason: Hypoglycemia Protocol Stop: 12/01/23 22:55 Last Admin: 11/02/23 17:02 Dose: 15 gm Miscellaneous Information (Vancomycin Consult Active) 1 each N/A UD PRN PRN Reason: Consult Stop: 12/06/23 08:13 Morphine Sulfate (Morphine Sulfate 2 Mg/Ml Carp) 2 mg IV Q3H PRN PRN Reason: Pain Stop: 11/15/23 22:11 Last Admin: 11/08/23 00:23 Dose: 2 mg Multivitamins/Minerals (Cerovite Adv Formula Tab) 1 tab PO DAILY PB Stop: 12/02/23 08:59 Last Admin: 11/08/23 07:43 Dose: 1 tab Oxycodone HCl (Oxycodone Hcl Ir 5 Mg Tab (Immediate Release)) 5 - 10 mg PO QID PRN PRN Reason: Pain Stop: 11/15/23 20:18 Last Admin: 11/07/23 23:22 Dose: 10 mg Oxycodone/Acetaminophen (Oxycodone/Acetaminophen 5mg/325mg Tab) 1 tab PO Q8H [facility] Stop: 11/16/23 14:14 Last Admin: 11/08/23 14:21 Dose: 1 tab Pantoprazole Sodium (Pantoprazole 40 Mg Tab) 40 mg PO DAILY PB Stop: 12/02/23 08:59 Last Admin: 11/08/23 07:44 Dose: 40 mg Polyethylene Glycol (Polyethylene (Miralax) 17 Gm Pack) 17 gm PO QAM PB Stop: 12/05/23 08:59 Last Admin: 11/08/23 07:46 Dose: 17 gm Senna/Docusate Sodium (Docusate Sodium/Senna 50/8.6mg Tab) 1 tab PO BID PB Stop: 12/02/23 08:59 Last Admin: 11/08/23 07:48 Dose: 1 tab Sucralfate (Sucralfate 1 Gm/10 Ml Udc) 1 gm PO ACHS PB Stop: 12/02/23 07:29 Last Admin: 11/08/23 12:37 Dose: 1 gm (1) Fracture of thoracic spine Encounter type: subsequent encounter Fracture healing: with delayed healing Fracture morphology: unspecified fracture morphology Fracture type: closed Thoracic vertebra fracture level: T7 Qualified Code(s): S22.069G - Unspecified fracture of T7-T8 vertebra, subsequent encounter for fracture with delayed healing
[2023-11-08] MEDS: metroNIDAZOLE 500 MG/100 ML BAG IV SCH ×2 (14:31→21:46)
[2023-11-08] MEDS: LIDOCAINE 5% 1 PATCH TD SCH (21:45)
[2023-11-08] MEDS: LATANOPROST 0.005% OP SOLN 2.5 ML BTL OPL SCH (21:59)
[2023-11-09] MEDS: MoRPHine SULFATE 2 MG/ML CARP IV PRN ×4 (02:19→18:25)
[2023-11-09] MEDS: SODIUM CHLORIDE 0.9% 1,000 ML IV SCH ×2 (02:31→14:09)
[2023-11-09] MEDS: oxyCODONE/ACETAMINOPHEN 5mg/325mg TAB PO SCH ×3 (05:33→21:04)
[2023-11-09] MEDS: metroNIDAZOLE 500 MG/100 ML BAG IV SCH ×3 (05:44→22:49)
[2023-11-09] MEDS: LEVOTHYROXINE SODIUM 75 MCG TABLET PO SCH (05:46)
[2023-11-09 05:56] LABS: Hematocrit (blood only) 34.7 % (42.0-52.0); Hemoglobin 11.6 g/dl (14.0-18.0); Mean Corpuscular Hemoglobin 28.6 pg (25.0-34.0); Mean Corpuscular Hgb Conc 33.4 g/dL (32.0-36.0); Mean Corpuscular Volume 85.5 fL (80.0-100.0); Mean Platelet Volume 10.3 fL (9.4-12.4); Platelet Count 187 K/uL (130-400); RDW Coefficient of Variation 13.6 % (11.5-14.5); Red Blood Count 4.06 M/uL (4.70-6.10); White Blood Count 7.26 K/ul (4.8-10.8)
[2023-11-09 06:07] LABS: BUN Creatinine Ratio 30.2 (10-20); Calcium 8.9 mg/dl (8.6-10.3); Creatinine Clr Calc Pharmacy 67.5 ml/min; Est GFR (African American) 92.3 ml/min; Est GFR (Non-African American) 79.6 ml/min; Magnesium 1.9 mg/dl (1.7-2.4); Phosphorus 2.1 mg/dl (2.5-4.9); Potassium 4.1 mmol/L (3.5-5.1)
[2023-11-09] MEDS: POLYETHYLENE (MIRALAX) 17 GM PACK PO SCH (08:04)
[2023-11-09] MEDS: APIXABAN 5 MG TABLET PO SCH ×2 (08:04→20:06)
[2023-11-09] MEDS: GABAPENTIN 300 MG CAP PO SCH ×3 (08:04→20:08)
[2023-11-09] MEDS: METOPROLOL SUCC 25MG EXT REL TAB PO SCH (08:06)
[2023-11-09] MEDS: oxyCODONE HCL IR 5 MG TAB (IMMEDIATE RELEASE) PO PRN ×2 (08:08→20:05)
[2023-11-09] MEDS: guaiFENesin 600 MG TABCR PO SCH ×2 (08:09→20:09)
[2023-11-09] MEDS: PANTOprazole 40 MG TAB PO SCH (08:10)
[2023-11-09] MEDS: lisinopril 2.5 MG TAB PO SCH (08:10)
[2023-11-09] MEDS: CALCIUM 600MG + VIT D 400 IU TAB PO SCH ×2 (08:11→20:06)
[2023-11-09] MEDS: FOLIC ACID 1 MG TAB PO SCH (08:11)
[2023-11-09] MEDS: MAGNESIUM OXIDE 400 MG TAB PO SCH (08:11)
[2023-11-09] MEDS: ATORVASTATIN 10 MG TAB PO SCH (08:11)
[2023-11-09] MEDS: DOCUSATE SODIUM/SENNA 50/8.6MG TAB PO SCH ×2 (08:12→20:29)
[2023-11-09] MEDS: CEFEPIME 2,000 MG in SYRINGE 0 ML IV SCH ×2 (08:16→16:23)
[2023-11-09] MEDS: CEROVITE ADV FORMULA TAB PO SCH (08:16)
[2023-11-09] MEDS: SUCRALFATE 1 GM/10 ML UDC PO SCH ×4 (08:16→20:10)
--- NOTE | 2023-11-09 08:21 | Hospitalist Progress Note ---
Date of Service November 09, 2023 Assessment & Plan (1) Fracture of thoracic spine: Plan: 83-year-old gentleman with PMH of chronic systolic heart failure [EF 25 to 30%, 2020 TTE], CAD, 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 Julian Marshall], GERD, T2DM, hypothyroidism, chronic hyponatremia, chronic anemia [baseline hemoglobin around 13], dementia, traumatic subdural hematoma, past tobacco abuse presented to the hospital 11/01 with complaint of worsening mid back pain that has been ongoing since last month without radicular signs of symptoms/fever/chills/weakness/bowel or bladder incontinence. [facility] oncology started patient on oxycodone and reported patient to [facility] radiation therapy. CT simulation for treatment planning was contemplated. Also patient underwent outpatient EGD for Raygoza's esophagus and colonoscopy for possible colonic mass on outpatient PET/CT at [facility] 5 days ago [employer]. EGD showed Raygoza's esophagus/incomplete resection done/esophageal biopsy yielded tumor cells - invasive adenocarcinoma. Colonoscopy showed moderate sigmoid and descending colon diverticulosis/internal hemorrhoids/splenic flexure polyp resected -negat. for malignancy He is being managed for the following: Pathologic fracture x thoracic spine Metastatic disease from prostate cancer Opioid-induced constipation Patient coming in with worsening midthoracic pain for about a month, worse lately. Recently started on opiates as an outpatient for pain management, patient with no bowel movements for several days prior to arrival. Admitting CTAP with no acute findings in abdomen and pelvis. Admitting lumbar spine CT with multifocal osteoblastic metastatic disease. Superior endplate compression deformity of L1, unchanged. Admitting thoracic spine CT with pathologic fracture of T7. Invasion of the right T6-T7 neuroforamen with erosion of the right posterior sixth and seventh ribs. Left-pedicular fracture at T7 and spinous fracture of T7. Right pedicle of T7 is eroded. c/w pain medications, as needed oxycodone and as needed morphine. Lidocaine patch. Scheduled percocet. As needed Ativan for anxiety. Pain management consulted - adding gabapentin 300 mg TID to address neuropathic pain component. Radiation oncology consulted - and pt started radiation treatment Ortho-spine surgery consulted for abnormal T-spine CT - per Dr. Smith - Assessment T7 pathologic compression fracture. Explained the patient that he has a significant fracture in the thoracic spine that could result in neurologic compromise if it were to progress. Pt emphasized that he does not want to consider any surgical intervention. He knows this despite impending neurologic issues. If he were to pursue surgery however he would be a candidate for tertiary care center. Scheduled bowel regimen, sennakot, MiraLAX, lactulose. gave additional dose of Relistor on (11/03). Ordered suppository (11/04). Increased miralax frequency. - Pt had a BM overnight. Cont. bowel regimen and monitor. PT/OT. 11/04 Feeling better today. at time of exam pt without any significant pain. 11/05 Pain seems better controlled. Plan for radiation therapy today. Worked w/ PT, is wearing brace. 11/06 Unfortunately today pt is more painful, uncomfortable 11/07 Pt uncomfortable, abd. pain - per gets on and off, abdomen is distended - obtained KUB - No evidence for a bowel obstruction. 11/08 Pt more comfortable, pain controlled. However had a chocking episode - will place npo, and speech eval. start gentle IVF 11/09 Pt comfortable, pain controlled. Drowsy. Patient to follow-up with his oncologist upon discharge. Fever, poss. pna Spiked fever overnight 11/05 blood cultx and UA obtained by corporate safety coordinator UA - negative blood cultx - posit. for staph - coag negat. staph - most likely contaminant. repeat cultx negat. for 48 hrs obtained CXR, and chest CT to further eval poss. infection CXR 1. Interval development of the mild pulmonary edema, small bilateral pleural effusions, and bibasilar densities. 2. Curvilinear lucency at the aortic knob and superior mediastinal widening will be better appreciated on the same day chest CT. Chest CT 1. Patchy and linear bibasilar densities most pronounced on the right. This may represent subsegmental atelectasis or a pneumonia. 2. Small bilateral pleural effusions. 3. A few subcentimeter nodules within the right lung measuring up to 5 mm. Follow-up recommended to ensure stability. 4. Stable cardiomegaly. 5. Redemonstration of the destructive mass centered at the T7 vertebral body with associated pathologic fractures of T7 as described above. This demonstrates epidural extension with moderate to severe central canal narrowing at this level. This is similar to the prior thoracic spine CT. 6. Osseous metastatic disease again noted. Started empiric abx (pt has allergy listed to pcn, started cefepime and vanco), cont. for now and await cultx. Pt had a chocking episode on 11/08 - likely aspirating. Add flagyl. ok to dc vanco as blood cultx + likely contaminant Transient hypotension: Noted in ED likely secondary to narcotic pain meds use. Blood pressure medications on hold, gradually resume them. Other chronic medical conditions: Continue with/resume home meds as and when able. chronic systolic heart failure (EF 25 to 30%, TTE 2020), patient on the dry side valvular heart disease (mild AR/MR/TR) CAD as per records A-fib/PE DVT, Eliquis on hold for 1 week following recent endoscopic procedure. Patient to resume Rx on 11/04/23 if without bleeding concerns as per . Eliquis resumed. colon cancer status post surgery, new colonic mass noted on imaging, recent post colonic biopsy - negative for dysplasia or malignancy - pt's updated by Dr. Rodriguez and me Possible new esophageal cancer on recent EGD, history GERD/Raygoza's esophagus. Pt to f/u w/ his oncology on DC. Biopsy esophagus - invasive adenocarcinoma - pt's updated by Dr. Rodriguez and me DM 2 insulin requiring, suboptimal control as of recent hemoglobin A1c of 7.22 May 2023 hypothyroidism, euthyroid as of this admission's TSH chronic hyponatremia likely secondary to malignancy chronic anemia, hemoglobin at baseline dementia, mentation at baseline as per however with pain meds on and off confused history traumatic subdural hematoma past tobacco abuse DVT prophylaxis. SCDs Re: Recent endoscopic procedure. Resumed Eliquis DNR PT/OT, CM to assist w/ DC plan. Patient Ms.Dottie Chavez, contact #[phone]. Admission and Anticipated Discharge Date Admission Date: November 01, 2023 Subjective Patient seen in follow up of back pain/ metast. prostate ca Patient is currently laying in bed, appears comfortable, pain is better controlled. Pt's is present at the bedside and updated. Denies abd. pain today. No chest pain or shortness of breath. Discussed w/ speech therapy today. Plan for radiation therapy tmrw. Review of Systems Review of Systems: All systems reviewed & are unremarkable except as noted in Subjective Physical Exam Physical Exam: GENERAL: WD/WN M in NAD on 2 L oxygen via nasal cannula HEENT: NC/AT. Oral mucosa moist. NECK: No JVD, no neck masses. HEART: S1 and S2 heard. irregular rate and rhythm. + murmur, no gallop. RESPIRATORY: Normal AP diameter. No accessory muscle use. No wheezing, no crackles. Diminished breath sounds bilateral. ABDOMEN: Soft, bowel sounds present, nontender, no distention. NEURO: Awake , currently able to answer simple questions appropriately,on and off tends to get confused or drowsy ([place]. after getting pain meds). No facial droop. Speech is clear. Obeys simple commands. Moves extremities. EXTREMITIES: 1+ BLE edema, no erythema seen. SKIN : warm, dry Results & Data Results & Data Vital Signs (Past 12 Hours) Vital Signs Temp Pulse Pulse Resp BP Pulse Ox Pulse Ox 11/09/23 07:57 37.0 C 98 H 16 131/86 93 11/09/23 07:08 11/09/23 06:00 106 H 11/09/23 05:00 95 11/09/23 03:30 36.9 C 93 H 20 129/88 94 11/09/23 02:47 100 H 11/08/23 23:55 11/08/23 22:00 36.6 C 69 20 121/77 94 O2 Del Method O2 Del Method O2 Flow Rate O2 Flow Rate 11/09/23 07:57 Nasal Cannula 3 11/09/23 07:08 Nasal Cannula 3 11/09/23 06:00 11/09/23 05:00 Nasal Cannula 3 11/09/23 03:30 Nasal Cannula 2 11/09/23 02:47 11/08/23 23:55 Nasal Cannula 2 11/08/23 22:00 Nasal Cannula 3 Laboratory Results 11/09/23 11/08/23 11/08/23 Range/Units 04:38 20:39 16:54 WBC 7.26 (4.8-10.8) K/ul RBC 4.06 L (4.70-6.10) M/uL Hgb 11.6 L (14.0-18.0) g/dl Hct 34.7 L (42.0-52.0) % MCV 85.5 (80.0-100.0) fL MCH 28.6 (25.0-34.0) pg MCHC 33.4 (32.0-36.0) g/dL RDW Std Deviation 43.0 (36.4-46.3) fL RDW Coeff of Janny 13.6 (11.5-14.5) % Plt Count 187 (130-400) K/uL MPV 10.3 (9.4-12.4) fL Sodium 132 L (136-145) mmol/L Potassium 4.1 (3.5-5.1) mmol/L Chloride 101 (98-107) mmol/L Carbon Dioxide 24 (21-32) mmol/L Anion Gap 7 (3-11) BUN 26 H (6-23) mg/dl Creatinine 0.86 (0.6-1.4) mg/dl Est Cr Clr Drug Dosing 67.5 ml/min Est GFR ( Amer) 92.3 ml/min Est GFR (Non-Af Amer) 79.6 ml/min BUN/Creatinine Ratio 30.2 H (10-20) Glucose 150 H (70-99(Fasting)) mg/dl POC Glucose 139 H 186 H (70-99) mg/dl Calcium 8.9 (8.6-10.3) mg/dl Phosphorus 2.1 L (2.5-4.9) mg/dl Magnesium 1.9 (1.7-2.4) mg/dl Random Vancomycin 19.5 (10-20) mcg/ml 11/08/23 11/08/23 Range/Units 12:04 07:45 WBC 9.05 (4.8-10.8) K/ul RBC 4.02 L (4.70-6.10) M/uL Hgb 11.4 L (14.0-18.0) g/dl Hct 33.9 L (42.0-52.0) % MCV 84.3 (80.0-100.0) fL MCH 28.4 (25.0-34.0) pg MCHC 33.6 (32.0-36.0) g/dL RDW Std Deviation 42.8 (36.4-46.3) fL RDW Coeff of Janny 13.8 (11.5-14.5) % Plt Count 148 (130-400) K/uL MPV 10.1 (9.4-12.4) fL Sodium 131 L (136-145) mmol/L Potassium 4.2 (3.5-5.1) mmol/L Chloride 98 (98-107) mmol/L Carbon Dioxide 25 (21-32) mmol/L Anion Gap 8 (3-11) BUN 23 (6-23) mg/dl Creatinine 0.79 (0.6-1.4) mg/dl Est Cr Clr Drug Dosing 73.5 ml/min Est GFR ( Amer) 95.6 ml/min Est GFR (Non-Af Amer) 82.5 ml/min BUN/Creatinine Ratio 29.1 H (10-20) Glucose 168 H (70-99(Fasting)) mg/dl POC Glucose 167 H (70-99) mg/dl Calcium 8.9 (8.6-10.3) mg/dl Phosphorus 2.6 (2.5-4.9) mg/dl Magnesium 2.0 (1.7-2.4) mg/dl Random Vancomycin (10-20) mcg/ml Medications Administered Current Inpatient Medications Acetaminophen (Acetaminophen 325 Mg Tab) 650 mg PO QID PRN PRN Reason: pain/fever Stop: 12/01/23 20:18 Last Admin: 11/08/23 07:49 Dose: 650 mg Apixaban (Apixaban 5 Mg Tablet) 5 mg PO BID PB Stop: 12/05/23 08:59 Last Admin: 11/09/23 08:04 Dose: 5 mg Atorvastatin Calcium (Atorvastatin 10 Mg Tab) 10 mg PO DAILY PB Stop: 12/02/23 08:59 Last Admin: 11/09/23 08:11 Dose: 10 mg Calcium/Vitamin D (Calcium 600mg + Vit D 400 Iu Tab) 1 tab PO BID PB Stop: 12/02/23 08:59 Last Admin: 11/09/23 08:11 Dose: 1 tab Dextrose (Dextrose 50% 50 Ml Syringe) 25 - 50 ml IV UD PRN; Protocol PRN Reason: Hypoglycemia Protocol Stop: 12/01/23 22:55 Folic Acid (Folic Acid 1 Mg Tab) 1 mg PO QAM PB Stop: 12/02/23 08:59 Last Admin: 11/09/23 08:11 Dose: 1 mg Furosemide (Furosemide 20 Mg Tab) 20 mg PO [id number]@[id number] [facility] Stop: 12/04/23 08:59 Last Admin: 11/06/23 10:25 Dose: 20 mg Gabapentin (Gabapentin 300 Mg Cap) 300 mg PO TID [facility] Stop: 12/03/23 13:59 Last Admin: 11/09/23 08:04 Dose: 300 mg Glucagon (Glucagon For Inj 1 Mg Vial) 1 mg SQ UD PRN; Protocol PRN Reason: Hypoglycemia Protocol Stop: 12/01/23 22:55 Glucose (Glucose 10 Tab/Tube) 4 - 8 tab PO UD PRN; Protocol PRN Reason: Hypoglycemia Treatment Stop: 12/01/23 22:55 Glucose (Glucose 40% Gel 15 Gm Tube) 15 - 30 gm PO UD PRN; Protocol PRN Reason: Hypoglycemia Protocol Stop: 12/01/23 22:55 Last Admin: 11/02/23 17:24 Dose: 15 gm Guaifenesin (Guaifenesin 600 Mg Tabcr) 600 mg PO Q12 [facility] Stop: 12/06/23 08:59 Last Admin: 11/09/23 08:09 Dose: 600 mg Promethazine HCl 6.25 mg/ (Sodium Chloride) 50.25 mls @ 201 mls/hr IV Q6H PRN PRN Reason: Nausea And Vomiting Stop: 12/01/23 20:18 Cefepime HCl 2,000 mg/ Syringe 20 mls @ 5 mls/min IV Q8H [facility]; Protocol Stop: 11/10/23 16:59 Last Admin: 11/09/23 08:16 Dose: 5 mls/min Vancomycin HCl 1,500 mg/ (Sodium Chloride) 530 mls @ 200 mls/hr IV Q18H [facility] Stop: 11/10/23 05:59 Last Infusion: 11/09/23 03:21 Dose: Infused Sodium Chloride (Nss) 1,000 mls @ 80 mls/hr IV .[id number] [facility] Stop: 12/08/23 13:59 Last Admin: 11/09/23 02:31 Dose: 80 mls/hr Metronidazole (Flagyl) 500 mg in 100 mls @ 100 mls/hr IV Q8H [facility]; Protocol Stop: 11/15/23 14:29 Last Infusion: 11/09/23 06:44 Dose: Infused Insulin Aspart (Insulin Aspart Per Unit Charge) 0 units SC ACHS [facility] Stop: 12/01/23 22:55 Last Admin: 11/08/23 21:40 Dose: Not Given Insulin Glargine (Lantus Per Unit Charge) 5 units SQ DAILY PB Stop: 12/02/23 08:59 Last Admin: 11/08/23 08:51 Dose: 5 units Lactulose (Lactulose Syrup 30 Gm/45 Ml Udp) 30 gm PO DAILY PB Stop: 12/03/23 08:59 Last Admin: 11/05/23 08:16 Dose: 30 gm Latanoprost (Latanoprost 0.005% Op Soln 2.5 Ml Btl) 1 drops OPL HS [facility] Stop: 12/02/23 20:59 Last Admin: 11/08/23 21:59 Dose: 1 drops Levothyroxine Sodium (Levothyroxine Sodium 75 Mcg Tablet) 75 mcg PO DAILYBB [facility] Stop: 12/02/23 06:29 Last Admin: 11/09/23 05:46 Dose: 75 mcg Lidocaine (Lidocaine 5% 1 Patch) 1 patch TD HS [facility] Stop: 12/02/23 20:59 Last Admin: 11/08/23 21:45 Dose: 1 patch Lisinopril (Lisinopril 2.5 Mg Tab) 2.5 mg PO DAILY [facility] Stop: 12/04/23 08:59 Last Admin: 11/09/23 08:10 Dose: 2.5 mg Lorazepam (Lorazepam 0.5 Mg Tab) 0.5 mg PO Q12H PRN PRN Reason: Anxiety Stop: 12/02/23 14:10 Last Admin: 11/07/23 23:22 Dose: 0.5 mg Magnesium Oxide (Magnesium Oxide 400 Mg Tab) 400 mg PO QAM [facility] Stop: 12/05/23 10:59 Last Admin: 11/09/23 08:11 Dose: 400 mg Metoprolol Succinate (Metoprolol Succ 25mg Ext Rel Tab) 12.5 mg PO DAILY [facility] Stop: 12/02/23 08:59 Last Admin: 11/09/23 08:06 Dose: 12.5 mg Miscellaneous (Remove Lidoderm Patch) 1 each N/A QAM [facility] Stop: 12/02/23 08:59 Last Admin: 11/09/23 08:16 Dose: 1 each Miscellaneous (Carbohydrates For Hypoglycemia ) 15 - 30 gm PO UD PRN PRN Reason: Hypoglycemia Protocol Stop: 12/01/23 22:55 Last Admin: 11/02/23 17:02 Dose: 15 gm Miscellaneous Information (Vancomycin Consult Active) 1 each N/A UD PRN PRN Reason: Consult Stop: 12/06/23 08:13 Morphine Sulfate (Morphine Sulfate 2 Mg/Ml Carp) 2 mg IV Q3H PRN PRN Reason: Pain Stop: 11/15/23 22:11 Last Admin: 11/09/23 05:54 Dose: 2 mg Multivitamins/Minerals (Cerovite Adv Formula Tab) 1 tab PO DAILY PB Stop: 12/02/23 08:59 Last Admin: 11/09/23 08:16 Dose: Not Given Oxycodone HCl (Oxycodone Hcl Ir 5 Mg Tab (Immediate Release)) 5 - 10 mg PO QID PRN PRN Reason: Pain Stop: 11/15/23 20:18 Last Admin: 11/09/23 08:08 Dose: 10 mg Oxycodone/Acetaminophen (Oxycodone/Acetaminophen 5mg/325mg Tab) 1 tab PO Q8H PB Stop: 11/16/23 14:14 Last Admin: 11/09/23 05:33 Dose: 1 tab Pantoprazole Sodium (Pantoprazole 40 Mg Tab) 40 mg PO DAILY PB Stop: 12/02/23 08:59 Last Admin: 11/09/23 08:10 Dose: 40 mg Polyethylene Glycol (Polyethylene (Miralax) 17 Gm Pack) 17 gm PO QAM PB Stop: 12/05/23 08:59 Last Admin: 11/09/23 08:04 Dose: 17 gm Senna/Docusate Sodium (Docusate Sodium/Senna 50/8.6mg Tab) 1 tab PO BID PB Stop: 12/02/23 08:59 Last Admin: 11/09/23 08:12 Dose: 1 tab Sucralfate (Sucralfate 1 Gm/10 Ml Udc) 1 gm PO ACHS PB Stop: 12/02/23 07:29 Last Admin: 11/09/23 08:16 Dose: Not Given (1) Fracture of thoracic spine Encounter type: subsequent encounter Fracture healing: with delayed healing Fracture morphology: unspecified fracture morphology Fracture type: closed Thoracic vertebra fracture level: T7 Qualified Code(s): S22.069G - Unspecified fracture of T7-T8 vertebra, subsequent encounter for fracture with delayed healing
[2023-11-09] MEDS: INSULIN ASPART PER UNIT CHARGE SC SCH ×4 (08:43→20:32)
[2023-11-09] MEDS: LANTUS PER UNIT CHARGE SQ SCH (09:11)
--- NOTE | 2023-11-09 11:11 | Pharmacy Report ---
Pharmacy PK ABX Note - Date of Service November 09, 2023 - Assessment and Plan Assessment 11/09: Repeat bcx from 11/07 no growth to date. Vanc order set d/c 11/10 556, provider alerted. 11/08: Cultures now reporting staph species + staph species #2 in one set, staph species in anaerobic bottle of second set. Methicillin sensitive Staph epi on biofire. Vancomycin extended through 11/10 556, and cefepime 11/10 1659- will need re-evaluated for de-escalation/continuation. 11/06 83 year old M started on vancomycin/cefepime empirically. Patient with fevers overnight. PMHx significant for colon cancer s/p surgery, prostate cancer with bone mets, currently on lupron, T2dm, chronic anemia, dementia. Presenting to hospital with worsening mid back pain. No leukocytosis noted, repeat blood cultures pending, procalcitonin pending. CXR with small bilateral pleural effusion. Plan Vancomycin * Current regimen: 1500 mg IV every 18 hours * Random level obtained 11/09/23 resulted as 19.5 mcg/mL. This is predicted to achieve target AUC/FRANCOIS of 400-600 mg/L.hr * Predicted AUC at steady state: 12.3 mg/L.hr * Continue 1500 mg IV every 18 hours * Order to discontinue tomorrow morning. If therapy gets extended again, will repeat level in the next 48-72 hours and/or change in patient clinical status Pharmacy will continue to follow and will adjust dose/frequency as necessary. Thank you. Pharmacy has transitioned to AUC monitoring for vancomycin. AUC/FRANCOIS is the preferred PK/PD target and is associated with decreased risk of nephrotoxicity compared to traditional trough targets.
[2023-11-09] MEDS: VANCOMYCIN HCL 1,500 MG in SODIUM CHLORIDE 0.9% 500 ML IV SCH (16:26)
[2023-11-09] MEDS: LORazepam 0.5 MG TAB PO PRN (20:06)
[2023-11-09] MEDS: LATANOPROST 0.005% OP SOLN 2.5 ML BTL OPL SCH (20:09)
[2023-11-09] MEDS: LIDOCAINE 5% 1 PATCH TD SCH (20:10)
[2023-11-10] MEDS ORDERED: FUROSEMIDE INJ 20 MG/2 ML VIAL IV ONE (00:30)
[2023-11-10] MEDS: CEFEPIME 2,000 MG in SYRINGE 0 ML IV SCH ×3 (00:46→16:41)
[2023-11-10] MEDS: LEVOTHYROXINE SODIUM 75 MCG TABLET PO SCH (05:16)
[2023-11-10] MEDS: oxyCODONE/ACETAMINOPHEN 5mg/325mg TAB PO SCH ×3 (05:16→19:51)
[2023-11-10] MEDS: metroNIDAZOLE 500 MG/100 ML BAG IV SCH ×3 (05:19→23:39)
[2023-11-10] MEDS: MoRPHine SULFATE 2 MG/ML CARP IV PRN ×3 (06:14→12:47)
[2023-11-10 06:29] LABS: Hematocrit (blood only) 38.3 % (42.0-52.0); Mean Corpuscular Hemoglobin 28.8 pg (25.0-34.0); Mean Corpuscular Hgb Conc 33.9 g/dL (32.0-36.0); Mean Corpuscular Volume 84.9 fL (80.0-100.0); Mean Platelet Volume 10.2 fL (9.4-12.4); Platelet Count 235 K/uL (130-400); RDW Coefficient of Variation 13.9 % (11.5-14.5); RDW Standard Deviation 43.5 fL (36.4-46.3); Red Blood Count 4.51 M/uL (4.70-6.10); White Blood Count 8.38 K/ul (4.8-10.8)
[2023-11-10] MEDS: CALCIUM 600MG + VIT D 400 IU TAB PO SCH (06:49)
[2023-11-10] MEDS: SUCRALFATE 1 GM/10 ML UDC PO SCH ×4 (06:49→19:51)
[2023-11-10] MEDS: ATORVASTATIN 10 MG TAB PO SCH (06:49)
[2023-11-10] MEDS: APIXABAN 5 MG TABLET PO SCH (06:49)
[2023-11-10] MEDS: DOCUSATE SODIUM/SENNA 50/8.6MG TAB PO SCH ×2 (06:49→19:50)
[2023-11-10] MEDS: METOPROLOL SUCC 25MG EXT REL TAB PO SCH (06:50)
[2023-11-10] MEDS: CEROVITE ADV FORMULA TAB PO SCH (06:50)
[2023-11-10] MEDS: MAGNESIUM OXIDE 400 MG TAB PO SCH (06:50)
[2023-11-10] MEDS: lisinopril 2.5 MG TAB PO SCH (06:50)
[2023-11-10] MEDS: POLYETHYLENE (MIRALAX) 17 GM PACK PO SCH (06:50)
[2023-11-10] MEDS: PANTOprazole 40 MG TAB PO SCH (06:50)
[2023-11-10] MEDS: FOLIC ACID 1 MG TAB PO SCH (06:50)
[2023-11-10] MEDS: guaiFENesin 600 MG TABCR PO SCH ×2 (06:50→19:50)
[2023-11-10] MEDS: GABAPENTIN 300 MG CAP PO SCH ×3 (06:50→19:50)
[2023-11-10 06:53] LABS: BUN Creatinine Ratio 26.6 (10-20); Calcium 9.8 mg/dl (8.6-10.3); Creatinine Clr Calc Pharmacy 62.6 ml/min; Est GFR (African American) 85.9 ml/min; Est GFR (Non-African American) 74.2 ml/min; Phosphorus 2.3 mg/dl (2.5-4.9); Potassium 4.2 mmol/L (3.5-5.1)
--- NOTE | 2023-11-10 07:13 | XRay Report ---
XR chest 1V portable CLINICAL HISTORY: Hypoxia. COMPARISON STUDY: Chest radiograph and chest CT November 06, 2023. FINDINGS: There is no pneumothorax. Small bilateral pleural effusions are similar to prior exam. Mult iple old right-sided rib fractures are incidentally noted. The mass within the T7 vertebra is better depicted on prior chest CT. Cardiomegaly is unchanged. Low lung volumes are again noted. Mild interst itial thickening and patchy bilateral airspace opacities are again noted. Interstitial thickening has slightly improved. IMPRESSION: 1. Slight improvement in pulmonary edema. Small bilateral pleural effusions. 2. No change in patchy bilateral airspace opacities which favor atelectasis. An infectious process co uld appear similar but is considered less likely. ACT 112: Negative or not required by law. Electronically signed by: Dwayne Levine M.D. 11/10/2023 7:11 AM
--- NOTE | 2023-11-10 07:46 | Hospitalist Progress Note ---
Date of Service November 10, 2023 Assessment & Plan (1) Fracture of thoracic spine: Plan: 83-year-old gentleman with PMH of chronic systolic heart failure [EF 25 to 30%, 2020 TTE], CAD, 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 Julian Marshall], GERD, T2DM, hypothyroidism, chronic hyponatremia, chronic anemia [baseline hemoglobin around 13], dementia, traumatic subdural hematoma, past tobacco abuse presented to the hospital 11/01 with complaint of worsening mid back pain that has been ongoing since last month without radicular signs of symptoms/fever/chills/weakness/bowel or bladder incontinence. [facility] oncology started patient on oxycodone and reported patient to [facility] radiation therapy. CT simulation for treatment planning was contemplated. Also patient underwent outpatient EGD for Raygoza's esophagus and colonoscopy for possible colonic mass on outpatient PET/CT at [facility] 5 days ago [employer]. EGD showed Raygoza's esophagus/incomplete resection done/esophageal biopsy yielded tumor cells - invasive adenocarcinoma. Colonoscopy showed moderate sigmoid and descending colon diverticulosis/internal hemorrhoids/splenic flexure polyp resected -negat. for malignancy He is being managed for the following: Pathologic fracture x thoracic spine Metastatic disease from prostate cancer Opioid-induced constipation Patient coming in with worsening midthoracic pain for about a month, worse lately. Recently started on opiates as an outpatient for pain management, patient with no bowel movements for several days prior to arrival. Admitting CTAP with no acute findings in abdomen and pelvis. Admitting lumbar spine CT with multifocal osteoblastic metastatic disease. Superior endplate compression deformity of L1, unchanged. Admitting thoracic spine CT with pathologic fracture of T7. Invasion of the right T6-T7 neuroforamen with erosion of the right posterior sixth and seventh ribs. Left-pedicular fracture at T7 and spinous fracture of T7. Right pedicle of T7 is eroded. c/w pain medications, as needed oxycodone and as needed morphine. Lidocaine patch. Scheduled percocet. As needed Ativan for anxiety. Pain management consulted - adding gabapentin 300 mg TID to address neuropathic pain component. Radiation oncology consulted - and pt started radiation treatment Ortho-spine surgery consulted for abnormal T-spine CT - per Dr. Smith - Assessment T7 pathologic compression fracture. Explained the patient that he has a significant fracture in the thoracic spine that could result in neurologic compromise if it were to progress. Pt emphasized that he does not want to consider any surgical intervention. He knows this despite impending neurologic issues. If he were to pursue surgery however he would be a candidate for tertiary care center. Scheduled bowel regimen, sennakot, MiraLAX, lactulose. gave additional dose of Relistor on (11/03). Ordered suppository (11/04). Increased miralax frequency. - > Pt had a BM overnight. Cont. bowel regimen and monitor. PT/OT. 11/04 Feeling better today. at time of exam pt without any significant pain. 11/05 Pain seems better controlled. Plan for radiation therapy today. Worked w/ PT, is wearing brace. 11/06 Unfortunately today pt is more painful, uncomfortable 11/07 Pt uncomfortable, abd. pain - per gets on and off, abdomen is distended - obtained KUB - No evidence for a bowel obstruction. 11/08 Pt more comfortable, pain controlled. However had a chocking episode - will place npo, and speech eval. start gentle IVF 11/09 Pt comfortable, pain controlled. Drowsy. 11/10 can't tolerate PO meds, aspirating last evening. Somewhat restless but pain seems fairly controlled. Plan for RT today. palliative medicine consulted. Patient to follow-up with his oncologist upon discharge. Fever, poss. pna Spiked fever overnight 11/05 blood cultx and UA obtained by auditing coder UA - negative blood cultx - posit. for staph - coag negat. staph - most likely contaminant. repeat cultx negat. for 48 hrs obtained CXR, and chest CT to further eval poss. infection CXR 1. Interval development of the mild pulmonary edema, small bilateral pleural effusions, and bibasilar densities. 2. Curvilinear lucency at the aortic knob and superior mediastinal widening will be better appreciated on the same day chest CT. Chest CT 1. Patchy and linear bibasilar densities most pronounced on the right. This may represent subsegmental atelectasis or a pneumonia. 2. Small bilateral pleural effusions. 3. A few subcentimeter nodules within the right lung measuring up to 5 mm. Foll ow-up recommended to ensure stability. 4. Stable cardiomegaly. 5. Redemonstration of the destructive mass centered at the T7 vertebral body with associated pathologic fractures of T7 as described above. This demonstrates epidural extension with moderate to severe central canal narrowing at this level. This is similar to the prior thoracic spine CT. 6. Osseous metastatic disease again noted. Started empiric abx (pt has allergy listed to pcn, started cefepime and vanco), cont. for now and await cultx. Pt had a chocking episode on 11/08 - likely aspirating. Added flagyl. stopped vanco as blood cultx + likely contaminant Transient hypotension: Noted in ED likely secondary to narcotic pain meds use. Blood pressure medications on hold, gradually resume them. Other chronic medical conditions: Continue with/resume home meds as and when able. chronic systolic heart failure (EF 25 to 30%, TTE 2020), patient on the dry side valvular heart disease (mild AR/MR/TR) CAD as per records A-fib/PE DVT, Eliquis on hold for 1 week following recent endoscopic procedure. Patient to resume Rx on 11/04/23 if without bleeding concerns as per . Eliquis resumed. colon cancer status post surgery, new colonic mass noted on imaging, recent post colonic biopsy - negative for dysplasia or malignancy - pt's updated by Dr. Rodriguez and by me Possible new esophageal cancer on recent EGD, history GERD/Raygoza's esophagus. Pt to f/u w/ his oncology on DC. Biopsy esophagus - invasive adenoc arcinoma - pt's updated by Dr. Rodriguez and by me DM 2 insulin requiring, suboptimal control as of recent hemoglobin A1c of 7.22 May 2023 hypothyroidism, euthyroid as of this admission's TSH chronic hyponatremia likely secondary to malignancy chronic anemia, hemoglobin at baseline dementia, mentation at baseline as per however with pain meds on and off confused history traumatic subdural hematoma past tobacco abuse DVT prophylaxis. SCDs Re: Recent endoscopic procedure. Resumed Eliquis- can't take Po -> switched to lovenox therap. dose DNR PT/OT, CM to assist w/ DC plan. Patient Ms.Dottie Chavez, contact #[phone]. Admission and Anticipated Discharge Date Admission Date: November 01, 2023 Subjective Patient seen in follow up of back pain/ metast. prostate ca Patient is currently laying in bed, appears fairly comfortable, pain is better controlled. However per RN often gets restless. Denies abd. pain today. Says back pain is controlled but he also says he is hurting from "head to toes" No chest pain or shortness of breath. Last night not able to take pills, aspirating. Plan for radiation therapy today. Palliative medicine also consulted. Review of Systems Review of Systems: All systems reviewed & are unremarkable except as noted in Subjective Physical Exam Physical Exam: GENERAL: WD/WN M in NAD on 4 L oxygen via nasal cannula HEENT: NC/AT. Oral mucosa moist. NECK: No JVD, no neck masses. HEART: S1 and S2 heard. irregular rate and rhythm. + murmur, no gallop. RESPIRATORY: Normal AP diameter. No accessory muscle use. No wheezing, no crackles. Diminished breath sounds bilateral. ABDOMEN: Soft, bowel sounds present, nontender, no distention. NEURO: Awake , currently able to answer simple questions appropriately,on and off tends to get confused or drowsy ([place]. after getting pain meds). No facial droop. Speech is clear. Obeys simple commands. Moves extremities. EXTREMITIES: 1+ BLE edema, no erythema seen. SKIN : warm, dry Results & Data Results & Data Vital Signs (Past 12 Hours) Vital Signs Temp Pulse Pulse Resp BP Pulse Ox Pulse Ox 11/10/23 06:06 103 H 11/10/23 05:00 94 11/10/23 03:53 36.9 C 96 H 22 141/83 H 94 11/10/23 01:15 96 H 11/09/23 22:47 36.8 C 99 H 24 138/82 96 11/09/23 22:06 O2 Del Method O2 Del Method O2 Flow Rate O2 Flow Rate 11/10/23 06:06 11/10/23 05:00 Nasal Cannula 4 11/10/23 03:53 Nasal Cannula 5 11/10/23 01:15 11/09/23 22:47 Nasal Cannula 4 11/09/23 22:06 Nasal Cannula 4 Laboratory Results 11/10/23 11/09/23 11/09/23 Range/Units 05:40 20:20 17:05 WBC 8.38 (4.8-10.8) K/ul RBC 4.51 L (4.70-6.10) M/uL Hgb 13.0 L (14.0-18.0) g/dl Hct 38.3 L (42.0-52.0) % MCV 84.9 (80.0-100.0) fL MCH 28.8 (25.0-34.0) pg MCHC 33.9 (32.0-36.0) g/dL RDW Std Deviation 43.5 (36.4-46.3) fL RDW Coeff of Janny 13.9 (11.5-14.5) % Plt Count 235 (130-400) K/uL MPV 10.2 (9.4-12.4) fL Sodium 135 L (136-145) mmol/L Potassium 4.2 (3.5-5.1) mmol/L Chloride 100 (98-107) mmol/L Carbon Dioxide 24 (21-32) mmol/L Anion Gap 11 (3-11) BUN 25 H (6-23) mg/dl Creatinine 0.94 (0.6-1.4) mg/dl Est Cr Clr Drug Dosing 62.6 ml/min Est GFR ( Amer) 85.9 ml/min Est GFR (Non-Af Amer) 74.2 ml/min BUN/Creatinine Ratio 26.6 H (10-20) Glucose 176 H (70-99(Fasting)) mg/dl POC Glucose 159 H 164 H (70-99) mg/dl Calcium 9.8 (8.6-10.3) mg/dl Phosphorus 2.3 L (2.5-4.9) mg/dl Magnesium 2.0 (1.7-2.4) mg/dl 11/09/23 11/09/23 Range/Units 12:14 08:32 WBC (4.8-10.8) K/ul RBC (4.70-6.10) M/uL Hgb (14.0-18.0) g/dl Hct (42.0-52.0) % MCV (80.0-100.0) fL MCH (25.0-34.0) pg MCHC (32.0-36.0) g/dL RDW Std Deviation (36.4-46.3) fL RDW Coeff of Janny (11.5-14.5) % Plt Count (130-400) K/uL MPV (9.4-12.4) fL Sodium (136-145) mmol/L Potassium (3.5-5.1) mmol/L Chloride (98-107) mmol/L Carbon Dioxide (21-32) mmol/L Anion Gap (3-11) BUN (6-23) mg/dl Creatinine (0.6-1.4) mg/dl Est Cr Clr Drug Dosing ml/min Est GFR ( Amer) ml/min Est GFR (Non-Af Amer) ml/min BUN/Creatinine Ratio (10-20) Glucose (70-99(Fasting)) mg/dl POC Glucose 158 H 194 H (70-99) mg/dl Calcium (8.6-10.3) mg/dl Phosphorus (2.5-4.9) mg/dl Magnesium (1.7-2.4) mg/dl Medications Administered Current Inpatient Medications Acetaminophen (Acetaminophen 325 Mg Tab) 650 mg PO QID PRN PRN Reason: pain/fever Stop: 12/01/23 20:18 Last Admin: 11/08/23 07:49 Dose: 650 mg Apixaban (Apixaban 5 Mg Tablet) 5 mg PO BID PB Stop: 12/05/23 08:59 Last Admin: 11/10/23 06:49 Dose: Not Given Atorvastatin Calcium (Atorvastatin 10 Mg Tab) 10 mg PO DAILY [facility] Stop: 12/02/23 08:59 Last Admin: 11/10/23 06:49 Dose: Not Given Calcium/Vitamin D (Calcium 600mg + Vit D 400 Iu Tab) 1 tab PO BID PB Stop: 12/02/23 08:59 Last Admin: 11/10/23 06:49 Dose: Not Given Dextrose (Dextrose 50% 50 Ml Syringe) 25 - 50 ml IV UD PRN; Protocol PRN Reason: Hypoglycemia Protocol Stop: 12/01/23 22:55 Folic Acid (Folic Acid 1 Mg Tab) 1 mg PO QAM [facility] Stop: 12/02/23 08:59 Last Admin: 11/10/23 06:50 Dose: Not Given Furosemide (Furosemide 20 Mg Tab) 20 mg PO MoWeFr@0900 PB Stop: 12/04/23 08:59 Last Admin: 11/06/23 10:25 Dose: 20 mg Gabapentin (Gabapentin 300 Mg Cap) 300 mg PO TID [facility] Stop: 12/03/23 13:59 Last Admin: 11/10/23 06:50 Dose: Not Given Glucagon (Glucagon For Inj 1 Mg Vial) 1 mg SQ UD PRN; Protocol PRN Reason: Hypoglycemia Protocol Stop: 12/01/23 22:55 Glucose (Glucose 10 Tab/Tube) 4 - 8 tab PO UD PRN; Protocol PRN Reason: Hypoglycemia Treatment Stop: 12/01/23 22:55 Glucose (Glucose 40% Gel 15 Gm Tube) 15 - 30 gm PO UD PRN; Protocol PRN Reason: Hypoglycemia Protocol Stop: 12/01/23 22:55 Last Admin: 11/02/23 17:24 Dose: 15 gm Guaifenesin (Guaifenesin 600 Mg Tabcr) 600 mg PO Q12 PB Stop: 12/06/23 08:59 Last Admin: 11/10/23 06:50 Dose: Not Given Promethazine HCl 6.25 mg/ (Sodium Chloride) 50.25 mls @ 201 mls/hr IV Q6H PRN PRN Reason: Nausea And Vomiting Stop: 12/01/23 20:18 Cefepime HCl 2,000 mg/ Syringe 20 mls @ 5 mls/min IV Q8H [facility]; Protocol Stop: 11/15/23 16:59 Last Admin: 11/10/23 00:46 Dose: 5 mls/min Sodium Chloride (Nss) 1,000 mls @ 80 mls/hr IV .[id number] [facility] Stop: 12/08/23 13:59 Last Infusion: 11/10/23 00:44 Dose: Infused Metronidazole (Flagyl) 500 mg in 100 mls @ 100 mls/hr IV Q8H [facility]; Protocol Stop: 11/15/23 14:29 Last Infusion: 11/10/23 06:29 Dose: Infused Insulin Aspart (Insulin Aspart Per Unit Charge) 0 units SC ACHS [facility] Stop: 12/01/23 22:55 Last Admin: 11/09/23 20:32 Dose: 1 units Insulin Glargine (Lantus Per Unit Charge) 5 units SQ DAILY [facility] Stop: 12/02/23 08:59 Last Admin: 11/09/23 09:11 Dose: 5 units Lactulose (Lactulose Syrup 30 Gm/45 Ml Udp) 30 gm PO DAILY [facility] Stop: 12/03/23 08:59 Last Admin: 11/05/23 08:16 Dose: 30 gm Latanoprost (Latanoprost 0.005% Op Soln 2.5 Ml Btl) 1 drops OPL HS [facility] Stop: 12/02/23 20:59 Last Admin: 11/09/23 20:09 Dose: 1 drops Levothyroxine Sodium (Levothyroxine Sodium 75 Mcg Tablet) 75 mcg PO DAILYBB PB Stop: 12/02/23 06:29 Last Admin: 11/10/23 05:16 Dose: Not Given Lidocaine (Lidocaine 5% 1 Patch) 1 patch TD HS PB Stop: 12/02/23 20:59 Last Admin: 11/09/23 20:10 Dose: 1 patch Lisinopril (Lisinopril 2.5 Mg Tab) 2.5 mg PO DAILY PB Stop: 12/04/23 08:59 Last Admin: 11/10/23 06:50 Dose: Not Given Lorazepam (Lorazepam 0.5 Mg Tab) 0.5 mg PO Q12H PRN PRN Reason: Anxiety Stop: 12/02/23 14:10 Last Admin: 11/09/23 20:06 Dose: 0.5 mg Magnesium Oxide (Magnesium Oxide 400 Mg Tab) 400 mg PO QAM [facility] Stop: 12/05/23 10:59 Last Admin: 11/10/23 06:50 Dose: Not Given Metoprolol Succinate (Metoprolol Succ 25mg Ext Rel Tab) 12.5 mg PO DAILY PB Stop: 12/02/23 08:59 Last Admin: 11/10/23 06:50 Dose: Not Given Miscellaneous (Remove Lidoderm Patch) 1 each N/A QAM [facility] Stop: 12/02/23 08:59 Last Admin: 11/09/23 08:16 Dose: 1 each Miscellaneous (Carbohydrates For Hypoglycemia ) 15 - 30 gm PO UD PRN PRN Reason: Hypoglycemia Protocol Stop: 12/01/23 22:55 Last Admin: 11/02/23 17:02 Dose: 15 gm Morphine Sulfate (Morphine Sulfate 2 Mg/Ml Carp) 2 mg IV Q3H PRN PRN Reason: Pain Stop: 11/15/23 22:11 Last Admin: 11/10/23 06:14 Dose: 2 mg Multivitamins/Minerals (Cerovite Adv Formula Tab) 1 tab PO DAILY [facility] Stop: 12/02/23 08:59 Last Admin: 11/10/23 06:50 Dose: Not Given Oxycodone HCl (Oxycodone Hcl Ir 5 Mg Tab (Immediate Release)) 5 - 10 mg PO QID PRN PRN Reason: Pain Stop: 11/15/23 20:18 Last Admin: 11/09/23 20:05 Dose: 10 mg Oxycodone/Acetaminophen (Oxycodone/Acetaminophen 5mg/325mg Tab) 1 tab PO Q8H PB Stop: 11/16/23 14:14 Last Admin: 11/10/23 05:16 Dose: Not Given Pantoprazole Sodium (Pantoprazole 40 Mg Tab) 40 mg PO DAILY PB Stop: 12/02/23 08:59 Last Admin: 11/10/23 06:50 Dose: Not Given Polyethylene Glycol (Polyethylene (Miralax) 17 Gm Pack) 17 gm PO QAM PB Stop: 12/05/23 08:59 Last Admin: 11/10/23 06:50 Dose: Not Given Senna/Docusate Sodium (Docusate Sodium/Senna 50/8.6mg Tab) 1 tab PO BID PB Stop: 12/02/23 08:59 Last Admin: 11/10/23 06:49 Dose: Not Given Sucralfate (Sucralfate 1 Gm/10 Ml Udc) 1 gm PO ACHS PB Stop: 12/02/23 07:29 Last Admin: 11/10/23 06:49 Dose: Not Given (1) Fracture of thoracic spine Encounter type: subsequent encounter Fracture healing: with delayed healing Fracture morphology: unspecified fracture morphology Fracture type: closed Thoracic vertebra fracture level: T7 Qualified Code(s): S22.069G - Unspecified fracture of T7-T8 vertebra, subsequent encounter for fracture with delayed heal ing
[2023-11-10] MEDS: INSULIN ASPART PER UNIT CHARGE SC SCH ×4 (08:36→20:50)
[2023-11-10] MEDS: LANTUS PER UNIT CHARGE SQ SCH (08:36)
[2023-11-10] MEDS ORDERED: METOPROLOL TARTRATE 1 MG/ML VIAL IV STA ×2 (11:29→18:06)
[2023-11-10] MEDS: ACETAMINOPHEN 1,000 MG/100 ML VIAL IV SCH ×2 (13:16→20:48)
[2023-11-10] MEDS: MoRPHine SULFATE 4 MG/ML 1 ML CARP\\VIAL IV PRN ×4 (14:18→23:45)
[2023-11-10] MEDS: PANTOprazole 40 MG in SYRINGE 0 ML IV SCH (18:43)
[2023-11-10] MEDS: ENOXAPARIN 100 MG/1ML SYR SQ SCH (20:50)
[2023-11-10] MEDS: LIDOCAINE 5% 1 PATCH TD SCH (20:59)
[2023-11-10] MEDS: LORazepam 0.25 MG in SYRINGE 0.125 ML IV PRN (21:15)
[2023-11-10] MEDS: LATANOPROST 0.005% OP SOLN 2.5 ML BTL OPL SCH (23:39)
--- NOTE | 2023-11-11 01:44 | Palliative Care Consultation ---
Date of Consultation November 11, 2023 Assessment & Plan (1) Agitation due to dementia: begin trial of low dose zyprexa 2.5mg PO BID via ODT and may use Zyprexa 5mg IM consumer experience consultant to RT or for periods of severe agitation Orders written (2) Cancer related pain: Stop polyopioid, this can add to agitation/delirium in the elderly I have stopped oral oxycodone I have left existing MS 3mg IV order unchanged He is not able to take PO, therefore can stop PO opioid med options for now (3) Weakness generalized: (4) Encounter for assessment of decision-making capacity: Pt is not decisional. He has advanced dementia likely vascular type course can be unpredictable with rapid decline in intervals or following times of extreme duress/stress such as hospital admissions (5) Dementia with behavioral disturbance: vascular type Recc Sleep protocol Recc fidget blanket D/w at length Updated nursing (6) Discussion about advance care planning held with family member: face to face ACP with /SDM x 60 min Advance illness planning conversations are conducted to review goals and expectations, support shared decision-making, and engage in disease specific advance care planning. This type of advance care planning is sometimes referred to as 'preparedness planning. It is used to review the risks and benefits of offered therapy, elicit and deepen understanding of the underlying illness and therapeutic options, ensure adequate psychosocial support, address existential concerns and coping, and engage in end-of-life planning. Preparedness planning is not meant to replace informed consent discussions. Palliative medicine plays a role in the process of deepening a patients understanding of this specific medical intervention and ensuring this treatment aligns with their goals of care remains a central tenet of the planning conversation. She states she wants pt home after he finishes RT She wants him to have any intervention to improve his comfort We spoke about his aspiration and impaired swallow. This has been worsening for a long time at home, it was at the point where he would spit up/throw up after every meal and kept emesis bags on hand / nearby. She knows he cannot follow commands to safely engage in a swallow study. She thinks this is exacerbated by his pain. We discussed feeding tubes and I advised her Would note that artificial nutrition and hydration (LAKISHA) were originally developed to provide short-term support for patients who were acutely ill. For patients nearing/transitioning to EOL, LAKISHA is unlikely to prolong life in addition to which researchers have found that LAKISHA often leads to complications in patients nearing the end of life. Patients with advanced, life-limiting illness often lose the ability to eat and drink and/or interest in food and fluids. Like other medical interventions, it should be evaluated by weighing its benefits and burdens in light of the patient's clinical circumstances and goals of care. LAKISHA may offer benefits when administered in the setting of acute, reversible illness, or as a component of chronic disease management, when the patient can appreciate the benefits of the treatment and significant burdens are not disproportionate. Near the end of life, some widely assumed benefits of LAKISHA, such as alleviation of thirst, may be achieved by less invasive measures including good mouth care or providing ice chips. (Helena NOLAN, Noman VIZCARRA, Ferny Gunter. after PEG: Results of the National Confidential Enquiry into Patient Outcome and . Gastrointest Endosc. 2008;68:223-227andCathi E, Priyanka D, Karlo S, et al. Parenteral hydration in patients with advanced cancer: A multicenter, double-blind, placebo-controlled randomized trial. J Clin Oncol. 2013;31:111-118.) Multiple organizations, including the [employer] and the [employer], have released statements endorsing the following approach to nutritional support in advanced dementia: They do not recommend percutaneous feeding tubes in patients with advanced dementia; instead, offer oral assisted feeding. She is leaning away from feeing tube; we spoke about allowing permissive aspiration with focus on comfort. She wants to think about this and remains hyper focused on wanting RT done so he "get better" while also stating she wants to keep pt comfortable and have hospice at home, which they had for pt daughter while they lived in [place]. She notes that when dtr became too ill to manage at home, the hospice moved her to their hospice house facility and she expects the same for pt. I very carefully and gently explained to her there are currently no hospice homes in the [facility], and nearest option for hospice house or hospice inpatient care would be the [facility] in [place] at [facility] [place] which she notes is a 45min [address] from their home in [facility]. We discussed the goals of hospice as a patient service and the goals of care; we discussed EOL trajectories and transitions [place] the emotional impact of realizing mortality as a concrete reality from prior abstract considerations. Pt was reassured that no matter where they are along this trajectory, they are not alone - their medical team will remain by their side through their journey. Discussed the pros/cons of accepting help when especially weakened and distres sed by pain-which would also help provide relief/decrease caregiver burden/strain. I provided education about the hospice benefit: an interdisciplinary program offered by nurses, nurses aides, social workers, chaplains and a senior medical writer for patients with a terminal condition and a life expectancy of less than 6 months. This is covered by Medicare at 100%/no out of pocket expense to patient and all meds/supplies needed by patient for the reason they are on hospice are paid for/covered by hospice. The goal is assure quality of life of the patient in their home setting (home, custodial, inpatient hospice setting) by providing symptoms management, psychosocial and spiritual support. However, they cannot offer 24 hours care and if the family is unable to provide that care, they will have to consider personal care with out of pocket cost vs. custodial placement. We discussed the goals of hospice as a patient service and the goals of care; we discussed EOL trajectories and transitions [place] the emotional impact of realizing mortality as a concrete reality from prior abstract considerations. Pt was reassured that no matter where they are along this trajectory, they are not alone - their medical team will remain by their side through their journey. Discussed the pros/cons of accepting help when especially weakened and distressed by pain-which would also help provide relief/decrease caregiver burden/strain. (7) Palliative care by specialist: Met with pt/family. Provided overview of Palliative Medicine, a subspecialty that provides specialized medical care for people living with a serious illness by offering a focus on quality of life. Palliative Medicine is often conflated with hospice: I advised patient/family that Palliative and hospice can be partners but we are not the same. It is important to understand the difference so that we may be informed, and not afraid. Palliative Medicine works to improve QOL through reduction of symptom burden/more control over their illness, for both the patient and family. Palliative medicine clinicians are board certified, specially-trained and another member of the patient's medical care team. We often provide an extra layer of support because our care is based on the needs of the patient, not the prognosis; as such, it's appropriate at any age/advancing stage of a serious illness and can be provided along with curative treatment. Palliative Medicine clinicians are also trained in advanced communication methodologies, to facilitate complex discussions about advanced illness planning, which are needed to help assure that the treatment choices match the patient's goals, aka delivering Goal Concordant care. Finally, we discussed that hospice is a visiting nurse service that focuses on care delivered at the very end of life for patients with terminal illness, with life expectancy less than 6 month. (8) Impaired decision making: pt is not decisional he has adv dementia (9) Prostate cancer metastatic to bone: (10) Acute thoracic back pain: Back pain laterality: midline Qualified Code(s): M54.6 - Pain in thoracic spine (11) Malignant neoplasm of rectosigmoid junction: (12) Fracture of thoracic spine: Encounter type: subsequent encounter Fracture healing: with delayed healing Fracture morphology: unspecified fracture morphology Fracture type: closed Thoracic vertebra fracture level: T7 Qualified Code(s): S22.069G - Unspecified fracture of T7-T8 vertebra, subsequent encounter for fracture with delayed healing (13) Prostate cancer metastatic to bone: (14) Acute on chronic heart failure with reduced ejection fraction and diastolic dysfunction: (15) Acute on chronic heart failure with preserved ejection fraction (HFpEF): Plan * Trial of low dose zyprexa to improve behav disturbance * Continue prn opioid for pain mgt but consider using MS 3-4mg IV q3h prn for pain, dyspnea and prior to RT to allow positional tolerance during RT * ACP for GOC discussion as requested - see above * indicates overall focus is comfort but wants the RT done, then home with hospice if he can safely come home. SHe will further discuss with her son and she openly admits her son and hsi PTSD may be the limiting factor for getting pt home with family support vs would she now need to think about placement which she very much does not want to do * extensive psychosocial support and reassurance provided. Thank you for allowing us to participate in the ongoing care of this patient. Please don't hesitate to call or page with any additional concerns. Dr. Sil Gu DNP Director, Palliative Care History of Present Illness Reason for Consultation: "goals of care, symptom management" Requesting Physician: Baldemar Attending Physician: Rodrigo Mcdermott MD History of Present Illness Admitted 11/01/23 from home with worsening dyspnea, choking on food and vomiting after attmepting to eat New dx esophageal ca prior hx prostate and colon ca chronic HFpEF + Afib + dementia + declining PS At time of my visit, pt is very confused, agitated, nonsensical speech and trying to get out of bed. He occasionally yells / curses at his who is present at bedside. shares that she and pt have been 35+ years, he has a short temper and has always been gruff with everyone but since dementia this personality trait has intensified pt is cared for at home by his she shares they have a son who also lives with them but she states son has 2 strokes and has PTSD which limits him from doing things like driving her to hospital or visiting patient however son does handle chores at home, cooks meals and will help her care for pt from time to time. Son moved in with them after his strokes bc he was no longer able to manage living on his own and needed help/support. states they are a blended family. she has 5 sons from her prior marriage and pt has children from his prior marriage. they do not have any children together. She wants him home with her and tells me she would want hospice to help her keep him home and focus on his comfort. she also states she wants him to finish radiation bc that will help improve his comfort and she perceives prior medical updates conveying his esoph cancer is "nearly all gone, they said they got msot of it so that's not really a concern anymore." He has had some trouble getting RT done bc of his agitation. thinks this is because he is in a lot of pain and away from home. he has ++ behav disturbance with his dementia at baseline, now it is worse with this admission pt has had worsening dementia for 5 years likely vascular. 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 Additionally, he was found to have +pathologic fracture secondary to bone mets from metastatic prostate cancer on Lupron Rx he is a former smoker He was seen by ortho this admission who noted that his T7 pathologic compression fracture is a significant fracture in the thoracic spine that could result in neurologic compromise if it were to progress. Pt/ did not want to consider any surgical intervention and are aware of impending neurologic issues AND if he were to pursue surgery, he would need to transfer to a tertiary care center, IF they would accept him. Allergies Allergy/AdvReac Type Severity Reaction Status Date / Time amoxicillin Allergy Unknown hives Verified 11/01/23 19:45 cephalexin Allergy Unknown rash Verified 11/01/23 19:45 Sulfa (Sulfonamide Allergy Unknown hives Verified 11/01/23 19:45 Antibiotics) verapamil Allergy Unknown hives Verified 11/01/23 19:45 Home Medications Medication Instructions Recorded Confirmed Type folic acid 1 mg tablet 1 mg PO QAM 09/06/19 11/01/23 History glipizide 10 mg tablet, extended 10 mg PO BIDM 09/06/19 11/01/23 History release 24 hr latanoprost 0.005 % eye drops 1 drp OPL HS 09/06/19 11/01/23 History (Xalatan) apixaban 5 mg tablet (Eliquis) 5 mg PO .HOLD 10/04/19 11/01/23 History levothyroxine 75 mcg tablet 75 mcg PO DAILY 05/27/20 11/01/23 History C 250 mg-E 137.5 mg-zinc 12.5 1 tab PO DAILY 10/28/23 11/01/23 History kk-efyuyv-umnay-iskpju-tevo-dsqc capsule ([place] Advanced AREDS2) atorvastatin 10 mg tablet 10 mg PO DAILY 10/28/23 11/01/23 History calcium carbonate 600 mg-vitamin 1 tab PO BID 10/28/23 11/01/23 History D3 10 mcg (400 unit) tablet (Calcium with Vitamin D) furosemide 20 mg tablet (Lasix) 20 mg PO 3XWK 10/28/23 11/01/23 History insulin glargine 100 unit/mL (3 26 unit subcut QAM 10/28/23 11/01/23 History mL) subcutaneous pen (Lantus Solostar U-100 Insulin) leuprolide (3 month) 22.5 mg (3 22.5 mg IM .Q3 months 10/28/23 11/01/23 History month) intramuscular syringe kit (Lupron Depot) lisinopril 5 mg tablet 2.5 mg PO DAILY 10/28/23 11/01/23 History metoprolol succinate 25 mg 12.5 mg PO DAILY 10/28/23 11/01/23 History tablet,extended release 24 hr ondansetron HCl 8 mg tablet 8 mg PO Q8H PRN Nausea 10/28/23 11/01/23 History oxycodone 5 mg tablet 5 mg PO Q6H PRN Pain 10/28/23 11/01/23 History pantoprazole 40 mg tablet,delayed 40 mg PO DAILY 10/28/23 11/01/23 History release polyethylene glycol 3350 17 17 g PO DAILY 10/28/23 11/01/23 History gram/dose oral powder (Miralax) prochlorperazine maleate 10 mg 10 mg PO Q6H PRN Nausea 10/28/23 11/01/23 History tablet (Compazine) sucralfate 100 mg/mL oral 10 ml PO QID 10/28/23 11/01/23 History suspension (Carafate) tobramycin 0.3 %-dexamethasone 1 drp ophthalmic (eye) .as directed 10/28/23 11/01/23 History 0.05 % eye drops,suspension (Tobradex ST) urea 20 % topical cream 1 applic topical TID PRN .. 10/28/23 11/01/23 History Patient History Medical History Edentulous Dementia Glaucoma Hyperlipidemia History of rib fracture Blindness of left eye Hit by tree branch Malignant neoplasm of rectosigmoid junction 05/22/2000 Skin cancer SCC Benign neoplasm of colon CHF (congestive heart failure) DVT (deep venous thrombosis) Prostate cancer Biopsy on 09/23/22 Hypothyroidism History of pulmonary embolism HTN (hypertension) BPH (benign prostatic hyperplasia) GERD (gastroesophageal reflux disease) CKD (chronic kidney disease), stage III Diabetes mellitus, type II PAF (paroxysmal atrial fibrillation) SBO (small bowel obstruction) CAD (coronary artery disease) Pulmonary embolism Skull fracture Surgical History (Updated 10/28/23 @ 13:28 by Luisa V Confer, RN) H/O esophagogastroduodenoscopy History of cardiac cath Hx of colonoscopy History of rotator cuff surgery right History of knee replacement Bilateral History of partial surgical removal of colon removal of rectum 2/2 to large polyp adenoca Hx of cervical spine surgery Family History (Updated 10/28/23 @ 13:35 by Luisa Chambers, RN) Mother Cancer "Throat" cancer - pt unclear of exact cancer; Father , 74yo Alcoholic Hypertension Stroke Son , 26yo Accident Hit by train Daughter , 41yo Brain tumor Social History Smoking Status: Former smoker Tobacco Type: Cigarettes and Smokeless Tobacco (Dip or Chew) Second Hand Exposure: No; Do You Dip or Chew Tobacco: No; Hx Alcohol Use: No Hx Substance Use: No Preferred Language: Bulgarian Communication Ability: Effective Visual Impairment: No Limitations Hearing Ability: Normal Waste Handling Technician Required: No Beliefs That Will Affect Care: None marital status: Current Living Situation: Spouse 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 Feels Safe at Home: Yes Diet: regular caffeine: Yes (1-2 cups/day) during the past year weight has: remained stable Assistive Devices: Denture - Upper, Denture - Lower, Glasses and Hearing Aid - Bilateral Review of Systems Review of Systems: Unobtainable due to cognitive status Physical Exam Physical Exam: Elderly male very agitated, restless, muttering nonsensical/gibberish type speech of varying vocal intensity and volume unable to follow commands bitemp wasting MM dry dentition poor neck supple and without stridor lungs diminished with scatt rhonchi tachy S1S2 Abd soft, distended gen weakness/strength but quite agitated restless and trying to get OOB repeatedly Pulling at bed linens, monitors. IV sites Confused, unable to give HPI Results & Data Vital Signs (Past 12 Hours) Vital Signs Temp Pulse Pulse Resp BP BP Pulse Ox 11/10/23 22:00 36.7 C 65 20 111/69 93 11/10/23 20:00 36.8 C 95 H 22 132/77 98 11/10/23 19:42 11/10/23 18:44 92 H 11/10/23 18:24 103 H 158/95 H 11/10/23 15:28 37.2 C 97 H 20 164/98 H 91 11/10/23 14:00 92 H O2 Del Method O2 Flow Rate 11/10/23 22:00 Nasal Cannula 5 11/10/23 20:00 Nasal Cannula 5 11/10/23 19:42 Nasal Cannula 4 11/10/23 18:44 11/10/23 18:24 11/10/23 15:28 Nasal Cannula 4 11/10/23 14:00 Laboratory Results data reviewed, see HPI Diagnostic Findings data reviewed, see HPI PG Care Time/CCT Total # of Minutes Spent Total Time Spent: 130 Total Time Spent with Patient: Total time spent is greater than 50% in coordination of care (as documented) at patient's floor/unit and/or counseling patient: I spent 130 minutes overall addressing this case: 20 min in medical data review/discussion with referring provider(s) and/or preparation for the visit 20 min in direct interaction with the patient/exam 60 min in Advance Care Planning/Goals of Care discussions as detailed above in note (must be >16min) 15 min in subsequent review and synthesis of assessment and plan 15 min communicating with other providers regarding the patient's case: nursing, primary team, RT Prolonged Care Time Prolonged Care Time: Yes Advanced Care Planning 83084 Advanced Care Planning 30 Min 00102 Advanced Care Planning Additional 30 [place] [address] IN/OBS CONSULT LVL 5,80M Patient Type New History Comprehensive Exam Comprehensive Medical Decision Making High Complexity Diagnoses Agitation due to dementia F03.911 Cancer related pain G89.3 Weakness generalized R53.1 Encounter for assessment of decision-making capacity Z00.8 Dementia with behavioral disturbance F03.918 Discussion about advance care planning held with family member Z71.0 Palliative care by specialist Z51.5 Impaired decision making Z78.9 Prostate cancer metastatic to bone C61; C79.51 Acute thoracic back pain M54.6 Back pain laterality: midline Malignant neoplasm of rectosigmoid junction C19 Fracture of thoracic spine S22.069G Encounter type: subsequent encounter Fracture healing: with delayed healing Fracture morphology: unspecified fracture morphology Fracture type: closed Thoracic vertebra fracture level: T7 Acute on chronic heart failure with reduced ejection fraction and diastolic dysfunction I50.43 Acute on chronic heart failure with preserved ejection fraction (HFpEF) I50.33 Additional Codes Prolonged Care Time - Prolonged Care Time: Yes ([id number]) Advanced Care Planning - 33380 Advanced Care Planning 30 Min: 90489 Advanced Care Planning 30 Min ([id number]) Advanced Care Planning - 18928 Advanced Care Planning Additional 30 Min: 73614 Advanced Care Planning Additional 30 Min ([id number])
[2023-11-11] MEDS: CEFEPIME 2,000 MG in SYRINGE 0 ML IV SCH ×3 (02:00→17:13)
[2023-11-11] MEDS: METOPROLOL TARTRATE 1 MG/ML VIAL IV SCH ×5 (02:00→23:48)
[2023-11-11] MEDS: ACETAMINOPHEN 1,000 MG/100 ML VIAL IV SCH ×3 (04:30→20:47)
[2023-11-11] MEDS: ENOXAPARIN 100 MG/1ML SYR SQ SCH ×2 (04:31→17:14)
[2023-11-11] MEDS: MoRPHine SULFATE 4 MG/ML 1 ML CARP\\VIAL IV PRN ×5 (04:53→20:03)
[2023-11-11] MEDS: metroNIDAZOLE 500 MG/100 ML BAG IV SCH ×3 (04:57→23:45)
[2023-11-11] MEDS: LORazepam 0.25 MG in SYRINGE 0.125 ML IV PRN ×2 (05:25→20:48)
[2023-11-11] MEDS: LEVOTHYROXINE SODIUM 75 MCG TABLET PO SCH (06:06)
[2023-11-11 06:33] LABS: Hematocrit (blood only) 34.6 % (42.0-52.0); Hemoglobin 11.4 g/dl (14.0-18.0); Mean Corpuscular Hemoglobin 28.2 pg (25.0-34.0); Mean Corpuscular Hgb Conc 32.9 g/dL (32.0-36.0); Mean Corpuscular Volume 85.6 fL (80.0-100.0); Mean Platelet Volume 9.7 fL (9.4-12.4); Platelet Count 242 K/uL (130-400); RDW Coefficient of Variation 14.1 % (11.5-14.5); RDW Standard Deviation 43.9 fL (36.4-46.3); Red Blood Count 4.04 M/uL (4.70-6.10); White Blood Count 7.46 K/ul (4.8-10.8)
[2023-11-11 06:55] LABS: BUN Creatinine Ratio 33.3 (10-20); Calcium 9.2 mg/dl (8.6-10.3); Creatinine Clr Calc Pharmacy 74.8 ml/min; Est GFR (African American) 96.1 ml/min; Est GFR (Non-African American) 82.9 ml/min; Phosphorus 2.2 mg/dl (2.5-4.9); Potassium 3.9 mmol/L (3.5-5.1)
[2023-11-11] MEDS: SUCRALFATE 1 GM/10 ML UDC PO SCH ×4 (08:06→20:27)
[2023-11-11] MEDS: FOLIC ACID 1 MG TAB PO SCH (08:07)
[2023-11-11] MEDS: guaiFENesin 600 MG TABCR PO SCH ×2 (08:07→20:27)
[2023-11-11] MEDS: GABAPENTIN 300 MG CAP PO SCH ×3 (08:07→19:59)
[2023-11-11] MEDS: POLYETHYLENE (MIRALAX) 17 GM PACK PO SCH (08:07)
[2023-11-11] MEDS: DOCUSATE SODIUM/SENNA 50/8.6MG TAB PO SCH ×2 (08:07→19:59)
[2023-11-11] MEDS: OLANZapine ZYDIS 5 MG ORALLY DIS. TAB PO SCH ×2 (08:07→20:27)
[2023-11-11] MEDS: CEROVITE ADV FORMULA TAB PO SCH (08:07)
[2023-11-11] MEDS: PANTOprazole 40 MG in SYRINGE 0 ML IV SCH (08:08)
[2023-11-11] MEDS: INSULIN ASPART PER UNIT CHARGE SC SCH ×3 (08:17→18:37)
[2023-11-11] MEDS: LANTUS PER UNIT CHARGE SQ SCH (08:17)
--- NOTE | 2023-11-11 08:46 | Hospitalist Progress Note ---
Date of Service November 11, 2023 Assessment & Plan (1) Fracture of thoracic spine: Plan: 83-year-old gentleman with PMH of chronic systolic heart failure [EF 25 to 30%, 2020 TTE], CAD, 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 Julian Marshall], GERD, T2DM, hypothyroidism, chronic hyponatremia, chronic anemia [baseline hemoglobin around 13], dementia, traumatic subdural hematoma, past tobacco abuse presented to the hospital 11/01 with complaint of worsening mid back pain that has been ongoing since last month without radicular signs of symptoms/fever/chills/weakness/bowel or bladder incontinence. [facility] oncology started patient on oxycodone and reported patient to [facility] radiation therapy. CT simulation for treatment planning was contemplated. 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 EGD showed Raygoza's esophagus/incomplete resection done/esophageal biopsy yielded tumor cells - invasive adenocarcinoma. Colonoscopy showed moderate sigmoid and descending colon diverticulosis/internal hemorrhoids/splenic flexure polyp resected -negat. for malignancy He is being managed for the following: Pathologic fracture x thoracic spine Metastatic disease from prostate cancer Opioid-induced constipation Patient coming in with worsening midthoracic pain for about a month, worse lately. Recently started on opiates as an outpatient for pain management, patient with no bowel movements for several days prior to arrival. Admitting CTAP with no acute findings in abdomen and pelvis. Admitting lumbar spine CT with multifocal osteoblastic metastatic disease. Superior endplate compression deformity of L1, unchanged. Admitting thoracic spine CT with pathologic fracture of T7. Invasion of the right T6-T7 neuroforamen with erosion of the right posterior sixth and seventh ribs. Left-pedicular fracture at T7 and spinous fracture of T7. Right pedicle of T7 is eroded. c/w pain medications, as needed oxycodone and as needed morphine. Lidocaine patch. Scheduled percocet. As needed Ativan for anxiety. Pain management consulted - adding gabapentin 300 mg TID to address neuropathic pain component. Radiation oncology consulted - and pt started radiation treatment Ortho-spine surgery consulted for abnormal T-spine CT - per Dr. Smith - Assessment T7 pathologic compression fracture. Explained the patient that he has a significant fracture in the thoracic spine that could result in neurologic compromise if it were to progress. Pt emphasized that he does not want to consider any surgical intervention. He knows this despite impending neurologic issues. If he were to pursue surgery however he would be a candidate for tertiary care center. Scheduled bowel regimen, sennakot, MiraLAX, lactulose. gave additional dose of Relistor on (11/03). Ordered suppository (11/04). Increased miralax frequency. - > Pt had a BM overnight. Cont. bowel regimen and monitor. PT/OT. 11/04 Feeling better today. at time of exam pt without any significant pain. 11/05 Pain seems better controlled. Plan for radiation therapy today. Worked w/ PT, is wearing brace. 11/06 Unfortunately today pt is more painful, uncomfortable 11/07 Pt uncomfortable, abd. pain - per gets on and off, abdomen is distended - obtained KUB - No evidence for a bowel obstruction. 11/08 Pt more comfortable, pain controlled. However had a chocking episode - will place npo, and speech eval. start gentle IVF 11/09 Pt comfortable, pain controlled. Drowsy. 11/10 can't tolerate PO meds, aspirating last evening. Somewhat restless but pain seems fairly controlled. Plan for RT today. palliative medicine consulted. 11/11 Tolerated RT yesterday, plan for RT today. Medicine adjusted per pall. med. Pain is fairly controlled, pt easily gets restless. Patient to follow-up with his oncologist upon discharge. However overall prognosis is guarded at this point. Pt not able to tolerate PO. He gets easily confused / restless on pain medications. palliative medicine also consulted. Currently undergoing radiation therapy while inpt to help with back pain from pathological fracture (from metast. ca). Able to tolerate RT on and off. Fever, poss. pna Spiked fever overnight 11/05 blood cultx and UA obtained by infrastructure design engineer UA - negative blood cultx - posit. for staph - coag negat. staph - most likely contaminant. r epeat cultx negat. for 48 hrs obtained CXR, and chest CT to further eval poss. infection CXR 1. Interval development of the mild pulmonary edema, small bilateral pleural effusions, and bibasilar densities. 2. Curvilinear lucency at the aortic knob and superior mediastinal widening will be better appreciated on the same day chest CT. Chest CT 1. Patchy and linear bibasilar densities most pronounced on the right. This may represent subsegmental atelectasis or a pneumonia. 2. Small bilateral pleural effusions. 3. A few subcentimeter nodules within the right lung measuring up to 5 mm. Follow-up recommended to ensure stability. 4. Stable cardiomegaly. 5. Redemonstration of the destructive mass centered at the T7 vertebral body with associated pathologic fractures of T7 as described above. This demonstrates epidural extension with moderate to severe central canal narrowing at this level. This is similar to the prior thoracic spine CT. 6. Osseous metastatic disease again noted. Started empiric abx (pt has allergy listed to pcn, started cefepime and vanco), cont. for now and await cultx. Pt had a chocking episode on 11/08 - likely aspirating. Added flagyl. stopped vanco as blood cultx + likely contaminant Transient hypotension: Noted in ED likely secondary to narcotic pain meds use. Blood pressure medications on hold, gradually resume them. Other chronic medical conditions: Continue with/resume home meds as and when able. chronic systolic heart failure (EF 25 to 30%, TTE 2020), patient on the dry side valvular heart disease (mild AR/MR/TR) CAD as per records A-fib/PE DVT, Eliquis on hold for 1 week following recent endoscopic procedure. Patient to resume Rx on 11/04/23 if without bleeding concerns as per . Eliquis resumed. colon cancer status post surgery, new colonic mass noted on imaging, recent post colonic biopsy - negative for dysplasia or malignancy - pt's updated by Dr. Rodriguez and by me Possible new esophageal cancer on recent EGD, history GERD/Raygoza's esophagus. Pt to f/u w/ his oncology on DC. Biopsy esophagus - invasive adenocarcinoma - pt's updated by Dr. Rodriguez and by me DM 2 insulin requiring, suboptimal control as of recent hemoglobin A1c of 7.22 May 2023 hypothyroidism, euthyroid as of this admission's TSH chronic hyponatremia likely secondary to malignancy chronic anemia, hemoglobin at baseline dementia, mentation at baseline as per however with pain meds on and off confused history traumatic subdural hematoma past tobacco abuse DVT prophylaxis. SCDs Re: Recent endoscopic procedure, so eliquis was held-> Resumed Eliquis- but now can't take Po -> switched to lovenox therap. dose DNR PT/OT, CM to assist w/ DC plan. Patient Ms.Dottie Chavez, contact #[phone]. Admission and Anticipated Discharge Date Admission Date: November 01, 2023 Subjective Patient seen in follow up of back pain/ metast. prostate ca Patient is currently laying in bed, appears fairly comfortable, but when he is awake says "pain", then he dozes off easily. Per RN often gets restless. Pt's currently at the bedside. He was able to tolerate RT yesterday, plan for another treatment today. Seen by palliative med. yesterday. Review of Systems Review of Systems: Unobtainable due to cognitive status Physical Exam Physical Exam: GENERAL: WD/WN M in NAD on 4 L oxygen via nasal cannula HEENT: NC/AT. Oral mucosa moist. NECK: No JVD, no neck masses. HEART: S1 and S2 heard. irregular rate and rhythm. + murmur, no gallop. RESPIRATORY: Normal AP diameter. No accessory muscle use. No wheezing, no crackles. Diminished breath sounds bilateral. ABDOMEN: Soft, bowel sounds present, nontender, no distention. NEURO: drowsy but awakens easily, on and off tends to get confused or drowsy ([place]. after getting pain meds). No facial droop. Speech is clear. Moves extremities. EXTREMITIES: 1+ BLE edema, no erythema seen. SKIN : warm, dry Results & Data Results & Data Vital Signs (Past 12 Hours) Vital Signs Temp Pulse Pulse Resp BP BP Pulse Ox 11/11/23 07:50 36.9 C 80 17 138/78 95 11/11/23 07:40 82 11/11/23 06:42 89 136/76 11/11/23 04:31 93 H 131/81 11/11/23 04:24 36.7 C 93 H 20 131/81 95 11/10/23 22:05 73 11/10/23 22:00 36.7 C 65 20 111/69 93 O2 Del Method O2 Flow Rate 11/11/23 07:50 Nasal Cannula 4 11/11/23 07:40 11/11/23 06:42 11/11/23 04:31 11/11/23 04:24 Nasal Cannula 5 11/10/23 22:05 11/10/23 22:00 Nasal Cannula 5 Laboratory Results 11/11/23 11/11/23 11/10/23 Range/Units 08:03 05:48 20:25 WBC 7.46 (4.8-10.8) K/ul RBC 4.04 L (4.70-6.10) M/uL Hgb 11.4 L (14.0-18.0) g/dl Hct 34.6 L (42.0-52.0) % MCV 85.6 (80.0-100.0) fL MCH 28.2 (25.0-34.0) pg MCHC 32.9 (32.0-36.0) g/dL RDW Std Deviation 43.9 (36.4-46.3) fL RDW Coeff of Janny 14.1 (11.5-14.5) % Plt Count 242 (130-400) K/uL MPV 9.7 (9.4-12.4) fL Sodium 136 (136-145) mmol/L Potassium 3.9 (3.5-5.1) mmol/L Chloride 104 (98-107) mmol/L Carbon Dioxide 24 (21-32) mmol/L Anion Gap 8 (3-11) BUN 26 H (6-23) mg/dl Creatinine 0.78 (0.6-1.4) mg/dl Est Cr Clr Drug Dosing 74.8 ml/min Est GFR ( Amer) 96.1 ml/min Est GFR (Non-Af Amer) 82.9 ml/min BUN/Creatinine Ratio 33.3 H (10-20) Glucose 156 H (70-99(Fasting)) mg/dl POC Glucose 202 H 194 H (70-99) mg/dl Calcium 9.2 (8.6-10.3) mg/dl Phosphorus 2.2 L (2.5-4.9) mg/dl Magnesium 2.0 (1.7-2.4) mg/dl 11/10/23 11/10/23 Range/Units 16:36 12:01 WBC (4.8-10.8) K/ul RBC (4.70-6.10) M/uL Hgb (14.0-18.0) g/dl Hct (42.0-52.0) % MCV (80.0-100.0) fL MCH (25.0-34.0) pg MCHC (32.0-36.0) g/dL RDW Std Deviation (36.4-46.3) fL RDW Coeff of Janny (11.5-14.5) % Plt Count (130-400) K/uL MPV (9.4-12.4) fL Sodium (136-145) mmol/L Potassium (3.5-5.1) mmol/L Chloride (98-107) mmol/L Carbon Dioxide (21-32) mmol/L Anion Gap (3-11) BUN (6-23) mg/dl Creatinine (0.6-1.4) mg/dl Est Cr Clr Drug Dosing ml/min Est GFR ( Amer) ml/min Est GFR (Non-Af Amer) ml/min BUN/Creatinine Ratio (10-20) Glucose (70-99(Fasting)) mg/dl POC Glucose 179 H 173 H (70-99) mg/dl Calcium (8.6-10.3) mg/dl Phosphorus (2.5-4.9) mg/dl Magnesium (1.7-2.4) mg/dl Medications Administered Current Inpatient Medications Acetaminophen (Acetaminophen 325 Mg Tab) 650 mg PO QID PRN PRN Reason: pain/fever Stop: 12/01/23 20:18 Last Admin: 11/08/23 07:49 Dose: 650 mg Apixaban (Apixaban 5 Mg Tablet) 5 mg PO BID PB Stop: 12/05/23 08:59 Last Admin: 11/10/23 06:49 Dose: Not Given Atorvastatin Calcium (Atorvastatin 10 Mg Tab) 10 mg PO DAILY PB Stop: 12/02/23 08:59 Last Admin: 11/10/23 06:49 Dose: Not Given Dextrose (Dextrose 50% 50 Ml Syringe) 25 - 50 ml IV UD PRN; Protocol PRN Reason: Hypoglycemia Protocol Stop: 12/01/23 22:55 Enoxaparin Sodium (Enoxaparin 100 Mg/1ml Syr) 90 mg SQ Q12H PB Stop: 12/10/23 18:14 Last Admin: 11/11/23 04:31 Dose: 90 mg Folic Acid (Folic Acid 1 Mg Tab) 1 mg PO QAM PB Stop: 12/02/23 08:59 Last Admin: 11/11/23 08:07 Dose: Not Given Furosemide (Furosemide 20 Mg Tab) 20 mg PO [id number] [facility] Stop: 12/04/23 08:59 Last Admin: 11/06/23 10:25 Dose: 20 mg Gabapentin (Gabapentin 300 Mg Cap) 300 mg PO TID PB Stop: 12/03/23 13:59 Last Admin: 11/11/23 08:07 Dose: Not Given Glucagon (Glucagon For Inj 1 Mg Vial) 1 mg SQ UD PRN; Protocol PRN Reason: Hypoglycemia Protocol Stop: 12/01/23 22:55 Glucose (Glucose 10 Tab/Tube) 4 - 8 tab PO UD PRN; Protocol PRN Reason: Hypoglycemia Treatment Stop: 12/01/23 22:55 Glucose (Glucose 40% Gel 15 Gm Tube) 15 - 30 gm PO UD PRN; Protocol PRN Reason: Hypoglycemia Protocol Stop: 12/01/23 22:55 Last Admin: 11/02/23 17:24 Dose: 15 gm Guaifenesin (Guaifenesin 600 Mg Tabcr) 600 mg PO Q12 PB Stop: 12/06/23 08:59 Last Admin: 11/11/23 08:07 Dose: Not Given Promethazine HCl 6.25 mg/ (Sodium Chloride) 50.25 mls @ 201 mls/hr IV Q6H PRN PRN Reason: Nausea And Vomiting Stop: 12/01/23 20:18 Cefepime HCl 2,000 mg/ Syringe 20 mls @ 5 mls/min IV Q8H PB; Protocol Stop: 11/15/23 16:59 Last Admin: 11/11/23 08:10 Dose: 5 mls/min Sodium Chloride (Nss) 1,000 mls @ 80 mls/hr IV .[id number] [facility] Stop: 12/08/23 13:59 Last Infusion: 11/10/23 00:44 Dose: Infused Metronidazole (Flagyl) 500 mg in 100 mls @ 100 mls/hr IV Q8H PB; Protocol Stop: 11/15/23 14:29 Last Infusion: 11/11/23 06:05 Dose: Infused Acetaminophen (Ofirmev) 1,000 mg in 100 mls @ 400 mls/hr IV Q8 PB Stop: 11/13/23 13:59 Last Infusion: 11/11/23 05:33 Dose: Infused Pantoprazole Sodium 40 mg/ (Syringe) 10 mls @ 5 mls/min IV DAILY PB Stop: 12/10/23 18:14 Last Admin: 11/11/23 08:08 Dose: 5 mls/min Lorazepam 0.25 mg/ Syringe 0.25 mls @ 2 mls/min IV TID PRN PRN Reason: Anxiety/Agitation Stop: 12/10/23 20:45 Last Admin: 11/11/23 05:25 Dose: 2 mls/min Insulin Aspart (Insulin Aspart Per Unit Charge) 0 units SC ACHS [facility] Stop: 12/01/23 22:55 Last Admin: 11/11/23 08:17 Dose: 3 units Insulin Glargine (Lantus Per Unit Charge) 5 units SQ DAILY PB Stop: 12/02/23 08:59 Last Admin: 11/11/23 08:17 Dose: 5 units Ketorolac Tromethamine (Ketorolac Tromethamine 15 Mg/Ml Vial) 15 mg IV Q6H PRN PRN Reason: Pain Stop: 11/15/23 12:55 Lactulose (Lactulose Syrup 30 Gm/45 Ml Udp) 30 gm PO DAILY PB Stop: 12/03/23 08:59 Last Admin: 11/05/23 08:16 Dose: 30 gm Latanoprost (Latanoprost 0.005% Op Soln 2.5 Ml Btl) 1 drops OPL HS [facility] Stop: 12/02/23 20:59 Last Admin: 11/10/23 23:39 Dose: 1 drops Levothyroxine Sodium (Levothyroxine Sodium 75 Mcg Tablet) 75 mcg PO DAILYBB [facility] Stop: 12/02/23 06:29 Last Admin: 11/11/23 06:06 Dose: Not Given Lidocaine (Lidocaine 5% 1 Patch) 1 patch TD HS [facility] Stop: 12/02/23 20:59 Last Admin: 11/10/23 20:59 Dose: 1 patch Lisinopril (Lisinopril 2.5 Mg Tab) 2.5 mg PO DAILY [facility] Stop: 12/04/23 08:59 Last Admin: 11/10/23 06:50 Dose: Not Given Magnesium Oxide (Magnesium Oxide 400 Mg Tab) 400 mg PO QAM PB Stop: 12/05/23 10:59 Last Admin: 11/10/23 06:50 Dose: Not Given Metoprolol Succinate (Metoprolol Succ 25mg Ext Rel Tab) 12.5 mg PO DAILY [facility] Stop: 12/02/23 08:59 Last Admin: 11/10/23 06:50 Dose: Not Given Metoprolol Tartrate (Metoprolol Tartrate 1 Mg/Ml Vial) 5 mg IV Q6 [facility] Stop: 12/11/23 00:00 Last Admin: 11/11/23 06:42 Dose: 5 mg Miscellaneous (Remove Lidoderm Patch) 1 each N/A QAM [facility] Stop: 12/02/23 08:59 Last Admin: 11/11/23 08:08 Dose: 1 each Miscellaneous (Carbohydrates For Hypoglycemia ) 15 - 30 gm PO UD PRN PRN Reason: Hypoglycemia Protocol Stop: 12/01/23 22:55 Last Admin: 11/02/23 17:02 Dose: 15 gm Morphine Sulfate (Morphine Sulfate 4 Mg/Ml 1 Ml Carp\\Vial) 3 mg IV Q2H PRN PRN Reason: Pain Stop: 11/15/23 22:11 Last Admin: 11/11/23 08:12 Dose: 3 mg Multivitamins/Minerals (Cerovite Adv Formula Tab) 1 tab PO DAILY [facility] Stop: 12/02/23 08:59 Last Admin: 11/11/23 08:07 Dose: Not Given Olanzapine (Olanzapine Zydis 5 Mg Orally Dis. Tab) 2.5 mg PO BID [facility] Stop: 12/11/23 08:59 Last Admin: 11/11/23 08:07 Dose: Not Given Olanzapine (Olanzapine 10 Mg/2.1 Ml Sdv) 5 mg IM Q6H PRN PRN Reason: agitation,restless,behav disturbance Stop: 12/11/23 01:44 Pantoprazole Sodium (Pantoprazole 40 Mg Tab) 40 mg PO DAILY [facility] Stop: 12/02/23 08:59 Last Admin: 11/10/23 06:50 Dose: Not Given Polyethylene Glycol (Polyethylene (Miralax) 17 Gm Pack) 17 gm PO QAM [facility] Stop: 12/05/23 08:59 Last Admin: 11/11/23 08:07 Dose: Not Given Senna/Docusate Sodium (Docusate Sodium/Senna 50/8.6mg Tab) 1 tab PO BID [facility] Stop: 12/02/23 08:59 Last Admin: 11/11/23 08:07 Dose: Not Given Sucralfate (Sucralfate 1 Gm/10 Ml Udc) 1 gm PO ACHS PB Stop: 12/02/23 07:29 Last Admin: 11/11/23 08:06 Dose: Not Given (1) Fracture of thoracic spine Encounter type: subsequent encounter Fracture healing: with delayed healing Fracture morphology: unspecified fracture morphology Fracture type: closed Thoracic vertebra fracture level: T7 Qualified Code(s): S22.069G - Unspecified fracture of T7-T8 vertebra, subsequent encounter for fracture with delayed healing
[2023-11-11] MEDS ORDERED: Nursing to Pharmacy Communication SCH (10:15)
[2023-11-11] MEDS: OLANZapine 10 MG/2.1 ML SDV IM PRN (13:02)
[2023-11-11] MEDS: LATANOPROST 0.005% OP SOLN 2.5 ML BTL OPL SCH (20:47)
[2023-11-11] MEDS: LIDOCAINE 5% 1 PATCH TD SCH (20:47)
[2023-11-12] MEDS: INSULIN ASPART PER UNIT CHARGE SC SCH ×4 (00:45→18:36)
[2023-11-12] MEDS: CEFEPIME 2,000 MG in SYRINGE 0 ML IV SCH ×3 (00:47→17:38)
[2023-11-12 05:31] LABS: Hematocrit (blood only) 40.8 % (42.0-52.0); Hemoglobin 13.3 g/dl (14.0-18.0); Mean Corpuscular Hemoglobin 28.6 pg (25.0-34.0); Mean Corpuscular Hgb Conc 32.6 g/dL (32.0-36.0); Mean Corpuscular Volume 87.7 fL (80.0-100.0); Mean Platelet Volume 9.6 fL (9.4-12.4); Platelet Count 303 K/uL (130-400); RDW Coefficient of Variation 14.3 % (11.5-14.5); RDW Standard Deviation 45.8 fL (36.4-46.3); Red Blood Count 4.65 M/uL (4.70-6.10); White Blood Count 7.57 K/ul (4.8-10.8)
[2023-11-12 05:34] LABS: BUN Creatinine Ratio 29.9 (10-20); Creatinine Clr Calc Pharmacy 67.1 ml/min; Est GFR (African American) 91.9 ml/min; Est GFR (Non-African American) 79.3 ml/min; Magnesium 2.1 mg/dl (1.7-2.4); Phosphorus 2.3 mg/dl (2.5-4.9); Potassium 4.2 mmol/L (3.5-5.1)
[2023-11-12] MEDS: ACETAMINOPHEN 1,000 MG/100 ML VIAL IV SCH ×3 (06:07→22:09)
[2023-11-12] MEDS: METOPROLOL TARTRATE 1 MG/ML VIAL IV SCH ×4 (06:08→23:58)
[2023-11-12] MEDS: LEVOTHYROXINE SODIUM 75 MCG TABLET PO SCH (06:33)
[2023-11-12] MEDS: metroNIDAZOLE 500 MG/100 ML BAG IV SCH ×3 (06:48→22:09)
[2023-11-12] MEDS: ENOXAPARIN 100 MG/1ML SYR SQ SCH ×2 (06:49→17:38)
[2023-11-12] MEDS: OLANZapine ZYDIS 5 MG ORALLY DIS. TAB PO SCH ×2 (08:01→20:03)
[2023-11-12] MEDS: SUCRALFATE 1 GM/10 ML UDC PO SCH ×4 (08:01→20:04)
[2023-11-12] MEDS: CEROVITE ADV FORMULA TAB PO SCH (08:01)
[2023-11-12] MEDS: guaiFENesin 600 MG TABCR PO SCH ×2 (08:01→20:02)
[2023-11-12] MEDS: DOCUSATE SODIUM/SENNA 50/8.6MG TAB PO SCH ×2 (08:01→20:01)
[2023-11-12] MEDS: GABAPENTIN 300 MG CAP PO SCH ×3 (08:01→20:01)
[2023-11-12] MEDS: POLYETHYLENE (MIRALAX) 17 GM PACK PO SCH (08:01)
[2023-11-12] MEDS: FOLIC ACID 1 MG TAB PO SCH (08:01)
[2023-11-12] MEDS: LANTUS PER UNIT CHARGE SQ SCH (09:48)
[2023-11-12] MEDS: MoRPHine SULFATE 4 MG/ML 1 ML CARP\\VIAL IV PRN ×4 (09:48→23:58)
[2023-11-12] MEDS: PANTOprazole 40 MG in SYRINGE 0 ML IV SCH (09:48)
[2023-11-12] MEDS: LORazepam 0.25 MG in SYRINGE 0.125 ML IV PRN (15:02)
--- NOTE | 2023-11-12 17:30 | XRay Report ---
XR chest 1V portable HISTORY: 83 years-old Male hypoxia, ro pleural effusion acute shortness of breath COMPARISON: 11/09/2023 TECHNIQUE: AP view of the chest FINDINGS: Cardiac silhouette is enlarged. Pulmonary vascular congestion with interstitial coarsening. Persisten t layering pleural effusions with bibasilar consolidation which appears similar to mildly progressed. No pneumothorax. Degenerative changes of the shoulders and spine. IMPRESSION: 1. Cardiomegaly with generally unchanged pulmonary edema. 2. Layering pleural effusions with bibasilar consolidation redemonstrated. ACT 112: Negative or not required by law. The above report was generated using voice recognition software. It may contain grammatical, syntax o r spelling errors. Electronically signed by: Aiden Mcrae M.D. 11/12/2023 5:28 PM
[2023-11-12] MEDS ORDERED: FUROSEMIDE INJ 20 MG/2 ML VIAL IV ONE (17:44)
[2023-11-12] MEDS: LATANOPROST 0.005% OP SOLN 2.5 ML BTL OPL SCH (20:03)
[2023-11-12] MEDS: LIDOCAINE 5% 1 PATCH TD SCH (20:03)
[2023-11-12] MEDS: KETOROLAC TROMETHAMINE 15 MG/ML VIAL IV PRN (22:29)
[2023-11-13] MEDS: CEFEPIME 2,000 MG in SYRINGE 0 ML IV SCH ×3 (00:02→16:43)
[2023-11-13] MEDS: INSULIN ASPART PER UNIT CHARGE SC SCH ×5 (00:13→23:26)
[2023-11-13] MEDS: MoRPHine SULFATE 4 MG/ML 1 ML CARP\\VIAL IV PRN ×4 (02:20→21:43)
[2023-11-13] MEDS: METOPROLOL TARTRATE 1 MG/ML VIAL IV SCH ×3 (05:16→18:49)
[2023-11-13] MEDS: ACETAMINOPHEN 1,000 MG/100 ML VIAL IV SCH (05:17)
[2023-11-13] MEDS: metroNIDAZOLE 500 MG/100 ML BAG IV SCH ×3 (05:40→22:21)
[2023-11-13] MEDS: ENOXAPARIN 100 MG/1ML SYR SQ SCH ×2 (05:40→18:50)
[2023-11-13] MEDS: LEVOTHYROXINE SODIUM 75 MCG TABLET PO SCH (05:42)
[2023-11-13] MEDS: SUCRALFATE 1 GM/10 ML UDC PO SCH ×4 (07:16→21:08)
[2023-11-13] MEDS: DOCUSATE SODIUM/SENNA 50/8.6MG TAB PO SCH ×2 (07:16→21:07)
[2023-11-13] MEDS: FOLIC ACID 1 MG TAB PO SCH (07:17)
[2023-11-13] MEDS: POLYETHYLENE (MIRALAX) 17 GM PACK PO SCH (07:17)
[2023-11-13] MEDS: guaiFENesin 600 MG TABCR PO SCH ×2 (07:17→21:07)
[2023-11-13] MEDS: CEROVITE ADV FORMULA TAB PO SCH (07:17)
[2023-11-13] MEDS: GABAPENTIN 300 MG CAP PO SCH ×3 (07:17→21:07)
[2023-11-13] MEDS: PANTOprazole 40 MG in SYRINGE 0 ML IV SCH (07:57)
[2023-11-13] MEDS: LANTUS PER UNIT CHARGE SQ SCH (07:57)
[2023-11-13] MEDS: OLANZapine ZYDIS 5 MG ORALLY DIS. TAB PO SCH ×2 (07:57→21:13)
[2023-11-13 11:15] LABS: Hematocrit (blood only) 39.6 % (42.0-52.0); Hemoglobin 13.6 g/dl (14.0-18.0); Mean Corpuscular Hemoglobin 29.3 pg (25.0-34.0); Mean Corpuscular Hgb Conc 34.3 g/dL (32.0-36.0); Mean Corpuscular Volume 85.3 fL (80.0-100.0); Mean Platelet Volume 9.8 fL (9.4-12.4); Platelet Count 287 K/uL (130-400); RDW Coefficient of Variation 14.3 % (11.5-14.5); RDW Standard Deviation 44.5 fL (36.4-46.3); Red Blood Count 4.64 M/uL (4.70-6.10); White Blood Count 6.44 K/ul (4.8-10.8)
[2023-11-13 11:23] LABS: Creatinine Clr Calc Pharmacy 63.5 ml/min; Est GFR (African American) 89.4 ml/min; Est GFR (Non-African American) 77.1 ml/min
--- NOTE | 2023-11-13 17:00 | Hospitalist Progress Note ---
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 Julian Marshall], GERD, T2DM, hypothyroidism, chronic hyponatremia, chronic anemia [baseline hemoglobin around 13], dementia, traumatic subdural hematoma, past tobacco abuse presented to the hospital 11/01 with complaint of worsening mid back pain that has been ongoing since last month without radicular signs of symptoms/fever/chills/weakness/bowel or bladder incontinence. [facility] oncology started patient on oxycodone and reported patient to [facility] radiation therapy. CT simulation for treatment planning was contemplated. Also patient underwent outpatient EGD for Raygoza's esophagus and colonoscopy for possible colonic mass on outpatient PET/CT at [facility] 5 days ago [employer] TE[employer]. EGD showed Raygoza's esophagus/incomplete resection done/esophageal biopsy yielded tumor cells - invasive adenocarcinoma. Colonoscopy showed moderate sigmoid and descending colon diverticulosis/internal hemorrhoids/splenic flexure polyp resected -negat. for malignancy He is being managed for the following: Pathologic fracture x thoracic spine Metastatic disease from prostate cancer Opioid-induced constipation Patient coming in with worsening midthoracic pain for about a month, worse lately. Recently started on opiates as an outpatient for pain management, patient with no bowel movements for several days prior to arrival. Admitting CTAP with no acute findings in abdomen and pelvis. Admitting lumbar spine CT with multifocal osteoblastic metastatic disease. Superior endplate compression deformity of L1, unchanged. Admitting thoracic spine CT with pathologic fracture of T7. Invasion of the right T6-T7 neuroforamen with erosion of the right posterior sixth and seventh ribs. Left-pedicular fracture at T7 and spinous fracture of T7. Right pedicle of T7 is eroded. c/w pain medications, as needed oxycodone and as needed morphine. Lidocaine patch. Scheduled percocet. As needed Ativan for anxiety. Pain management consulted - adding gabapentin 300 mg TID to address neuropathic pain component. Radiation oncology consulted - and pt started radiation treatment Ortho-spine surgery consulted for abnormal T-spine CT - per Dr. Smith - Assessment T7 pathologic compression fracture. Explained the patient that he has a significant fracture in the thoracic spine that could result in neurologic compromise if it were to progress. Pt emphasized that he does not want to consider any surgical intervention. He knows this despite impending neurologic issues. If he were to pursue surgery however he would be a candidate for tertiary care center. Scheduled bowel regimen, sennakot, MiraLAX, lactulose. gave additional dose of Relistor on (11/03). Ordered suppository (11/04). Increased miralax frequency. - > Pt had a BM overnight. Cont. bowel regimen and monitor. PT/OT. 11/04 Feeling better today. at time of exam pt without any significant pain. 11/05 Pain seems better controlled. Plan for radiation therapy today. Worked w/ PT, is wearing brace. 11/06 Unfortunately today pt is more painful, uncomfortable 11/07 Pt uncomfortable, abd. pain - per gets on and off, abdomen is dist ended - obtained KUB - No evidence for a bowel obstruction. 11/08 Pt more comfortable, pain controlled. However had a chocking episode - will place npo, and speech eval. start gentle IVF 11/09 Pt comfortable, pain controlled. Drowsy. 11/10 can't tolerate PO meds, aspirating last evening. Somewhat restless but pain seems fairly controlled. Plan for RT today. palliative medicine consulted. 11/11 Tolerated RT yesterday, plan for RT today. Medicine adjusted per pall. med. Pain is fairly controlled, pt easily gets restless. Patient to follow-up with his oncologist upon discharge. However overall prognosis is guarded at this point. Pt not able to tolerate PO. He gets easily confused / restless on pain medications. palliative medicine also consulted. Currently undergoing radiation therapy while inpt to help with back pain from pathological fracture (from metast. ca). Able to tolerate RT on and off. 11/13 no new changes continue present regimen Fever, poss. pna Spiked fever overnight 11/05 blood cultx and UA obtained by pathology secretary/transcriptionist UA - negative blood cultx - posit. for staph - coag negat. staph - most likely contaminant. repeat cultx negat. for 48 hrs obtained CXR, and chest CT to further eval poss. infection CXR 1. Interval development of the mild pulmonary edema, small bilateral pleural ef fusions, and bibasilar densities. 2. Curvilinear lucency at the aortic knob and superior mediastinal widening will be better appreciated on the same day chest CT. Chest CT 1. Patchy and linear bibasilar densities most pronounced on the right. This may represent subsegmental atelectasis or a pneumonia. 2. Small bilateral pleural effusions. 3. A few subcentimeter nodules within the right lung measuring up to 5 mm. Follow-up recommended to ensure stability. 4. Stable cardiomegaly. 5. Redemonstration of the destructive mass centered at the T7 vertebral body with associated pathologic fractures of T7 as described above. This demonstrates epidural extension with moderate to severe central canal narrowing at this level. This is similar to the prior thoracic spine CT. 6. Osseous metastatic disease again noted. Started empiric abx (pt has allergy listed to pcn, started cefepime and vanco), cont. for now and await cultx. Pt had a chocking episode on 11/08 - likely aspirating. Added flagyl. stopped vanco as blood cultx + likely contaminant 11/13 Afebrile Will order Lasix 20 mg IV 1 dose Transient hypotension: Noted in ED likely secondary to narcotic pain meds use. Blood pressure medications on hold, gradually resume them. Other chronic medical conditions: Continue with/resume home meds as and when able. chronic systolic heart failure (EF 25 to 30%, TTE 2020)-Lasix 1 dose valvular heart disease (mild AR/MR/TR) CAD as per records A-fib/PE DVT, Eliquis on hold for 1 week following recent endoscopic procedure. Patient to resume Rx on 11/04/23 if without bleeding concerns as per . Eliquis resumed. colon cancer status post surgery, new colonic mass noted on imaging, recent post colonic biopsy - negative for dysplasia or malignancy - pt's updated by Dr. Rodriguez and by me Possible new esophageal cancer on recent EGD, history GERD/Raygoza's esophagus. Pt to f/u w/ his oncology on DC. Biopsy esophagus - invasive adenocarcinoma - pt's updated by Dr. Rodriguez and by me DM 2 insulin requiring, suboptimal control as of recent hemoglobin A1c of 7.22 May 2023 hypothyroidism, euthyroid as of this admission's TSH chronic hyponatremia likely secondary to malignancy chronic anemia, hemoglobin at baseline dementia, mentation at baseline as per however with pain meds on and off confused history traumatic subdural hematoma past tobacco abuse DVT prophylaxis. SCDs Re: Recent endoscopic procedure, so eliquis was held-> Resumed Eliquis- but now can't take Po -> switched to lovenox therap. dose DNR PT/OT, CM to assist w/ DC plan. Patient Ms.Dottie Chavez, contact #[phone]. Admission and Anticipated Discharge Date Admission Date: November 01, 2023 Subjective ff up for sopine fractures, etc seen resting in bed, not in distress still on the drowsy side receiving Morphine for pain no other issues per legal recovery specialist of Systems Review of Systems: all noted and negative except for above Physical Exam Physical Exam: General- drowsy,, not in distress, breathing with no effort or accessory muscle use Eyes- anicteric Neck- no JVD Lungs- clear breath sounds bilaterally, no rales/wheezes Heart- normal rate, regular rhythm; no murmurs Abdomen- normal bowel sounds, nondistended, soft, nontender Extremities- no pretibial edema, no calf tenderness Neuro- drowsy Skin- warm & dry Results & Data Results & Data Vital Signs (Past 12 Hours) Vital Signs Temp Pulse Pulse Resp BP BP Pulse Ox 11/13/23 15:54 36.5 C 109 H 17 163/85 H 94 11/13/23 15:23 99 H 11/13/23 14:17 100 H 11/13/23 13:01 93 H 152/93 H 11/13/23 11:39 36.2 C L 93 H 18 152/88 H 92 11/13/23 08:03 36.0 C L 103 H 17 148/92 H 96 11/13/23 08:00 11/13/23 05:41 108 H 150/82 H 11/13/23 05:16 110 H 150/84 H O2 Del Method O2 Flow Rate 11/13/23 15:54 Nasal Cannula 4 11/13/23 15:23 11/13/23 14:17 11/13/23 13:01 11/13/23 11:39 Nasal Cannula 4 11/13/23 08:03 Nasal Cannula 5 11/13/23 08:00 Nasal Cannula 5 11/13/23 05:41 11/13/23 05:16 all noted and reviewed including below (1) Fracture of thoracic spine Encounter type: subsequent encounter Fracture healing: with delayed healing Fracture morphology: unspecified fracture morphology Fracture type: closed Thoracic vertebra fracture level: T7 Qualified Code(s): S22.069G - Unspecified fracture of T7-T8 vertebra, subsequent encounter for fracture with delayed healing
--- NOTE | 2023-11-13 17:00 | Hospitalist Progress Note ---
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 Julian Marshall], GERD, T2DM, hypothyroidism, chronic hyponatremia, chronic anemia [baseline hemoglobin around 13], dementia, traumatic subdural hematoma, past tobacco abuse presented to the hospital 11/01 with complaint of worsening mid back pain that has been ongoing since last month without radicular signs of symptoms/fever/chills/weakness/bowel or bladder incontinence. [facility]ology started patient on oxycodone and reported patient to [facility] radiation therapy. CT simulation for treatment planning was contemplated. Also patient underwent outpatient EGD for Raygoza's esophagus and colonoscopy for possible colonic mass on outpatient PET/CT at [facility] 5 days ago [employer]. EGD showed Raygoza's esophagus/incomplete resection done/esophageal biopsy yielded tumor cells - invasive adenocarcinoma. Colonoscopy showed moderate sigmoid and descending colon diverticulosis/internal hemorrhoids/spl enic flexure polyp resected -negat. for malignancy He is being managed for the following: Pathologic fracture x thoracic spine Metastatic disease from prostate cancer Opioid-induced constipation Patient coming in with worsening midthoracic pain for about a month, worse lately. Recently started on opiates as an outpatient for pain management, patient with no bowel movements for several days prior to arrival. Admitting CTAP with no acute findings in abdomen and pelvis. Admitting lumbar spine CT with multifocal osteoblastic metastatic disease. Superior endplate compression deformity of L1, unchanged. Admitting thoracic spine CT with pathologic fracture of T7. Invasion of the right T6-T7 neuroforamen with erosion of the right posterior sixth and seventh ribs. Left-pedicular fracture at T7 and spinous fracture of T7. Right pedicle of T7 is eroded. c/w pain medications, as needed oxycodone and as needed morphine. Lidocaine patch. Scheduled percocet. As needed Ativan for anxiety. Pain management consulted - adding gabapentin 300 mg TID to address neuropathic pain component. Radiation oncology consulted - and pt started radiation treatment Ortho-spine surgery consulted for abnormal T-spine CT - per Dr. Smith - Assessment T7 pathologic compression fracture. Explained the patient that he has a significant fracture in the thoracic spine that could result in neurologic compromise if it were to progress. Pt emphasized that he does not want to consider any surgical intervention. He knows this despite impending neurologic issues. If he were to pursue surgery however he would be a candidate for tertiary care center. Scheduled bowel regimen, sennakot, MiraLAX, lactulose. gave additional dose of Relistor on (11/03). Ordered suppository (11/04). Increased miralax frequency. - > Pt had a BM overnight. Cont. bowel regimen and monitor. PT/OT. 11/04 Feeling better today. at time of exam pt without any significant pain. 11/05 Pain seems better controlled. Plan for radiation therapy today. Worked w/ PT, is wearing brace. 11/06 Unfortunately today pt is more painful, uncomfortable 11/07 Pt uncomfortable, abd. pain - per gets on and off, abdomen is distended - obtained KUB - No evidence for a bowel obstruction. 11/08 Pt more comfortable, pain controlled. However had a chocking episode - will place npo, and speech eval. start gentle IVF 11/09 Pt comfortable, pain controlled. Drowsy. 11/10 can't tolerate PO meds, aspirating last evening. Somewhat restless but pain seems fairly controlled. Plan for RT today. palliative medicine consulted. 11/11 Tolerated RT yesterday, plan for RT today. Medicine adjusted per pall. med. Pain is fairly controlled, pt easily gets restless. Patient to follow-up with his oncologist upon discharge. However overall prognosis is guarded at this point. Pt not able to tolerate PO. He gets easily confused / restless on pain medications. palliative medicine also consulted. Currently undergoing radiation therapy while inpt to help with back pain from pathological fracture (from metast. ca). Able to tolerate RT on and off. 11/13 Patient underwent radiation therapy again today Detailed discussion held with patient regarding goals of care She would like to see how the patient does through the night and reassess tomorrow Fever, poss. pna Spiked fever overnight 11/05 blood cultx and UA obtained by candle maker UA - negative blood cultx - posit. for staph - coag negat. staph - most likely contaminant. repeat cultx negat. for 48 hrs obtained CXR, and chest CT to further eval poss. infection CXR 1. Interval development of the mild pulmonary edema, small bilateral pleural effusions, and bibasilar densities. 2. Curvilinear lucency at the aortic knob and superior mediastinal widening will be better appreciated on the same day chest CT. Chest CT 1. Patchy and linear bibasilar densities most pronounced on the right. This may represent subsegmental atelectasis or a pneumonia. 2. Small bilateral pleural effusions. 3. A few subcentimeter nodules within the right lung measuring up to 5 mm. Follow-up recommended to ensure stability. 4. Stable cardiomegaly. 5. Redemonstration of the destructive mass centered at the T7 vertebral body with associated pathologic fractures of T7 as described above. This demonstrates epidural extension with moderate to severe central canal narrowing at this level. This is similar to the prior thoracic spine CT. 6. Osseous metastatic disease again noted. Started empiric abx (pt has allergy listed to [facility], started cefepime and vanco), cont. for now and await cultx. Pt had a chocking episode on 11/08 - likely aspirating. Added flagyl. stopped vanco as blood cultx + likely contaminant 11/13 Afebrile Will order Lasix 20 mg IV 1 dose Transient hypotension: Noted in ED likely secondary to narcotic pain meds use. Blood pressure medications on hold, gradually resume them. Other chronic medical conditions: Continue with/resume home meds as and when able. chronic systolic heart failure (EF 25 to 30%, TTE 2020)-Lasix 1 dose valvular heart disease (mild AR/MR/TR) CAD as per records A-fib/PE DVT, Eliquis on hold for 1 week following recent endoscopic procedure. Patient to resume Rx on 11/04/23 if without bleeding concerns as per . Eliquis resumed. colon cancer status post surgery, new colonic mass noted on imaging, recent post colonic biopsy - negative for dysplasia or malignancy - pt's updated by Dr. Rodriguez and by me Possible new esophageal cancer on recent EGD, history GERD/Raygoza's esophagus. Pt to f/u w/ his oncology on DC. Biopsy esophagus - invasive adenocarcinoma - pt's updated by Dr. Rodriguez and by me DM 2 insulin requiring, suboptimal control as of recent hemoglobin A1c of 7.22 May 2023 hypothyroidism, euthyroid as of this admission's TSH chronic hyponatremia likely secondary to malignancy chronic anemia, hemoglobin at baseline dementia, mentation at baseline as per however with pain meds on and off confused history traumatic subdural hematoma past tobacco abuse DVT prophylaxis. SCDs Re: Recent endoscopic procedure, so eliquis was held-> Resumed Eliquis- but now can't take Po -> switched to lovenox therap. dose DNR PT/OT, CM to assist w/ DC plan. Patient Ms.Dottie Chavez, contact #[phone]. Admission and Anticipated Discharge Date Admission Date: November 01, 2023 Subjective Follow-up for fracture, prostate cancer with mets, etc. Notified by RN that patient is having apneic episodes Seen at the bedside Patient mostly sleeping, occasionally opening eyes, then going back to sleep Not in distress Was having pain earlier, was given morphine IV Patient's updated over the phone Reassessed around 130 with patient's at the bedside Patient mostly sleeping, but occasionally wakes up Still mostly confused Patient noted when asked by he sees having pain Detailed discussion held with patient regarding goals of care She would like to see how the patient does through the night and reassess tomorrow Review of Systems Review of Systems: all noted and negative except for above Physical Exam Physical Exam: General-mostly drowsy, not in distress, breathing with no effort or accessory muscle use Weak Eyes- anicteric Neck- no JVD Lungs-mild rales at the bases Heart- normal rate, regular rhythm; no murmurs Abdomen- normal bowel sounds, nondistended, soft, nontender Extremities- no pretibial edema, no calf tenderness Neuro-mostly drowsy Skin- warm & dry Results & Data Results & Data Vital Signs (Past 12 Hours) Vital Signs Temp Pulse Pulse Resp BP BP Pulse Ox 11/13/23 15:54 36.5 C 109 H 17 163/85 H 94 11/13/23 15:23 99 H 11/13/23 14:17 100 H 11/13/23 13:01 93 H 152/93 H 11/13/23 11:39 36.2 C L 93 H 18 152/88 H 92 11/13/23 08:03 36.0 C L 103 H 17 148/92 H 96 11/13/23 08:00 11/13/23 05:41 108 H 150/82 H 11/13/23 05:16 110 H 150/84 H O2 Del Method O2 Flow Rate 11/13/23 15:54 Nasal Cannula 4 11/13/23 15:23 11/13/23 14:17 11/13/23 13:01 11/13/23 11:39 Nasal Cannula 4 11/13/23 08:03 Nasal Cannula 5 11/13/23 08:00 Nasal Cannula 5 11/13/23 05:41 11/13/23 05:16 all noted and reviewed including below (1) Fracture of thoracic spine Encounter type: subsequent encounter Fracture healing: with delayed healing Fracture morphology: unspecified fracture morphology Fracture type: closed Thoracic vertebra fracture level: T7 Qualified Code(s): S22.069G - Unspecified fracture of T7-T8 vertebra, subsequent encounter for fracture with delayed healing
[2023-11-13] MEDS ORDERED: FUROSEMIDE INJ 20 MG/2 ML VIAL IV ONE (17:34)
[2023-11-13] MEDS: LIDOCAINE 5% 1 PATCH TD SCH (21:12)
[2023-11-13] MEDS: LATANOPROST 0.005% OP SOLN 2.5 ML BTL OPL SCH (21:13)
[2023-11-13] MEDS: LORazepam 0.25 MG in SYRINGE 0.125 ML IV PRN (22:21)
[2023-11-14] MEDS: METOPROLOL TARTRATE 1 MG/ML VIAL IV SCH ×5 (00:21→23:40)
[2023-11-14] MEDS: KETOROLAC TROMETHAMINE 15 MG/ML VIAL IV PRN ×3 (00:23→23:39)
[2023-11-14] MEDS: CEFEPIME 2,000 MG in SYRINGE 0 ML IV SCH ×3 (00:23→17:33)
[2023-11-14] MEDS: MoRPHine SULFATE 4 MG/ML 1 ML CARP\\VIAL IV PRN ×4 (05:02→22:00)
[2023-11-14] MEDS: ENOXAPARIN 100 MG/1ML SYR SQ SCH ×2 (06:01→17:34)
[2023-11-14] MEDS: metroNIDAZOLE 500 MG/100 ML BAG IV SCH ×2 (06:01→14:25)
[2023-11-14] MEDS: INSULIN ASPART PER UNIT CHARGE SC SCH ×4 (06:01→23:39)
[2023-11-14] MEDS: LEVOTHYROXINE SODIUM 75 MCG TABLET PO SCH (06:02)
[2023-11-14] MEDS: SUCRALFATE 1 GM/10 ML UDC PO SCH ×4 (09:00→21:07)
[2023-11-14] MEDS: POLYETHYLENE (MIRALAX) 17 GM PACK PO SCH (10:06)
[2023-11-14] MEDS: CEROVITE ADV FORMULA TAB PO SCH (10:07)
[2023-11-14] MEDS: FOLIC ACID 1 MG TAB PO SCH (10:07)
[2023-11-14] MEDS: guaiFENesin 600 MG TABCR PO SCH ×2 (10:07→21:06)
[2023-11-14] MEDS: DOCUSATE SODIUM/SENNA 50/8.6MG TAB PO SCH ×2 (10:07→21:06)
[2023-11-14] MEDS: GABAPENTIN 300 MG CAP PO SCH ×3 (10:07→21:06)
[2023-11-14] MEDS: PANTOprazole 40 MG in SYRINGE 0 ML IV SCH (10:08)
[2023-11-14] MEDS: OLANZapine ZYDIS 5 MG ORALLY DIS. TAB PO SCH ×2 (10:09→21:08)
[2023-11-14] MEDS: LANTUS PER UNIT CHARGE SQ SCH (10:11)
--- NOTE | 2023-11-14 19:49 | Hospitalist Progress Note ---
Date of Service November 14, 2023 Assessment & Plan (1) Fracture of thoracic spine: Plan: Per previous hospitalist notes with addendum: 83-year-old gentleman with PMH of chronic systolic heart failure [EF 25 to 30%, 2020 TTE], CAD, 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 Julian Marshall], GERD, T2DM, hypothyroidism, chronic hyponatremia, chronic anemia [baseline hemoglobin around 13], dementia, traumatic subdural hematoma, past tobacco abuse presented to the hospital 11/01 with complaint of worsening mid back pain that has been ongoing since last month without radicular signs of symptoms/fever/chills/weakness/bowel or bladder incontinence. [facility] oncology started patient on oxycodone and reported patient to [facility] radiation therapy. CT simulation for treatment planning was contemplated. Also patient underwent outpatient EGD for Raygoza's esophagus and colonoscopy for possible colonic mass on outpatient PET/CT at [facility] 5 days ago [employer]. EGD showed Raygoza's esophagus/incomplete resection done/esophageal biopsy yielded tumor cells - invasive adenocarcinoma. Colonoscopy showed moderate sigmoid and descending colon diverticulosis/internal hemorrhoids/spl enic flexure polyp resected -negat. for malignancy He is being managed for the following: Pathologic fracture x thoracic spine Metastatic disease from prostate cancer Opioid-induced constipation Patient coming in with worsening midthoracic pain for about a month, worse lately. Recently started on opiates as an outpatient for pain management, patient with no bowel movements for several days prior to arrival. Admitting CTAP with no acute findings in abdomen and pelvis. Admitting lumbar spine CT with multifocal osteoblastic metastatic disease. Superior endplate compression deformity of L1, unchanged. Admitting thoracic spine CT with pathologic fracture of T7. Invasion of the right T6-T7 neuroforamen with erosion of the right posterior sixth and seventh ribs. Left-pedicular fracture at T7 and spinous fracture of T7. Right pedicle of T7 is eroded. c/w pain medications, as needed oxycodone and as needed morphine. Lidocaine patch. Scheduled percocet. As needed Ativan for anxiety. Pain management consulted - adding gabapentin 300 mg TID to address neuropathic pain component. Radiation oncology consulted - and pt started radiation treatment Ortho-spine surgery consulted for abnormal T-spine CT - per Dr. Smith - Assessment T7 pathologic compression fracture. Explained the patient that he has a significant fracture in the thoracic spine that could result in neurologic compromise if it were to progress. Pt emphasized that he does not want to consider any surgical intervention. He knows this despite impending neurologic issues. If he were to pursue surgery however he would be a candidate for tertiary care center. Scheduled bowel regimen, sennakot, MiraLAX, lactulose. gave additional dose of Relistor on (11/03). Ordered suppository (11/04). Increased miralax frequency. - > Pt had a BM overnight. Cont. bowel regimen and monitor. PT/OT. 11/04 Feeling better today. at time of exam pt without any significant pain. 11/05 Pain seems better controlled. Plan for radiation therapy today. Worked w/ PT, is wearing brace. 11/06 Unfortunately today pt is more painful, uncomfortable 11/07 Pt uncomfortable, abd. pain - per gets on and off, abdomen is distended - obtained KUB - No evidence for a bowel obstruction. 11/08 Pt more comfortable, pain controlled. However had a chocking episode - will place npo, and speech eval. start gentle IVF 11/09 Pt comfortable, pain controlled. Drowsy. 11/10 can't tolerate PO meds, aspirating last evening. Somewhat restless but pain seems fairly controlled. Plan for RT today. palliative medicine consulted. 11/11 Tolerated RT yesterday, plan for RT today. Medicine adjusted per pall. med. Pain is fairly controlled, pt easily gets restless. Patient to follow-up with his oncologist upon discharge. However overall prognosis is guarded at this point. Pt not able to tolerate PO. He gets easily confused / restless on pain medications. palliative medicine also consulted. Currently undergoing radiation therapy while inpt to help with back pain from pathological fracture (from metast. ca). Able to tolerate RT on and off. 11/13 Patient underwent radiation therapy again today Detailed discussion held with patient regarding goals of care She would like to see how the patient does through the night and reassess tomorrow 11/14 Patient remains comfortable Requiring morphine regularly for pain control Will discuss with regarding goals of care tomorrow Fever, poss. pna Spiked fever overnight 11/05 blood cultx and UA obtained by die repair machinist UA - negative blood cultx - posit. for staph - coag negat. staph - most likely contaminant. repeat cultx negat. for 48 hrs obtained CXR, and chest CT to further eval poss. infection CXR 1. Interval development of the mild pulmonary edema, small bilateral pleural effusions, and bibasilar densities. 2. Curvilinear lucency at the aortic knob and superior mediastinal widening will be better appreciated on the same day chest CT. Chest CT 1. Patchy and linear bibasilar densities most pronounced on the right. This may represent subsegmental atelectasis or a pneumonia. 2. Small bilateral pleural effusions. 3. A few subcentimeter nodules within the right lung measuring up to 5 mm. Follow-up recommended to ensure stability. 4. Stable cardiomegaly. 5. Redemonstration of the destructive mass centered at the T7 vertebral body with associated pathologic fractures of T7 as described above. This demonstrates epidural extension with moderate to severe central canal narrowing at this level. This is similar to the prior thoracic spine CT. 6. Osseous metastatic disease again noted. Started empiric abx (pt has allergy listed to n, started cefepime and vanco), cont. for now and await cultx. Pt had a chocking episode on 11/08 - likely aspirating. Added flagyl. stopped vanco as blood cultx + likely contaminant 11/13 Afebrile Will order Lasix 20 mg IV 1 dose 11/14 Afebrile Denies shortness of breath, breath sounds seems to be clear today Transient hypotension: Noted in ED likely secondary to narcotic pain meds use. Blood pressure medications on hold, gradually resume them. Other chronic medical conditions: Continue with/resume home meds as and when able. chronic systolic heart failure (EF 25 to 30%, TTE 2020)-Lasix 1 dose valvular heart disease (mild AR/MR/TR) CAD as per records A-fib/PE DVT, Eliquis on hold for 1 week following recent endoscopic procedure. Patient to resume Rx on 11/04/23 if without bleeding concerns as per . Eliquis resumed. colon cancer status post surgery, new colonic mass noted on imaging, recent post colonic biopsy - negative for dysplasia or malignancy - pt's updated by Dr. Rodriguez and by me Possible new esophageal cancer on recent EGD, history GERD/Raygoza's esophagus. Pt to f/u w/ his oncology on DC. Biopsy esophagus - invasive adenocarcinoma - pt's updated by Dr. Rodriguez and by me DM 2 insulin requiring, suboptimal control as of recent hemoglobin A1c of 7.22 May 2023 hypothyroidism, euthyroid as of this admission's TSH chronic hyponatremia likely secondary to malignancy chronic anemia, hemoglobin at baseline dementia, mentation at baseline as per however with pain meds on and off confused history traumatic subdural hematoma past tobacco abuse DVT prophylaxis. SCDs Re: Recent endoscopic procedure, so eliquis was held-> Resumed Eliquis- but now can't take Po -> switched to lovenox therap. dose DNR PT/OT, CM to assist w/ DC plan. Patient Ms.Dottie Chavez, contact #[phone]. Admission and Anticipated Discharge Date Admission Date: November 01, 2023 Subjective Follow-up for pathologic fractures, cancer with mets, etc. Seen resting in bed, not in distress Seems to open eyes more today Denies shortness of breath Does not answer when he is in pain, but no signs of active pain or distress Review of Systems Review of Systems: all noted and negative except for above Physical Exam Physical Exam: General-mostly drowsy, not in distress, breathing with no effort or accessory muscle use Eyes- anicteric Neck- no JVD Lungs- clear breath sounds bilaterally, no rales/wheezes Heart- normal rate, regular rhythm; no murmurs Abdomen- normal bowel sounds, nondistended, soft, nontender Extremities- no pretibial edema, no calf tenderness Neuro-drowsy, no gross focal neurologic deficits Skin- warm & dry Results & Data Results & Data Vital Signs (Past 12 Hours) Vital Signs Temp Pulse Pulse Resp BP BP BP 11/14/23 18:01 96 H 11/14/23 17:33 119 H 178/92 H 11/14/23 16:15 36.4 C L 119 H 17 178/92 H 11/14/23 15:42 83 11/14/23 12:28 97 H 11/14/23 12:09 110 H 145/90 H 11/14/23 11:47 36.7 C 110 H 17 145/90 H 11/14/23 08:16 11/14/23 08:02 36.5 C 103 H 17 121/89 11/14/23 07:48 99 H Pulse Ox O2 Del Method O2 Flow Rate 11/14/23 18:01 11/14/23 17:33 11/14/23 16:15 91 Room Air 11/14/23 15:42 11/14/23 12:28 11/14/23 12:09 11/14/23 11:47 95 Nasal Cannula 3 11/14/23 08:16 Room Air 11/14/23 08:02 95 Nasal Cannula 4 11/14/23 07:48 (1) Fracture of thoracic spine Encounter type: subsequent encounter Fracture healing: with delayed healing Fracture morphology: unspecified fracture morphology Fracture type: closed Thoracic vertebra fracture level: T7 Qualified Code(s): S22.069G - Unspecified fracture of T7-T8 vertebra, subsequent encounter for fracture with delayed healing
[2023-11-14] MEDS ORDERED: hydrALAZINE HCL 20 MG/ML VIAL IV PRN (19:50)
[2023-11-14] MEDS: LATANOPROST 0.005% OP SOLN 2.5 ML BTL OPL SCH (21:07)
[2023-11-14] MEDS: LIDOCAINE 5% 1 PATCH TD SCH (21:07)
[2023-11-15] MEDS: LEVOTHYROXINE SODIUM 75 MCG TABLET PO SCH (05:54)
[2023-11-15] MEDS: ENOXAPARIN 100 MG/1ML SYR SQ SCH ×2 (05:55→17:34)
[2023-11-15] MEDS: METOPROLOL TARTRATE 1 MG/ML VIAL IV SCH ×4 (05:55→23:39)
[2023-11-15] MEDS: INSULIN ASPART PER UNIT CHARGE SC SCH ×4 (05:59→23:44)
[2023-11-15] MEDS: guaiFENesin 600 MG TABCR PO SCH ×2 (09:14→21:24)
[2023-11-15] MEDS: SUCRALFATE 1 GM/10 ML UDC PO SCH ×4 (09:14→21:24)
[2023-11-15] MEDS: CEROVITE ADV FORMULA TAB PO SCH (09:14)
[2023-11-15] MEDS: FOLIC ACID 1 MG TAB PO SCH (09:14)
[2023-11-15] MEDS: POLYETHYLENE (MIRALAX) 17 GM PACK PO SCH (09:14)
[2023-11-15] MEDS: GABAPENTIN 300 MG CAP PO SCH ×3 (09:14→21:24)
[2023-11-15] MEDS: DOCUSATE SODIUM/SENNA 50/8.6MG TAB PO SCH ×2 (09:14→21:24)
[2023-11-15] MEDS: KETOROLAC TROMETHAMINE 15 MG/ML VIAL IV PRN ×3 (09:28→23:39)
[2023-11-15] MEDS: LANTUS PER UNIT CHARGE SQ SCH (09:30)
[2023-11-15] MEDS: OLANZapine ZYDIS 5 MG ORALLY DIS. TAB PO SCH ×2 (09:31→21:27)
[2023-11-15] MEDS: PANTOprazole 40 MG in SYRINGE 0 ML IV SCH (09:31)
[2023-11-15] MEDS ORDERED: THIAMINE HCL 200 MG in SODIUM CHLORIDE 0.9% 50 ML IV STA (13:15)
[2023-11-15] MEDS ORDERED: TPN/PPN CONSULT PHARMACY SCH (13:25)
[2023-11-15] MEDS ORDERED: TPN/PPN CONSULT PHARMACY STA (13:27)
[2023-11-15 13:56] LABS: Basophils # (auto) 0.04 K/uL (0.00-0.20); Basophils % (auto) 0.7 %; Eosinophils # (auto) 0.06 K/uL (0.00-0.50); Eosinophils % (auto) 1.1 %; Hematocrit (blood only) 45.5 % (42.0-52.0); Hemoglobin 15.1 g/dl (14.0-18.0); Immature Granulocytes # (auto) 0.02 K/uL (0.01-0.20); Immature Granulocytes % (auto) 0.4 %; Lymphocytes # (auto) 0.49 K/uL (1.20-3.40); Lymphocytes % (auto) 8.7 %; Mean Corpuscular Hemoglobin 28.4 pg (25.0-34.0); Mean Corpuscular Hgb Conc 33.2 g/dL (32.0-36.0); Mean Corpuscular Volume 85.7 fL (80.0-100.0); Mean Platelet Volume 9.5 fL (9.4-12.4); Monocytes # (auto) 0.49 K/uL (0.11-0.59); Monocytes % (auto) 8.7 %; Neutrophils # (auto) 4.56 K/uL (1.40-6.50); Neutrophils % (auto) 80.4 %; Platelet Count 294 K/uL (130-400); RDW Coefficient of Variation 14.7 % (11.5-14.5); RDW Standard Deviation 45.4 fL (36.4-46.3); Red Blood Count 5.31 M/uL (4.70-6.10); White Blood Count 5.66 K/ul (4.8-10.8)
[2023-11-15] MEDS: D5W AND NSS 1,000 ML IV SCH (14:04)
[2023-11-15 14:11] LABS: Albumin Globulin Ratio 1.1 (0.9-2); Albumin Level 3.6 gm/dl (3.4-5.0); BUN Creatinine Ratio 54.4 (10-20); Bilirubin,Total 3.2 mg/dl (0.2-1.0); Creatinine Clr Calc Pharmacy 71.7 ml/min; Est GFR (African American) 95.6 ml/min; Est GFR (Non-African American) 82.5 ml/min; Globulin 3.4 gm/dl (2.5-4.0); Magnesium 2.4 mg/dl (1.7-2.4); Phosphorus 2.4 mg/dl (2.5-4.9); Potassium 4.2 mmol/L (3.5-5.1)
[2023-11-15] MEDS: LORazepam 0.25 MG in SYRINGE 0.125 ML IV PRN (15:40)
--- NOTE | 2023-11-15 19:32 | Hospitalist Progress Note ---
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 Julian Marshall], GERD, T2DM, hypothyroidism, chronic hyponatremia, chronic anemia [baseline hemoglobin around 13], dementia, traumatic subdural hematoma, past tobacco abuse presented to the hospital 11/01 with complaint of worsening mid back pain that has been ongoing since last month without radicular signs of symptoms/fever/chills/weakness/bowel or bladder incontinence. [facility] oncology started patient on oxycodone and reported patient to [facility] radiation therapy. CT simulation for treatment planning was contemplated. Also patient underwent outpatient EGD for Raygoza's esophagus and colonoscopy for possible colonic mass on outpatient PET/CT at [facility] 5 days ago [employer]. EGD showed Raygoza's esophagus/incomplete resection done/esophageal biopsy yielded tumor cells - invasive adenocarcinoma. Colonoscopy showed moderate sigmoid and descending colon diverticulosis/internal hemorrhoids/splenic flexure polyp resected -negat. for malignancy He is being managed for the following: Pathologic fracture x thoracic spine Metastatic disease from prostate cancer Opioid-induced constipation Patient coming in with worsening midthoracic pain for about a month, worse lately. Recently started on opiates as an outpatient for pain management, patient with no bowel movements for several days prior to arrival. Admitting CTAP with no acute findings in abdomen and pelvis. Admitting lumbar spine CT with multifocal osteoblastic metastatic disease. Superior endplate compression deformity of L1, unchanged. Admitting thoracic spine CT with pathologic fracture of T7. Invasion of the right T6-T7 neuroforamen with erosion of the right posterior sixth and seventh ribs. Left-pedicular fracture at T7 and spinous fracture of T7. Right pedicle of T7 is eroded. c/w pain medications, as needed oxycodone and as needed morphine. Lidocaine patch. Scheduled percocet. As needed Ativan for anxiety. Pain management consulted - adding gabapentin 300 mg TID to address neuropathic pain component. Radiation oncology consulted - and pt started radiation treatment Ortho-spine surgery consulted for abnormal T-spine CT - per Dr. Smith - Assessment T7 pathologic compression fracture. Explained the patient that he has a significant fracture in the thoracic spine that could result in neurologic compromise if it were to progress. Pt emphasized that he does not want to consider any surgical intervention. He knows this despite impending neurologic issues. If he were to pursue surgery however he would be a candidate for tertiary care center. Scheduled bowel regimen, sennakot, MiraLAX, lactulose. gave additional dose of Relistor on (11/03). Ordered suppository (11/04). Increased miralax frequency. - > Pt had a BM overnight. Cont. bowel regimen and monitor. PT/OT. 11/04 Feeling better today. at time of exam pt without any significant pain. 11/05 Pain seems better controlled. Plan for radiation therapy today. Worked w/ PT, is wearing brace. 11/06 Unfortunately today pt is more painful, uncomfortable 11/07 Pt uncomfortable, abd. pain - per gets on and off, abdomen is distended - obtained KUB - No evidence for a bowel obstruction. 11/08 Pt more comfortable, pain controlled. However had a chocking episode - will place npo, and speech eval. start gentle IVF 11/09 Pt comfortable, pain controlled. Drowsy. 11/10 can't tolerate PO meds, aspirating last evening. Somewhat restless but pain seems fairly controlled. Plan for RT today. palliative medicine consulted. 11/11 Tolerated RT yesterday, plan for RT today. Medicine adjusted per pall. med. Pain is fairly controlled, pt easily gets restless. Patient to follow-up with his oncologist upon discharge. However overall prognosis is guarded at this point. Pt not able to tolerate PO. He gets easily confused / restless on pain medications. palliative medicine also consulted. Currently undergoing radiation therapy while inpt to help with back pain from pathological fracture (from metast. ca). Able to tolerate RT on and off. 11/13 Patient underwent radiation therapy again today Detailed discussion held with patient regarding goals of care She would like to see how the patient does through the night and reassess tomorrow 11/14 Patient remains comfortable Requiring morphine regularly for pain control Will discuss with regarding goals of care tomorrow 11/15 Start PPN Check electrolytes Continue as needed medications for pain, etc. Fever, poss. pna Spiked fever overnight 11/05 blood cultx and UA obtained by director of nursing UA - negative blood cultx - posit. for staph - coag negat. staph - most likely contaminant. repeat cultx negat. for 48 hrs obtained CXR, and chest CT to further eval poss. infection CXR 1. Interval development of the mild pulmonary edema, small bilateral pleural effusions, and bibasilar densities. 2. Curvilinear lucency at the aortic knob and superior mediastinal widening will be better appreciated on the same day chest CT. Chest CT 1. Patchy and linear bibasilar densities most pronounced on the right. This may represent subsegmental atelectasis or a pneumonia. 2. Small bilateral pleural effusions. 3. A few subcentimeter nodules within the right lung measuring up to 5 mm. Follow-up recommended to ensure stability. 4. Stable cardiomegaly. 5. Redemonstration of the destructive mass centered at the T7 vertebral body with associated pathologic fractures of T7 as described above. This demonstrates epidural extension with moderate to severe central canal narrowing at this level. This is similar to the prior thoracic spine CT. 6. Osseous metastatic disease again noted. Started empiric abx (pt has allergy listed to pcn, started cefepime and vanco), cont. for now and await cultx. Pt had a chocking episode on 11/08 - likely aspirating. Added flagyl. stopped vanco as blood cultx + likely contaminant 11/13 Afebrile Will order Lasix 20 mg IV 1 dose 11/14 Afebrile Denies shortness of breath, breath sounds seems to be clear today 11/15 No signs of respiratory distress Continue oxygen supplementation As needed Lasix IV Transient hypotension: Noted in ED likely secondary to narcotic pain meds use. Blood pressure medications on hold, gradually resume them. Other chronic medical conditions: Continue with/resume home meds as and when able. chronic systolic heart failure (EF 25 to 30%, TTE 2020)-Lasix 1 dose valvular heart disease (mild AR/MR/TR) CAD as per records A-fib/PE DVT, Eliquis on hold for 1 week following recent endoscopic procedure. Patient to resume Rx on 11/04/23 if without bleeding concerns as per . Eliquis resumed. colon cancer status post surgery, new colonic mass noted on imaging, recent post colonic biopsy - negative for dysplasia or malignancy - pt's updated by Dr. Rodriguez and by me Possible new esophageal cancer on recent EGD, history GERD/Raygoza's esophagus. Pt to f/u w/ his oncology on DC. Biopsy esophagus - invasive adenocar cinoma - pt's updated by Dr. Rodriguez and by me DM 2 insulin requiring, suboptimal control as of recent hemoglobin A1c of 7.22 May 2023 hypothyroidism, euthyroid as of this admission's TSH chronic hyponatremia likely secondary to malignancy chronic anemia, hemoglobin at baseline dementia, mentation at baseline as per however with pain meds on and off confused history traumatic subdural hematoma past tobacco abuse DVT prophylaxis. SCDs Re: Recent endoscopic procedure, so eliquis was held-> Resumed Eliquis- but now can't take Po -> switched to lovenox therap. dose DNR PT/OT, CM to assist w/ DC plan. plan of care discussed with patient's in detail and at length all questions answered she is understanding, agreeable, comfortable with the plan of care Admission and Anticipated Discharge Date Admission Date: November 01, 2023 Subjective Follow-up for pathologic spinal fractures, likely metastatic, etc. Seen with patient's at bedside Awake, but confused Does not answer questions appropriately Goals of care discussed with patient's at the bedside States she prefers to continue with radiation therapy until further discussion with oncologist and radiation oncologist Prefers to proceed with TPN for nutrition Review of Systems Review of Systems: all noted and negative except for above Physical Exam Physical Exam: General-awake, not in distress, speaks in sentences with no effort or accessory muscle use Eyes- anicteric Neck- no JVD Lungs- clear breath sounds bilaterally, no crackles/wheezing Heart- normal rate, regular rhythm; no murmurs Abdomen- normal bowel sounds, nondistended, soft, no tenderness Extremities- no pretibial edema, no calf tenderness Neuro- alert, oriented x 3; no gross focal neurologic deficits Skin- warm & dry Results & Data Results & Data Vital Signs (Past 12 Hours) Vital Signs Temp Pulse Pulse Resp BP BP Pulse Ox 11/15/23 18:21 105 H 11/15/23 17:31 124 H 170/92 H 11/15/23 16:05 36.7 C 70 17 161/95 H 94 11/15/23 14:07 127 H 11/15/23 11:58 112 H 11/15/23 11:52 36.3 C L 147 H 18 134/82 93 11/15/23 11:22 147 H 138/84 11/15/23 10:39 11/15/23 09:16 81 11/15/23 07:56 36.4 C L 104 H 17 144/101 H 99 O2 Del Method O2 Flow Rate 11/15/23 18:21 11/15/23 17:31 11/15/23 16:05 Nasal Cannula 3 11/15/23 14:07 11/15/23 11:58 11/15/23 11:52 Nasal Cannula 4 11/15/23 11:22 11/15/23 10:39 Nasal Cannula 2 11/15/23 09:16 11/15/23 07:56 Nasal Cannula 4 all noted and reviewed including below (1) Fracture of thoracic spine Encounter type: subsequent encounter Fracture healing: with delayed healing Fracture morphology: unspecified fracture morphology Fracture type: closed Thoracic vertebra fracture level: T7 Qualified Code(s): S22.069G - Unspecified fracture of T7-T8 vertebra, subsequent encounter for fracture with delayed healing
[2023-11-15] MEDS: LATANOPROST 0.005% OP SOLN 2.5 ML BTL OPL SCH (21:28)
[2023-11-15] MEDS: LIDOCAINE 5% 1 PATCH TD SCH (21:28)
[2023-11-16] MEDS: D5W AND NSS 1,000 ML IV SCH (03:48)
[2023-11-16] MEDS: LORazepam 0.25 MG in SYRINGE 0.125 ML IV PRN ×3 (05:17→21:40)
[2023-11-16] MEDS: LEVOTHYROXINE SODIUM 75 MCG TABLET PO SCH (05:18)
[2023-11-16] MEDS: METOPROLOL TARTRATE 1 MG/ML VIAL IV SCH ×3 (05:18→17:46)
[2023-11-16] MEDS: INSULIN ASPART PER UNIT CHARGE SC SCH ×3 (05:25→17:58)
[2023-11-16] MEDS: KETOROLAC TROMETHAMINE 15 MG/ML VIAL IV PRN ×3 (05:26→21:40)
[2023-11-16] MEDS: ENOXAPARIN 100 MG/1ML SYR SQ SCH ×2 (05:27→17:47)
[2023-11-16] MEDS: OLANZapine 10 MG/2.1 ML SDV IM PRN (07:25)
[2023-11-16 07:48] LABS: Hematocrit (blood only) 43.1 % (42.0-52.0); Hemoglobin 13.3 g/dl (14.0-18.0); Mean Corpuscular Hemoglobin 27.9 pg (25.0-34.0); Mean Corpuscular Hgb Conc 30.9 g/dL (32.0-36.0); Mean Corpuscular Volume 90.4 fL (80.0-100.0); Mean Platelet Volume 9.9 fL (9.4-12.4); Platelet Count 257 K/uL (130-400); RDW Coefficient of Variation 14.6 % (11.5-14.5); RDW Standard Deviation 48.1 fL (36.4-46.3); Red Blood Count 4.77 M/uL (4.70-6.10); White Blood Count 4.81 K/ul (4.8-10.8)
[2023-11-16 07:59] LABS: Albumin Level 3.2 gm/dl (3.4-5.0); Bilirubin,Total 2.9 mg/dl (0.2-1.0); Calcium 9.2 mg/dl (8.6-10.3); Magnesium 2.2 mg/dl (1.7-2.4); Potassium 3.6 mmol/L (3.5-5.1)
[2023-11-16 08:05] LABS: Albumin Globulin Ratio 1.1 (0.9-2); BUN Creatinine Ratio 45.3 (10-20); Creatinine Clr Calc Pharmacy 66.6 ml/min; Est GFR (African American) 92.3 ml/min; Est GFR (Non-African American) 79.6 ml/min; Globulin 2.8 gm/dl (2.5-4.0)
[2023-11-16] MEDS ORDERED: SODIUM PHOSPHATE 3 MMOL/1 ML INFUSION IV STA (08:16)
[2023-11-16] MEDS ORDERED: POTASSIUM PHOSPHATE 15 MMOL in SODIUM CHLORIDE 0.9% 250 ML IV ONE (08:45)
[2023-11-16] MEDS ORDERED: FUROSEMIDE 40 MG/4 ML VIAL IV ONE (08:54)
[2023-11-16] MEDS: LANTUS PER UNIT CHARGE SQ SCH ×2 (09:30→20:55)
[2023-11-16] MEDS: FOLIC ACID 1 MG TAB PO SCH (09:31)
[2023-11-16] MEDS: GABAPENTIN 300 MG CAP PO SCH ×3 (09:31→19:55)
[2023-11-16] MEDS: guaiFENesin 600 MG TABCR PO SCH ×2 (09:31→19:55)
[2023-11-16] MEDS: SUCRALFATE 1 GM/10 ML UDC PO SCH ×4 (09:31→19:55)
[2023-11-16] MEDS: DOCUSATE SODIUM/SENNA 50/8.6MG TAB PO SCH ×2 (09:31→19:54)
[2023-11-16] MEDS: POLYETHYLENE (MIRALAX) 17 GM PACK PO SCH (09:32)
[2023-11-16] MEDS: PANTOprazole 40 MG in SYRINGE 0 ML IV SCH (09:32)
[2023-11-16] MEDS: CEROVITE ADV FORMULA TAB PO SCH (09:32)
[2023-11-16] MEDS ORDERED: DEXTROSE 10% 1,000 ML IV PRN (10:57)
[2023-11-16] MEDS: OLANZapine ZYDIS 5 MG ORALLY DIS. TAB PO SCH ×2 (11:04→20:51)
--- NOTE | 2023-11-16 15:16 | Pharmacy Report ---
Pharmacy PN Follow-up Note - Date of Service November 16, 2023 - Subjective Patient is currently on day #1 of PPN for prolonged NPO/failed speech eval. - Objective Height & Weight (Last Documented) Height 5 ft 7 in Weight 85 kg Diet Order(s) 11/08/23 13:53 NPO Intake & Ouput (24hrs) 11/15/23 11/16/23 11/17/23 06:59 06:59 06:59 Intake Total 200 / 200 1052 / 1052 703.75 / 703.75 Output Total 500 / 500 1151 / 1151 1999 Balance -300 / -300 -99 / -99 -1296.25 / -1296.25 Selected Laboratory Results 11/16/23 06:59 Sodium 146 H Potassium 3.6 Chloride 111 H Carbon Dioxide 26 Anion Gap 9 BUN 39 H Creatinine 0.86 Est GFR ( Amer) 92.3 Est GFR (Non-Af Amer) 79.6 BUN/Creatinine Ratio 45.3 H Glucose 227 H Calcium 9.2 Phosphorus 2.0 L Magnesium 2.2 Total Bilirubin 2.9 H AST 30 ALT 21 Alkaline Phosphatase 156 H - Assessment & Plan Assessment: * [place] is an 83 year old male w/ metastatic prostate cancer w/ history of GI surgery. Ordered PPN due to prolonged NPO status and failure of speech eval. * Outpatient EGD revealed Raygoza's esophagus, colonoscopy showed moderate sigmoid/descending colon diverticulosis and internal hemorrhoids * Sodium/chloride elevated today, previously low this admission. Will monitor closely. * Phosphorus low this morning, ordered 15 mmol Kphos prior to PPN initiation * Will start PPN at goal rate today * BSGs have been elevated - will trial adjustments to SC insulin today before adding insulin to PN Plan: * For Day #1 of PPN administration, the following will be ordered: * Macronutrients: * Amino Acids: 85 grams/day * Dextrose: 100 grams/day * Lipids: 50 grams/day * Micronutrients: * TPN electrolytes: 40 mL/day Contains 35 mEq Na, 20 mEq K, 4.5 mEq Ca, 5 mEq Mg, 35 mEq Cl, 29.5 mEq Acetate per 20 mL * Potassium phosphate: 30 mMol/day * Multivitamins: 10 mL/day * Trace elements: 1 mL/day * Total volume of 2061 mL will be infused over 24 hours and will provide 1180 kcal/day * Patient is on PPN which has a maximum mOsm/L of 900. Final osmolarity of current solution is 811 mOsm/L. * Labs will be ordered per PN protocol. * Pharmacy will follow and adjust PN orders on a daily basis. Thank you!
--- NOTE | 2023-11-16 15:24 | Hospitalist Progress Note ---
Date of Service November 16, 2023 Assessment & Plan (1) Fracture of thoracic spine: Plan: Per previous hospitalist notes with addendum: 83-year-old gentleman with PMH of chronic systolic heart failure [EF 25 to 30%, 2020 TTE], CAD, 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 Julian Marshall], GERD, T2DM, hypothyroidism, chronic hyponatremia, chronic anemia [baseline hemoglobin around 13], dementia, traumatic subdural hematoma, past tobacco abuse presented to the hospital 11/01 with complaint of worsening mid back pain that has been ongoing since last month without radicular signs of symptoms/fever/chills/weakness/bowel or bladder incontinence. [facility] oncology started patient on oxycodone and reported patient to [facility] radiation therapy. CT simulation for treatment planning was contemplated. Also patient underwent outpatient EGD for Raygoza's esophagus and colonoscopy for possible colonic mass on outpatient PET/CT at [facility] 5 days ago [employer]. EGD showed Raygoza's esophagus/incomplete resection done/esophageal biopsy yielded tumor cells - invasive adenocarcinoma. Colonoscopy showed moderate sigmoid and descending colon diverticulosis/internal hemorrhoids/splen ic flexure polyp resected -negat. for malignancy He is being managed for the following: Pathologic fracture x thoracic spine Metastatic disease from prostate cancer Opioid-induced constipation Patient coming in with worsening midthoracic pain for about a month, worse lately. Recently started on opiates as an outpatient for pain management, patient with no bowel movements for several days prior to arrival. Admitting CTAP with no acute findings in abdomen and pelvis. Admitting lumbar spine CT with multifocal osteoblastic metastatic disease. Superior endplate compression deformity of L1, unchanged. Admitting thoracic spine CT with pathologic fracture of T7. Invasion of the right T6-T7 neuroforamen with erosion of the right posterior sixth and seventh ribs. Left-pedicular fracture at T7 and spinous fracture of T7. Right pedicle of T7 is eroded. c/w pain medications, as needed oxycodone and as needed morphine. Lidocaine patch. Scheduled percocet. As needed Ativan for anxiety. Pain management consulted - adding gabapentin 300 mg TID to address neuropathic pain component. Radiation oncology consulted - and pt started radiation treatment Ortho-spine surgery consulted for abnormal T-spine CT - per Dr. Smith - Assessment T7 pathologic compression fracture. Explained the patient that he has a significant fracture in the thoracic spine that could result in neurologic compromise if it were to progress. Pt emphasized that he does not want to consider any surgical intervention. He knows this despite impending neurologic issues. If he were to pursue surgery however he would be a candidate for tertiary care center. Scheduled bowel regimen, sennakot, MiraLAX, lactulose. gave additional dose of Relistor on (11/03). Ordered suppository (11/04). Increased miralax frequency. - > Pt had a BM overnight. Cont. bowel regimen and monitor. PT/OT. 11/04 Feeling better today. at time of exam pt without any significant pain. 11/05 Pain seems better controlled. Plan for radiation therapy today. Worked w/ PT, is wearing brace. 11/06 Unfortunately today pt is more painful, uncomfortable 11/07 Pt uncomfortable, abd. pain - per gets on and off, abdomen is distended - obtained KUB - No evidence for a bowel obstruction. 11/08 Pt more comfortable, pain controlled. However had a chocking episode - will place npo, and speech eval. start gentle IVF 11/09 Pt comfortable, pain controlled. Drowsy. 11/10 can't tolerate PO meds, aspirating last evening. Somewhat restless but pain seems fairly controlled. Plan for RT today. palliative medicine consulted. 11/11 Tolerated RT yesterday, plan for RT today. Medicine adjusted per pall. med. Pain is fairly controlled, pt easily gets restless. Patient to follow-up with his oncologist upon discharge. However overall prognosis is guarded at this point. Pt not able to tolerate PO. He gets easily confused / restless on pain medications. palliative medicine also consulted. Currently undergoing radiation therapy while inpt to help with back pain from pathological fracture (from metast. ca). Able to tolerate RT on and off. 11/13 Patient underwent radiation therapy again today Detailed discussion held with patient regarding goals of care She would like to see how the patient does through the night and reassess tomorrow 11/14 Patient remains comfortable Requiring morphine regularly for pain control Will discuss with regarding goals of care tomorrow 11/15 Start PPN Check electrolytes Continue as needed medications for pain, etc. 11/16 start PPN today continue supportive care Fever, poss. pna Spiked fever overnight 11/05 blood cultx and UA obtained by pit furnace melter UA - negative blood cultx - posit. for staph - coag negat. staph - most likely contaminant. repeat cultx negat. for 48 hrs obtained CXR, and chest CT to further eval poss. infection CXR 1. Interval development of the mild pulmonary edema, small bilateral pleural effusions, and bibasilar densities. 2. Curvilinear lucency at the aortic knob and superior mediastinal widening will be better appreciated on the same day chest CT. Chest CT 1. Patchy and linear bibasilar densities most pronounced on the right. This may represent subsegmental atelectasis or a pneumonia. 2. Small bilateral pleural effusions. 3. A few subcentimeter nodules within the right lung measuring up to 5 mm. Follow-up recommended to ensure stability. 4. Stable cardiomegaly. 5. Redemonstration of the destructive mass centered at the T7 vertebral body with associated pathologic fractures of T7 as described above. This demonstrates epidural extension with moderate to severe central canal narrowing at this level. This is similar to the prior thoracic spine CT. 6. Osseous metastatic disease again noted. Started empiric abx (pt has allergy listed to pcn, started cefepime and vanco), cont. for now and await cultx. Pt had a chocking episode on 11/08 - likely aspirating. Added flagyl. stopped vanco as blood cultx + likely contaminant 11/13 Afebrile Will order Lasix 20 mg IV 1 dose 11/14 Afebrile Denies shortness of breath, breath sounds seems to be clear today 11/15 No signs of respiratory distress Continue oxygen supplementation As needed Lasix IV 11/16 afebrile completed antibiotics Lasix 40mg IV in AM, 20 in PM Transient hypotension: Noted in ED likely secondary to narcotic pain meds use. Blood pressure medications on hold, gradually resume them. Other chronic medical conditions: Continue with/resume home meds as and when able. chronic systolic heart failure (EF 25 to 30%, TTE 2020)-Lasix per above valvular heart disease (mild AR/MR/TR) CAD as per records A-fib/PE DVT, Eliquis on hold for 1 week following recent endoscopic p rocedure. Patient to resume Rx on 11/04/23 if without bleeding concerns as per . Eliquis resumed. colon cancer status post surgery, new colonic mass noted on imaging, recent post colonic biopsy - negative for dysplasia or malignancy - pt's updated by Dr. Rodriguez and by me Possible new esophageal cancer on recent EGD, history GERD/Raygoza's esophagus. Pt to f/u w/ his oncology on DC. Biopsy esophagus - invasive adenocarcinoma - pt's updated by Dr. Rodriguez and by me DM 2 insulin requiring, suboptimal control as of recent hemoglobin A1c of 7.22 May 2023 hypothyroidism, euthyroid as of this admission's TSH chronic hyponatremia likely secondary to malignancy chronic anemia, hemoglobin at baseline dementia, mentation at baseline as per however with pain meds on and off confused history traumatic subdural hematoma past tobacco abuse DVT prophylaxis. SCDs Re: Recent endoscopic procedure, so eliquis was held-> Resumed Eliquis- but now can't take Po -> switched to lovenox therap. dose DNR PT/OT, CM to assist w/ DC plan. Admission and Anticipated Discharge Date Admission Date: November 01, 2023 Subjective Follow-up for spinal pelvic fractures, etc. Notified by RN that patient has audible crackles Seen at the bedside, not in distress, has some mild tachypnea No signs of pain No other new signs or symptoms Review of Systems Review of Systems: all noted and negative except for above Physical Exam Physical Exam: General- drowsy, not in distress, (+) mild tachypnea Eyes- anicteric Neck- no JVD Lungs- mild rales at the bases Heart- normal rate, regular rhythm; no murmurs Abdomen- normal bowel sounds, nondistended, soft, nontender Extremities- mild pretibial edema, no calf tenderness Neuro- no new gross focal neurologic deficits Skin- warm & dry Results & Data Results & Data Vital Signs (Past 12 Hours) Vital Signs Temp Pulse Pulse Resp BP BP Pulse Ox 11/16/23 14:02 88 11/16/23 13:11 79 11/16/23 12:37 36.4 C L 93 H 17 178/98 H 95 11/16/23 11:51 112 H 148/91 H 11/16/23 08:37 36.3 C L 69 17 137/82 94 11/16/23 08:00 11/16/23 07:00 103 H 01/01/24 05:18 125 H 150/98 H O2 Del Method O2 Flow Rate 11/16/23 14:02 11/16/23 13:11 11/16/23 12:37 Nasal Cannula 4 11/16/23 11:51 11/16/23 08:37 Nasal Cannula 3 11/16/23 08:00 Nasal Cannula 2 11/16/23 07:00 11/16/23 05:18 (1) Fracture of thoracic spine Encounter type: subsequent encounter Fracture healing: with delayed healing Fracture morphology: unspecified fracture morphology Fracture type: closed Thoracic vertebra fracture level: T7 Qualified Code(s): S22.069G - Unspecified fracture of T7-T8 vertebra, subsequent encounter for fracture with delayed healing
[2023-11-16] MEDS ORDERED: [UNRECOGNIZED DRUG - OTHER] IV SCH (16:00)
[2023-11-16] MEDS ORDERED: CLINOLIPID 20% IV FAT EMULSION 250 ML IV SCH (16:00)
[2023-11-16] MEDS ORDERED: FUROSEMIDE INJ 20 MG/2 ML VIAL IV ONE (16:00)
[2023-11-16] MEDS ORDERED: PERIPHERAL TPN IV SCH (16:00)
[2023-11-16] MEDS: HYDROmorphone INJ 0.5 MG/0.5 ML SYR IV PRN (16:33)
[2023-11-16] MEDS: LATANOPROST 0.005% OP SOLN 2.5 ML BTL OPL SCH (20:50)
[2023-11-16] MEDS: LIDOCAINE 5% 1 PATCH TD SCH (20:50)
[2023-11-16] MEDS ORDERED: STOP CLINOLIPID SCH (22:00)
[2023-11-17] MEDS: METOPROLOL TARTRATE 1 MG/ML VIAL IV SCH ×3 (00:21→12:04)
[2023-11-17] MEDS: INSULIN ASPART PER UNIT CHARGE SC SCH ×3 (00:29→13:23)
[2023-11-17] MEDS: ENOXAPARIN 100 MG/1ML SYR SQ SCH (05:54)
[2023-11-17] MEDS: LEVOTHYROXINE SODIUM 75 MCG TABLET PO SCH (05:55)
[2023-11-17] MEDS: HYDROmorphone INJ 0.5 MG/0.5 ML SYR IV PRN ×3 (06:02→18:33)
[2023-11-17 06:45] LABS: Albumin Globulin Ratio 1.1 (0.9-2); Albumin Level 3.1 gm/dl (3.4-5.0); BUN Creatinine Ratio 51.3 (10-20); Bilirubin,Total 2.4 mg/dl (0.2-1.0); Calcium 9.1 mg/dl (8.6-10.3); Creatinine Clr Calc Pharmacy 74.7 ml/min; Est GFR (African American) 96.1 ml/min; Est GFR (Non-African American) 82.9 ml/min; Globulin 2.9 gm/dl (2.5-4.0); Magnesium 2.1 mg/dl (1.7-2.4); Phosphorus 3.2 mg/dl (2.5-4.9); Potassium 3.8 mmol/L (3.5-5.1)
[2023-11-17] MEDS: POLYETHYLENE (MIRALAX) 17 GM PACK PO SCH (07:48)
[2023-11-17] MEDS: CEROVITE ADV FORMULA TAB PO SCH (07:48)
[2023-11-17] MEDS: DOCUSATE SODIUM/SENNA 50/8.6MG TAB PO SCH (07:48)
[2023-11-17] MEDS: guaiFENesin 600 MG TABCR PO SCH (07:48)
[2023-11-17] MEDS: GABAPENTIN 300 MG CAP PO SCH ×2 (07:48→14:39)
[2023-11-17] MEDS: FOLIC ACID 1 MG TAB PO SCH (07:48)
[2023-11-17] MEDS: SUCRALFATE 1 GM/10 ML UDC PO SCH ×2 (07:48→10:50)
[2023-11-17] MEDS: PANTOprazole 40 MG in SYRINGE 0 ML IV SCH (07:49)
[2023-11-17] MEDS: KETOROLAC TROMETHAMINE 15 MG/ML VIAL IV PRN (07:49)
[2023-11-17] MEDS: OLANZapine ZYDIS 5 MG ORALLY DIS. TAB PO SCH ×2 (07:50→20:26)
[2023-11-17] MEDS: LANTUS PER UNIT CHARGE SQ SCH (07:54)
[2023-11-17] MEDS: LORazepam 0.25 MG in SYRINGE 0.125 ML IV PRN (09:58)
--- NOTE | 2023-11-17 10:13 | XRay Report ---
XR chest 1V portable CLINICAL HISTORY: ff up pleural effusion COMPARISON STUDY: Chest CT November 06, 2023. Chest radiograph November 12, 2023. FINDINGS: Postoperative findings within the spine are incidentally noted. There are old rib fractures . Cardiomegaly is unchanged. There is no pneumothorax. Small bilateral pleural effusions with bibasil ar opacities persist. Pulmonary edema has slightly improved. IMPRESSION: 1. Pulmonary edema, slightly improved since prior exam. 2. Persistent small bilateral pleural effusions and associated bibasilar opacities. ACT 112: Negative or not required by law. Electronically signed by: Dwayne Levine M.D. 11/17/2023 10:12 AM
[2023-11-17] MEDS ORDERED: HYDROmorphone INJ 0.5 MG/0.5 ML SYR IV PRN (10:27)
[2023-11-17] MEDS ORDERED: LANTUS PER UNIT CHARGE SC ONE (15:00)
[2023-11-17] MEDS ORDERED: [UNRECOGNIZED DRUG - OTHER] IV SCH (16:00)
[2023-11-17] MEDS ORDERED: LORazepam 0.5 MG in SYRINGE 0.125 ML IV PRN (16:00)
[2023-11-17] MEDS ORDERED: CLINOLIPID 20% IV FAT EMULSION 250 ML IV SCH (16:00)
[2023-11-17] MEDS ORDERED: PERIPHERAL TPN IV SCH (16:00)
[2023-11-17] MEDS ORDERED: ONDANSETRON INJ 2 MG/ML 2 ML VIAL IV PRN (16:02)
[2023-11-17] MEDS ORDERED: ONDANSETRON 4 MG OD TAB SL PRN (16:02)
[2023-11-17] MEDS ORDERED: LORazepam 0.5 MG TAB PO PRN (16:02)
--- NOTE | 2023-11-17 16:12 | Palliative Care Progress Note ---
Date of Service November 17, 2023 Assessment & Plan (1) Cancer related pain: (2) Dyspnea and respiratory abnormalities: (3) Agitation due to dementia: (4) Weakness generalized: (5) Impaired decision making: (6) Dementia with behavioral disturbance: (7) Palliative care by specialist: (8) Discussion about advance care planning held with family member: Plan: A 25 min telephonic ACP was held with pt : I spoke with Mrs Chavez and she would like pt moved to comfort care and a formal GIP evaluation done as well. She cannot take him home, does not have caregiver support to meet his needs on her own and the son's PTSD precludes him from feeling able to help. She is hoping he will not need a skilled nursing but we spoke about how if he remains chronically stable without acute decline, then SNF dc would be on the horizon [place] if GIP is not feasible (and I told her only hospice medical supervisor decides if GIP will happen.) Please document in your notes any and all uncontrolled symptoms, escalating intensity of needs and worsening in spite of interventions etc., this will help make the case for GIP in accordance with medicare rules/guidelines. I am writing comfort care orders now. Please d/c monitors, IVF and TPN. I have a follow up with her planned for tomorrow around noon. She has a doctor's appt tomorrow and will be in a little later. (9) Malignant neoplasm of rectosigmoid junction: (10) Fracture of thoracic spine: (11) Prostate cancer metastatic to bone: (12) Acute on chronic heart failure with reduced ejection fraction and diastolic dysfunction: (13) Concern about end of life: Plan * Chance continues to decline despite escalating measures including radiation therapy, artificial nutrition, and IV fluids. Spite these interventions, he has had a steady progressive decline through this admission. His notes that perhaps his pain is better, but overall he has not substantially improved. She feels he is getting sicker and that the cancer is too overwhelming for him. She spoke with Dr. Marshall from radiation oncology earlier today and feels that no further radiation would be helpful. He was in agreement. She also wants to discuss with me today options for comfort care. * And advance care planning meeting was held with patient's telephonically and as documented above. At this time she is not able to bring him home with the addition of hospice because she does not have caregiver support. She would like an evaluation for inpatient hospice and is in agreement to move patient to comfort care. She understands that if he is not a candidate for inpatient hospice, and he were to remain stable, and care management will begin searching for jail facility placement for ongoing end-of-life care. If he continues to decline or worsen, we will keep him in the hospital as he would then not be stable for discharge. * Comfort care orders are in place. All nonessential and on comfort medications have been stopped. Artificial nutrition hydration has been stopped. Monitoring has been discontinued. * I have updated patient's nurse, his outpatient oncology team, care management, primary team, radiation oncology. Thank you for allowing us to participate in the ongoing care of this patient. Please don't hesitate to call or page with any additional concerns. Dr. Sil Gu DNP Director, Palliative Care Admission and Anticipated Discharge Date Admission Date: November 01, 2023 Subjective Patient is steadily worsening, more lethargic, agitated, restless and at times moaning. is at the bedside. Remains distressed that he has not improved in spite of escalating therapies including TPN, radiation for his spinal mets, IV fluids and transition to IV medications due to aspiration risk. Review of Systems Review of Systems: Unobtainable due to cognitive status Physical Exam Physical Exam: Agitated, restless, lying in bed. At times moaning and grimacing. Unable to follow commands. Bitemporal wasting. Diaphoretic and pale. Lungs with coarse rhonchi, scattered rales. Mild increased effort. Some abdominal breathing noted. Use of accessory muscles noted. Tachycardic. Abdomen softly distended. Generalized weakness. Unable to follow commands. Patient is confused at baseline. Results & Data Vital Signs (Past 12 Hours) Vital Signs Temp Pulse Pulse Resp BP BP BP 11/17/23 15:03 107 H 11/17/23 12:40 90 140/85 11/17/23 12:40 36.4 C L 90 16 141/85 H 11/17/23 12:04 98 H 135/91 11/17/23 07:55 11/17/23 07:42 36.4 C L 106 H 16 152/88 H 11/17/23 06:45 98 H 11/17/23 05:50 110 H 140/85 Pulse Ox O2 Del Method O2 Flow Rate 11/17/23 15:03 11/17/23 12:40 11/17/23 12:40 97 Nasal Cannula 6 11/17/23 12:04 11/17/23 07:55 Nasal Cannula 2 11/17/23 07:42 91 High Flow Nasal Cannula 6 11/17/23 06:45 11/17/23 05:50 Laboratory Results Data reviewed Diagnostic Findings Data reviewed PG Care Time/CCT Total # of Minutes Spent Total Time Spent: 100 Total Time Spent with Patient: Total time spent is greater than 50% in coordination of care (as documented) at patient's floor/unit and/or counseling patient: I spent 100 minutes overall addressing this case: 15 min in medical data review/discussion with referring provider(s) and/or preparation for the visit 10 min in direct interaction with the patient/exam 25 min in Advance Care Planning/Goals of Care discussions as detailed above in note (must be >16min) 15 min in subsequent review and synthesis of assessment and plan 25 min communicating with other providers regarding the patient's case: Prolonged Care Time Prolonged Care Time: Yes Advanced Care Planning 05384 Advanced Care Planning 30 Min [place] [address] SUB INP/OBS CARE 3/50MIN Patient Type Established Medical Decision Making Moderate Complexity Diagnoses Cancer related pain G89.3 Dyspnea and respiratory abnormalities R06.00; R06.89 Agitation due to dementia F03.911 Weakness generalized R53.1 Impaired decision making Z78.9 Dementia with behavioral disturbance F03.918 Palliative care by specialist Z51.5 Discussion about advance care planning held with family member Z71.0 Malignant neoplasm of rectosigmoid junction C19 Fracture of thoracic spine S22.069G Encounter type: subsequent encounter Fracture healing: with delayed healing Fracture morphology: unspecified fracture morphology Fracture type: closed Thoracic vertebra fracture level: T7 Prostate cancer metastatic to bone C61; C79.51 Acute on chronic heart failure with reduced ejection fraction and diastolic dysfunction I50.43 Concern about end of life Z71.1 Additional Codes Prolonged Care Time - Prolonged Care Time: Yes ([id number]) Advanced Care Planning - 28177 Advanced Care Planning 30 Min: [id number] Advanced Care Planning 30 Min ([id number]) (10) Fracture of thoracic spine Encounter type: subsequent encounter Fracture healing: with delayed healing Fracture morphology: unspecified fracture morphology Fracture type: closed Th oracic vertebra fracture level: T7 Qualified Code(s): S22.069G - Unspecified fracture of T7-T8 vertebra, subsequent encounter for fracture with delayed healing
--- NOTE | 2023-11-17 19:03 | Hospitalist Progress Note ---
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 Julian Marshall], GERD, T2DM, hypothyroidism, chronic hyponatremia, chronic anemia [baseline hemoglobin around 13], dementia, traumatic subdural hematoma, past tobacco abuse presented to the hospital 11/01 with complaint of worsening mid back pain that has been ongoing since last month without radicular signs of symptoms/fever/chills/weakness/bowel or bladder incontinence. [facility]ology started patient on oxycodone and reported patient to [facility] radiation therapy. CT simulation for treatment planning was contemplated. Also patient underwent outpatient EGD for Raygoza's esophagus and colonoscopy for possible colonic mass on outpatient PET/CT at [facility] 5 days ago [employer]. EGD showed Raygoza's esophagus/incomplete resection done/esophageal biopsy yielded tumor cells - invasive adenocarcinoma. Colonoscopy showed moderate sigmoid and descending colon diverticulosis/internal hemorrhoids/splen ic flexure polyp resected -negat. for malignancy He is being managed for the following: Pathologic fracture x thoracic spine Metastatic disease from prostate cancer Opioid-induced constipation Patient coming in with worsening midthoracic pain for about a month, worse lately. Recently started on opiates as an outpatient for pain management, patient with no bowel movements for several days prior to arrival. Admitting CTAP with no acute findings in abdomen and pelvis. Admitting lumbar spine CT with multifocal osteoblastic metastatic disease. Superior endplate compression deformity of L1, unchanged. Admitting thoracic spine CT with pathologic fracture of T7. Invasion of the right T6-T7 neuroforamen with erosion of the right posterior sixth and seventh ribs. Left-pedicular fracture at T7 and spinous fracture of T7. Right pedicle of T7 is eroded. c/w pain medications, as needed oxycodone and as needed morphine. Lidocaine patch. Scheduled percocet. As needed Ativan for anxiety. Pain management consulted - adding gabapentin 300 mg TID to address neuropathic pain component. Radiation oncology consulted - and pt started radiation treatment Ortho-spine surgery consulted for abnormal T-spine CT - per Dr. Smith - Assessment T7 pathologic compression fracture. Explained the patient that he has a significant fracture in the thoracic spine that could result in neurologic compromise if it were to progress. Pt emphasized that he does not want to consider any surgical intervention. He knows this despite impending neurologic issues. If he were to pursue surgery however he would be a candidate for tertiary care center. Scheduled bowel regimen, sennakot, MiraLAX, lactulose. gave additional dose of Relistor on (11/03). Ordered suppository (11/04). Increased miralax frequency. - > Pt had a BM overnight. Cont. bowel regimen and monitor. PT/OT. 11/04 Feeling better today. at time of exam pt without any significant pain. 11/05 Pain seems better controlled. Plan for radiation therapy today. Worked w/ PT, is wearing brace. 11/06 Unfortunately today pt is more painful, uncomfortable 11/07 Pt uncomfortable, abd. pain - per gets on and off, abdomen is distended - obtained KUB - No evidence for a bowel obstruction. 11/08 Pt more comfortable, pain controlled. However had a chocking episode - will place npo, and speech eval. start gentle IVF 11/09 Pt comfortable, pain controlled. Drowsy. 11/10 can't tolerate PO meds, aspirating last evening. Somewhat restless but pain seems fairly controlled. Plan for RT today. palliative medicine consulted. 11/11 Tolerated RT yesterday, plan for RT today. Medicine adjusted per pall. med. Pain is fairly controlled, pt easily gets restless. Patient to follow-up with his oncologist upon discharge. However overall prognosis is guarded at this point. Pt not able to tolerate PO. He gets easily confused / restless on pain medications. palliative medicine also consulted. Currently undergoing radiation therapy while inpt to help with back pain from pathological fracture (from metast. ca). Able to tolerate RT on and off. 11/13 Patient underwent radiation therapy again today Detailed discussion held with patient regarding goals of care She would like to see how the patient does through the night and reassess tomorrow 11/14 Patient remains comfortable Requiring morphine regularly for pain control Will discuss with regarding goals of care tomorrow 11/15 Detailed discussion again held with patient's at the bedside She would like to pursue radiation treatment until further discussion with patient's oncologist Start PPN per 's request Check electrolytes Continue as needed medications for pain, etc. 11/16 start PPN today continue supportive care 11/17 Patient's had a discussion with Dr. Dalton Marshall and Dr. Gu She has decided to transition the patient to comfort measures status Fever, poss. pna Spiked fever overnight 11/05 blood cultx and UA obtained by fatback trimmer UA - negative blood cultx - posit. for staph - coag negat. staph - most likely contaminant. repeat cultx negat. for 48 hrs obtained CXR, and chest CT to further eval poss. infection CXR 1. Interval development of the mild pulmonary edema, small bilateral pleural effusions, and bibasilar densities. 2. Curvilinear lucency at the aortic knob and superior mediastinal widening will be better appreciated on the same day chest CT. Chest CT 1. Patchy and linear bibasilar densities most pronounced on the right. This may represent subsegmental atelectasis or a pneumonia. 2. Small bilateral pleural effusions. 3. A few subcentimeter nodules within the right lung measuring up to 5 mm. Follow-up recommended to ensure stability. 4. Stable cardiomegaly. 5. Redemonstration of the destructive mass centered at the T7 vertebral body with associated pathologic fractures of T7 as described above. This demonstrates epidural extension with moderate to severe central canal narrowing at this level. This is similar to the prior thoracic spine CT. 6. Osseous metastatic disease again noted. Completed antibiotic course for possible pneumonia Has been given as needed IV Lasix for pulmonary congestion Transient hypotension: Noted in ED likely secondary to narcotic pain meds use. Blood pressure medications on hold, gradually resume them. Other chronic medical conditions: Continue with/resume home meds as and when able. chronic systolic heart failure (EF 25 to 30%, TTE 2020)-Lasix per above valvular heart disease (mild AR/MR/TR) CAD as per records A-fib/PE DVT, Eliquis on hold for 1 week following recent endoscopic procedure. Patient to resume Rx on 11/04/23 if without bleeding concerns as per . Eliquis resumed. colon cancer status post surgery, new colonic mass noted on imaging, recent post colonic biopsy - negative for dysplasia or malignancy - pt's updated by Dr. Rodriguez and by me Possible new esophageal cancer on recent EGD, history GERD/Raygoza's esophagus. Pt to f/u w/ his oncology on DC. Biopsy esophagus - invasive adenocarcinoma - pt's updated by Dr. Rodriguez and by me DM 2 insulin requiring, suboptimal control as of recent hemoglobin A1c of 7.22 May 2023 hypothyroidism, euthyroid as of this admission's TSH chronic hyponatremia likely secondary to malignancy chronic anemia, hemoglobin at baseline dementia, mentation at baseline as per however with pain meds on and off confused history traumatic subdural hematoma past tobacco abuse DVT prophylaxis. SCDs Re: Recent endoscopic procedure, so eliquis was held-> Resumed Eliquis- but now can't take Po -> switched to lovenox therap. dose DNR Disposition Transitioned to comfort measures status only Admission and Anticipated Discharge Date Admission Date: November 01, 2023 Subjective Follow-up for pathologic spine fractures, likely metastasis, etc. Seen resting in bed, very drowsy Not in distress, mildly tachypneic No signs of pain Discussed with RN in detail and at length Also discussed with Dr. Alexandro Marshall Requested to update patient's over the phone per her request Review of Systems Review of Systems: all noted and negative except for above Physical Exam Physical Exam: General-very drowsy, not in distress, breathing with no effort or accessory muscle use Eyes- anicteric Neck- no JVD Lungs- clear breath sounds bilaterally, no crackles or wheezes Heart- normal rate, regular rhythm; no murmurs Abdomen- normal bowel sounds, nondistended, soft, no tenderness Extremities- no pretibial edema, no calf tenderness Neuro-drowsy Skin- warm & dry Results & Data Results & Data Vital Signs (Past 12 Hours) Vital Signs Temp Pulse Pulse Resp BP BP BP 11/17/23 15:03 107 H 11/17/23 12:40 90 140/85 11/17/23 12:40 36.4 C L 90 16 141/85 H 11/17/23 12:04 98 H 135/91 11/17/23 07:55 11/17/23 07:42 36.4 C L 106 H 16 152/88 H Pulse Ox O2 Del Method O2 Flow Rate 11/17/23 15:03 11/17/23 12:40 11/17/23 12:40 97 Nasal Cannula 6 11/17/23 12:04 11/17/23 07:55 Nasal Cannula 2 11/17/23 07:42 91 High Flow Nasal Cannula 6 all noted and reviewed including below (1) Fracture of thoracic spine Encounter type: subsequent encounter Fracture healing: with delayed healing Fracture morphology: unspecified fracture morphology Fracture type: closed Thoracic vertebra fracture level: T7 Qualified Code(s): S22.069G - Unspecified fracture of T7-T8 vertebra, subsequent encounter for fracture with delayed healing
[2023-11-17] MEDS: LATANOPROST 0.005% OP SOLN 2.5 ML BTL OPL SCH (20:25)
[2023-11-17] MEDS: LIDOCAINE 5% 1 PATCH TD SCH (20:26)
[2023-11-17] MEDS ORDERED: STOP CLINOLIPID SCH (22:00)
[2023-11-18] MEDS: HYDROmorphone INJ 0.5 MG/0.5 ML SYR IV PRN ×6 (02:15→11:32)
[2023-11-18] MEDS: LORazepam 0.5 MG in SYRINGE 0.25 ML IV PRN ×3 (02:57→14:27)
[2023-11-18] MEDS: OLANZapine ZYDIS 5 MG ORALLY DIS. TAB PO SCH (07:26)
[2023-11-18] MEDS ORDERED: LANTUS PER UNIT CHARGE SC SCH (09:00)
--- NOTE | 2023-11-18 14:50 | Hospitalist Progress Note ---
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 Julian Marshall], GERD, T2DM, hypothyroidism, chronic hyponatremia, chronic anemia [baseline hemoglobin around 13], dementia, traumatic subdural hematoma, past tobacco abuse presented to the hospital 11/01 with complaint of worsening mid back pain that has been ongoing since last month without radicular signs of symptoms/fever/chills/weakness/bowel or bladder incontinence. [facility] started patient on oxycodone and reported patient to [facility] radiation therapy. CT simulation for treatment planning was contemplated. Metastatic disease from the prostate cancer with pathological fracture thoracic spine Remains in the hospital more than 17 days Appreciate palliative care input and recommendation for hospice care/comfort care Remains comfortable and unresponsive to usual stimuli Evaluated by hospice today and the patient will be moved into inpatient hospice care Discussed with the in detail and she is agreeable with that Patient will be discharged and will be readmitted under the care of hospice with the medications as advised by hospice. Below is the detailed hospital course. 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 Julian Marshall], GERD, T2DM, hypothyroidism, chronic hyponatremia, chronic anemia [baseline hemoglobin around 13], dementia, traumatic subdural hematoma, past tobacco abuse presented to the hospital 11/01 with complaint of worsening mid back pain that has been ongoing since last month without radicular signs of symptoms/fever/chills/weakness/bowel or bladder incontinence. [facility] started patient on oxycodone and reported patient to [facility] radiation therapy. CT simulation for treatment planning was contemplated. Also patient underwent outpatient EGD for Raygoza's esophagus and colonoscopy for possible colonic mass on outpatient PET/CT at [facility] 5 days ago [employer]. EGD showed Raygoza's esophagus/incomplete resection done/esophageal biopsy yielded tumor cells - invasive adenocarcinoma. Colonoscopy showed moderate sigmoid and descending colon diverticulosis/internal hemorrhoids/splenic flexure polyp resected -negat. for malignancy He is being managed for the following: Pathologic fracture x thoracic spine Metastatic disease from prostate cancer Opioid-induced constipation Patient coming in with worsening midthoracic pain for about a month, worse lately. Recently started on opiates as an outpatient for pain management, patient with no bowel movements for several days prior to arrival. Admitting CTAP with no acute findings in abdomen and pelvis. Admitting lumbar spine CT with multifocal osteoblastic metastatic disease. Superior endplate compression deformity of L1, unchanged. Admitting thoracic spine CT with pathologic fracture of T7. Invasion of the right T6-T7 neuroforamen with erosion of the right posterior sixth and seventh ribs. Left-pedicular fracture at T7 and spinous fracture of T7. Right pedicle of T7 is eroded. c/w pain medications, as needed oxycodone and as needed morphine. Lidocaine patch. Scheduled percocet. As needed Ativan for anxiety. Pain management consulted - adding gabapentin 300 mg TID to address neuropathic pain component. Radiation oncology consulted - and pt started radiation treatment Ortho-spine surgery consulted for abnormal T-spine CT - per Dr. Smith - Assessment T7 pathologic compression fracture. Explained the patient that he has a significant fracture in the thoracic spine that could result in neurologic compromise if it were to progress. Pt emphasized that he does not want to consider any surgical intervention. He knows this despite impending neurologic issues. If he were to pursue surgery however he would be a candidate for tertiary care center. Scheduled bowel regimen, sennakot, MiraLAX, lactulose. gave additional dose of Relistor on (11/03). Ordered suppository (11/04). Increased miralax frequency. - > Pt had a BM overnight. Cont. bowel regimen and monitor. PT/OT. 11/04 Feeling better today. at time of exam pt without any significant pain. 11/05 Pain seems better controlled. Plan for radiation therapy today. Worked w/ PT, is wearing brace. 11/06 Unfortunately today pt is more painful, uncomfortable 11/07 Pt uncomfortable, abd. pain - per gets on and off, abdomen is distended - obtained KUB - No evidence for a bowel obstruction. 11/08 Pt more comfortable, pain controlled. However had a chocking episode - will place npo, and speech eval. start gentle IVF 11/09 Pt comfortable, pain controlled. Drowsy. 11/10 can't tolerate PO meds, aspirating last evening. Somewhat restless but pain seems fairly controlled. Plan for RT today. palliative medicine consulted. 11/11 Tolerated RT yesterday, plan for RT today. Medicine adjusted per pall. med. Pain is fairly controlled, pt easily gets restless. Patient to follow-up with his oncologist upon discharge. However overall prognosis is guarded at this point. Pt not able to tolerate PO. He gets easily confused / restless on pain medications. palliative medicine also consulted. Currently undergoing radiation therapy while inpt to help with back pain from pathological fracture (from metast. ca). Able to tolerate RT on and off. 11/13 Patient underwent radiation therapy again today Detailed discussion held with patient regarding goals of care She would like to see how the patient does through the night and reassess tomorrow Fever, poss. pna Spiked fever overnight 11/05 blood cultx and UA obtained by court commissioner UA - negative blood cultx - posit. for staph - coag negat. staph - most likely contaminant. repeat cultx negat. for 48 hrs obtained CXR, and chest CT to further eval poss. infection CXR 1. Interval development of the mild pulmonary edema, small bilateral pleural effusions, and bibasilar densities. 2. Curvilinear lucency at the aortic knob and superior mediastinal widening will be better appreciated on the same day chest CT. Chest CT 1. Patchy and linear bibasilar densities most pronounced on the right. This may represent subsegmental atelectasis or a pneumonia. 2. Small bilateral pleural effusions. 3. A few subcentimeter nodules within the right lung measuring up to 5 mm. Follow-up recommended to ensure stability. 4. Stable cardiomegaly. 5. Redemonstration of the destructive mass centered at the T7 vertebral body with associated pathologic fractures of T7 as described above. This demonstrates epidural extension with moderate to severe central canal narrowing at this level. This is similar to the prior thoracic spine CT. 6. Osseous metastatic disease again noted. Started empiric abx (pt has allergy listed to pcn, started cefepime and vanco), cont. for now and await cultx. Pt had a chocking episode on 11/08 - likely aspirating. Added flagyl. stopped vanco as blood cultx + likely contaminant 11/13 Afebrile Will order Lasix 20 mg IV 1 dose Transient hypotension: Noted in ED likely secondary to narcotic pain meds use. Blood pressure medications on hold, gradually resume them. Other chronic medical conditions: Continue with/resume home meds as and when able. chronic systolic heart failure (EF 25 to 30%, TTE 2020)-Lasix 1 dose valvular heart disease (mild AR/MR/TR) CAD as per records A-fib/PE DVT, Eliquis on hold for 1 week following recent endoscopic procedure. Patient to resume Rx on 11/04/23 if without bleeding concerns as per . Eliquis resumed. colon cancer status post surgery, new colonic mass noted on imaging, recent post colonic biopsy - negative for dysplasia or malignancy - pt's updated by Dr. Rodriguez and by me Possible new esophageal cancer on recent EGD, history GERD/Raygoza's eso phagus. Pt to f/u w/ his oncology on DC. Biopsy esophagus - invasive adenocarcinoma - pt's updated by Dr. Rodriguez and by me DM 2 insulin requiring, suboptimal control as of recent hemoglobin A1c of 7.22 May 2023 hypothyroidism, euthyroid as of this admission's TSH chronic hyponatremia likely secondary to malignancy chronic anemia, hemoglobin at baseline dementia, mentation at baseline as per however with pain meds on and off confused history traumatic subdural hematoma past tobacco abuse DVT prophylaxis. SCDs Re: Recent endoscopic procedure, so eliquis was held-> Resumed Eliquis- but now can't take Po -> switched to lovenox therap. dose DNR PT/OT, CM to assist w/ DC plan. Patient Ms.Dottie Chavez, contact #[phone]. Admission and Anticipated Discharge Date Admission Date: November 01, 2023 Subjective 11/18/2023 The patient was seen and examined in medical telemetry unit in presence of the He remains unresponsive and the condition has worsened He will be on comfort care on the hospice Review of Systems Review of Systems: Unobtainable due to cognitive status Physical Exam Physical Exam: Lying in bed without any acute distress Constitutional: + ill appearing Eyes: PERRL, conjunctivae normal, anicteric sclerae ENMT: external ear and nose normal, oropharynx normal Neck: trachea midline, no thyromegaly Respiratory: + respiratory distress (Minimal respirat ory distress) Auscultation: + diminished lung sounds and + crackles (Minimal dependent crackles) Cardiovascular: Rate/Rhythm: regular rate, regular rhythm and + tachycardic Heart Sounds: normal S1, normal S2 and + murmur Extremities: no edema Gastrointestinal (Abdomen): Inspection/Auscultation: normal bowel sounds; abdomen not distended Percussion/Palpation: abdomen soft; abdomen nontender Musculoskeletal: No acute arthritis involving any of the joint Neurologic: Remains unresponsive Lymphatic: no cervical or axillary lymphadenopathy (1) Fracture of thoracic spine Encounter type: subsequent encounter Fracture healing: with delayed healing Fracture morphology: unspecified fracture morphology Fracture type: closed Thoracic vertebra fracture level: T7 Qualified Code(s): S22.069G - Unspecified fracture of T7-T8 vertebra, subsequent encounter for fracture with delayed healing
--- NOTE | 2023-11-19 10:48 | Palliative Care Progress Note ---
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 WE talked about this when he was diagnosed and he was veyr clear, extremely clear that he didn't want to linger or suffer and he didn't want to be dependent on people to do everything for him, he was a private man." reassured we are following his expressed wishes - medical therapies have not improved his condition and he continues to decline in spite of escalation. these are signs the body is shutting down. we reviewed/discussed changes pt may move through in the dying process including but not limited to sleeping more, disorientation when awake, restlessness, diminished senses/inability to respond to stimulus although ability to be aware of them remains intact longer, changes in body temperatures, skin tam es/mottling/cyanosis, respiratory pattern changes, oral secretions. Family verbalized understanding. The goal is to assure a peaceful . (9) Malignant neoplasm of rectosigmoid junction: (10) Fracture of thoracic spine: (11) Prostate cancer metastatic to bone: (12) Acute on chronic heart failure with reduced ejection fraction and diastolic dysfunction: (13) Concern about end of life: Plan * Chance continues to decline despite escalating measures including radiation therapy, artificial nutrition, and IV fluids. Spite these interventions, he has had a steady progressive decline through this admission. His notes that perhaps his pain is better, but overall he has not substantially improved. She feels he is getting sicker and that the cancer is too overwhelming for him. She spoke with Dr. Marshall from radiation oncology earlier today and feels that no further radiation * He is steadily declining, Now on GIP. Anticipate hours to days, aware. She remains with him in room, her son/pt torsten has been unable emotionally to come to hospital. She called pt grandson who declined to visit. Pt had 2 children from first marriage, both of whom before him and daughter was on hospice. * Comfort care orders are in place. All nonessential and on comfort medications have been stopped. Artificial nutrition hydration has been stopped. Monitoring has been discontinued. * I have updated patient's nurse, his outpatient oncology team, care management, primary team, radiation oncology. Thank you for allowing us to participate in the ongoing care of this patient. Please don't hesitate to call or page with any additional concerns. Dr. 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 At times moaning and grimacing. Unable to follow commands. Bitemporal wasting. Diaphoretic and pale. Lungs with coarse rhonchi, scattered rales. Mild increased effort. Some abdominal breathing noted. Use of accessory muscles noted. Tachycardic. Abdomen softly distended. Generalized weakness. Unable to follow commands. Patient is confused at baseline. PG Care Time/CCT Total # of Minutes Spent Total Time Spent: 75 Total Time Spent with Patient: Total time spent is greater than 50% in coordination of care (as documented) at patient's floor/unit and/or counseling patient: I spent 75 minutes overall addressing this case: 5 min in medical data review/discussion with referring provider(s) and/or preparation for the visit 10 min in direct interaction with the patient/exam 45 min in Advance Care Planning/Goals of Care discussions as detailed above in note (must be >16min) 10 min in subsequent review and synthesis of assessment and plan 50 min communicating with other providers regarding the patient's case: Prolonged Care Time Prolonged Care Time: Yes Advanced Care Planning 18064 Advanced Care Planning 30 Min 35040 Advanced Care Planning Additional 30 Min C[place] [address] SUB INP/OBS CARE 3/50MIN Patient Type Established History Comprehensive Exam Comprehensive Medical Decision Making High Complexity Diagnoses Cancer related pain G89.3 Dyspnea and respiratory abnormalities R06.00; R06.89 Agitation due to dementia F03.911 Weakness generalized R53.1 Impaired decision making Z78.9 Dementia with behavioral disturbance F03.918 Palliative care by specialist Z51.5 Discussion about advance care planning held with family member Z71.0 Malignant neoplasm of rectosigmoid junction C19 Fracture of thoracic spine S22.069G Encounter type: subsequent encounter Fracture healing: with delayed healing Fracture morphology: unspecified fracture morphology Fracture type: closed Thoracic vertebra fracture level: T7 Prostate cancer metastatic to bone C61; C79.51 Acute on chronic heart failure with reduced ejection fraction and diastolic dysfunction I50.43 Concern about end of life Z71.1 Additional Codes Advanced Care Planning - 33237 Advanced Care Planning 30 Min: 14604 Advanced Care Planning 30 Min ([id number]) Advanced Care Planning - 53108 Advanced Care Planning Additional 30 Min: 04029 Advanced Care Planning Additional 30 Min ([id number]) Prolonged Care Time - Prolonged Care Time: Yes ([id number]) (10) Fracture of thoracic spine Encounter type: subsequent encounter Fracture healing: with delayed healing Fracture morphology: unspecified fracture morphology Fracture type: closed Thoracic vertebra fracture level: T7 Qualified Code(s): S22.069G - Unspecified fracture of T7-T8 vertebra, subsequent encounter for fracture with delayed healing
--- NOTE | 2023-11-19 13:17 | Coding Query ---
CONGESTIVE HEART FAILURE To Promote full compliance with coding requirements relating to patient care, physician participation is requested in all cases of operations controller uncertainty. Please assist us with the following questions. A diagnosis of Congestive Heart Failure is documented in the patient's medical record. To accurately code this diagnosis and to compare patient severity, we ask that you specify the type of heart failure by placing an X within the parenthesis (x).Progress notes document chronic diastolic heart failure. Palliative care 11/17 progress note documented acute on chronic systolic heart failure. On 11/13 Lasix was given. Thanks for your help. Vu Acevedo, [facility] SYSTOLIC HEART FAILURE ( ) Acute ( +) Chronic ( ) Acute on Chronic ( ) Rheumatic ( ) Unknown DIASTOLIC HEART FAILURE ( ) Acute ( ) Chronic ( ) Acute on Chronic ( ) Rheumatic ( ) Unknown COMBINED SYSTOLIC AND DIASTOLIC HEART FAILURE ( ) Acute ( ) Chronic ( ) Acute on Chronic ( ) Rheumatic ( ) Unknown Was the CHF Present On Admission? Please check the appropriate box: ( ) Present on Admission ( +) Not Present On Admission ( ) Clinically undetermined MTDD
--- NOTE | 2023-11-20 16:02 | Discharge Summary ---
Date of Service November 20, 2023 Admission HPI Per Admitting Provider History obtained from patient, family, and records. 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 Last confinement December 2020 for decompensated heart failure. Patient noted achy mid back pain symptoms last month without leg radiation. No fever, no chills, no leg weakness. Outpatient CT chest last month showed Multiple osteoblastic metastases throughout the thoracic spine. 5.5 x 4.3 cm (x 4.1 cm cc) soft tissue mass envelops a C7 vertebral body compression fracture which also has an osteoblastic lesion in the left pedicle. There is mild posterior retropulsion along the right vertebral body and pedicle resulting in mild canal stenosis. Lower cervical ACDF intact. Polyostotic osteoblastic prostate cancer metastases. Tiny pulmonary nodules as described are nonspecific. Outpatient PET scan done this month showed 1. Metabolically active destructive mass in the T7 vertebral body which extends into the spinal canal resulting in mass effect on the spinal cord, consistent with malignancy. 2. Numerous additional sclerotic lesions throughout the visualized bones without significant metabolic activity, many of which are stable compared to CT abdomen/pelvis dated 09/29/2022, favoring treated disease. 3. Focal metabolic activity in the splenic flexure of the colon, in the location of the suspected mass seen on the prior CT abdomen/pelvis, is concerning for malignancy. [facility] oncologist started patient on oxycodone and referred patient to [facility] radiation therapy. CT stimulation for treatment planning recommended by RT on outpatient evaluation 4 days ago. Patient underwent outpatient EGD for Raygoza's esophagus follow-up and colonoscopy for possible colonic mass on outpatient PET/CT at [facility] 5 days ago. EGD showed Raygoza's esophagus. Incomplete resection done. Esophageal biopsy yielded tumor cells that stain positive for p53 and CDX2. Esophageal primary favored as per report, given presence of intestinal metaplasia and high-grade dysplasia. Colonoscopy showed moderate sigmoid and descending colon diverticulosis, internal hemorrhoids. Splenic flexure polyp resected, pathology pending at time of dictation. Patient instructed to avoid NSAIDs and hold Eliquis for 1 week after procedure. Patient had worsening mid back complaints over the last couple of weeks without leg weakness, fever or chills. Increasing oxycodone Rx causing abdominal distention and nausea. No bowel movement for the last 4 days which is unusual for patient despite home laxative Rx. Patient brought to ER for evaluation by . Lowest SBP of 90s noted at the ER. 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 Admission Exam Per Admitting Provider Physical Exam: GENERAL: Lethargic, no respiratory distress SKIN: Pallor, warm HEENT: Alopecia, pale palpebral conjunctivae, no ptosis, dry buccal mucosa NECK : Supple, no tenderness CHEST : Decreased breath sounds, no tenderness HEART : Irregular, bradycardic, systolic murmur ABDOMEN: Some distention, nontender BACK : Mid back tenderness EXTREMITIES : No LE swelling/tenderness, no other conspicuous deformities noted NEUROLOGIC : Lethargic, no facial asymmetry, slightly hard of hearing, gait and stance not assessed Principal Diagnosis The patient on 11/20/2023 at 1030 hrs. Causes of where: 1-metastatic prostate cancer 2-pathological fracture of thoracic spine 2-CAD with atrial fibrillation Discharge Data Allergies Allergy/AdvReac Type Severity Reaction Status Date / Time amoxicillin Allergy Unknown hives Verified 11/01/23 19:45 cephalexin Allergy Unknown rash Verified 11/01/23 19:45 Sulfa (Sulfonamide Allergy Unknown hives Verified 11/01/23 19:45 Antibiotics) verapamil Allergy Unknown hives Verified 11/01/23 19:45 Consultations 11/01/23 20:13 ED Decision to Admit Stat 11/01/23 22:12 Consult Orthopedic Spine Surgery Routine Consult Radiation Oncology Routine 11/02/23 11:06 Consult Pain Management Routine 11/10/23 07:48 Consult Palliative Care Routine Ordered Studies 11/01/23 17:09 CT abd pelvis IV con only Stat CT lumbar spine w con Stat 11/01/23 17:22 CT thoracic spine w con Stat 11/03/23 CT guide rad therapy chest Routine 11/06/23 08:16 CT chest without contrast [CT chest diagnostic wo con] Routine Hospital Course (1) Fracture of thoracic spine: 11/18/2023 83-year-old gentleman with PMH of chronic systolic heart failure [EF 25 to 30%, 2020 TTE], CAD, 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 Julian Marshall], GERD, T2DM, hypothyroidism, chronic hyponatremia, chronic anemia [baseline hemoglobin around 13], dementia, traumatic subdural hematoma, past tobacco abuse presented to the hospital 11/01 with complaint of worsening mid back pain that has been ongoing since last month without radicular signs of symptoms/fever/chills/weakness/bowel or bladder incontinence. [facility] oncology started patient on oxycodone and reported patient to [facility] radiation therapy. CT simulation for treatment planning was contemplated. Metastatic disease from the prostate cancer with pathological fracture thoracic spine Remains in the hospital more than 17 days Appreciate palliative care input and recommendation for hospice care/comfort care Remains comfortable and unresponsive to usual stimuli Evaluated by hospice today and the patient will be moved into inpatient hospice care Discussed with the in detail and she is agreeable with that Patient will be discharged and will be readmitted under the care of hospice with the medications as advised by hospice. The patient on 11/20/2023 at 1030 hrs. The was in the room. Below is the detailed hospital course. 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 Julian Marshall], GERD, T2DM, hypothyroidism, chronic hyponatremia, chronic anemia [baseline hemoglobin around 13], dementia, traumatic subdural hematoma, past tobacco abuse presented to the hospital 11/01 with complaint of worsening mid back pain that has been ongoing since last month without radicular signs of symptoms/fev er/chills/weakness/bowel or bladder incontinence. [facility] oncology started patient on oxycodone and reported patient to [facility] radiation therapy. CT simulation for treatment planning was contemplated. Also patient underwent outpatient EGD for Raygoza's esophagus and colonoscopy for possible colonic mass on outpatient PET/CT at [facility] 5 days ago [employer]. EGD showed Raygoza's esophagus/incomplete resection done/esophageal biopsy yielded tumor cells - invasive adenocarcinoma. Colonoscopy showed moderate sigmoid and descending colon diverticulosis/internal hemorrhoids/splenic flexure polyp resected -negat. for malignancy He is being managed for the following: Pathologic fracture x thoracic spine Metastatic disease from prostate cancer Opioid-induced constipation Patient coming in with worsening midthoracic pain for about a month, worse lately. Recently started on opiates as an outpatient for pain management, patient with no bowel movements for several days prior to arrival. Admitting CTAP with no acute findings in abdomen and pelvis. Admitting lumbar spine CT with multifocal osteoblastic metastatic disease. Superior endplate compression deformity of L1, unchanged. Admitting thoracic spine CT with pathologic fracture of T7. Invasion of the right T6-T7 neuroforamen with erosion of the right posterior sixth and seventh ribs. Left-pedicular fracture at T7 and spinous fracture of T7. Right pedicle of T7 is eroded. c/w pain medications, as needed oxycodone and as needed morphine. Lidocaine patch. Scheduled percocet. As needed Ativan for anxiety. Pain management consulted - adding gabapentin 300 mg TID to address neuropathic pain component. Radiation oncology consulted - and pt started radiation treatment Ortho-spine surgery consulted for abnormal T-spine CT - per Dr. Smith - Assessment T7 pathologic compression fracture. Explained the patient that he has a significant fracture in the thoracic spine that could result in neurologic compromise if it were to progress. Pt emphasized that he does not want to consider any surgical intervention. He knows this despite impending neurologic issues. If he were to pursue surgery however he would be a candidate for tertiary care center. Scheduled bowel regimen, sennakot, MiraLAX, lactulose. gave additional dose of Relistor on (11/03). Ordered suppository (11/04). Increased miralax frequency. - > Pt had a BM overnight. Cont. bowel regimen and monitor. PT/OT. 11/04 Feeling better today. at time of exam pt without any significant pain. 11/05 Pain seems better controlled. Plan for radiation therapy today. Worked w/ PT, is wearing brace. 11/06 Unfortunately today pt is more painful, uncomfortable 11/07 Pt uncomfortable, abd. pain - per gets on and off, abdomen is distended - obtained KUB - No evidence for a bowel obstruction. 11/08 Pt more comfortable, pain controlled. However had a chocking episode - will place npo, and speech eval. start gentle IVF 11/09 Pt comfortable, pain controlled. Drowsy. 11/10 can't tolerate PO meds, aspirating last evening. Somewhat restless but pain seems fairly controlled. Plan for RT today. palliative medicine consulted. 11/11 Tolerated RT yesterday, plan for RT today. Medicine adjusted per pall. med. Pain is fairly controlled, pt easily gets restless. Patient to follow-up with his oncologist upon discharge. However overall prognosis is guarded at this point. Pt not able to tolerate PO. He gets easily confused / restless on pain medications. palliative medicine also consulted. Currently undergoing radiation therapy while inpt to help with back pain from pathological fracture (from metast. ca). Able to tolerate RT on and off. 11/13 Patient underwent radiation therapy again today Detailed discussion held with patient regarding goals of care She would like to see how the patient does through the night and reassess tomorrow Fever, poss. pna Spiked fever overnight 11/05 blood cultx and UA obtained by newspaper editor managing UA - negative blood cultx - posit. for staph - coag negat. staph - most likely contaminant. repeat cultx negat. for 48 hrs obtained CXR, and chest CT to further eval poss. infection CXR 1. Interval development of the mild pulmonary edema, small bilateral pleural effusions, and bibasilar densities. 2. Curvilinear lucency at the aortic knob and superior mediastinal widening will be better appreciated on the same day chest CT. Chest CT 1. Patchy and linear bibasilar densities most pronounced on the right. This may represent subsegmental atelectasis or a pneumonia. 2. Small bilateral pleural effusions. 3. A few subcentimeter nodules within the right lung measuring up to 5 mm. Follow-up recommended to ensure stability. 4. Stable cardiomegaly. 5. Redemonstration of the destructive mass centered at the T7 vertebral body with associated pathologic fractures of T7 as described above. This demonstrates epidural extension with moderate to severe central canal narrowing at this level. This is similar to the prior thoracic spine CT. 6. Osseous metastatic disease again noted. Started empiric abx (pt has allergy listed to pcn, started cefepime and vanco), cont. for now and await cultx. Pt had a chocking episode on 11/08 - likely aspirating. Added flagyl. stopped vanco as blood cultx + likely contaminant 11/13 Afebrile Will order Lasix 20 mg IV 1 dose Transient hypotension: Noted in ED likely secondary to narcotic pain meds use. Blood pressure medications on hold, gradually resume them. Other chronic medical conditions: Continue with/resume home meds as and when able. chronic systolic heart failure (EF 25 to 30%, TTE 2020)-Lasix 1 dose valvular heart disease (mild AR/MR/TR) CAD as per records A-fib/PE DVT, Eliquis on hold for 1 week following recent endoscopic procedure. Patient to resume Rx on 11/04/23 if without bleeding concerns as per . Eliquis resumed. colon cancer status post surgery, new colonic mass noted on imaging, recent post colonic biopsy - negative for dysplasia or malignancy - pt's updated by Dr. Rodriguez and by me Possible new esophageal cancer on recent EGD, history GERD/Raygoza's esophagus. Pt to f/u w/ his oncology on DC. Biopsy esophagus - invasive adenocarcinoma - pt's updated by Dr. Rodriguez and by me DM 2 insulin requiring, suboptimal control as of recent hemoglobin A1c of 7.22 May 2023 hypothyroidism, euthyroid as of this admission's TSH chronic hyponatremia likely secondary to malignancy chronic anemia, hemoglobin at baseline dementia, mentation at baseline as per however with pain meds on and off confused history traumatic subdural hematoma past tobacco abuse DVT prophylaxis. SCDs Re: Recent endoscopic procedure, so eliquis was held-> Resumed Eliquis- but now can't take Po -> switched to lovenox therap. dose DNR PT/OT, CM to assist w/ DC plan. Patient Ms.Dottie Chavez, contact #[phone]. Total Time Total Time Spent Total Time Spent (In Minutes): 20 minutes Discharge Plan Discharge Items Patient Disposition: Hospice - Medical Facility Reason For Visit: THORACIC SPINE FX, HYPOTENSION Discharge Diagnosis: Metastatic prostate cancer, fracture of the thoracic spine Condition on Discharge: Critical Activity: As commented below Activity Comment: Remains bedbound Non-emergency contact: Specialist Call non-emergency contact if: you have any medication questions and your symptoms worsen Follow-up/Referrals: Roque Rodriguez MD [Primary Care Provider] - Diet: Nothing by Mouth Addtl Attending Provider Instructions: Remains comfortable in bed Medications as per Hospice as ordered Pending Studies at Discharge: No Stand-Alone Forms: My [facility] Skilled Items Patient informed of condition?: No DNR: Yes Discharge Level of Care: Other Communicable Disease: No Discharge Prognosis: Other Lines: Peripheral IV Urinary Catheter: Yes Medications and DC Order Prescriptions: Discontinued atorvastatin 10 mg tablet 10 mg PO DAILY furosemide [Lasix] 20 mg tablet 20 mg PO [id number] Rx Instructions: 3 times per week. Mon, wed, fri Lupron Depot (3 month) 22.5 mg syringe kit 22.5 mg IM .Q3 months Rx Instructions: Due 11/06/2023 metoprolol succinate 25 mg tablet extended release 24 hr 12.5 mg PO DAILY urea 20 % cream 1 applic topical TID PRN (Reason: ..) [place] Advanced AREDS2 250-137.5-12.5 mg capsule 1 tab PO DAILY Rx Instructions: administer with AM and PM meals Tobradex ST 0.3-0.05 % drops,suspension 1 drp ophthalmic (eye) .as directed Rx Instructions: says this is an ointment polyethylene glycol 3350 [Miralax] 17 gram/dose powder 17 g PO DAILY calcium carbonate-vitamin D3 [Calcium with Vitamin D] 600 mg-10 mcg (400 unit) tablet 1 tab PO BID insulin glargine [Lantus Solostar U-100 Insulin] 100 unit/mL (3 mL) insulin pen 26 unit subcut QAM oxycodone 5 mg tablet 5 mg PO Q6H PRN (Reason: Pain) ondansetron HCl 8 mg tablet 8 mg PO Q8H PRN (Reason: Nausea) prochlorperazine maleate [Compazine] 10 mg tablet 10 mg PO Q6H PRN (Reason: Nausea) sucralfate [Carafate] 100 mg/mL suspension 10 ml PO QID latanoprost [Xalatan] 0.005 % drops 1 drp OPL HS glipizide 10 mg Tablet Extended Release 24hr 10 mg PO BIDM folic acid 1 mg Tablet 1 mg PO QAM Eliquis 5 mg tablet 5 mg PO .HOLD Rx Instructions: From 10/27/2023, hold for 7 days. levothyroxine 75 mcg Tablet 75 mcg PO DAILY lisinopril 5 mg tablet 2.5 mg PO DAILY pantoprazole 40 mg tablet,delayed release (DR/EC) 40 mg PO DAILY Rx Instructions: before breakfast Discharge Orders: Discharge Order (Routine); Ordered 11/18/23 Ordered By: August Rodarte/Other Patient Handouts: Managing Type 2 Diabetes Admission Data Admit Date/Time: 11/01/23 22:08 Attending Provider: August Carbajal Admit Provider: Wayne Rosenberg Primary Care Provider: Roque Rodriguez Other Providers: Raffi Carter; [facility]; Rodrigo Mcdermott; [facility]; Alber Kramer; Wayne Rosenberg; Jon Smith; Alexandro Marshall; [facility]; Sil Gu
== END 2023-11-18 14:41 | disposition hospice, inpatient (51) | DRG 542 ==
LOC: ED 16:54 → SUATTDRO 22:08 → EDINP 22:08 → 2W 11-02 18:46
DX: I95.2 Hypotension due to drugs; I25.10 Atherosclerotic heart disease of native coronary artery without angina pectoris; Z92.3 Personal history of irradiation; Z86.718 Personal history of other venous thrombosis and embolism; Z79.01 Long term (current) use of anticoagulants; Z88.1 Allergy status to other antibiotic agents; Z81.2 Family history of tobacco abuse and dependence; F01.511 Vascular dementia, unspecified severity, with agitation; K22.70 Barrett's esophagus without dysplasia; T40.605A Adverse effect of unspecified narcotics, initial encounter; Z79.890 Hormone replacement therapy; E11.9 Type 2 diabetes mellitus without complications; I13.0 Hypertensive heart and chronic kidney disease with heart failure and stage 1 through stage 4 chronic kidney disease, or unspecified chronic kidney disease; M84.58XA Pathological fracture in neoplastic disease, other specified site, initial encounter for fracture; Z88.2 Allergy status to sulfonamides; E83.42 Hypomagnesemia; Z86.711 Personal history of pulmonary embolism; C79.51 Secondary malignant neoplasm of bone; J18.9 Pneumonia, unspecified organism; I48.91 Unspecified atrial fibrillation; G89.3 Neoplasm related pain (acute) (chronic); Y92.009 Unspecified place in unspecified non-institutional (private) residence as the place of occurrence of the external cause; C61 Malignant neoplasm of prostate; Z66 Do not resuscitate; E87.1 Hypo-osmolality and hyponatremia; I50.22 Chronic systolic (congestive) heart failure; D64.9 Anemia, unspecified; C18.9 Malignant neoplasm of colon, unspecified; Z51.5 Encounter for palliative care; K59.03 Drug induced constipation; N18.30 Chronic kidney disease, stage 3 unspecified; Z79.4 Long term (current) use of insulin

== ENCOUNTER 2023-11-18 14:41 | Inpatient (IN) ==
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
[2023-11-18] MEDS ORDERED: STAT IV Infusion **Titration per Protocol STA (15:08)
[2023-11-18] MEDS ORDERED: LORazepam 0.5 MG TAB PO PRN (15:12)
[2023-11-18] MEDS ORDERED: haloperidoL 1 MG TAB PO PRN (15:12)
[2023-11-18] MEDS ORDERED: MoRPHine SULF/NSS 100 MG/100 ML BAG IV SCH (15:15)
[2023-11-18] MEDS: HYDROmorphone INJ 0.5 MG/0.5 ML SYR IV PRN ×2 (16:12→22:48)
--- NOTE | 2023-11-19 15:11 | Hospitalist Progress Note ---
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 Julian Marshall], GERD, T2DM, hypothyroidism, chronic hyponatremia, chronic anemia [baseline hemoglobin around 13], dementia, traumatic subdural hematoma, past tobacco abuse presented to the hospital 11/01 with complaint of worsening mid back pain that has been ongoing since last month without radicular signs of symptoms/fever/chills/weakness/bowel or bladder incontinence. [facility] oncology started patient on oxycodone and reported patient to [facility] radiation therapy. CT simulation for treatment planning was contemplated. Metastatic disease from the prostate cancer with pathological fracture thoracic spine Remains in the hospital more than 17 days Appreciate palliative care input and recommendation for hospice care/comfort care Remains comfortable and unresponsive to usual stimuli Evaluated by hospice today and the patient will be moved into inpatient hospice care Discussed with the in detail and she is agreeable with that Patient will be discharged and will be readmitted under the care of hospice with the medications as advised by hospice. Below is the detailed hospital course. 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 Julian Marshall], GERD, T2DM, hypothyroidism, chronic hyponatremia, chronic anemia [baseline hemoglobin around 13], dementia, traumatic subdural hematoma, past tobacco abuse presented to the hospital 11/01 with complaint of worsening mid back pain that has been ongoing since last month without radicular signs of symptoms/fever/chills/weakness/bowel or bladder incontinence. [facility] oncology started patient on oxycodone and reported patient to [facility] radiation therapy. CT simulation for treatment planning was contemplated. Also patient underwent outpatient EGD for Raygoza's esophagus and colonoscopy for possible colonic mass on outpatient PET/CT at [facility] 5 days ago [employer]. EGD showed Raygoza's esophagus/incomplete resection done/esophageal biopsy yielded tumor cells - invasive adenocarcinoma. Colonoscopy showed moderate sigmoid and descending colon diverticulosis/internal hemorrhoids/splenic flexure polyp resected -negat. for malignancy He is being managed for the following: Pathologic fracture x thoracic spine Metastatic disease from prostate cancer Opioid-induced constipation Patient coming in with worsening midthoracic pain for about a month, worse lately. Recently started on opiates as an outpatient for pain management, patient with no bowel movements for several days prior to arrival. Admitting CTAP with no acute findings in abdomen and pelvis. Admitting lumbar spine CT with multifocal osteoblastic metastatic disease. Superior endplate compression deformity of L1, unchanged. Admitting thoracic spine CT with pathologic fracture of T7. Invasion of the right T6-T7 neuroforamen with erosion of the right posterior sixth and seventh ribs. Left-pedicular fracture at T7 and spinous fracture of T7. Right pedicle of T7 is eroded. c/w pain medications, as needed oxycodone and as needed morphine. Lidocaine patch. Scheduled percocet. As needed Ativan for anxiety. Pain management consulted - adding gabapentin 300 mg TID to address neuropathic pain component. Radiation oncology consulted - and pt started radiation treatment Ortho-spine surgery consulted for abnormal T-spine CT - per Dr. Smith - Assessment T7 pathologic compression fracture. Explained the patient that he has a significant fracture in the thoracic spine that could result in neurologic compromise if it were to progress. Pt emphasized that he does not want to consider any surgical intervention. He knows this despite impending neurologic issues. If he were to pursue surgery however he would be a candidate for tertiary care center. Scheduled bowel regimen, sennakot, MiraLAX, lactulose. gave additional dose of Relistor on (11/03). Ordered suppository (11/04). Increased miralax frequency. - > Pt had a BM overnight. Cont. bowel regimen and monitor. PT/OT. 11/04 Feeling better today. at time of exam pt without any significant pain. 11/05 Pain seems better controlled. Plan for radiation therapy today. Worked w/ PT, is wearing brace. 11/06 Unfortunately today pt is more painful, uncomfortable 11/07 Pt uncomfortable, abd. pain - per gets on and off, abdomen is distended - obtained KUB - No evidence for a bowel obstruction. 11/08 Pt more comfortable, pain controlled. However had a chocking episode - will place npo, and speech eval. start gentle IVF 11/09 Pt comfortable, pain controlled. Drowsy. 11/10 can't tolerate PO meds, aspirating last evening. Somewhat restless but pain seems fairly controlled. Plan for RT today. palliative medicine consulted. 11/11 Tolerated RT yesterday, plan for RT today. Medicine adjusted per pall. med. Pain is fairly controlled, pt easily gets restless. Patient to follow-up with his oncologist upon discharge. However overall prognosis is guarded at this point. Pt not able to tolerate PO. He gets easily confused / restless on pain medications. palliative medicine also consulted. Currently undergoing radiation therapy while inpt to help with back pain from pathological fracture (from metast. ca). Able to tolerate RT on and off. 11/13 Patient underwent radiation therapy again today Detailed discussion held with patient regarding goals of care She would like to see how the patient does through the night and reassess tomorrow Fever, poss. pna Spiked fever overnight 11/05 blood cultx and UA obtained by vice president media relations UA - negative blood cultx - posit. for staph - coag negat. staph - most likely contaminant. repeat cultx negat. for 48 hrs obtained CXR, and chest CT to further eval poss. infection CXR 1. Interval development of the mild pulmonary edema, small bilateral pleural effusions, and bibasilar densities. 2. Curvilinear lucency at the aortic knob and superior mediastinal widening will be better appreciated on the same day chest CT. Chest CT 1. Patchy and linear bibasilar densities most pronounced on the right. This may represent subsegmental atelectasis or a pneumonia. 2. Small bilateral pleural effusions. 3. A few subcentimeter nodules within the right lung measuring up to 5 mm. Follow-up recommended to ensure stability. 4. Stable cardiomegaly. 5. Redemonstration of the destructive mass centered at the T7 vertebral body with associated pathologic fractures of T7 as described above. This demonstrates epidural extension with moderate to severe central canal narrowing at this level. This is similar to the prior thoracic spine CT. 6. Osseous metastatic disease again noted. Started empiric abx (pt has allergy listed to pcn, started cefepime and vanco), cont. for now and await cultx. Pt had a chocking episode on 11/08 - likely aspirating. Added flagyl. stopped vanco as blood cultx + likely contaminant 11/13 Afebrile Will order Lasix 20 mg IV 1 dose Transient hypotension: Noted in ED likely secondary to narcotic pain meds use. Blood pressure medications on hold, gradually resume them. Other chronic medical conditions: Continue with/resume home meds as and when able. chronic systolic heart failure (EF 25 to 30%, TTE 2020)-Lasix 1 dose valvular heart disease (mild AR/MR/TR) CAD as per records A-fib/PE DVT, Eliquis on hold for 1 week following recent endoscopic procedure. Patient to resume Rx on 11/04/23 if without bleeding concerns as per . Eliquis resumed. colon cancer status post surgery, new colonic mass noted on imaging, recent post colonic biopsy - negative for dysplasia or malignancy - pt's updated by Dr. Rodriguez and by me Possible new esophageal cancer on recent EGD, history GERD/Raygoza's esop hagus. Pt to f/u w/ his oncology on DC. Biopsy esophagus - invasive adenocarcinoma - pt's updated by Dr. Rodriguez and by me DM 2 insulin requiring, suboptimal control as of recent hemoglobin A1c of 7.22 May 2023 hypothyroidism, euthyroid as of this admission's TSH chronic hyponatremia likely secondary to malignancy chronic anemia, hemoglobin at baseline dementia, mentation at baseline as per however with pain meds on and off confused history traumatic subdural hematoma past tobacco abuse DVT prophylaxis. SCDs Re: Recent endoscopic procedure, so eliquis was held-> Resumed Eliquis- but now can't take Po -> switched to lovenox therap. dose DNR PT/OT, CM to assist w/ DC plan. Patient Ms.Dottie Chavez, contact #[phone]. Admission and Anticipated Discharge Date Admission Date: November 18, 2023 Subjective 11/18/2023 The patient was seen and examined in medical telemetry unit in presence of the He remains unresponsive and the condition has worsened He will be on comfort care on the hospice 11/19/2023 The patient was seen and examined in medical telemetry unit in presence of the He remains stable on morphine drip Remains unconscious with minimal shortness of breath at rest Review of Systems Review of Systems: Unobtainable due to reduced consciousness Physical Exam Physical Exam: Remains unconscious with minimal shortness of breath at rest Constitutional: + ill appearing Eyes: PERRL, conjunctivae normal, anicteric sclerae ENMT: external ear and nose normal, oropharynx normal Neck: trachea midline, no thyromegaly Respiratory: + respiratory distress (Minimal respirat ory distress) Auscultation: + diminished lung sounds and + crackles (Minimal dependent crackles) Cardiovascular: Rate/Rhythm: regular rate, regular rhythm and + tachycardic Heart Sounds: normal S1, normal S2 and + murmur Extremities: no edema Gastrointestinal (Abdomen): Inspection/Auscultation: normal bowel sounds; abdomen not distended Percussion/Palpation: abdomen soft; abdomen nontender Lymphatic: no cervical or axillary lymphadenopathy Results & Data Results & Data Vital Signs (Past 12 Hours) Vital Signs Temp Pulse Resp BP Pulse Ox O2 Del Method 11/19/23 07:55 36.6 C 61 18 112/66 92 Room Air Medications Administered Current Inpatient Medications Haloperidol (Haloperidol 1 Mg Tab) 1 mg PO Q3H PRN PRN Reason: Agitation Stop: 12/18/23 15:11 Hydromorphone HCl (Hydromorphone Inj 0.5 Mg/0.5 Ml Syr) 0.25 mg IV Q15M PRN PRN Reason: Pain Stop: 12/02/23 15:11 Last Admin: 11/18/23 22:48 Dose: 0.25 mg Morphine Sulfate (Morphine Sulf/Nss) 100 mg in 100 mls @ 1.9 mls/hr IV .[id number] [facility]; Protocol Stop: 12/02/23 15:14 Last Titration: 11/19/23 04:57 Dose: 1.9 mg/hr, 1.9 mls/hr Lorazepam (Lorazepam 0.5 Mg Tab) 0.5 mg PO Q4H PRN PRN Reason: Anxiety Stop: 12/18/23 15:11 Last Admin: 11/19/23 13:32 Dose: 0.5 mg (1) Fracture of thoracic spine Encounter type: subsequent encounter Fracture healing: with delayed healing Fracture morphology: unspecified fracture morphology Fracture type: closed Thoracic vertebra fracture level: T7 Qualified Code(s): S22.069G - Unspecified fracture of T7-T8 vertebra, subsequent encounter for fracture with delayed healing
--- NOTE | 2023-12-03 09:27 | Discharge Summary ---
Date of Service December 03, 2023 Admission HPI Per Admitting Provider History obtained from patient, family, and records. 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 Last confinement December 2020 for decompensated heart failure. Patient noted achy mid back pain symptoms last month without leg radiation. No fever, no chills, no leg weakness. Outpatient CT chest last month showed Multiple osteoblastic metastases throughout the thoracic spine. 5.5 x 4.3 cm (x 4.1 cm cc) soft tissue mass envelops a C7 vertebral body compression fracture which also has an osteoblastic lesion in the left pedicle. There is mild posterior retropulsion along the right vertebral body and pedicle resulting in mild canal stenosis. Lower cervical ACDF intact. Polyostotic osteoblastic prostate cancer metastases. Tiny pulmonary nodules as described are nonspecific. Outpatient PET scan done this month showed 1. Metabolically active destructive mass in the T7 vertebral body which extends into the spinal canal resulting in mass effect on the spinal cord, consistent with malignancy. 2. Numerous additional sclerotic lesions throughout the visualized bones without significant metabolic activity, many of which are stable compared to CT abdomen/pelvis dated 09/29/2022, favoring treated disease. 3. Focal metabolic activity in the splenic flexure of the colon, in the location of the suspected mass seen on the prior CT abdomen/pelvis, is concerning for malignancy. [facility] oncologist started patient on oxycodone and referred patient to [facility] radiation therapy. CT stimulation for treatment planning recommended by RT on outpatient evaluation 4 days ago. Patient underwent outpatient EGD for Raygoza's esophagus follow-up and colonoscopy for possible colonic mass on outpatient PET/CT at [facility] 5 days ago. EGD showed Raygoza's esophagus. Incomplete resection done. Esophageal biopsy yielded tumor cells that stain positive for p53 and CDX2. Esophageal primary favored as per report, given presence of intestinal metaplasia and high-grade dysplasia. Colonoscopy showed moderate sigmoid and descending colon diverticulosis, internal hemorrhoids. Splenic flexure polyp resected, pathology pending at time of dictation. Patient instructed to avoid NSAIDs and hold Eliquis for 1 week after procedure. Patient had worsening mid back complaints over the last couple of weeks without leg weakness, fever or chills. Increasing oxycodone Rx causing abdominal distention and nausea. No bowel movement for the last 4 days which is unusual for patient despite home laxative Rx. Patient brought to ER for evaluation by . Lowest SBP of 90s noted at the ER. 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 Admission Exam Per Admitting Provider Physical Exam: Lying in bed without any acute distress Constitutional: + ill appearing Eyes: PERRL, conjunctivae normal, anicteric sclerae ENMT: external ear and nose normal, oropharynx normal Neck: trachea midline, no thyromegaly Respiratory: + respiratory distress (Minimal respirat ory distress) Auscultation: + diminished lung sounds and + crackles (Minimal dependent crackles) Cardiovascular: Rate/Rhythm: regular rate, regular rhythm and + tachycardic Heart Sounds: normal S1, normal S2 and + murmur Extremities: no edema Gastrointestinal (Abdomen): Inspection/Auscultation: normal bowel sounds; abdomen not distended Percussion/Palpation: abdomen soft; abdomen nontender Musculoskeletal: No acute arthritis involving any of the joint Neurologic: Remains unresponsive Lymphatic: no cervical or axillary lymphadenopathy Principal Diagnosis Pathologic fracture x thoracic spine Metastatic disease from prostate cancer Opioid-induced constipation Discharge Exam Remains unconscious with minimal shortness of breath at rest Constitutional + ill appearing Eyes PERRL, conjunctivae normal, anicteric sclerae ENMT external ear and nose normal, oropharynx normal Neck trachea midline, no thyromegaly Respiratory + respiratory distress (Minimal respiratory distress) Auscultation: + diminished lung sounds and + crackles (Minimal dependent crackles) Cardiovascular Rate/Rhythm: regular rate, regular rhythm and + tachycardic Heart Sounds: normal S1, normal S2 and + murmur Extremities: no edema Gastrointestinal (Abdomen) Inspection/Auscultation: normal bowel sounds; abdomen not distended Percussion/Palpation: abdomen soft; abdomen nontender Lymphatic no cervical or axillary lymphadenopathy Discharge Data Allergies Allergy/AdvReac Type Severity Reaction Status Date / Time amoxicillin Allergy Unknown hives Verified 11/01/23 19:45 cephalexin Allergy Unknown rash Verified 11/01/23 19:45 Sulfa (Sulfonamide Allergy Unknown hives Verified 11/01/23 19:45 Antibiotics) verapamil Allergy Unknown hives Verified 11/01/23 19:45 Hospital Course (1) Fracture of thoracic spine: 11/18/2023 83-year-old gentleman with PMH of chronic systolic heart failure [EF 25 to 30%, 2020 TTE], CAD, 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 Julian Marshall], GERD, T2DM, hypothyroidism, chronic hyponatremia, chronic anemia [baseline hemoglobin around 13], dementia, traumatic subdural hematoma, past tobacco abuse presented to the hospital 11/01 with complaint of worsening mid back pain that has been ongoing since last month without radicular signs of symptoms/fever/chills/weakness/bowel or bladder incontinence. [facility] oncology started patient on oxycodone and reported patient to [facility] radiation therapy. CT simulation for treatment planning was contemplated. Metastatic disease from the prostate cancer with pathological fracture thoracic spine Remains in the hospital more than 17 days Appreciate palliative care input and recommendation for hospice care/comfort care Remains comfortable and unresponsive to usual stimuli Evaluated by hospice today and the patient will be moved into inpatient hospice care Discussed with the in detail and she is agreeable with that Patient will be discharged and will be readmitted under the care of hospice with the medications as advised by hospice. Below is the detailed hospital course. 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 Julian Marshall], GERD, T2DM, hypothyroidism, chronic hyponatremia, chronic anemia [baseline hemoglobin around 13], dementia, traumatic subdural hematoma, past tobacco abuse presented to the hospital 11/01 with complaint of worsening mid back pain that has been ongoing since last month without radicular signs of symptoms/fever/chills/weakness/bowel or bladder incontinence. [facility] oncology started patient on oxycodone and reported patient to [facility] radiation therapy. CT simulation for treatment planning was contemplated. Also patient underwent outpatient EGD for Raygoza's esophagus and colonoscopy for possible colonic mass on outpatient PET/CT at [facility] 5 days ago [employer]. EGD showed Raygoza's esophagus/incomplete resection done/esophageal biopsy yielded tumor cells - invasive adenocarcinoma. Colonoscopy showed moderate sigmoid and descending colon diverticulosis/internal hemorrhoids/splenic flexure polyp resected -negat. for malignancy He is being managed for the following: Pathologic fracture x thoracic spine Metastatic disease from prostate cancer Opioid-induced constipation Patient coming in with worsening midthoracic pain for about a month, worse lately. Recently started on opiates as an outpatient for pain management, patient with no bowel movements for several days prior to arrival. Admitting CTAP with no acute findings in abdomen and pelvis. Admitting lumbar spine CT with multifocal osteoblastic metastatic disease. Superior endplate compression deformity of L1, unchanged. Admitting thoracic spine CT with pathologic fracture of T7. Invasion of the right T6-T7 neuroforamen with erosion of the right posterior sixth and seventh ribs. Left-pedicular fracture at T7 and spinous fracture of T7. Right pedicle of T7 is eroded. c/w pain medications, as needed oxycodone and as needed morphine. Lidocaine patch. Scheduled percocet. As needed Ativan for anxiety. Pain management consulted - adding gabapentin 300 mg TID to address neuropathic pain component. Radiation oncology consulted - and pt started radiation treatment Ortho-spine surgery consulted for abnormal T-spine CT - per Dr. Smith - Assessment T7 pathologic compression fracture. Explained the patient that he has a significant fracture in the thoracic spine that could result in neurologic compromise if it were to progress. Pt emphasized that he does not want to consider any surgical intervention. He knows this despite impending neurologic issues. If he were to pursue surgery however he would be a candidate for tertiary care center. Scheduled bowel regimen, sennakot, MiraLAX, lactulose. gave additional dose of Relistor on (11/03). Ordered suppository (11/04). Increased miralax frequency. - > Pt had a BM overnight. Cont. bowel regimen and monitor. PT/OT. 11/04 Feeling better today. at time of exam pt without any significant pain. 11/05 Pain seems better controlled. Plan for radiation therapy today. Worked w/ PT, is wearing brace. 11/06 Unfortunately today pt is more painful, uncomfortable 11/07 Pt uncomfortable, abd. pain - per gets on and off, abdomen is distended - obtained KUB - No evidence for a bowel obstruction. 11/08 Pt more comfortable, pain controlled. However had a chocking episode - will place npo, and speech eval. start gentle IVF 11/09 Pt comfortable, pain controlled. Drowsy. 11/10 can't tolerate PO meds, aspirating last evening. Somewhat restless but pain seems fairly controlled. Plan for RT today. palliative medicine consulted. 11/11 Tolerated RT yesterday, plan for RT today. Medicine adjusted per pall. med. Pain is fairly controlled, pt easily gets restless. Patient to follow-up with his oncologist upon discharge. However overall prognosis is guarded at this point. Pt not able to tolerate PO. He gets easily confused / restless on pain medications. palliative medicine also consulted. Currently undergoing radiation therapy while inpt to help with back pain from pathological fracture (from metast. ca). Able to tolerate RT on and off. 11/13 Patient underwent radiation therapy again today Detailed discussion held with patient regarding goals of care She would like to see how the patient does through the night and reassess tomorrow Fever, poss. pna Spiked fever overnight 11/05 blood cultx and UA obtained by it business systems analyst UA - negative blood cultx - posit. for staph - coag negat. staph - most likely contaminant. repeat cultx negat. for 48 hrs obtained CXR, and chest CT to further eval poss. infection CXR 1. Interval development of the mild pulmonary edema, small bilateral pleural effusions, and bibasilar densities. 2. Curvilinear lucency at the aortic knob and superior mediastinal widening will be better appreciated on the same day chest CT. Chest CT 1. Patchy and linear bibasilar densities most pronounced on the right. This may represent subsegmental atelectasis or a pneumonia. 2. Small bilateral pleural effusions. 3. A few subcentimeter nodules within the right lung measuring up to 5 mm. Follow-up recommended to ensure stability. 4. Stable cardiomegaly. 5. Redemonstration of the destructive mass centered at the T7 vertebral body with associated pathologic fractures of T7 as described above. This demonstrates epidural extension with moderate to severe central canal narrowing at this level. This is similar to the prior thoracic spine CT. 6. Osseous metastatic disease again noted. Started empiric abx (pt has allergy listed to pcn, started cefepime and vanco), cont. for now and await cultx. Pt had a chocking episode on 11/08 - likely aspirating. Added flagyl. stopped vanco as blood cultx + likely contaminant 11/13 Afebrile Will order Lasix 20 mg IV 1 dose Transient hypotension: Noted in ED likely secondary to narcotic pain meds use. Blood pressure medications on hold, gradually resume them. Other chronic medical conditions: Continue with/resume home meds as and when able. chronic systolic heart failure (EF 25 to 30%, TTE 2020)-Lasix 1 dose valvular heart disease (mild AR/MR/TR) CAD as per records A-fib/PE DVT, Eliquis on hold for 1 week following recent endoscopic procedure. Patient to resume Rx on 11/04/23 if without bleeding concerns as per . Eliquis resumed. colon cancer status post surgery, new colonic mass noted on imaging, recent post colonic biopsy - negative for dysplasia or malignancy - pt's updated by Dr. Rodriguez and by me Possible new esophageal cancer on recent EGD, history GERD/Raygoza's esop hagus. Pt to f/u w/ his oncology on DC. Biopsy esophagus - invasive adenocarcinoma - pt's updated by Dr. Rodriguez and by me DM 2 insulin requiring, suboptimal control as of recent hemoglobin A1c of 7.22 May 2023 hypothyroidism, euthyroid as of this admission's TSH chronic hyponatremia likely secondary to malignancy chronic anemia, hemoglobin at baseline dementia, mentation at baseline as per however with pain meds on and off confused history traumatic subdural hematoma past tobacco abuse DVT prophylaxis. SCDs Re: Recent endoscopic procedure, so eliquis was held-> Resumed Eliquis- but now can't take Po -> switched to lovenox therap. dose DNR PT/OT, CM to assist w/ DC plan. Patient Ms.Dottie Chavez, contact #[phone]. Total Time Total Time Spent Total Time Spent (In Minutes): 35 minutes Discharge Plan Discharge Items Patient Disposition: Other Date/Time: 11/20/23 10:30
== END 2023-11-20 12:32 | disposition expired | DRG 951 ==
LOC: 2W 14:41